=== PATIENT | male | born 1935 | race American Indian/Alaskan Native ===

== ENCOUNTER 2017-11-12 10:50 | Outpatient (CLI) | payer MEDICARE ==
--- NOTE | 2017-11-12 15:41 | Cat Scan Report ---
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 No IV contrast administered. Multiplanar reformations. PRIORS: None. FINDINGS: Chest: Examination limited due to lack of IV contrast administration. The lungs show diffuse bullous and paraseptal emphysematous, as well as probable chronic interstitial or fibrotic changes and scarring scattered fairly symmetrically throughout both lungs. No discrete parenchymal mass, focal consolidation or pleural effusions. No apparent pneumothorax. Mild cardiomegaly and coronary artery calcifications. No apparent aneurysm or pseudoaneurysm. No significant lymph node enlargement or axillary adenopathy. Visualized upper abdomen grossly unremarkable. IMPRESSION: 1. Findings compatible with emphysematous and probable chronic interstitial lung disease, fibrosis or scarring versus nonspecific postinflammatory change or pneumonitis of uncertain etiology or chronicity. Clinical correlation and followup may be warranted. 2. Cardiomegaly and coronary artery calcifications.
== END 2017-11-12 10:51 | disposition home or self-care (01) ==
LOC: CT 10:50
PROVIDERS: ATTEND Internal Medicine
DX: I51.7 Cardiomegaly (principal); I25.10 Atherosclerotic heart disease of native coronary artery without angina pectoris
CPT/HCPCS: 71250

== ENCOUNTER 2018-03-21 14:12 | Inpatient (IN) | payer MEDICARE ==
[2018-03-21] MEDS ORDERED: TESSALON PERLES PO ONE (15:28)
--- NOTE | 2018-03-21 15:39 | Emergency Department Report ---
HPI - General Chief Complaint: Upper Respiratory Infection Time Seen by Provider: 03/21/18 15:05 - HPI HPI: Room 25 The patient is an 83-year-old male presenting with a chief complaint of cough. 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 Willams in any today with a chief complaint of cough, shortness of breath. Chest x-ray reveal ed a left lower lobe pulmonary infiltrate and pleural effusion. Dr Willams sent the patient to the hospital with a note recommending admission to the hospital. Location: Lungs Duration: [See above] Quality: Cough Severity: [See above] Modifying factors: [see above] Context: [see above] Mode of transportation: [not driving] ED Past Medical Hx - Past Medical History Previous Medical History?: Yes Hx Hypertension: Yes Hx CVA: Yes (Left) Hx Diabetes: Yes (Type II) Additional medical history: Dementia - Family History Family history: no significant - Social History Smoking Status: Never Smoker Substance Use Type: None ED Review of Systems ROS: Stated complaint: PNEUMONIA/COUGH Other details as noted in HPI Constitutional: no symptoms reported Eyes: denies: eye pain Respiratory: cough, shortness of breath Endocrine: no symptoms reported Musculoskeletal: arthralgia Physical Exam - Physical Exam Vital Signs: Vital Signs 03/21/18 14:50 Temperature 98.1 F Pulse Rate 95 H Respiratory 16 Rate Blood Pressure 129/70 O2 Sat by Pulse 98 Oximetry Physical Exam: GENERAL: The patient is well-developed well-nourished male lying on stretcher coughing frequently. [] HEENT: Normocephalic. Atraumatic. Extraocular motions are intact. Patient has moist mucous membranes. NECK: Supple. Trachea midline CHEST/LUNGS: Crackles at the right base. Diminished breath sounds at the left base. There is no respiratory distress noted. HEART/CARDIOVASCULAR: Regular. There is no tachycardia. There is no gallop rub or murmur. ABDOMEN: Abdomen is soft, nontender. Patient has normal bowel sounds. There is no abdominal distention. SKIN: There is no rash. There is no edema. There is no diaphoresis. NEURO: The patient is awake, alert, and oriented. The patient is cooperative. The patient has normal speech MUSCULOSKELETAL: There is no evidence of acute injury. ED Course Vital Signs 03/21/18 14:50 Temperature 98.1 F Pulse Rate 95 H Respiratory 16 Rate Blood Pressure 129/70 O2 Sat by Pulse 98 Oximetry ED Medical Decision Making - Lab Data Result diagrams: 03/21/18 15:46 03/21/18 15:46 Laboratory Tests 03/21/18 03/21/18 03/21/18 15:46 15:46 15:46 WBC 7.7 RBC 4.19 Hgb 11.6 L Hct 36.4 MCV 87 MCH 28 MCHC 32 RDW 17.7 H Plt Count 257 PT 16.8 H INR 1.28 H APTT 25.7 Sodium 138 Potassium 3.7 Chloride 99.9 Carbon Dioxide 23 Anion Gap 19 BUN 13 Creatinine 0.9 Estimated GFR > 60 BUN/Creatinine Ratio 14 Glucose 121 H Calcium 9.2 NT-Pro-B Natriuret Pep 216.7 - Radiology Data Radiology results: image reviewed (chest x-ray) interpreted by me: Chest x-ray-large left pleural effusion - Differential Diagnosis pleural effusion, pneumonia Critical care attestation.: If time is entered above; I have spent that time in minutes in the direct care of this critically ill patient, excluding procedure time. ED Disposition Clinical Impression: Pleural effusion, left, Cough, Shortness of breath Disposition: DC-[id number] OP ADMIT IP TO THIS HOSP Is pt being admited?: Yes Does the pt Need Aspirin: Yes Condition: Fair Time of Disposition: 16:26 (hospitalist paged (Dr Vergara))
[2018-03-21 16:02] LABS: Hematocrit 36.4 % (35.5-45.6); Hemoglobin 11.6 gm/dl (11.8-15.2); Mean Corpuscular HGB Conc 32 % (32-34); Mean Corpuscular Volume 87 fl (84-94); Platelet Count 257 K/mm3 (140-440); Red Blood Count 4.19 M/mm3 (3.65-5.03); Red Cell Distribution Width 17.7 % (13.2-15.2)
[2018-03-21 16:14] LABS: BUN/Creatinine Ratio 14; Blood Urea Nitrogen 13 mg/dL (9-20); Calcium 9.2 mg/dL (8.4-10.2); Hemolysis Index 2; INR 1.28 (0.87-1.13)
[2018-03-21 16:15] LABS: Partial Thromboplastin Time 25.7 Sec. (24.2-36.6)
[2018-03-21] MEDS ORDERED: ASPIRIN PO ONE (16:45)
--- NOTE | 2018-03-21 17:12 | XRay Report ---
FINAL REPORT EXAM: XR CHEST 1V AP HISTORY: cough COMPARISON: Chest CT performed on 01/17/2018 TECHNIQUE: Single frontal view of the chest FINDINGS: The cardiomediastinal silhouette is normal in appearance. Hazy opacity in the left lower lobe. Small left pleural effusion. There is no acute soft tissue or osseous abnormality. IMPRESSION: Hazy opacity in the left lower lobe that may reflect infiltrate or atelectasis. Small left pleural ef fusion.
[2018-03-21 17:15] LABS: Band Neutrophils # (Manual) 0.4 K/mm3; Total Cells Counted 100
[2018-03-21 17:16] LABS: Poikilocytosis Few
--- NOTE | 2018-03-21 22:04 | History and Physical Report ---
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 He is found to be short of breath and had a cough productive of yellow phlegm. No further history is able to obtain from the patient Review of systems Constitutional: no weight loss, chills, fever Ears, eyes, nose, mouth and throat: no nasal congestion, no nasal discharge, no sinus pressure, no vision change, no red eye. Neck: No neck pain or rigidity. Cardiovascular: no palpitations, chest pain Respiratory: + cough, shortness of breath Gastrointestinal: no hematochezia, abdominal pain Genitourinary : no frequency , no hematuria Musculoskeletal: no joint swelling or muscle ache Integumentary: no rash, no pruritis Neurological: no parathesias, no focal weakness Endocrine: no cold or heat intolerance, no polyuria or polydipsia Hematologic/Lymphatic: no easy bruising, no easy bleeding, no gland swelling Allergic/Immunologic: no urticaria, no angioedema. PAST MEDICAL HISTORY: hypertension, CVA, dementia PAST SURGICAL HISTORY: Unknown SOCIAL HISTORY: Denies alcohol, drugs, tobacco FAMILY HISTORY: Hypertension Medications and Allergies Allergies Allergy/AdvReac Type Severity Reaction Status Date / Time No Known Allergies Allergy Unverified 11/12/17 10:51 Home Medications Medication Instructions Recorded Confirmed Last Taken Type Acetaminophen [Non-Aspirin] 650 mg PO Q6H PRN 03/21/18 03/21/18 Unknown History Albuterol Sulfate 2.5 mg IH Q6H 03/21/18 03/21/18 Unknown History Aspirin [Aspirin BABY CHEW TAB] 81 mg PO DAILY 03/21/18 03/21/18 Unknown History Diclofenac Sodium [Voltaren] 100 gm TP QID 03/21/18 03/21/18 Unknown History Loratadine [Claritin] 10 mg PO DAILY 03/21/18 03/21/18 Unknown History Metoprolol Xl [Metoprolol 25 mg PO DAILY 03/21/18 03/21/18 Unknown History SUCCINATE ER TAB] Multivit-Min/Iron/Folic Acid/K 1 each PO DAILY 03/21/18 03/21/18 Unknown History [Adults Multivitamin Tablet] Pravastatin Sodium [Pravachol] 40 mg PO QHS 03/21/18 03/21/18 Unknown History Exam - Physical Exam Narrative exam: General Apperance: The patient lying in bed, breathing comfortable HEENT: Normocephalic, atraumatic. Pupils equally round and reactive to light, EOMI, no sclericterus or JVD or thyromegaly or nodule. , no carotid bruit, mucous membranes moist, no exudate or erythema Heart: S1-S2, regular is rhythm Lungs: Crackles over the left base, breathing comfortable Abdomen: Positive bowel sounds, soft, nontender, nondistended, no organomegaly Extremities: No edema cyanosis clubbing Skin: no rash, nodule, warm and dry Neuro: cranial nerves 2-12 intact, speech is fluent, motor/sensory intact - Constitutional Vitals: Temp Pulse Resp BP Pulse Ox 98.1 F 87 22 98/66 99 03/21/18 20:54 03/21/18 21:00 03/21/18 21:00 03/21/18 21:00 03/21/18 20:59 Results - Labs CBC & Chem 7: 03/21/18 15:46 03/21/18 15:46 Labs: Abnormal lab results 03/21/18 03/21/18 03/21/18 Range/Units 15:46 15:46 15:46 Hgb 11.6 L (11.8-15.2) gm/dl RDW 17.7 H (13.2-15.2) % Monocytes % (Manual) 12.0 H (0.0-7.3) % Monocytes # (Manual) 0.9 H (0.0-0.8) K/mm3 PT 16.8 H (12.2-14.9) Sec. INR 1.28 H (0.87-1.13) Glucose 121 H (75-100) mg/dL - Imaging and Cardiology EKG: image reviewed Chest x-ray: report reviewed Assessment and Plan Assessment Community-acquired pneumonia hypertension History of CVA dementia Plan Admit to medicine Start IV antibiotic, follow cultures Continued appropriate outpatient medications DVT prophylaxis
[2018-03-21] MEDS ORDERED: ZOFRAN IV PRN (22:39)
[2018-03-22] MEDS: LEVAQUIN 500MG/100ML 500 MG/100 ML BAG IV SCH ×2 (00:03→09:25)
[2018-03-22] MEDS: SODIUM CHLORIDE FLUSH SYRINGE 10 ML IV PRN (00:10)
[2018-03-22] MEDS: TESSALON PERLES PO PRN ×2 (01:54→23:24)
[2018-03-22 04:27] LABS: Basophils # (Auto) 0.1 K/mm3 (0.0-0.1); Basophils % (Auto) 0.8 % (0.0-1.8); Eosinophils # (Auto) 0.1 K/mm3 (0.0-0.4); Eosinophils % (Auto) 0.9 % (0.0-4.3); Hemoglobin 10.4 gm/dl (11.8-15.2); Lymphocytes # (Auto) 1.4 K/mm3 (1.2-5.4); Lymphocytes % (Auto) 17.2 % (13.4-35.0); Mean Corpuscular HGB Conc 33 % (32-34); Mean Corpuscular Volume 86 fl (84-94); Monocytes # (Auto) 0.9 K/mm3 (0.0-0.8); Monocytes % (Auto) 11.4 % (0.0-7.3); Platelet Count 214 K/mm3 (140-440); Red Blood Count 3.72 M/mm3 (3.65-5.03); Red Cell Distribution Width 17.6 % (13.2-15.2)
[2018-03-22 04:50] LABS: BUN/Creatinine Ratio 17; Blood Urea Nitrogen 12 mg/dL (9-20); Calcium 8.4 mg/dL (8.4-10.2); Hemolysis Index 3
[2018-03-22] MEDS: TOPROL XL PO SCH ×2 (09:25→09:26)
[2018-03-22] MEDS: THERAGRAN-M Tab PO SCH ×2 (09:25→09:26)
[2018-03-22] MEDS: BABY ASPIRIN PO SCH ×2 (09:25→09:26)
[2018-03-22] MEDS: K-DUR PO ONE ×2 (09:25→09:27)
[2018-03-22] MEDS: LOVENOX SUB-Q SCH (09:25)
[2018-03-22] MEDS: SODIUM CHLORIDE FLUSH SYRINGE 10 ML IV SCH ×2 (09:26→22:30)
[2018-03-22] MEDS ORDERED: IRON PO SCH (10:00)
[2018-03-22] MEDS ORDERED: FOLIC ACID PO SCH (10:00)
[2018-03-22] MEDS ORDERED: [UNRECOGNIZED DRUG - OTHER] PO SCH (10:00)
[2018-03-22] MEDS ORDERED: MULTIVIT MIN PO SCH (10:00)
--- NOTE | 2018-03-22 14:11 | Fluoroscopy Report ---
MODIFIED BARIUM SWALLOW History: dysphagia. Findings: Video radiography was provided by the radiologist for speech therapy to assess the swallowing mechanism. 1 fluoroscopic image was captured. Impression: Successful modified barium swallow.
--- NOTE | 2018-03-22 14:47 | Progress Note ---
Assessment and Plan Assessment and plan: --Community-acquired pneumonia; Continue empiric antibiotics, follow cultures, oxygen titrated to O2 sats more than 90% --Aspiration risk; patient underwent swallow evaluation Speech therapist recommended pured diet --Hypertension; moderate control, continue current antihypertensives When necessary medications --Dementia; supportive care --DVT prophylaxis; Lovenox --CODE STATUS, full code Closely monitor the patient and adjust the management as needed Physical therapy and occupational therapy Possible discharge in 1-2 days if stable History Interval history: Patient seen and examined medical records reviewed Patient has aspiration risk some cough while eating Speech and swallow evaluated the patient, significant risk of aspiration Patient had modified barium swallow, speech therapist recommended pure diet Elderly male patient is alert and awake not in acute distress Vital signs reviewed Hospitalist Physical - Constitutional Vitals: Temp Pulse Resp BP Pulse Ox 98.1 F 80 20 123/73 99 03/22/18 07:35 03/22/18 10:00 03/22/18 10:00 03/22/18 07:35 03/22/18 09:18 General appearance: Present: no acute distress, well-nourished, other (confused at times) - EENT Eyes: Present: PERRL, EOM intact - Neck Neck: Present: supple, normal ROM - Respiratory Respiratory effort: normal Respiratory: bilateral: diminished, negative: rales, rhonchi, wheezing - Cardiovascular Rhythm: regular Heart Sounds: Present: S1 & S2 - Extremities Extremities: no ischemia, No edema - Abdominal General gastrointestinal: soft, non-tender, non-distended, normal bowel sounds - Integumentary Integumentary: Present: clear, warm - Psychiatric Psychiatric: appropriate mood/affect, cooperative - Neurologic Neurologic: CNII-XII intact, moves all extremities Results - Labs CBC & Chem 7: 03/22/18 03:20 03/22/18 03:20 Labs: Laboratory Last Values WBC 8.0 K/mm3 (4.5-11.0) 03/22/18 03:20 RBC 3.72 M/mm3 (3.65-5.03) 03/22/18 03:20 Hgb 10.4 gm/dl (11.8-15.2) L 03/22/18 03:20 Hct 32.0 % (35.5-45.6) L 03/22/18 03:20 MCV 86 fl (84-94) 03/22/18 03:20 MCH 28 pg (28-32) 03/22/18 03:20 MCHC 33 % (32-34) 03/22/18 03:20 RDW 17.6 % (13.2-15.2) H 03/22/18 03:20 Plt Count 214 K/mm3 (140-440) 03/22/18 03:20 Lymph % (Auto) 17.2 % (13.4-35.0) 03/22/18 03:20 Toole % (Auto) 11.4 % (0.0-7.3) H 03/22/18 03:20 Eos % (Auto) 0.9 % (0.0-4.3) 03/22/18 03:20 Baso % (Auto) 0.8 % (0.0-1.8) 03/22/18 03:20 Lymph # 1.4 K/mm3 (1.2-5.4) 03/22/18 03:20 Toole # 0.9 K/mm3 (0.0-0.8) H 03/22/18 03:20 Eos # 0.1 K/mm3 (0.0-0.4) 03/22/18 03:20 Baso # 0.1 K/mm3 (0.0-0.1) 03/22/18 03:20 Add Manual Diff Complete 03/21/18 15:46 Total Counted 100 03/21/18 15:46 Seg Neutrophils % 69.7 % (40.0-70.0) 03/22/18 03:20 Seg Neuts % (Manual) 58.0 % (40.0-70.0) 03/21/18 15:46 Band Neutrophils % 5.0 % 03/21/18 15:46 Lymphocytes % (Manual) 23.0 % (13.4-35.0) 03/21/18 15:46 Reactive Lymphs % (Man) 0 % 03/21/18 15:46 Monocytes % (Manual) 12.0 % (0.0-7.3) H 03/21/18 15:46 Eosinophils % (Manual) 1.0 % (0.0-4.3) 03/21/18 15:46 Basophils % (Manual) 1.0 % (0.0-1.8) 03/21/18 15:46 Metamyelocytes % 0 % 03/21/18 15:46 Myelocytes % 0 % 03/21/18 15:46 Promyelocytes % 0 % 03/21/18 15:46 Blast Cells % 0 % 03/21/18 15:46 Nucleated RBC % Not Reportable 03/21/18 15:46 Seg Neutrophils # 5.6 K/mm3 (1.8-7.7) 03/22/18 03:20 Seg Neutrophils # Man 4.5 K/mm3 (1.8-7.7) 03/21/18 15:46 Band Neutrophils # 0.4 K/mm3 03/21/18 15:46 Lymphocytes # (Manual) 1.8 K/mm3 (1.2-5.4) 03/21/18 15:46 Abs React Lymphs (Man) 0.0 K/mm3 03/21/18 15:46 Monocytes # (Manual) 0.9 K/mm3 (0.0-0.8) H 03/21/18 15:46 Eosinophils # (Manual) 0.1 K/mm3 (0.0-0.4) 03/21/18 15:46 Basophils # (Manual) 0.1 K/mm3 (0.0-0.1) 03/21/18 15:46 Metamyelocytes # 0.0 K/mm3 03/21/18 15:46 Myelocytes # 0.0 K/mm3 03/21/18 15:46 Promyelocytes # 0.0 K/mm3 03/21/18 15:46 Blast Cells # 0.0 K/mm3 03/21/18 15:46 WBC Morphology Not Reportable 03/21/18 15:46 Hypersegmented Neuts Not Reportable 03/21/18 15:46 Hyposegmented Neuts Not Reportable 03/21/18 15:46 Hypogranular Neuts Not Reportable 03/21/18 15:46 Smudge Cells Not Reportable 03/21/18 15:46 Toxic Granulation Not Reportable 03/21/18 15:46 Toxic Vacuolation Not Reportable 03/21/18 15:46 Dohle Bodies Not Reportable 03/21/18 15:46 Pelger-Huet Anomaly Not Reportable 03/21/18 15:46 Cheikh Rods Not Reportable 03/21/18 15:46 Platelet Estimate Appears normal 03/21/18 15:46 Clumped Platelets Not Reportable 03/21/18 15:46 Plt Clumps, EDTA Not Reportable 03/21/18 15:46 Large Platelets Not Reportable 03/21/18 15:46 Giant Platelets Not Reportable 03/21/18 15:46 Platelet Satelliting Not Reportable 03/21/18 15:46 Plt Morphology Comment Not Reportable 03/21/18 15:46 RBC Morphology Not Reportable 03/21/18 15:46 Dimorphic RBCs Not Reportable 03/21/18 15:46 Polychromasia Not Reportable 03/21/18 15:46 Hypochromasia Not Reportable 03/21/18 15:46 Poikilocytosis Few 03/21/18 15:46 Anisocytosis Not Reportable 03/21/18 15:46 Microcytosis Not Reportable 03/21/18 15:46 Macrocytosis Not Reportable 03/21/18 15:46 Spherocytes Not Reportable 03/21/18 15:46 Pappenheimer Bodies Not Reportable 03/21/18 15:46 Sickle Cells Not Reportable 03/21/18 15:46 Target Cells Not Reportable 03/21/18 15:46 Tear Drop Cells Not Reportable 03/21/18 15:46 Ovalocytes Not Reportable 03/21/18 15:46 Helmet Cells Not Reportable 03/21/18 15:46 Murillo-Ryan Bodies Not Reportable 03/21/18 15:46 Celina Rings Not Reportable 03/21/18 15:46 Aledo Cells Not Reportable 03/21/18 15:46 Bite Cells Not Reportable 03/21/18 15:46 Crenated Cell Not Reportable 03/21/18 15:46 Elliptocytes Not Reportable 03/21/18 15:46 Acanthocytes (Spur) Not Reportable 03/21/18 15:46 Rouleaux Not Reportable 03/21/18 15:46 Hemoglobin C Crystals Not Reportable 03/21/18 15:46 Schistocytes Not Reportable 03/21/18 15:46 Malaria parasites Not Reportable 03/21/18 15:46 Robert Bodies Not Reportable 03/21/18 15:46 Hem Pathologist Commnt No 03/21/18 15:46 PT 16.8 Sec. (12.2-14.9) H 03/21/18 15:46 INR 1.28 (0.87-1.13) H 03/21/18 15:46 APTT 25.7 Sec. (24.2-36.6) 03/21/18 15:46 Sodium 138 mmol/L (137-145) 03/22/18 03:20 Potassium 3.5 mmol/L (3.6-5.0) L 03/22/18 03:20 Chloride 102.3 mmol/L (98-107) 03/22/18 03:20 Carbon Dioxide 22 mmol/L (22-30) 03/22/18 03:20 Anion Gap 17 mmol/L 03/22/18 03:20 BUN 12 mg/dL (9-20) 03/22/18 03:20 Creatinine 0.7 mg/dL (0.8-1.5) L 03/22/18 03:20 Estimated GFR > 60 ml/min 03/22/18 03:20 BUN/Creatinine Ratio 17 % 03/22/18 03:20 Glucose 98 mg/dL (75-100) 03/22/18 03:20 Calcium 8.4 mg/dL (8.4-10.2) 03/22/18 03:20 NT-Pro-B Natriuret Pep 216.7 pg/mL (0-900) 03/21/18 15:46 Nutrition/Malnutrition Assess - Dietary Evaluation Nutrition/Malnutrition Findings: Nutrition Notes Start: 03/22/18 09: 49 Freq: Status: Active Protocol: Document 03/22/18 09:49 TW (Rec: 03/22/18 10:27 TW [id number]) Co-Sign 03/22/18 09:49 RM Nutrition Notes Need for Assessment 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 Pertinent Medications Lovenox Height 5 ft 9 in Weight 64.864 kg [place]ashion Body Weight (kg) 72.72 BMI 21.1 Subjective/Other Information RN screen for skin risk. Esteban score: 17. Pt asleep at time of visit. Observed breakfast tray not eaten. Per RN, pt is unable to swallow and speech has been consulted. Percent of energy/protein needs met: 0%/0% Burn Absent Trauma Absent #1 Nutrition Diagnosis Inadequate oral intake Etiology Chewing and swallowing difficulty As Evidenced by Signs and Symptoms Pt meeting 0% of energy and protein needs Is patient on ventilator? No Is Patient Ambulatory and/or Out of Bed No REE-([facility]-confined to bed) 1602.108 Calculation Used for Recommendations [facility] Additional Notes Protein needs: (1-1.2) (65-78 g/day) fluid needs: 1ml/ kcal Nutrition Intervention Change Diet Order: Per Goal #1 Swallow evaluation Anticipated Discharge Needs: unable to determine at this time Follow-Up By: 03/26/18 Additional Comments F/U for swallow evaluation results and PO intake
[2018-03-22] MEDS: KCL 10MEQ/100ML 10 MEQ/100 ML BAG IV SCH ×3 (17:12→19:31)
[2018-03-22] MEDS: PRAVACHOL PO SCH (21:19)
[2018-03-23] MEDS: TYLENOL PO PRN ×2 (03:00→20:57)
[2018-03-23 06:17] LABS: BUN/Creatinine Ratio 14; Blood Urea Nitrogen 11 mg/dL (9-20); Calcium 8.3 mg/dL (8.4-10.2); Hemolysis Index 74
--- NOTE | 2018-03-23 07:40 | Progress Note ---
Assessment and Plan Assessment and plan: --Lt lower lobe pneumonia; Possible aspiration pneumonia Speech and swallow evaluated, modified barium swallow Recommended pured diet, aspiration precautions empiric antibiotics,f/u cultures, o2,titrated to O2 sats > 90% --Aspiration risk; s/o MBS, Speech therapist recommended pured diet --Hypertension;stable continue current antihypertensives When necessary medications --Dementia; supportive care --DVT prophylaxis; Lovenox --CODE STATUS, full code --Physical therapy occupational therapy Closely monitor the patient and adjust the management as needed Possible discharge in 1-2 days if stable History Interval history: Patient seen and examined medical records reviewed Patient feels better tolerating pureed diet Alert and awake ,responds appropriately Vital signs noted Hospitalist Physical - Constitutional Vitals: Temp Pulse Resp BP Pulse Ox 98.5 F 93 H 18 123/69 97 03/23/18 03:10 03/23/18 03:10 03/23/18 03:10 03/23/18 03:10 03/23/18 03:10 General appearance: Present: no acute distress, well-nourished, other (confused at times) - EENT Eyes: Present: PERRL, EOM intact - Neck Neck: Present: supple, normal ROM - Respiratory Respiratory effort: normal Respiratory: bilateral: diminished, negative: rales, rhonchi, wheezing - Cardiovascular Rhythm: regular Heart Sounds: Present: S1 & S2 - Extremities Extremities: no ischemia, No edema - Abdominal General gastrointestinal: soft, non-tender, normal bowel sounds - Integumentary Integumentary: Present: clear, warm - Psychiatric Psychiatric: appropriate mood/affect - Neurologic Neurologic: moves all extremities Results - Labs CBC & Chem 7: 03/22/18 03:20 03/23/18 05:33 Labs: Laboratory Last Values WBC 8.0 K/mm3 (4.5-11.0) 03/22/18 03:20 RBC 3.72 M/mm3 (3.65-5.03) 03/22/18 03:20 Hgb 10.4 gm/dl (11.8-15.2) L 03/22/18 03:20 Hct 32.0 % (35.5-45.6) L 03/22/18 03:20 MCV 86 fl (84-94) 03/22/18 03:20 MCH 28 pg (28-32) 03/22/18 03:20 MCHC 33 % (32-34) 03/22/18 03:20 RDW 17.6 % (13.2-15.2) H 03/22/18 03:20 Plt Count 214 K/mm3 (140-440) 03/22/18 03:20 Lymph % (Auto) 17.2 % (13.4-35.0) 03/22/18 03:20 [place] % (Auto) 11.4 % (0.0-7.3) H 03/22/18 03:20 Eos % (Auto) 0.9 % (0.0-4.3) 03/22/18 03:20 Baso % (Auto) 0.8 % (0.0-1.8) 03/22/18 03:20 Lymph # 1.4 K/mm3 (1.2-5.4) 03/22/18 03:20 [place] # 0.9 K/mm3 (0.0-0.8) H 03/22/18 03:20 Eos # 0.1 K/mm3 (0.0-0.4) 03/22/18 03:20 Baso # 0.1 K/mm3 (0.0-0.1) 03/22/18 03:20 Add Manual Diff Complete 03/21/18 15:46 Total Counted 100 03/21/18 15:46 Seg Neutrophils % 69.7 % (40.0-70.0) 03/22/18 03:20 Seg Neuts % (Manual) 58.0 % (40.0-70.0) 03/21/18 15:46 Band Neutrophils % 5.0 % 03/21/18 15:46 Lymphocytes % (Manual) 23.0 % (13.4-35.0) 03/21/18 15:46 Reactive Lymphs % (Man) 0 % 03/21/18 15:46 Monocytes % (Manual) 12.0 % (0.0-7.3) H 03/21/18 15:46 Eosinophils % (Manual) 1.0 % (0.0-4.3) 03/21/18 15:46 Basophils % (Manual) 1.0 % (0.0-1.8) 03/21/18 15:46 Metamyelocytes % 0 % 03/21/18 15:46 Myelocytes % 0 % 03/21/18 15:46 Promyelocytes % 0 % 03/21/18 15:46 Blast Cells % 0 % 03/21/18 15:46 Nucleated RBC % Not Reportable 03/21/18 15:46 Seg Neutrophils # 5.6 K/mm3 (1.8-7.7) 03/22/18 03:20 Seg Neutrophils # Man 4.5 K/mm3 (1.8-7.7) 03/21/18 15:46 Band Neutrophils # 0.4 K/mm3 03/21/18 15:46 Lymphocytes # (Manual) 1.8 K/mm3 (1.2-5.4) 03/21/18 15:46 Abs React Lymphs (Man) 0.0 K/mm3 03/21/18 15:46 Monocytes # (Manual) 0.9 K/mm3 (0.0-0.8) H 03/21/18 15:46 Eosinophils # (Manual) 0.1 K/mm3 (0.0-0.4) 03/21/18 15:46 Basophils # (Manual) 0.1 K/mm3 (0.0-0.1) 03/21/18 15:46 Metamyelocytes # 0.0 K/mm3 03/21/18 15:46 Myelocytes # 0.0 K/mm3 03/21/18 15:46 Promyelocytes # 0.0 K/mm3 03/21/18 15:46 Blast Cells # 0.0 K/mm3 03/21/18 15:46 WBC Morphology Not Reportable 03/21/18 15:46 Hypersegmented Neuts Not Reportable 03/21/18 15:46 Hyposegmented Neuts Not Reportable 03/21/18 15:46 Hypogranular Neuts Not Reportable 03/21/18 15:46 Smudge Cells Not Reportable 03/21/18 15:46 Toxic Granulation Not Reportable 03/21/18 15:46 Toxic Vacuolation Not Reportable 03/21/18 15:46 Dohle Bodies Not Reportable 03/21/18 15:46 Pelger-Huet Anomaly Not Reportable 03/21/18 15:46 Cheikh Rods Not Reportable 03/21/18 15:46 Platelet Estimate Appears normal 03/21/18 15:46 Clumped Platelets Not Reportable 03/21/18 15:46 Plt Clumps, EDTA Not Reportable 03/21/18 15:46 Large Platelets Not Reportable 03/21/18 15:46 Giant Platelets Not Reportable 03/21/18 15:46 Platelet Satelliting Not Reportable 03/21/18 15:46 Plt Morphology Comment Not Reportable 03/21/18 15:46 RBC Morphology Not Reportable 03/21/18 15:46 Dimorphic RBCs Not Reportable 03/21/18 15:46 Polychromasia Not Reportable 03/21/18 15:46 Hypochromasia Not Reportable 03/21/18 15:46 Poikilocytosis Few 03/21/18 15:46 Anisocytosis Not Reportable 03/21/18 15:46 Microcytosis Not Reportable 03/21/18 15:46 Macrocytosis Not Reportable 03/21/18 15:46 Spherocytes Not Reportable 03/21/18 15:46 Pappenheimer Bodies Not Reportable 03/21/18 15:46 Sickle Cells Not Reportable 03/21/18 15:46 Target Cells Not Reportable 03/21/18 15:46 Tear Drop Cells Not Reportable 03/21/18 15:46 Ovalocytes Not Reportable 03/21/18 15:46 Helmet Cells Not Reportable 03/21/18 15:46 Murillo-[place] Bodies Not Reportable 03/21/18 15:46 [place] Rings Not Reportable 03/21/18 15:46 [place] Cells Not Reportable 03/21/18 15:46 Bite Cells Not Reportable 03/21/18 15:46 Crenated Cell Not Reportable 03/21/18 15:46 Elliptocytes Not Reportable 03/21/18 15:46 Acanthocytes (Spur) Not Reportable 03/21/18 15:46 Rouleaux Not Reportable 03/21/18 15:46 Hemoglobin C Crystals Not Reportable 03/21/18 15:46 Schistocytes Not Reportable 03/21/18 15:46 Malaria parasites Not Reportable 03/21/18 15:46 Robert Bodies Not Reportable 03/21/18 15:46 Hem Pathologist Commnt No 03/21/18 15:46 PT 16.8 Sec. (12.2-14.9) H 03/21/18 15:46 INR 1.28 (0.87-1.13) H 03/21/18 15:46 APTT 25.7 Sec. (24.2-36.6) 03/21/18 15:46 Sodium 135 mmol/L (137-145) L 03/23/18 05:33 Potassium 4.1 mmol/L (3.6-5.0) 03/23/18 05:33 Chloride 103.4 mmol/L (98-107) 03/23/18 05:33 Carbon Dioxide 20 mmol/L (22-30) L 03/23/18 05:33 Anion Gap 16 mmol/L 03/23/18 05:33 BUN 11 mg/dL (9-20) 03/23/18 05:33 Creatinine 0.8 mg/dL (0.8-1.5) 03/23/18 05:33 Estimated GFR > 60 ml/min 03/23/18 05:33 BUN/Creatinine Ratio 14 % 03/23/18 05:33 Glucose 99 mg/dL (75-100) 03/23/18 05:33 Calcium 8.3 mg/dL (8.4-10.2) L 03/23/18 05:33 NT-Pro-B Natriuret Pep 216.7 pg/mL (0-900) 03/21/18 15:46 Nutrition/Malnutrition Assess - Dietary Evaluation Nutrition/Malnutrition Findings: Nutrition Notes Start: 03/22/18 09:49 Freq: Status: Active Protocol: Document 03/22/18 09:49 TW (Rec: 03/22/18 10:27 TW [id number]) Co-Sign 03/22/18 09:49 RM Nutrition Notes Need for Assessment generated from: ostomy nurse Initial or Follow up Assessment Current Diagnosis Hypertension Stroke Other Pertinent Diagnosis Dementia, SOB, Pneu Current Diet Mechanical soft Labs/Tests Reviewed. Pertinent Medications Lovenox Height 5 ft 9 in Weight 64.864 kg [place] Body Weight (kg) 72.72 BMI 21.1 Subjective/Other Information RN screen for skin risk. Esteban score: 17. Pt asleep at time of visit. Observed breakfast tray not eaten. Per RN, pt is unable to swallow and speech has been consulted. Percent of energy/protein needs met: 0%/0% Burn Absent Trauma Absent #1 Nutrition Diagnosis Inadequate oral intake Etiology Chewing and swallowing difficulty As Evidenced by Signs and Symptoms Pt meeting 0% of energy and protein needs Is patient on ventilator? No Is Patient Ambulatory and/or Out of Bed No REE-([facility]-confined to bed) 1602.108 Calculation Used for Recommendations [facility] Additional Notes Protein needs: (1-1.2) (65-78 g/day) fluid needs: 1ml/ kcal Nutrition Intervention Change Diet Order: Per Goal #1 Swallow evaluation Anticipated Discharge Needs: unable to determine at this time Follow-Up By: 03/26/18 Additional Comments F/U for swallow evaluation results and PO intake
[2018-03-23] MEDS: THERAGRAN-M Tab PO SCH (10:06)
[2018-03-23] MEDS: SODIUM CHLORIDE FLUSH SYRINGE 10 ML IV SCH ×2 (10:06→21:00)
[2018-03-23] MEDS: LEVAQUIN 500MG/100ML 500 MG/100 ML BAG IV SCH (10:06)
[2018-03-23] MEDS: LOVENOX SUB-Q SCH (10:06)
[2018-03-23] MEDS: BABY ASPIRIN PO SCH (10:06)
[2018-03-23] MEDS: TOPROL XL PO SCH (10:13)
[2018-03-23] MEDS ORDERED: PROVENTIL IH PRN ×2 (16:15→16:19)
[2018-03-23] MEDS: PRAVACHOL PO SCH (21:00)
[2018-03-24] MEDS: TESSALON PERLES PO PRN (03:43)
[2018-03-24 05:07] LABS: Alanine Aminotransferase 29 units/L (7-56); Albumin 2.7 g/dL (3.9-5); BUN/Creatinine Ratio 15; Blood Urea Nitrogen 12 mg/dL (9-20); Calcium 8.8 mg/dL (8.4-10.2); Hemolysis Index 1
--- NOTE | 2018-03-24 08:09 | Progress Note ---
Assessment and Plan Assessment and plan: --Lt lower lobe pneumonia; Possible aspiration pneumonia Speech and swallow evaluated, modified barium swallow Recommended pured diet, aspiration precautions empiric antibiotics,f/u cultures, o2,titrated to O2 sats > 90% --Aspiration risk; s/o MBS, Speech therapist recommended pured diet --Hypertension;stable continue current antihypertensives When necessary medications --Dementia; supportive care --Severe mal nutrition/Hypoalbuminemia: nutrition suppliments --DVT prophylaxis; Lovenox --CODE STATUS, full code --Physical therapy occupational therapy Closely monitor the patient and adjust the management as needed Possible discharge in 1-2 days if stable History Interval history: Patient seen and examined medical records reviewed No new events reported by nursing staff Alert awake responding appropriately Vital signs reviewed Hospitalist Physical - Constitutional Vitals: Temp Pulse Resp BP Pulse Ox 97.8 F 90 22 127/72 95 03/24/18 03:15 03/24/18 03:15 03/24/18 03:15 03/24/18 03:15 03/24/18 03:15 General appearance: Present: no acute distress, well-nourished, other (confused at times) - EENT Eyes: Present: PERRL, EOM intact - Neck Neck: Present: supple, normal ROM - Respiratory Respiratory effort: normal Respiratory: bilateral: diminished, negative: rales, rhonchi, wheezing - Cardiovascular Rhythm: regular Heart Sounds: Present: S1 & S2 - Extremities Extremities: no ischemia, No edema - Abdominal General gastrointestinal: soft, non-tender, non-distended, normal bowel sounds - Integumentary Integumentary: Present: clear, warm - Psychiatric Psychiatric: other (dementia) - Neurologic Neurologic: moves all extremities Results - Labs CBC & Chem 7: 03/22/18 03:20 03/24/18 04:23 Labs: Laboratory Last Values WBC 8.0 K/mm3 (4.5-11.0) 03/22/18 03:20 RBC 3.72 M/mm3 (3.65-5.03) 03/22/18 03:20 Hgb 10.4 gm/dl (11.8-15.2) L 03/22/18 03:20 Hct 32.0 % (35.5-45.6) L 03/22/18 03:20 MCV 86 fl (84-94) 03/22/18 03:20 MCH 28 pg (28-32) 03/22/18 03:20 MCHC 33 % (32-34) 03/22/18 03:20 RDW 17.6 % (13.2-15.2) H 03/22/18 03:20 Plt Count 214 K/mm3 (140-440) 03/22/18 03:20 Lymph % (Auto) 17.2 % (13.4-35.0) 03/22/18 03:20 [place] % (Auto) 11.4 % (0.0-7.3) H 03/22/18 03:20 Eos % (Auto) 0.9 % (0.0-4.3) 03/22/18 03:20 Baso % (Auto) 0.8 % (0.0-1.8) 03/22/18 03:20 Lymph # 1.4 K/mm3 (1.2-5.4) 03/22/18 03:20 Cole # 0.9 K/mm3 (0.0-0.8) H 03/22/18 03:20 Eos # 0.1 K/mm3 (0.0-0.4) 03/22/18 03:20 Baso # 0.1 K/mm3 (0.0-0.1) 03/22/18 03:20 Add Manual Diff Complete 03/21/18 15:46 Total Counted 100 03/21/18 15:46 Seg Neutrophils % 69.7 % (40.0-70.0) 03/22/18 03:20 Seg Neuts % (Manual) 58.0 % (40.0-70.0) 03/21/18 15:46 Band Neutrophils % 5.0 % 03/21/18 15:46 Lymphocytes % (Manual) 23.0 % (13.4-35.0) 03/21/18 15:46 Reactive Lymphs % (Man) 0 % 03/21/18 15:46 Monocytes % (Manual) 12.0 % (0.0-7.3) H 03/21/18 15:46 Eosinophils % (Manual) 1.0 % (0.0-4.3) 03/21/18 15:46 Basophils % (Manual) 1.0 % (0.0-1.8) 03/21/18 15:46 Metamyelocytes % 0 % 03/21/18 15:46 Myelocytes % 0 % 03/21/18 15:46 Promyelocytes % 0 % 03/21/18 15:46 Blast Cells % 0 % 03/21/18 15:46 Nucleated RBC % Not Reportable 03/21/18 15:46 Seg Neutrophils # 5.6 K/mm3 (1.8-7.7) 03/22/18 03:20 Seg Neutrophils # Man 4.5 K/mm3 (1.8-7.7) 03/21/18 15:46 Band Neutrophils # 0.4 K/mm3 03/21/18 15:46 Lymphocytes # (Manual) 1.8 K/mm3 (1.2-5.4) 03/21/18 15:46 Abs React Lymphs (Man) 0.0 K/mm3 03/21/18 15:46 Monocytes # (Manual) 0.9 K/mm3 (0.0-0.8) H 03/21/18 15:46 Eosinophils # (Manual) 0.1 K/mm3 (0.0-0.4) 03/21/18 15:46 Basophils # (Manual) 0.1 K/mm3 (0.0-0.1) 03/21/18 15:46 Metamyelocytes # 0.0 K/mm3 03/21/18 15:46 Myelocytes # 0.0 K/mm3 03/21/18 15:46 Promyelocytes # 0.0 K/mm3 03/21/18 15:46 Blast Cells # 0.0 K/mm3 03/21/18 15:46 WBC Morphology Not Reportable 03/21/18 15:46 Hypersegmented Neuts Not Reportable 03/21/18 15:46 Hyposegmented Neuts Not Reportable 03/21/18 15:46 Hypogranular Neuts Not Reportable 03/21/18 15:46 Smudge Cells Not Reportable 03/21/18 15:46 Toxic Granulation Not Reportable 03/21/18 15:46 Toxic Vacuolation Not Reportable 03/21/18 15:46 Dohle Bodies Not Reportable 03/21/18 15:46 Pelger-Huet Anomaly Not Reportable 03/21/18 15:46 Cheikh Rods Not Reportable 03/21/18 15:46 Platelet Estimate Appears normal 03/21/18 15:46 Clumped Platelets Not Reportable 03/21/18 15:46 Plt Clumps, EDTA Not Reportable 03/21/18 15:46 Large Platelets Not Reportable 03/21/18 15:46 Giant Platelets Not Reportable 03/21/18 15:46 Platelet Satelliting Not Reportable 03/21/18 15:46 Plt Morphology Comment Not Reportable 03/21/18 15:46 RBC Morphology Not Reportable 03/21/18 15:46 Dimorphic RBCs Not Reportable 03/21/18 15:46 Polychromasia Not Reportable 03/21/18 15:46 Hypochromasia Not Reportable 03/21/18 15:46 Poikilocytosis Few 03/21/18 15:46 Anisocytosis Not Reportable 03/21/18 15:46 Microcytosis Not Reportable 03/21/18 15:46 Macrocytosis Not Reportable 03/21/18 15:46 Spherocytes Not Reportable 03/21/18 15:46 Pappenheimer Bodies Not Reportable 03/21/18 15:46 Sickle Cells Not Reportable 03/21/18 15:46 Target Cells Not Reportable 03/21/18 15:46 Tear Drop Cells Not Reportable 03/21/18 15:46 Ovalocytes Not Reportable 03/21/18 15:46 Helmet Cells Not Reportable 03/21/18 15:46 Murillo-[place] Bodies Not Reportable 03/21/18 15:46 [place] Rings Not Reportable 03/21/18 15:46 [place] Cells Not Reportable 03/21/18 15:46 Bite Cells Not Reportable 03/21/18 15:46 Crenated Cell Not Reportable 03/21/18 15:46 Elliptocytes Not Reportable 03/21/18 15:46 Acanthocytes (Spur) Not Reportable 03/21/18 15:46 Rouleaux Not Reportable 03/21/18 15:46 Hemoglobin C Crystals Not Reportable 03/21/18 15:46 Schistocytes Not Reportable 03/21/18 15:46 Malaria parasites Not Reportable 03/21/18 15:46 Robert Bodies Not Reportable 03/21/18 15:46 Hem Pathologist Commnt No 03/21/18 15:46 PT 16.8 Sec. (12.2-14.9) H 03/21/18 15:46 INR 1.28 (0.87-1.13) H 03/21/18 15:46 APTT 25.7 Sec. (24.2-36.6) 03/21/18 15:46 Sodium 139 mmol/L (137-145) 03/24/18 04:23 Potassium 3.9 mmol/L (3.6-5.0) 03/24/18 04:23 Chloride 103.3 mmol/L (98-107) 03/24/18 04:23 Carbon Dioxide 23 mmol/L (22-30) 03/24/18 04:23 Anion Gap 17 mmol/L 03/24/18 04:23 BUN 12 mg/dL (9-20) 03/24/18 04:23 Creatinine 0.8 mg/dL (0.8-1.5) 03/24/18 04:23 Estimated GFR > 60 ml/min 03/24/18 04:23 BUN/Creatinine Ratio 15 % 03/24/18 04:23 Glucose 113 mg/dL (75-100) H 03/24/18 04:23 Calcium 8.8 mg/dL (8.4-10.2) 03/24/18 04:23 Total Bilirubin 0.40 mg/dL (0.1-1.2) 03/24/18 04:23 AST 26 units/L (5-40) 03/24/18 04:23 ALT 29 units/L (7-56) 03/24/18 04:23 Alkaline Phosphatase 80 units/L (35-129) 03/24/18 04:23 NT-Pro-B Natriuret Pep 216.7 pg/mL (0-900) 03/21/18 15:46 Total Protein 7.3 g/dL (6.3-8.2) 03/24/18 04:23 Albumin 2.7 g/dL (3.9-5) L 03/24/18 04:23 Albumin/Globulin Ratio 0.6 % 03/24/18 04:23 Nutrition/Malnutrition Assess - Dietary Evaluation Nutrition/Malnutrition Findings: Nutrition Notes Start: 03/22/18 09:49 Freq: Status: Active Protocol: Document 03/22/18 09:49 TW (Rec: 03/22/18 10:27 TW [id number]) Co-Sign 03/22/18 09:49 RM Nutrition Notes Need for Assessment generated from: deputy fire chief Initial or Follow up Assessment Current Diagnosis Hypertension Stroke Other Pertinent Diagnosis Dementia, SOB, Pneu Current Diet Mechanical soft Labs/Tests Reviewed. Pertinent Medications Lovenox Height 5 ft 9 in Weight 64.864 kg [place] Body Weight (kg) 72.72 BMI 21.1 Subjective/Other Information RN screen for skin risk. Esteban score: 17. Pt asleep at time of visit. Observed breakfast tray not eaten. Per RN, pt is unable to swallow and speech has been consulted. Percent of energy/protein needs met: 0%/0% Burn Absent Trauma Absent #1 Nutrition Diagnosis Inadequate oral intake Etiology Chewing and swallowing difficulty As Evidenced by Signs and Symptoms Pt meeting 0% of energy and protein needs Is patient on ventilator? No Is Patient Ambulatory and/or Out of Bed No REE-([facility]-confined to bed) 1602.108 Calculation Used for Recommendations [facility] Additional Notes Protein needs: (1-1.2) (65-78 g/day) fluid needs: 1ml/ kcal Nutrition Intervention Change Diet Order: Per Goal #1 Swallow evaluation Anticipated Discharge Needs: unable to determine at this time Follow-Up By: 03/26/18 Additional Comments F/U for swallow evaluation results and PO intake
[2018-03-24] MEDS: LOVENOX SUB-Q SCH (10:31)
[2018-03-24] MEDS: TYLENOL PO PRN (10:31)
[2018-03-24] MEDS: BABY ASPIRIN PO SCH (10:32)
[2018-03-24] MEDS: SODIUM CHLORIDE FLUSH SYRINGE 10 ML IV SCH ×2 (10:32→22:05)
[2018-03-24] MEDS: THERAGRAN-M Tab PO SCH (10:32)
[2018-03-24] MEDS: TOPROL XL PO SCH (10:32)
[2018-03-24] MEDS: LEVAQUIN 500MG/100ML 500 MG/100 ML BAG IV SCH (17:08)
[2018-03-24] MEDS: PRAVACHOL PO SCH (22:05)
[2018-03-25] MEDS: LEVAQUIN 500MG/100ML 500 MG/100 ML BAG IV SCH (09:38)
[2018-03-25] MEDS: LOVENOX SUB-Q SCH (09:39)
[2018-03-25] MEDS: THERAGRAN-M Tab PO SCH (09:39)
[2018-03-25] MEDS: BABY ASPIRIN PO SCH (09:39)
[2018-03-25] MEDS: TOPROL XL PO SCH (09:41)
[2018-03-25] MEDS: SODIUM CHLORIDE FLUSH SYRINGE 10 ML IV SCH ×2 (09:41→23:23)
--- NOTE | 2018-03-25 13:11 | Progress Note ---
Assessment and Plan Assessment and plan: --Hypertension;stable continue current antihypertensives When necessary medications --Dementia; supportive care --Lt lower lobe pneumonia; Possible aspiration pneumonia Speech and swallow evaluated, modified barium swallow Recommended pured diet, aspiration precautions empiric antibiotics,f/u cultures, o2,titrated to O2 sats > 90% --Aspiration risk; s/o MBS, Speech therapist recommended pured diet --Severe mal nutrition/Hypoalbuminemia: nutrition suppliments --DVT prophylaxis; Lovenox --CODE STATUS, full code --Physical therapy occupational therapy Possible discharge back to SNF in 1-2 days if stable Closely monitor the patient and adjust the management as needed Possible discharge in 1-2 days if stable History Interval history: Patient seen and examined medical records reviewed No new events reported by the nursing staff Patient is comfortable, vital signs noted Not in acute distress Hospitalist Physical - Constitutional Vitals: Temp Pulse Resp BP Pulse Ox 98.6 F 88 20 103/63 94 03/25/18 01:42 03/25/18 10:00 03/25/18 01:42 03/25/18 09:41 03/25/18 10:00 General appearance: Present: no acute distress, well-nourished, other (confused at times) - EENT Eyes: Present: PERRL, EOM intact - Neck Neck: Present: supple, normal ROM - Respiratory Respiratory effort: normal Respiratory: bilateral: diminished, negative: rales, rhonchi, wheezing - Cardiovascular Rhythm: regular Heart Sounds: Present: S1 & S2 - Extremities Extremities: no ischemia, No edema - Abdominal General gastrointestinal: soft, non-tender, non-distended, normal bowel sounds - Integumentary Integumentary: Present: clear, warm - Psychiatric Psychiatric: appropriate mood/affect, cooperative - Neurologic Neurologic: CNII-XII intact, moves all extremities Results - Labs CBC & Chem 7: 03/22/18 03:20 03/24/18 04:23 Labs: Laboratory Last Values WBC 8.0 K/mm3 (4.5-11.0) 03/22/18 03:20 RBC 3.72 M/mm3 (3.65-5.03) 03/22/18 03:20 Hgb 10.4 gm/dl (11.8-15.2) L 03/22/18 03:20 Hct 32.0 % (35.5-45.6) L 03/22/18 03:20 MCV 86 fl (84-94) 03/22/18 03:20 MCH 28 pg (28-32) 03/22/18 03:20 MCHC 33 % (32-34) 03/22/18 03:20 RDW 17.6 % (13.2-15.2) H 03/22/18 03:20 Plt Count 214 K/mm3 (140-440) 03/22/18 03:20 Lymph % (Auto) 17.2 % (13.4-35.0) 03/22/18 03:20 [place] % (Auto) 11.4 % (0.0-7.3) H 03/22/18 03:20 Eos % (Auto) 0.9 % (0.0-4.3) 03/22/18 03:20 Baso % (Auto) 0.8 % (0.0-1.8) 03/22/18 03:20 Lymph # 1.4 K/mm3 (1.2-5.4) 03/22/18 03:20 [place] # 0.9 K/mm3 (0.0-0.8) H 03/22/18 03:20 Eos # 0.1 K/mm3 (0.0-0.4) 03/22/18 03:20 Baso # 0.1 K/mm3 (0.0-0.1) 03/22/18 03:20 Add Manual Diff Complete 03/21/18 15:46 Total Counted 100 03/21/18 15:46 Seg Neutrophils % 69.7 % (40.0-70.0) 03/22/18 03:20 Seg Neuts % (Manual) 58.0 % (40.0-70.0) 03/21/18 15:46 Band Neutrophils % 5.0 % 03/21/18 15:46 Lymphocytes % (Manual) 23.0 % (13.4-35.0) 03/21/18 15:46 Reactive Lymphs % (Man) 0 % 03/21/18 15:46 Monocytes % (Manual) 12.0 % (0.0-7.3) H 03/21/18 15:46 Eosinophils % (Manual) 1.0 % (0.0-4.3) 03/21/18 15:46 Basophils % (Manual) 1.0 % (0.0-1.8) 03/21/18 15:46 Metamyelocytes % 0 % 03/21/18 15:46 Myelocytes % 0 % 03/21/18 15:46 Promyelocytes % 0 % 03/21/18 15:46 Blast Cells % 0 % 03/21/18 15:46 Nucleated RBC % Not Reportable 03/21/18 15:46 Seg Neutrophils # 5.6 K/mm3 (1.8-7.7) 03/22/18 03:20 Seg Neutrophils # Man 4.5 K/mm3 (1.8-7.7) 03/21/18 15:46 Band Neutrophils # 0.4 K/mm3 03/21/18 15:46 Lymphocytes # (Manual) 1.8 K/mm3 (1.2-5.4) 03/21/18 15:46 Abs React Lymphs (Man) 0.0 K/mm3 03/21/18 15:46 Monocytes # (Manual) 0.9 K/mm3 (0.0-0.8) H 03/21/18 15:46 Eosinophils # (Manual) 0.1 K/mm3 (0.0-0.4) 03/21/18 15:46 Basophils # (Manual) 0.1 K/mm3 (0.0-0.1) 03/21/18 15:46 Metamyelocytes # 0.0 K/mm3 03/21/18 15:46 Myelocytes # 0.0 K/mm3 03/21/18 15:46 Promyelocytes # 0.0 K/mm3 03/21/18 15:46 Blast Cells # 0.0 K/mm3 03/21/18 15:46 WBC Morphology Not Reportable 03/21/18 15:46 Hypersegmented Neuts Not Reportable 03/21/18 15:46 Hyposegmented Neuts Not Reportable 03/21/18 15:46 Hypogranular Neuts Not Reportable 03/21/18 15:46 Smudge Cells Not Reportable 03/21/18 15:46 Toxic Granulation Not Reportable 03/21/18 15:46 Toxic Vacuolation Not Reportable 03/21/18 15:46 Dohle Bodies Not Reportable 03/21/18 15:46 Pelger-Huet Anomaly Not Reportable 03/21/18 15:46 Cheikh Rods Not Reportable 03/21/18 15:46 Platelet Estimate Appears normal 03/21/18 15:46 Clumped Platelets Not Reportable 03/21/18 15:46 Plt Clumps, EDTA Not Reportable 03/21/18 15:46 Large Platelets Not Reportable 03/21/18 15:46 Giant Platelets Not Reportable 03/21/18 15:46 Platelet Satelliting Not Reportable 03/21/18 15:46 Plt Morphology Comment Not Reportable 03/21/18 15:46 RBC Morphology Not Reportable 03/21/18 15:46 Dimorphic RBCs Not Reportable 03/21/18 15:46 Polychromasia Not Reportable 03/21/18 15:46 Hypochromasia Not Reportable 03/21/18 15:46 Poikilocytosis Few 03/21/18 15:46 Anisocytosis Not Reportable 03/21/18 15:46 Microcytosis Not Reportable 03/21/18 15:46 Macrocytosis Not Reportable 03/21/18 15:46 Spherocytes Not Reportable 03/21/18 15:46 Pappenheimer Bodies Not Reportable 03/21/18 15:46 Sickle Cells Not Reportable 03/21/18 15:46 Target Cells Not Reportable 03/21/18 15:46 Tear Drop Cells Not Reportable 03/21/18 15:46 Ovalocytes Not Reportable 03/21/18 15:46 Helmet Cells Not Reportable 03/21/18 15:46 Murillo-[place] Bodies Not Reportable 03/21/18 15:46 [place] Rings Not Reportable 03/21/18 15:46 [place] Cells Not Reportable 03/21/18 15:46 Bite Cells Not Reportable 03/21/18 15:46 Crenated Cell Not Reportable 03/21/18 15:46 Elliptocytes Not Reportable 03/21/18 15:46 Acanthocytes (Spur) Not Reportable 03/21/18 15:46 Rouleaux Not Reportable 03/21/18 15:46 Hemoglobin C Crystals Not Reportable 03/21/18 15:46 Schistocytes Not Reportable 03/21/18 15:46 Malaria parasites Not Reportable 03/21/18 15:46 Robert Bodies Not Reportable 03/21/18 15:46 Hem Pathologist Commnt No 03/21/18 15:46 PT 16.8 Sec. (12.2-14.9) H 03/21/18 15:46 INR 1.28 (0.87-1.13) H 03/21/18 15:46 APTT 25.7 Sec. (24.2-36.6) 03/21/18 15:46 Sodium 139 mmol/L (137-145) 03/24/18 04:23 Potassium 3.9 mmol/L (3.6-5.0) 03/24/18 04:23 Chloride 103.3 mmol/L (98-107) 03/24/18 04:23 Carbon Dioxide 23 mmol/L (22-30) 03/24/18 04:23 Anion Gap 17 mmol/L 03/24/18 04:23 BUN 12 mg/dL (9-20) 03/24/18 04:23 Creatinine 0.8 mg/dL (0.8-1.5) 03/24/18 04:23 Estimated GFR > 60 ml/min 03/24/18 04:23 BUN/Creatinine Ratio 15 % 03/24/18 04:23 Glucose 113 mg/dL (75-100) H 03/24/18 04:23 Calcium 8.8 mg/dL (8.4-10.2) 03/24/18 04:23 Total Bilirubin 0.40 mg/dL (0.1-1.2) 03/24/18 04:23 AST 26 units/L (5-40) 03/24/18 04:23 ALT 29 units/L (7-56) 03/24/18 04:23 Alkaline Phosphatase 80 units/L (35-129) 03/24/18 04:23 NT-Pro-B Natriuret Pep 216.7 pg/mL (0-900) 03/21/18 15:46 Total Protein 7.3 g/dL (6.3-8.2) 03/24/18 04:23 Albumin 2.7 g/dL (3.9-5) L 03/24/18 04:23 Albumin/Globulin Ratio 0.6 % 03/24/18 04:23 Nutrition/Malnutrition Assess - Dietary Evaluation Nutrition/Malnutrition Findings: Nutrition Notes Start: 03/22/18 09:49 Freq: Status: Active Protocol: Document 03/22/18 09:49 TW (Rec: 03/22/18 10:27 TW [id number]) Co-Sign 03/22/18 09:49 RM Nutrition Notes Need for Assessment generated from: molecular genetic pathologist Initial or Follow up Assessment Current Diagnosis Hypertension Stroke Other Pertinent Diagnosis Dementia, SOB, Pneu Current Diet Mechanical soft Labs/Tests Reviewed. Pertinent Medications Lovenox Height 5 ft 9 in Weight 64.864 kg [place] Body Weight (kg) 72.72 BMI 21.1 Subjective/Other Information RN screen for skin risk. Esteban score: 17. Pt asleep at time of visit. Observed breakfast tray not eaten. Per RN, pt is unable to swallow and speech has been consulted. Percent of energy/protein needs met: 0%/0% Burn Absent Trauma Absent #1 Nutrition Diagnosis Inadequate oral intake Etiology Chewing and swallowing difficulty As Evidenced by Signs and Symptoms Pt meeting 0% of energy and protein needs Is patient on ventilator? No Is Patient Ambulatory and/or Out of Bed No REE-([facility]-confined to bed) 1602.108 Calculation Used for Recommendations [facility] Additional Notes Protein needs: (1-1.2) (65-78 g/day) fluid needs: 1ml/ kcal Nutrition Intervention Change Diet Order: Per Goal #1 Swallow evaluation Anticipated Discharge Needs: unable to determine at this time Follow-Up By: 03/26/18 Additional Comments F/U for swallow evaluation results and PO intake
[2018-03-25] MEDS: PRAVACHOL PO SCH (23:20)
[2018-03-26] MEDS: THERAGRAN-M Tab PO SCH (09:36)
[2018-03-26] MEDS: BABY ASPIRIN PO SCH (09:36)
[2018-03-26] MEDS: LEVAQUIN PO SCH (09:36)
[2018-03-26] MEDS: SODIUM CHLORIDE FLUSH SYRINGE 10 ML IV SCH ×2 (09:37→22:39)
[2018-03-26] MEDS: LOVENOX SUB-Q SCH (09:37)
[2018-03-26] MEDS: TOPROL XL PO SCH (09:38)
[2018-03-26] MEDS: TYLENOL PO PRN (10:50)
--- NOTE | 2018-03-26 18:03 | Cat Scan Report ---
FINAL REPORT EXAM: CT ABDOMEN PELVIS W CON HISTORY: abd pain TECHNIQUE: CT of the abdomen and pelvis was performed after the administration of intravenous contra st. Subsequently, CT of the abdomen and pelvis was performed in the delayed phase. 100 cc of Omnipaqu e 300 intravenous contrast were given. Reconstructions were included in the coronal and sagittal planes. PRIORS: None. FINDINGS: Lower thorax: There is a small left pleural effusion. There is a left lower lobe consolidation. There is an ovoid fluid attenuation structure in the left lower lobe. Maximum transaxial dimensions of the more superior aspect of the collection are 3.5 x 2.6 centimeters. Severe coronary artery calculi are seen. Liver: The liver is normal in attenuation. No intrahepatic biliary duct dilation. No focal hepatic le sions. Gallbladder/ biliary system: No cholelithiasis. The common bile duct appears nondilated. Spleen: No splenic lesions are seen. Pancreas: No pancreatic lesions are seen. No pancreatic duct dilation. Kidneys: There is a small low-attenuation lesion in the superior pole of the left kidney which is lik siena too small to characterize although is slightly higher in attenuation than a simple cyst. This les ion measures approximately 8 millimeters. Multiple bilateral nonobstructing renal calculi are seen. T he largest is seen in the inferior pole of the left kidney measuring 6 millimeters. Hydronephrosis. N o ureteral filling defects. Adrenal glands: No adrenal masses. Vasculature: There are 2 right renal arteries. Negative for abdominal aortic aneurysm. Atheroscleroti c calculi are seen within the abdominal aorta. Lymph nodes: No enlarged lymph nodes are seen in the abdomen or pelvis. Bowel, mesentery, peritoneum: No bowel obstruction. No free fluid or free air. The appendix was not s een. No colonic diverticulosis. No bowel wall thickening. There is a very large amount of retained st ool in the rectum and sigmoid colon as well as throughout the colon. Urinary bladder: There is a linear calcification in the right posterior aspect of the urinary bladder measuring 6 millimeters. No bladder wall thickening is seen. Pelvis: Normal anatomy is noted. No masses. Abdominal wall: There is a small fat containing umbilical hernia. Bones: Degenerative changes are seen in the spine. Sclerotic endplate changes are seen at L4-5. This is likely related to [place] type changes. Probable old sternal fracture is noted. IMPRESSION: 1. Very large amount of retained stool in the rectum and sigmoid colon. 2. Dense left lower lobe consolidation with a multilocular fluid collection in the left lower lobe co ncerning for pulmonary abscess. Small left pleural effusion. 3. Bilateral nonobstructing nephrolithiasis. 4. Curvilinear calcification in the right posterior aspect of the urinary bladder may represent a aylin dder calculus. 5. Nonspecific low-attenuation left renal lesion is slightly higher in attenuation than a simple cyst . Could consider further evaluation with renal ultrasound. 6. Severe coronary artery calculi.
[2018-03-26] MEDS ORDERED: DULCOLAX PR PRN (18:45)
[2018-03-26] MEDS ORDERED: MILK OF MAGNESIA PO ONE (18:45)
[2018-03-26] MEDS ORDERED: MILK OF MAGNESIA PO PRN (18:45)
--- NOTE | 2018-03-26 18:53 | Progress Note ---
Assessment and Plan Assessment and plan: --Chronic constipation; on CT abdomen Milk of magnesia, Dulcolax suppository If no improvement, Fleet Enema --Left lower lobe multiloculated effusion Possible lung abscess on CT, pulmonary/IR consult --Lt lower lobe pneumonia; Possible aspiration pneumonia On Levaquin, follow cultures, pulmonary evaluation --Hypertension;stable continue current antihypertensives When necessary medications --Dementia; supportive care --Aspiration risk; s/o MBS, Speech therapist recommended pured diet --Severe mal nutrition/Hypoalbuminemia: nutrition suppliments --DVT prophylaxis; Lovenox --CODE STATUS, full code --Physical therapy occupational therapy Follow clinically Plan of care reviewed with the patient's nurse History Interval history: Patient seen and examined this morning medical records reviewed Patient complains of abdominal pain, constipation Patient is alert and awake Not in acute distress Vital signs noted Hospitalist Physical - Constitutional Vitals: Temp Pulse Resp BP Pulse Ox 98.4 F 86 18 118/74 96 03/26/18 13:12 03/26/18 16:47 03/26/18 13:12 03/26/18 13:12 03/26/18 13:12 General appearance: Present: no acute distress, well-nourished, other (confused at times) - EENT Eyes: Present: PERRL, EOM intact - Neck Neck: Present: supple, normal ROM - Respiratory Respiratory effort: normal Respiratory: bilateral: diminished (left more than right), rhonchi, negative: rales, wheezing - Cardiovascular Rhythm: regular Heart Sounds: Present: S1 & S2 - Extremities Extremities: no ischemia, No edema - Abdominal General gastrointestinal: soft, non-tender, non-distended, normal bowel sounds - Integumentary Integumentary: Present: clear, warm - Psychiatric Psychiatric: appropriate mood/affect, other (on chest at times) - Neurologic Neurologic: other (residual weakness) Results - Labs CBC & Chem 7: 03/22/18 03:20 03/24/18 04:23 Labs: Laboratory Last Values WBC 8.0 K/mm3 (4.5-11.0) 03/22/18 03:20 RBC 3.72 M/mm3 (3.65-5.03) 03/22/18 03:20 Hgb 10.4 gm/dl (11.8-15.2) L 03/22/18 03:20 Hct 32.0 % (35.5-45.6) L 03/22/18 03:20 MCV 86 fl (84-94) 03/22/18 03:20 MCH 28 pg (28-32) 03/22/18 03:20 MCHC 33 % (32-34) 03/22/18 03:20 RDW 17.6 % (13.2-15.2) H 03/22/18 03:20 Plt Count 214 K/mm3 (140-440) 03/22/18 03:20 Lymph % (Auto) 17.2 % (13.4-35.0) 03/22/18 03:20 [place] % (Auto) 11.4 % (0.0-7.3) H 03/22/18 03:20 Eos % (Auto) 0.9 % (0.0-4.3) 03/22/18 03:20 Baso % (Auto) 0.8 % (0.0-1.8) 03/22/18 03:20 Lymph # 1.4 K/mm3 (1.2-5.4) 03/22/18 03:20 [place] # 0.9 K/mm3 (0.0-0.8) H 03/22/18 03:20 Eos # 0.1 K/mm3 (0.0-0.4) 03/22/18 03:20 Baso # 0.1 K/mm3 (0.0-0.1) 03/22/18 03:20 Add Manual Diff Complete 03/21/18 15:46 Total Counted 100 03/21/18 15:46 Seg Neutrophils % 69.7 % (40.0-70.0) 03/22/18 03:20 Seg Neuts % (Manual) 58.0 % (40.0-70.0) 03/21/18 15:46 Band Neutrophils % 5.0 % 03/21/18 15:46 Lymphocytes % (Manual) 23.0 % (13.4-35.0) 03/21/18 15:46 Reactive Lymphs % (Man) 0 % 03/21/18 15:46 Monocytes % (Manual) 12.0 % (0.0-7.3) H 03/21/18 15:46 Eosinophils % (Manual) 1.0 % (0.0-4.3) 03/21/18 15:46 Basophils % (Manual) 1.0 % (0.0-1.8) 03/21/18 15:46 Metamyelocytes % 0 % 03/21/18 15:46 Myelocytes % 0 % 03/21/18 15:46 Promyelocytes % 0 % 03/21/18 15:46 Blast Cells % 0 % 03/21/18 15:46 Nucleated RBC % Not Reportable 03/21/18 15:46 Seg Neutrophils # 5.6 K/mm3 (1.8-7.7) 03/22/18 03:20 Seg Neutrophils # Man 4.5 K/mm3 (1.8-7.7) 03/21/18 15:46 Band Neutrophils # 0.4 K/mm3 03/21/18 15:46 Lymphocytes # (Manual) 1.8 K/mm3 (1.2-5.4) 03/21/18 15:46 Abs React Lymphs (Man) 0.0 K/mm3 03/21/18 15:46 Monocytes # (Manual) 0.9 K/mm3 (0.0-0.8) H 03/21/18 15:46 Eosinophils # (Manual) 0.1 K/mm3 (0.0-0.4) 03/21/18 15:46 Basophils # (Manual) 0.1 K/mm3 (0.0-0.1) 03/21/18 15:46 Metamyelocytes # 0.0 K/mm3 03/21/18 15:46 Myelocytes # 0.0 K/mm3 03/21/18 15:46 Promyelocytes # 0.0 K/mm3 03/21/18 15:46 Blast Cells # 0.0 K/mm3 03/21/18 15:46 WBC Morphology Not Reportable 03/21/18 15:46 Hypersegmented Neuts Not Reportable 03/21/18 15:46 Hyposegmented Neuts Not Reportable 03/21/18 15:46 Hypogranular Neuts Not Reportable 03/21/18 15:46 Smudge Cells Not Reportable 03/21/18 15:46 Toxic Granulation Not Reportable 03/21/18 15:46 Toxic Vacuolation Not Reportable 03/21/18 15:46 Dohle Bodies Not Reportable 03/21/18 15:46 Pelger-Huet Anomaly Not Reportable 03/21/18 15:46 Cheikh Rods Not Reportable 03/21/18 15:46 Platelet Estimate Appears normal 03/21/18 15:46 Clumped Platelets Not Reportable 03/21/18 15:46 Plt Clumps, EDTA Not Reportable 03/21/18 15:46 Large Platelets Not Reportable 03/21/18 15:46 Giant Platelets Not Reportable 03/21/18 15:46 Platelet Satelliting Not Reportable 03/21/18 15:46 Plt Morphology Comment Not Reportable 03/21/18 15:46 RBC Morphology Not Reportable 03/21/18 15:46 Dimorphic RBCs Not Reportable 03/21/18 15:46 Polychromasia Not Reportable 03/21/18 15:46 Hypochromasia Not Reportable 03/21/18 15:46 Poikilocytosis Few 03/21/18 15:46 Anisocytosis Not Reportable 03/21/18 15:46 Microcytosis Not Reportable 03/21/18 15:46 Macrocytosis Not Reportable 03/21/18 15:46 Spherocytes Not Reportable 03/21/18 15:46 Pappenheimer Bodies Not Reportable 03/21/18 15:46 Sickle Cells Not Reportable 03/21/18 15:46 Target Cells Not Reportable 03/21/18 15:46 Tear Drop Cells Not Reportable 03/21/18 15:46 Ovalocytes Not Reportable 03/21/18 15:46 Helmet Cells Not Reportable 03/21/18 15:[address] Mur[place] Bodies Not Reportable 03/21/18 15:46 [place] Rings Not Reportable 03/21/18 15:46 [place] Cells Not Reportable 03/21/18 15:46 Bite Cells Not Reportable 03/21/18 15:46 Crenated Cell Not Reportable 03/21/18 15:46 Elliptocytes Not Reportable 03/21/18 15:46 Acanthocytes (Spur) Not Reportable 03/21/18 15:46 Rouleaux Not Reportable 03/21/18 15:46 Hemoglobin C Crystals Not Reportable 03/21/18 15:46 Schistocytes Not Reportable 03/21/18 15:46 Malaria parasites Not Reportable 03/21/18 15:46 Robert Bodies Not Reportable 03/21/18 15:46 Hem Pathologist Commnt No 03/21/18 15:46 PT 16.8 Sec. (12.2-14.9) H 03/21/18 15:46 INR 1.28 (0.87-1.13) H 03/21/18 15:46 APTT 25.7 Sec. (24.2-36.6) 03/21/18 15:46 Sodium 139 mmol/L (137-145) 03/24/18 04:23 Potassium 3.9 mmol/L (3.6-5.0) 03/24/18 04:23 Chloride 103.3 mmol/L (98-107) 03/24/18 04:23 Carbon Dioxide 23 mmol/L (22-30) 03/24/18 04:23 Anion Gap 17 mmol/L 03/24/18 04:23 BUN 12 mg/dL (9-20) 03/24/18 04:23 Creatinine 0.8 mg/dL (0.8-1.5) 03/24/18 04:23 Estimated GFR > 60 ml/min 03/24/18 04:23 BUN/Creatinine Ratio 15 % 03/24/18 04:23 Glucose 113 mg/dL (75-100) H 03/24/18 04:23 Calcium 8.8 mg/dL (8.4-10.2) 03/24/18 04:23 Total Bilirubin 0.40 mg/dL (0.1-1.2) 03/24/18 04:23 AST 26 units/L (5-40) 03/24/18 04:23 ALT 29 units/L (7-56) 03/24/18 04:23 Alkaline Phosphatase 80 units/L (35-129) 03/24/18 04:23 NT-Pro-B Natriuret Pep 216.7 pg/mL (0-900) 03/21/18 15:46 Total Protein 7.3 g/dL (6.3-8.2) 03/24/18 04:23 Albumin 2.7 g/dL (3.9-5) L 03/24/18 04:23 Albumin/Globulin Ratio 0.6 % 03/24/18 04:23 Nutrition/Malnutrition Assess - Dietary Evaluation Nutrition/Malnutrition Findings: Nutrition Notes Start: 03/22/18 09:49 Freq: Status: Active Protocol: Document 03/26/18 13:47 SA (Rec: 03/26/18 14:17 SA [id number]) Co-Sign 03/26/18 13:47 LP Nutrition Notes Initial or Follow up Reassessment Current Diagnosis Hypertension Stroke Other Pertinent Diagnosis Dementia, SOB, Pneu Current Diet Pureed Diet Labs/Tests GLU: 113 Albumin: 2.7 Pertinent Medications Reviewed Height 5 ft 9 in Weight 64.864 kg [place] Body Weight (kg) 72.72 BMI 21.1 Subjective/Other Information Patient states appetite is good and eating about 25% of meals. Patient reports swallowing/ chewing difficulty due to foods getting caught in throat and spitting them up . Patient states unable to eat due to pain in knees. [employer]ING [employer] WAITER/WAITRESS following patient. Percent of energy/protein needs met: 28%/ 29% Burn Absent Trauma Absent #1 Nutrition Diagnosis Inadequate oral intake As Evidenced by Signs and Symptoms Pt meeting 25% of energy and protein needs Diagnosis Progress(for reassessment Continues documentation) Is patient on ventilator? No Is Patient Ambulatory and/or Out of Bed No [facility] 1602.108 Calculation Used for Recommendations [facility] Additional Notes Protein needs: (1-1.2) (65-78 g/day) fluid needs: 1ml/ kcal Nutrition Intervention Change Diet Order: Continue current Goal #1 Meet at least 75% of kcal and protein needs Anticipated Discharge Needs: unable to determine at this time Follow-Up By: 03/28/18 Additional Comments F/U: PO intake, ONS intake, and swallowing difficulties
[2018-03-26] MEDS ORDERED: DULCOLAX PR ONE (19:30)
[2018-03-26] MEDS: PRAVACHOL PO SCH (22:38)
[2018-03-27 05:03] LABS: Basophils # (Auto) 0.1 K/mm3 (0.0-0.1); Basophils % (Auto) 1.3 % (0.0-1.8); Eosinophils # (Auto) 0.1 K/mm3 (0.0-0.4); Eosinophils % (Auto) 1.5 % (0.0-4.3); Hematocrit 32.1 % (35.5-45.6); Hemoglobin 10.5 gm/dl (11.8-15.2); Lymphocytes # (Auto) 1.7 K/mm3 (1.2-5.4); Lymphocytes % (Auto) 26.3 % (13.4-35.0); Mean Corpuscular HGB Conc 33 % (32-34); Mean Corpuscular Volume 86 fl (84-94); Monocytes # (Auto) 0.8 K/mm3 (0.0-0.8); Monocytes % (Auto) 12.5 % (0.0-7.3); Platelet Count 187 K/mm3 (140-440); Red Blood Count 3.73 M/mm3 (3.65-5.03)
[2018-03-27 05:16] LABS: Alanine Aminotransferase 32 units/L (7-56); Albumin 2.3 g/dL (3.9-5); BUN/Creatinine Ratio 16; Blood Urea Nitrogen 11 mg/dL (9-20); Calcium 8.3 mg/dL (8.4-10.2); Hemolysis Index 5
[2018-03-27] MEDS: BABY ASPIRIN PO SCH (10:03)
[2018-03-27] MEDS: LOVENOX SUB-Q SCH (10:03)
[2018-03-27] MEDS: LEVAQUIN PO SCH (10:03)
[2018-03-27] MEDS: TOPROL XL PO SCH (10:03)
[2018-03-27] MEDS: THERAGRAN-M Tab PO SCH (10:03)
[2018-03-27] MEDS: SODIUM CHLORIDE FLUSH SYRINGE 10 ML IV SCH ×2 (10:04→21:20)
--- NOTE | 2018-03-27 11:09 | Consultation ---
History of Present Illness Consult date: 03/27/18 Requesting physician: RENNY BRADY Reason for consult: pneumonia History of present illness: 83 yo admitted with LLL pneumonia, cough, congestion. Per chart he has dementia. He is a poor historian. He states he cannot produce sputum. He has been afebrile. He has chest pain anteriorly w/ breathing. He has received Levaquin since admit. CT a/p for abdominal concerns showed possible LLL abscess. Active Medications Acetaminophen (Tylenol) 650 mg PO Q4H PRN PRN Reason: Pain MILD(1-3)/Fever >100.5/VIDAL Last Admin: 03/26/18 10:50 Dose: 650 mg Documented by: Albuterol (Proventil) 2.5 mg IH Q6HRT PRN PRN Reason: Shortness Of Breath Aspirin (Baby Aspirin) 81 mg PO DAILY [facility] Last Admin: 03/27/18 10:03 Dose: 81 mg Documented by: Benzonatate (Tessalon Perles) 100 mg PO Q6H PRN PRN Reason: Cough Last Admin: 03/24/18 03:43 Dose: 100 mg Documented by: Bisacodyl (Dulcolax) 10 mg [place] QDAY PRN PRN Reason: Constipation Enoxaparin Sodium (Lovenox) 30 mg SUB-Q QDAY [facility] Last Admin: 03/27/18 10:03 Dose: 30 mg Documented by: Levofloxacin (Levaquin) 500 mg PO Q24HR [facility] Last Admin: 03/27/18 10:03 Dose: 500 mg Documented by: Magnesium Hydroxide (Milk Of Magnesia) 30 ml PO QDAY PRN PRN Reason: Constipation Metoprolol Succinate (Toprol Xl) 25 mg PO DAILY [facility] Last Admin: 03/27/18 10:03 Dose: 25 mg Documented by: Multivitamins/Minerals (Theragran-M Tab) 1 each PO QDAY [facility] Last Admin: 03/27/18 10:03 Dose: 1 each Documented by: Ondansetron HCl (Zofran) 4 mg IV Q8H PRN PRN Reason: Nausea And Vomiting Pravastatin Sodium (Pravachol) 40 mg PO QHS [facility] Last Admin: 03/26/18 22:38 Dose: 40 mg Documented by: Sodium Chloride (Sodium Chloride Flush Syringe 10 Ml) 10 ml IV BID [facility] Last Admin: 03/27/18 10:04 Dose: 10 ml Documented by: Sodium Chloride (Sodium Chloride Flush Syringe 10 Ml) 10 ml IV PRN PRN PRN Reason: LINE FLUSH Last Admin: 03/22/18 00:10 Dose: 10 ml Documented by: Past History Past Medical History: other (Dementia, HTN) Social history: full code. denies: smoking, alcohol abuse, prescription drug abuse, IV drug use Family history: other (No pulm issues reported) Medications and Allergies Allergies Allergy/AdvReac Type Severity Reaction Status Date / Time No Known Allergies Allergy Unverified 11/12/17 10:51 Home Medications Medication Instructions Recorded Confirmed Last Taken Type Acetaminophen [Non-Aspirin] 650 mg PO Q6H PRN 03/21/18 03/21/18 Unknown History Albuterol Sulfate 2.5 mg IH Q6H 03/21/18 03/21/18 Unknown History Aspirin [Aspirin BABY CHEW TAB] 81 mg PO DAILY 03/21/18 03/21/18 Unknown History Diclofenac Sodium [Voltaren] 100 gm TP QID 03/21/18 03/21/18 Unknown History Loratadine [Claritin] 10 mg PO DAILY 03/21/18 03/21/18 Unknown History Metoprolol Xl [Metoprolol 25 mg PO DAILY 03/21/18 03/21/18 Unknown History SUCCINATE ER TAB] Multivit-Min/Iron/Folic Acid/K 1 each PO DAILY 03/21/18 03/21/18 Unknown History [Adults Multivitamin Tablet] Pravastatin Sodium [Pravachol] 40 mg PO QHS 03/21/18 03/21/18 Unknown History Active Meds: Active Medications Acetaminophen (Tylenol) 650 mg PO Q4H PRN PRN Reason: Pain MILD(1-3)/Fever >100.5/VIDAL Last Admin: 03/26/18 10:50 Dose: 650 mg Documented by: Albuterol (Proventil) 2.5 mg IH Q6HRT PRN PRN Reason: Shortness Of Breath Aspirin (Baby Aspirin) 81 mg PO DAILY [facility] Last Admin: 03/27/18 10:03 Dose: 81 mg Documented by: Benzonatate (Tessalon Perles) 100 mg PO Q6H PRN PRN Reason: Cough Last Admin: 03/24/18 03:43 Dose: 100 mg Documented by: Bisacodyl (Dulcolax) 10 mg [place] QDAY PRN PRN Reason: Constipation Enoxaparin Sodium (Lovenox) 30 mg SUB-Q QDAY [facility] Last Admin: 03/27/18 10:03 Dose: 30 mg Documented by: Levofloxacin (Levaquin) 500 mg PO Q24HR [facility] Last Admin: 03/27/18 10:03 Dose: 500 mg Documented by: Magnesium Hydroxide (Milk Of Magnesia) 30 ml PO QDAY PRN PRN Reason: Constipation Metoprolol Succinate (Toprol Xl) 25 mg PO DAILY [facility] Last Admin: 03/27/18 10:03 Dose: 25 mg Documented by: Multivitamins/Minerals (Theragran-M Tab) 1 each PO QDAY [facility] Last Admin: 03/27/18 10:03 Dose: 1 each Documented by: Ondansetron HCl (Zofran) 4 mg IV Q8H PRN PRN Reason: Nausea And Vomiting Pravastatin Sodium (Pravachol) 40 mg PO QHS [facility] Last Admin: 03/26/18 22:38 Dose: 40 mg Documented by: Sodium Chloride (Sodium Chloride Flush Syringe 10 Ml) 10 ml IV BID [facility] Last Admin: 03/27/18 10:04 Dose: 10 ml Documented by: Sodium Chloride (Sodium Chloride Flush Syringe 10 Ml) 10 ml IV PRN PRN PRN Reason: LINE FLUSH Last Admin: 03/22/18 00:10 Dose: 10 ml Documented by: Review of Systems All systems: negative Physical Examination Vital signs: Vital Signs Temp Pulse Resp BP Pulse Ox 98.1 F 95 H 16 129/70 98 03/21/18 14:50 03/21/18 14:50 03/21/18 14:50 03/21/18 14:50 03/21/18 14:50 General appearance: no acute distress, alert, other (elderly, mildly cachectic) Eyes: non-icteric ENT: oropharynx moist Neck: supple Effort: normal Ascultation: Left: diminished breath sounds (base), Bilateral: rhonchi (upper airway primarily) Cardiovascular: regular rate and rhythm (no mrg) Gastrointestinal: normoactive bowel sounds, soft, non-tender, non-distended Integumentary: normal Extremities: no cyanosis, no edema, pink and warm normal mental status, non-focal exam, pupils equal and round, CN II-XII normal mood appropriate, affect normal Results - Laboratory Findings CBC and BMP: 03/27/18 04:21 03/27/18 04:21 PT/INR, D-dimer PT 16.8 Sec. (12.2-14.9) H 03/21/18 15:46 INR 1.28 (0.87-1.13) H 03/21/18 15:46 Abnormal lab findings: Abnormal Labs 03/21/18 03/21/18 03/21/18 15:46 15:46 15:46 Hgb 11.6 L Hct RDW 17.7 H [place] % (Auto) [place] # Monocytes % (Manual) 12.0 H Monocytes # (Manual) 0.9 H PT 16.8 H INR 1.28 H Sodium Potassium Carbon Dioxide Creatinine Glucose 121 H Calcium Albumin 03/22/18 03/22/18 03/23/18 03:20 03:20 05:33 Hgb 10.4 L Hct 32.0 L RDW 17.6 H [place] % (Auto) 11.4 H [place] # 0.9 H Monocytes % (Manual) Monocytes # (Manual) PT INR Sodium 135 L Potassium 3.5 L Carbon Dioxide 20 L Creatinine 0.7 L Glucose Calcium 8.3 L Albumin 03/24/18 03/27/18 03/27/18 04:23 04:21 04:21 Hgb 10.5 L Hct 32.1 L RDW 17.0 H [place] % (Auto) 12.5 H [place] # Monocytes % (Manual) Monocytes # (Manual) PT INR Sodium Potassium 3.4 L Carbon Dioxide Creatinine 0.7 L Glucose 113 H 117 H Calcium 8.3 L Albumin 2.7 L 2.3 L - Diagnostic Findings Chest x-ray: report reviewed, image reviewed (LLL infiltrate) Assessment and Plan Imp: 1. LLL Pneumonia, +/- abscess/necrotizing process 2. L Pleural effusion 3. Dementia 4. Constipation 5. Severe malnutrition Rec: 1. Add Zosyn to better cover GNRs and anaerobes 2. ST eval. reviewed; does not appear to be aspirating per their notes 3. D/w Dr. Brady; would obtain a dedicated CT chest 4. May benefit from bronch (infiltrate was present on 01/2018 CT chest) and/or thoracentesis if effusion is large enough; would review CT chest first 5. Further plans pending above; after seeing patient, discussing with Dr. Brady, and then thoroughly reviewing chart, I see that he apparently is a patient of Dr. Guevara's, and I will thus consult him and transfer subsequent pulmonary care to his service Plan of care reviewed w/ patient, he understands/agrees Thanks for the consult.
[2018-03-27] MEDS: ZOSYN/NS 3.375GM/50ML 3.375 GM/50 ML BAG IV SCH ×4 (14:08→22:30)
--- NOTE | 2018-03-27 18:11 | Progress Note ---
Assessment and Plan Assessment and plan: --Chronic constipation; on CT abdomen Resolved, patient had 2 large bowel movements --Left lower lobe multiloculated effusion Possible lung abscess on abd CT, ck with CT chest with contrast, pulmonary consult, discussed with Dr. Hidalgo, --Lt lower lobe pneumonia; Possible aspiration pneumonia On Levaquin, follow cultures, pulmonary evaluation --Aspiration risk; s/o MBS, Speech therapist recommended pured diet --Hypertension;stable continue current antihypertensives When necessary medications --Dementia; supportive care --Severe mal nutrition/Hypoalbuminemia: nutrition suppliments --DVT prophylaxis; Lovenox --CODE STATUS, full code --Physical therapy occupational therapy Follow up CT chest, follow pulmonary evaluation and recommendations Plan of care reviewed with the patient's nurse History Interval history: Patient seen and examined medical records reviewed CT abdomen and pelvis done last night, revealed multilocular effusions right lower lobe possible abscess Consultation pulmonary, requested chest CT Patient feels better had a bowel movement after stool softener No new complaints Vital signs noted Hospitalist Physical - Constitutional Vitals: Temp Pulse Resp BP Pulse Ox 98.6 F 85 20 107/60 100 03/27/18 13:55 03/27/18 13:55 03/27/18 13:55 03/27/18 13:55 03/27/18 13:55 General appearance: Present: no acute distress, well-nourished, other (confused at times) - EENT Eyes: Present: PERRL, EOM intact - Neck Neck: Present: supple, normal ROM - Respiratory Respiratory effort: normal Respiratory: bilateral: diminished, negative: rales, rhonchi, wheezing - Cardiovascular Rhythm: regular Heart Sounds: Present: S1 & S2 - Extremities Extremities: no ischemia, No edema - Abdominal General gastrointestinal: soft, non-tender, non-distended, normal bowel sounds - Integumentary Integumentary: Present: clear, warm - Psychiatric Psychiatric: appropriate mood/affect, cooperative - Neurologic Neurologic: other (residual weakness) Results - Labs CBC & Chem 7: 03/27/18 04:21 03/27/18 04:21 Labs: Laboratory Last Values WBC 6.6 K/mm3 (4.5-11.0) 03/27/18 04:21 RBC 3.73 M/mm3 (3.65-5.03) 03/27/18 04:21 Hgb 10.5 gm/dl (11.8-15.2) L 03/27/18 04:21 Hct 32.1 % (35.5-45.6) L 03/27/18 04:21 MCV 86 fl (84-94) 03/27/18 04:21 MCH 28 pg (28-32) 03/27/18 04:21 MCHC 33 % (32-34) 03/27/18 04:21 RDW 17.0 % (13.2-15.2) H 03/27/18 04:21 Plt Count 187 K/mm3 (140-440) 03/27/18 04:21 Lymph % (Auto) 26.3 % (13.4-35.0) 03/27/18 04:21 [place] % (Auto) 12.5 % (0.0-7.3) H 03/27/18 04:21 Eos % (Auto) 1.5 % (0.0-4.3) 03/27/18 04:21 Baso % (Auto) 1.3 % (0.0-1.8) 03/27/18 04:21 Lymph # 1.7 K/mm3 (1.2-5.4) 03/27/18 04:21 [place] # 0.8 K/mm3 (0.0-0.8) 03/27/18 04:21 Eos # 0.1 K/mm3 (0.0-0.4) 03/27/18 04:21 Baso # 0.1 K/mm3 (0.0-0.1) 03/27/18 04:21 Add Manual Diff Complete 03/21/18 15:46 Total Counted 100 03/21/18 15:46 Seg Neutrophils % 58.4 % (40.0-70.0) 03/27/18 04:21 Seg Neuts % (Manual) 58.0 % (40.0-70.0) 03/21/18 15:46 Band Neutrophils % 5.0 % 03/21/18 15:46 Lymphocytes % (Manual) 23.0 % (13.4-35.0) 03/21/18 15:46 Reactive Lymphs % (Man) 0 % 03/21/18 15:46 Monocytes % (Manual) 12.0 % (0.0-7.3) H 03/21/18 15:46 Eosinophils % (Manual) 1.0 % (0.0-4.3) 03/21/18 15:46 Basophils % (Manual) 1.0 % (0.0-1.8) 03/21/18 15:46 Metamyelocytes % 0 % 03/21/18 15:46 Myelocytes % 0 % 03/21/18 15:46 Promyelocytes % 0 % 03/21/18 15:46 Blast Cells % 0 % 03/21/18 15:46 Nucleated RBC % Not Reportable 03/21/18 15:46 Seg Neutrophils # 3.8 K/mm3 (1.8-7.7) 03/27/18 04:21 Seg Neutrophils # Man 4.5 K/mm3 (1.8-7.7) 03/21/18 15:46 Band Neutrophils # 0.4 K/mm3 03/21/18 15:46 Lymphocytes # (Manual) 1.8 K/mm3 (1.2-5.4) 03/21/18 15:46 Abs React Lymphs (Man) 0.0 K/mm3 03/21/18 15:46 Monocytes # (Manual) 0.9 K/mm3 (0.0-0.8) H 03/21/18 15:46 Eosinophils # (Manual) 0.1 K/mm3 (0.0-0.4) 03/21/18 15:46 Basophils # (Manual) 0.1 K/mm3 (0.0-0.1) 03/21/18 15:46 Metamyelocytes # 0.0 K/mm3 03/21/18 15:46 Myelocytes # 0.0 K/mm3 03/21/18 15:46 Promyelocytes # 0.0 K/mm3 03/21/18 15:46 Blast Cells # 0.0 K/mm3 03/21/18 15:46 WBC Morphology Not Reportable 03/21/18 15:46 Hypersegmented Neuts Not Reportable 03/21/18 15:46 Hyposegmented Neuts Not Reportable 03/21/18 15:46 Hypogranular Neuts Not Reportable 03/21/18 15:46 Smudge Cells Not Reportable 03/21/18 15:46 Toxic Granulation Not Reportable 03/21/18 15:46 Toxic Vacuolation Not Reportable 03/21/18 15:46 Dohle Bodies Not Reportable 03/21/18 15:46 Pelger-Huet Anomaly Not Reportable 03/21/18 15:46 Cheikh Rods Not Reportable 03/21/18 15:46 Platelet Estimate Appears normal 03/21/18 15:46 Clumped Platelets Not Reportable 03/21/18 15:46 Plt Clumps, EDTA Not Reportable 03/21/18 15:46 Large Platelets Not Reportable 03/21/18 15:46 Giant Platelets Not Reportable 03/21/18 15:46 Platelet Satelliting Not Reportable 03/21/18 15:46 Plt Morphology Comment Not Reportable 03/21/18 15:46 RBC Morphology Not Reportable 03/21/18 15:46 Dimorphic RBCs Not Reportable 03/21/18 15:46 Polychromasia Not Reportable 03/21/18 15:46 Hypochromasia Not Reportable 03/21/18 15:46 Poikilocytosis Few 03/21/18 15:46 Anisocytosis Not Reportable 03/21/18 15:46 Microcytosis Not Reportable 03/21/18 15:46 Macrocytosis Not Reportable 03/21/18 15:46 Spherocytes Not Reportable 03/21/18 15:46 Pappenheimer Bodies Not Reportable 03/21/18 15:46 Sickle Cells Not Reportable 03/21/18 15:46 Target Cells Not Reportable 03/21/18 15:46 Tear Drop Cells Not Reportable 03/21/18 15:46 Ovalocytes Not Reportable 03/21/18 15:46 Helmet Cells Not Reportable 03/21/18 15:46 [place] Bodies Not Reportable 03/21/18 15:46 [place] Rings Not Reportable 03/21/18 15:46 [place] Cells Not Reportable 03/21/18 15:46 Bite Cells Not Reportable 03/21/18 15:46 Crenated Cell Not Reportable 03/21/18 15:46 Elliptocytes Not Reportable 03/21/18 15:46 Acanthocytes (Spur) Not Reportable 03/21/18 15:46 Rouleaux Not Reportable 03/21/18 15:46 Hemoglobin C Crystals Not Reportable 03/21/18 15:46 Schistocytes Not Reportable 03/21/18 15:46 Malaria parasites Not Reportable 03/21/18 15:46 Robert Bodies Not Reportable 03/21/18 15:46 Hem Pathologist Commnt No 03/21/18 15:46 PT 16.8 Sec. (12.2-14.9) H 03/21/18 15:46 INR 1.28 (0.87-1.13) H 03/21/18 15:46 APTT 25.7 Sec. (24.2-36.6) 03/21/18 15:46 Sodium 139 mmol/L (137-145) 03/27/18 04:21 Potassium 3.4 mmol/L (3.6-5.0) L 03/27/18 04:21 Chloride 103.0 mmol/L (98-107) 03/27/18 04:21 Carbon Dioxide 24 mmol/L (22-30) 03/27/18 04:21 Anion Gap 15 mmol/L 03/27/18 04:21 BUN 11 mg/dL (9-20) 03/27/18 04:21 Creatinine 0.7 mg/dL (0.8-1.5) L 03/27/18 04:21 Estimated GFR > 60 ml/min 03/27/18 04:21 BUN/Creatinine Ratio 16 % 03/27/18 04:21 Glucose 117 mg/dL (75-100) H 03/27/18 04:21 Calcium 8.3 mg/dL (8.4-10.2) L 03/27/18 04:21 Magnesium 2.00 mg/dL (1.7-2.3) 03/27/18 04:21 Total Bilirubin 0.30 mg/dL (0.1-1.2) 03/27/18 04:21 AST 38 units/L (5-40) 03/27/18 04:21 ALT 32 units/L (7-56) 03/27/18 04:21 Alkaline Phosphatase 71 units/L (35-129) 03/27/18 04:21 NT-Pro-B Natriuret Pep 216.7 pg/mL (0-900) 03/21/18 15:46 Total Protein 6.9 g/dL (6.3-8.2) 03/27/18 04:21 Albumin 2.3 g/dL (3.9-5) L 03/27/18 04:21 Albumin/Globulin Ratio 0.5 % 03/27/18 04:21 Nutrition/Malnutrition Assess - Dietary Evaluation Nutrition/Malnutrition Findings: Nutrition Notes Start: 03/22/18 09:49 Freq: Status: Active Protocol: Document 03/26/18 13:47 SA (Rec: 03/26/18 14:17 SA [id number]) Co-Sign 03/26/18 13:47 LP Nutrition Notes Initial or Follow up Reassessment Current Diagnosis Hypertension Stroke Other Pertinent Diagnosis Dementia, SOB, Pneu Current Diet Pureed Diet Labs/Tests GLU: 113 Albumin: 2.7 Pertinent Medications Reviewed Height 5 ft 9 in Weight 64.864 kg [place] Body Weight (kg) 72.72 BMI 21.1 Subjective/Other Information Patient states appetite is good and eating about 25% of meals. Patient reports swallowing/ chewing difficulty due to foods getting caught in throat and spitting them up . Patient states unable to eat due to pain in knees. PATROL CONDUCTOR following patient. Percent of energy/protein needs met: 28%/ 29% Burn Absent Trauma Absent #1 Nutrition Diagnosis Inadequate oral intake As Evidenced by Signs and Symptoms Pt meeting 25% of energy and protein needs Diagnosis Progress(for reassessment Continues documentation) Is patient on ventilator? No Is Patient Ambulatory and/or Out of Bed No REE-([facility]-confined to bed) 1602.108 Calculation Used for Recommendations [facility] Additional Notes Protein needs: (1-1.2) (65-78 g/day) fluid needs: 1ml/ kcal Nutrition Intervention Change Diet Order: Continue current Goal #1 Meet at least 75% of kcal and protein needs Anticipated Discharge Needs: unable to determine at this time Follow-Up By: 03/28/18 Additional Comments F/U: PO intake, ONS intake, and swallowing difficulties
[2018-03-27] MEDS ORDERED: K-DUR PO ONE (18:22)
--- NOTE | 2018-03-27 19:22 | Cat Scan Report ---
FINAL REPORT EXAM: CT CHEST W CON HISTORY: multi locular effusion LL lung TECHNIQUE: CT chest with intravenous contrast PRIORS: Comparison is dated January 17, 2018 FINDINGS: There are moderately enlarged mediastinal lymph nodes measuring up to 2.0 x 1.3 centimeters these are increased in size since the prior exam and appear reactive. No acute abnormality identified heart and great vessels. Coronary atherosclerosis noted. There is loculated appearing pleural effusion with areas of pleural thickening most consistent with e mpyema. There is persistent left lower lobe consolidation which appears increased from prior study. S everal low-density areas within the left lower lobe may reflect uterus necrotic change. There is a de nse material with obstruction into the left lower lobe within the left main bronchus. There are some emphysematous changes seen at the lung apices with subpleural blebs. In the visualized upper abdomen no acute abnormality identified. Contrast material noted within the v isualized portion of the colon. IMPRESSION: Loculated left pleural effusion findings most consistent with empyema. Material which may reflect mucous plugging within the left lower lobe main bronchus. Findings likely reflect obstructive pneumonia. Underlying mass not excluded. Compare os could be requ ired for further evaluation. Enlarged mediastinal lymph nodes these are increased in size from previous exam and likely reactive Coronary atherosclerosis Persistent consolidation left lower lobe findings suggest areas of necrosis.
[2018-03-27] MEDS: PRAVACHOL PO SCH (21:19)
[2018-03-27] MEDS: TESSALON PERLES PO PRN (22:48)
[2018-03-28] MEDS: ROBITUSSIN PO PRN ×4 (00:01→22:00)
[2018-03-28] MEDS: ZOSYN/NS 3.375GM/50ML 3.375 GM/50 ML BAG IV SCH (05:06)
[2018-03-28] MEDS: LEVAQUIN PO SCH (10:57)
[2018-03-28] MEDS: BABY ASPIRIN PO SCH (10:57)
[2018-03-28] MEDS: TOPROL XL PO SCH (10:57)
[2018-03-28] MEDS: THERAGRAN-M Tab PO SCH (10:57)
[2018-03-28] MEDS: LOVENOX SUB-Q SCH (10:58)
[2018-03-28] MEDS: SODIUM CHLORIDE FLUSH SYRINGE 10 ML IV SCH ×2 (10:59→21:51)
--- NOTE | 2018-03-28 12:48 | Progress Note ---
Assessment and Plan Assessment and plan: --Left lower lobe multiloculated effusion/?empyema on CT chest pulmonary consult, discussed with Possible thoracentesis ,chest /tube placement --Lt lower lobe pneumonia; Possible aspiration pneumonia On Zosyn and Levaquin, follow cultures, pulmonary evaluation --Secondary to aspiration pneumonia/empyema Continue antibiotics follow cultures --Aspiration risk; s/o MBS, Speech therapist recommended pured diet --Hypertension;stable continue current antihypertensives --Dementia; supportive care --Severe mal nutrition/Hypoalbuminemia: nutrition suppliments --DVT prophylaxis; Lovenox --CODE STATUS, full code --Physical therapy occupational therapy Follow-up consultations and recommendations Plan of care reviewed with the patient's nurse History Interval history: Patient seen and examined medical records reviewed Patient is lying in the bed comfortable in no new complaints Vital Signs noted Hospitalist Physical - Constitutional Vitals: Temp Pulse Resp BP Pulse Ox 97.8 F 83 18 114/63 95 03/28/18 07:59 03/28/18 10:00 03/28/18 09:05 03/28/18 10:57 03/28/18 10:00 General appearance: Present: no acute distress, well-nourished, other (confused at times) - EENT Eyes: Present: PERRL, EOM intact - Neck Neck: Present: supple, normal ROM - Respiratory Respiratory effort: normal Respiratory: left: diminished (left more than right), bilateral: rhonchi (left more than right), negative: rales, wheezing - Cardiovascular Rhythm: regular Heart Sounds: Present: S1 & S2 - Extremities Extremities: no ischemia, No edema - Abdominal General gastrointestinal: soft, non-tender, non-distended, normal bowel sounds - Integumentary Integumentary: Present: clear, warm - Psychiatric Psychiatric: appropriate mood/affect, cooperative - Neurologic Neurologic: CNII-XII intact, moves all extremities Results - Labs CBC & Chem 7: 03/27/18 04:21 03/27/18 04:21 Labs: Laboratory Last Values WBC 6.6 K/mm3 (4.5-11.0) 03/27/18 04:21 RBC 3.73 M/mm3 (3.65-5.03) 03/27/18 04:21 Hgb 10.5 gm/dl (11.8-15.2) L 03/27/18 04:21 Hct 32.1 % (35.5-45.6) L 03/27/18 04:21 MCV 86 fl (84-94) 03/27/18 04:21 MCH 28 pg (28-32) 03/27/18 04:21 MCHC 33 % (32-34) 03/27/18 04:21 RDW 17.0 % (13.2-15.2) H 03/27/18 04:21 Plt Count 187 K/mm3 (140-440) 03/27/18 04:21 Lymph % (Auto) 26.3 % (13.4-35.0) 03/27/18 04:21 [place] % (Auto) 12.5 % (0.0-7.3) H 03/27/18 04:21 Eos % (Auto) 1.5 % (0.0-4.3) 03/27/18 04:21 Baso % (Auto) 1.3 % (0.0-1.8) 03/27/18 04:21 Lymph # 1.7 K/mm3 (1.2-5.4) 03/27/18 04:21 [place] # 0.8 K/mm3 (0.0-0.8) 03/27/18 04:21 Eos # 0.1 K/mm3 (0.0-0.4) 03/27/18 04:21 Baso # 0.1 K/mm3 (0.0-0.1) 03/27/18 04:21 Add Manual Diff Complete 03/21/18 15:46 Total Counted 100 03/21/18 15:46 Seg Neutrophils % 58.4 % (40.0-70.0) 03/27/18 04:21 Seg Neuts % (Manual) 58.0 % (40.0-70.0) 03/21/18 15:46 Band Neutrophils % 5.0 % 03/21/18 15:46 Lymphocytes % (Manual) 23.0 % (13.4-35.0) 03/21/18 15:46 Reactive Lymphs % (Man) 0 % 03/21/18 15:46 Monocytes % (Manual) 12.0 % (0.0-7.3) H 03/21/18 15:46 Eosinophils % (Manual) 1.0 % (0.0-4.3) 03/21/18 15:46 Basophils % (Manual) 1.0 % (0.0-1.8) 03/21/18 15:46 Metamyelocytes % 0 % 03/21/18 15:46 Myelocytes % 0 % 03/21/18 15:46 Promyelocytes % 0 % 03/21/18 15:46 Blast Cells % 0 % 03/21/18 15:46 Nucleated RBC % Not Reportable 03/21/18 15:46 Seg Neutrophils # 3.8 K/mm3 (1.8-7.7) 03/27/18 04:21 Seg Neutrophils # Man 4.5 K/mm3 (1.8-7.7) 03/21/18 15:46 Band Neutrophils # 0.4 K/mm3 03/21/18 15:46 Lymphocytes # (Manual) 1.8 K/mm3 (1.2-5.4) 03/21/18 15:46 Abs React Lymphs (Man) 0.0 K/mm3 03/21/18 15:46 Monocytes # (Manual) 0.9 K/mm3 (0.0-0.8) H 03/21/18 15:46 Eosinophils # (Manual) 0.1 K/mm3 (0.0-0.4) 03/21/18 15:46 Basophils # (Manual) 0.1 K/mm3 (0.0-0.1) 03/21/18 15:46 Metamyelocytes # 0.0 K/mm3 03/21/18 15:46 Myelocytes # 0.0 K/mm3 03/21/18 15:46 Promyelocytes # 0.0 K/mm3 03/21/18 15:46 Blast Cells # 0.0 K/mm3 03/21/18 15:46 WBC Morphology Not Reportable 03/21/18 15:46 Hypersegmented Neuts Not Reportable 03/21/18 15:46 Hyposegmented Neuts Not Reportable 03/21/18 15:46 Hypogranular Neuts Not Reportable 03/21/18 15:46 Smudge Cells Not Reportable 03/21/18 15:46 Toxic Granulation Not Reportable 03/21/18 15:46 Toxic Vacuolation Not Reportable 03/21/18 15:46 Dohle Bodies Not Reportable 03/21/18 15:46 Pelger-Huet Anomaly Not Reportable 03/21/18 15:46 Cheikh Rods Not Reportable 03/21/18 15:46 Platelet Estimate Appears normal 03/21/18 15:46 Clumped Platelets Not Reportable 03/21/18 15:46 Plt Clumps, EDTA Not Reportable 03/21/18 15:46 Large Platelets Not Reportable 03/21/18 15:46 Giant Platelets Not Reportable 03/21/18 15:46 Platelet Satelliting Not Reportable 03/21/18 15:46 Plt Morphology Comment Not Reportable 03/21/18 15:46 RBC Morphology Not Reportable 03/21/18 15:46 Dimorphic RBCs Not Reportable 03/21/18 15:46 Polychromasia Not Reportable 03/21/18 15:46 Hypochromasia Not Reportable 03/21/18 15:46 Poikilocytosis Few 03/21/18 15:46 Anisocytosis Not Reportable 03/21/18 15:46 Microcytosis Not Reportable 03/21/18 15:46 Macrocytosis Not Reportable 03/21/18 15:46 Spherocytes Not Reportable 03/21/18 15:46 Pappenheimer Bodies Not Reportable 03/21/18 15:46 Sickle Cells Not Reportable 03/21/18 15:46 Target Cells Not Reportable 03/21/18 15:46 Tear Drop Cells Not Reportable 03/21/18 15:46 Ovalocytes Not Reportable 03/21/18 15:46 Helmet Cells Not Reportable 03/21/18 15:46 [place] Bodies Not Reportable 03/21/18 15:46 [place] Rings Not Reportable 03/21/18 15:46 [place] Cells Not Reportable 03/21/18 15:46 Bite Cells Not Reportable 03/21/18 15:46 Crenated Cell Not Reportable 03/21/18 15:46 Elliptocytes Not Reportable 03/21/18 15:46 Acanthocytes (Spur) Not Reportable 03/21/18 15:46 Rouleaux Not Reportable 03/21/18 15:46 Hemoglobin C Crystals Not Reportable 03/21/18 15:46 Schistocytes Not Reportable 03/21/18 15:46 Malaria parasites Not Reportable 03/21/18 15:46 Robert Bodies Not Reportable 03/21/18 15:46 Hem Pathologist Commnt No 03/21/18 15:46 PT 16.8 Sec. (12.2-14.9) H 03/21/18 15:46 INR 1.28 (0.87-1.13) H 03/21/18 15:46 APTT 25.7 Sec. (24.2-36.6) 03/21/18 15:46 Sodium 139 mmol/L (137-145) 03/27/18 04:21 Potassium 3.4 mmol/L (3.6-5.0) L 03/27/18 04:21 Chloride 103.0 mmol/L (98-107) 03/27/18 04:21 Carbon Dioxide 24 mmol/L (22-30) 03/27/18 04:21 Anion Gap 15 mmol/L 03/27/18 04:21 BUN 11 mg/dL (9-20) 03/27/18 04:21 Creatinine 0.7 mg/dL (0.8-1.5) L 03/27/18 04:21 Estimated GFR > 60 ml/min 03/27/18 04:21 BUN/Creatinine Ratio 16 % 03/27/18 04:21 Glucose 117 mg/dL (75-100) H 03/27/18 04:21 Calcium 8.3 mg/dL (8.4-10.2) L 03/27/18 04:21 Magnesium 2.00 mg/dL (1.7-2.3) 03/27/18 04:21 Total Bilirubin 0.30 mg/dL (0.1-1.2) 03/27/18 04:21 AST 38 units/L (5-40) 03/27/18 04:21 ALT 32 units/L (7-56) 03/27/18 04:21 Alkaline Phosphatase 71 units/L (35-129) 03/27/18 04:21 NT-Pro-B Natriuret Pep 216.7 pg/mL (0-900) 03/21/18 15:46 Total Protein 6.9 g/dL (6.3-8.2) 03/27/18 04:21 Albumin 2.3 g/dL (3.9-5) L 03/27/18 04:21 Albumin/Globulin Ratio 0.5 % 03/27/18 04:21 Nutrition/Malnutrition Assess - Dietary Evaluation Nutrition/Malnutrition Findings: Nutrition Notes Start: 03/22/18 09:49 Freq: Status: Active Protocol: Document 03/28/18 10:59 SA (Rec: 03/28/18 11:42 SA [id number]) Co-Sign 03/28/18 10:59 LP Nutrition Notes Initial or Follow up Reassessment Current Diagnosis Hypertension Stroke Other Pertinent Diagnosis Dementia, SOB, Pneu Current Diet Pureed Diet Labs/Tests K: 3.4 Cr: 0.7 Glu: 117 Ca: 8.3 Albumin:2.3 Pertinent Medications Reviewed Height 5 ft 9 in Weight 64.864 kg [place] Body Weight (kg) 72.72 BMI 21.1 Subjective/Other Information Patient states appetite is poor. Patient reports eating 10% of meals on trays. Patient reports drinking ONS. Patient dies swallowing/chewing difficulty. Percent of energy/protein needs met: 41%/85% (if drinking all ONS) Burn Absent Trauma Absent #1 Nutrition Diagnosis Inadequate oral intake Diagnosis Progress(for reassessment Continues documentation) Is patient on ventilator? No Is Patient Ambulatory and/or Out of Bed No REE-([place] [facility]-confined to bed) 1602.108 Calculation Used for Recommendations [facility] Additional Notes Protein needs: (1-1.2) (65-78 g/day) fluid needs: 1ml/ kcal Nutrition Intervention Change Diet Order: Continue current Add Supplement/Snack (indicate name/kcal Ensure Enlive Four times a day /protein ) Provides kCal: 1,400 Provides Protein (gm) 80 Goal #1 Meet at least 75% of kcal and protein needs Anticipated Discharge Needs: unable to determine at this time Follow-Up By: 04/01/18 Additional Comments F/U: PO intake and ONS intake
--- NOTE | 2018-03-28 13:27 | Progress Note ---
Assessment and Plan LLL Pneumonia (+/- abscess/necrotizing process) Left complex Pleural effusion Adult FTT Dementia Constipation Severe malnutrition (Discussed care plan with [facility], because of his age and functional status VATS procedure not indicated acutely) - catheter directed thoracentesis +/- pig-tail catheter insertion - he will need long-term AB's especially in light of developing abscess - agree with empiric Zosyn and levaquin but suggest ID consult re: salvage determiner AB's therapy if needed - send pleural fluid for studies including cytology - CT chest suggests endobronchial LLL lesion and he will need a bronchoscopy - to better cover GNRs and anaerobes - continue prn bronchodilators and oxygen therapy - get swallow evaluation - GI & VTE prophylaxis - PT/OT .... re-evaluate in am & prn Subjective Date of service: 03/28/18 Principal diagnosis: LLL Pneumonia; L complex Pleural effusion; Adult FTT; Dementia;Constipation Interval history: Patient is seen today for: LLL Pneumonia (+/- abscess/necrotizing process); Left complex Pleural effusion; Adult FTT; Dementia; Constipation Seen and examined at bedside; 24hour events reviewed; nursing and respiratory care staff consulted; no adverse overnight events reported to me; sitting in bed; coughing intermittently; appears uncomfortable; complains of left sided pleuritic chest pain; No emesis or overt aspiration; seems to admit to a h/o of coughing with meals / drinking re: ? occult aspiration Objective Vital Signs - 12hr 03/28/18 03/28/18 03/28/18 02:27 02:28 07:59 Temperature 98.1 F 97.8 F Pulse Rate 83 83 Pulse Rate [ From Monitor] Respiratory 18 20 Rate Blood Pressure 157/84 114/63 O2 Sat by Pulse 94 94 Oximetry 03/28/18 03/28/18 03/28/18 09:05 10:00 10:57 Temperature Pulse Rate 83 Pulse Rate [ 83 From Monitor] Respiratory 18 Rate Blood Pressure 114/63 O2 Sat by Pulse 95 95 Oximetry Constitutional: no acute distress, alert, other (elderly, mildly cachectic looking AAM with mildly increased resp effort at rest) Eyes: non-icteric ENT: oropharynx moist Neck: supple, no JVD Effort: normal Ascultation: Left: diminished breath sounds (base), Bilateral: rhonchi (upper airway primarily) Percussion: Bilateral: not dull Cardiovascular: regular rate and rhythm (no mrg) Gastrointestinal: normoactive bowel sounds, soft, non-tender, non-distended Integumentary: normal Extremities: no cyanosis, no edema, pink and warm Neurologic: normal mental status, non-focal exam, pupils equal and round, CN II- XII normal Psychiatric: mood appropriate, affect normal CBC and BMP: 03/27/18 04:21 03/27/18 04:21 ABG, PT/INR, D-dimer: PT/INR, D-dimer PT 16.8 Sec. (12.2-14.9) H 03/21/18 15:46 INR 1.28 (0.87-1.13) H 03/21/18 15:46 Abnormal lab findings: Abnormal Labs 03/21/18 03/21/18 03/21/18 15:46 15:46 15:46 Hgb 11.6 L Hct RDW 17.7 H [place] % (Auto) [place] # Monocytes % (Manual) 12.0 H Monocytes # (Manual) 0.9 H PT 16.8 H INR 1.28 H Sodium Potassium Carbon Dioxide Creatinine Glucose 121 H Calcium Albumin 03/22/18 03/22/18 03/23/18 03:20 03:20 05:33 Hgb 10.4 L Hct 32.0 L RDW 17.6 H [place] % (Auto) 11.4 H [place] # 0.9 H Monocytes % (Manual) Monocytes # (Manual) PT INR Sodium 135 L Potassium 3.5 L Carbon Dioxide 20 L Creatinine 0.7 L Glucose Calcium 8.3 L Albumin 03/24/18 03/27/18 03/27/18 04:23 04:21 04:21 Hgb 10.5 L Hct 32.1 L RDW 17.0 H [place] % (Auto) 12.5 H [place] # Monocytes % (Manual) Monocytes # (Manual) PT INR Sodium Potassium 3.4 L Carbon Dioxide Creatinine 0.7 L Glucose 113 H 117 H Calcium 8.3 L Albumin 2.[address] scan - chest: image reviewed (small volume loculated left pleural effusion; ? developing lung abscess) Allied health notes reviewed: nursing
[2018-03-28] MEDS: ZOSYN/NS 4.5GM/100ML 4.5 GM/100 ML VIAL IV SCH ×2 (17:37→21:49)
[2018-03-28 21:03] LABS: C-Reactive Protein 9.6 mg/dL (0.00-1.30)
[2018-03-28] MEDS: PRAVACHOL PO SCH (21:49)
[2018-03-29] MEDS: ZOSYN/NS 4.5GM/100ML 4.5 GM/100 ML VIAL IV SCH ×3 (05:08→21:13)
--- NOTE | 2018-03-29 09:13 | Progress Note ---
Assessment and Plan Assessment and plan: 83-year-old male patient half-way resident was admitted with left-sided pneumonia worsening shortness of breath Noted to have left lower lobe pneumonia on IV antibiotics, symptoms significantly improved, CT scan revealed loculated left lower effusion Possible empyema, pulmonary evaluated, advised thoracentesis could not be done, chest ultrasound, Chest ultrasound ,no significant effusion .left pleural fluid demonstrated on the CT on 03/27/2018 resolved --Left lower lobe multiloculated effusion/?empyema on CT chest Candidate for thoracentesis today, chest ultrasound; no effusion fluid noted Resolved since CT scan, pulmonary planning bronchoscopy Continue current management --Lt lower lobe pneumonia; Possible aspiration pneumonia On Zosyn and Levaquin, follow cultures, pulmonary evaluation --Secondary to aspiration pneumonia/empyema Continue antibiotics follow cultures --Aspiration risk; s/o MBS, Patient was already evaluated by speech therapist, had modified barium swallow study, recommended pured diet --Hypertension;stable continue current antihypertensives --Dementia; supportive care --Severe mal nutrition/Hypoalbuminemia: nutrition suppliments --DVT prophylaxis; Lovenox --CODE STATUS, full code --Physical therapy occupational therapy Follow-up pulmonary recommendations Plan of care reviewed with the patient's nurse Possible discharge in 1-2 days if stable History Interval history: Patient seen and examined medical records reviewed No new events reported by the nursing staff Scheduled for thoracentesis Patient has no new complaints Vital signs noted Hospitalist Physical - Constitutional Vitals: Temp Pulse Resp BP Pulse Ox 98.4 F 82 18 113/66 96 03/29/18 08:24 03/29/18 08:24 03/29/18 08:24 03/29/18 08:24 03/29/18 08:24 General appearance: Present: no acute distress, well-nourished, other (confused at times) - EENT Eyes: Present: PERRL, EOM intact - Neck Neck: Present: supple, normal ROM - Respiratory Respiratory effort: normal Respiratory: left: rhonchi, bilateral: diminished (left greater than right), rales, negative: wheezing - Cardiovascular Rhythm: regular Heart Sounds: Present: S1 & S2 - Extremities Extremities: no ischemia, No edema - Abdominal General gastrointestinal: soft, non-tender, non-distended, normal bowel sounds - Integumentary Integumentary: Present: clear, warm - Psychiatric Psychiatric: appropriate mood/affect, cooperative - Neurologic Neurologic: moves all extremities Results - Labs CBC & Chem 7: 03/27/18 04:21 03/27/18 04:21 Labs: Laboratory Last Values WBC 6.6 K/mm3 (4.5-11.0) 03/27/18 04:21 RBC 3.73 M/mm3 (3.65-5.03) 03/27/18 04:21 Hgb 10.5 gm/dl (11.8-15.2) L 03/27/18 04:21 Hct 32.1 % (35.5-45.6) L 03/27/18 04:21 MCV 86 fl (84-94) 03/27/18 04:21 MCH 28 pg (28-32) 03/27/18 04:21 MCHC 33 % (32-34) 03/27/18 04:21 RDW 17.0 % (13.2-15.2) H 03/27/18 04:21 Plt Count 187 K/mm3 (140-440) 03/27/18 04:21 Lymph % (Auto) 26.3 % (13.4-35.0) 03/27/18 04:21 [place] % (Auto) 12.5 % (0.0-7.3) H 03/27/18 04:21 Eos % (Auto) 1.5 % (0.0-4.3) 03/27/18 04:21 Baso % (Auto) 1.3 % (0.0-1.8) 03/27/18 04:21 Lymph # 1.7 K/mm3 (1.2-5.4) 03/27/18 04:21 [place] # 0.8 K/mm3 (0.0-0.8) 03/27/18 04:21 Eos # 0.1 K/mm3 (0.0-0.4) 03/27/18 04:21 Baso # 0.1 K/mm3 (0.0-0.1) 03/27/18 04:21 Add Manual Diff Complete 03/21/18 15:46 Total Counted 100 03/21/18 15:46 Seg Neutrophils % 58.4 % (40.0-70.0) 03/27/18 04:21 Seg Neuts % (Manual) 58.0 % (40.0-70.0) 03/21/18 15:46 Band Neutrophils % 5.0 % 03/21/18 15:46 Lymphocytes % (Manual) 23.0 % (13.4-35.0) 03/21/18 15:46 Reactive Lymphs % (Man) 0 % 03/21/18 15:46 Monocytes % (Manual) 12.0 % (0.0-7.3) H 03/21/18 15:46 Eosinophils % (Manual) 1.0 % (0.0-4.3) 03/21/18 15:46 Basophils % (Manual) 1.0 % (0.0-1.8) 03/21/18 15:46 Metamyelocytes % 0 % 03/21/18 15:46 Myelocytes % 0 % 03/21/18 15:46 Promyelocytes % 0 % 03/21/18 15:46 Blast Cells % 0 % 03/21/18 15:46 Nucleated RBC % Not Reportable 03/21/18 15:46 Seg Neutrophils # 3.8 K/mm3 (1.8-7.7) 03/27/18 04:21 Seg Neutrophils # Man 4.5 K/mm3 (1.8-7.7) 03/21/18 15:46 Band Neutrophils # 0.4 K/mm3 03/21/18 15:46 Lymphocytes # (Manual) 1.8 K/mm3 (1.2-5.4) 03/21/18 15:46 Abs React Lymphs (Man) 0.0 K/mm3 03/21/18 15:46 Monocytes # (Manual) 0.9 K/mm3 (0.0-0.8) H 03/21/18 15:46 Eosinophils # (Manual) 0.1 K/mm3 (0.0-0.4) 03/21/18 15:46 Basophils # (Manual) 0.1 K/mm3 (0.0-0.1) 03/21/18 15:46 Metamyelocytes # 0.0 K/mm3 03/21/18 15:46 Myelocytes # 0.0 K/mm3 03/21/18 15:46 Promyelocytes # 0.0 K/mm3 03/21/18 15:46 Blast Cells # 0.0 K/mm3 03/21/18 15:46 WBC Morphology Not Reportable 03/21/18 15:46 Hypersegmented Neuts Not Reportable 03/21/18 15:46 Hyposegmented Neuts Not Reportable 03/21/18 15:46 Hypogranular Neuts Not Reportable 03/21/18 15:46 Smudge Cells Not Reportable 03/21/18 15:46 Toxic Granulation Not Reportable 03/21/18 15:46 Toxic Vacuolation Not Reportable 03/21/18 15:46 Dohle Bodies Not Reportable 03/21/18 15:46 Pelger-Huet Anomaly Not Reportable 03/21/18 15:46 Cheikh Rods Not Reportable 03/21/18 15:46 Platelet Estimate Appears normal 03/21/18 15:46 Clumped Platelets Not Reportable 03/21/18 15:46 Plt Clumps, EDTA Not Reportable 03/21/18 15:46 Large Platelets Not Reportable 03/21/18 15:46 Giant Platelets Not Reportable 03/21/18 15:46 Platelet Satelliting Not Reportable 03/21/18 15:46 Plt Morphology Comment Not Reportable 03/21/18 15:46 RBC Morphology Not Reportable 03/21/18 15:46 Dimorphic RBCs Not Reportable 03/21/18 15:46 Polychromasia Not Reportable 03/21/18 15:46 Hypochromasia Not Reportable 03/21/18 15:46 Poikilocytosis Few 03/21/18 15:46 Anisocytosis Not Reportable 03/21/18 15:46 Microcytosis Not Reportable 03/21/18 15:46 Macrocytosis Not Reportable 03/21/18 15:46 Spherocytes Not Reportable 03/21/18 15:46 Pappenheimer Bodies Not Reportable 03/21/18 15:46 Sickle Cells Not Reportable 03/21/18 15:46 Target Cells Not Reportable 03/21/18 15:46 Tear Drop Cells Not Reportable 03/21/18 15:46 Ovalocytes Not Reportable 03/21/18 15:46 Helmet Cells Not Reportable 03/21/18 15:46 [place] Bodies Not Reportable 03/21/18 15:46 [place] Rings Not Reportable 03/21/18 15:46 [place] Cells Not Reportable 03/21/18 15:46 Bite Cells Not Reportable 03/21/18 15:46 Crenated Cell Not Reportable 03/21/18 15:46 Elliptocytes Not Reportable 03/21/18 15:46 Acanthocytes (Spur) Not Reportable 03/21/18 15:46 Rouleaux Not Reportable 03/21/18 15:46 Hemoglobin C Crystals Not Reportable 03/21/18 15:46 Schistocytes Not Reportable 03/21/18 15:46 Malaria parasites Not Reportable 03/21/18 15:46 Robert Bodies Not Reportable 03/21/18 15:46 Hem Pathologist Commnt No 03/21/18 15:46 PT 16.8 Sec. (12.2-14.9) H 03/21/18 15:46 INR 1.28 (0.87-1.13) H 03/21/18 15:46 APTT 25.7 Sec. (24.2-36.6) 03/21/18 15:46 Sodium 139 mmol/L (137-145) 03/27/18 04:21 Potassium 3.4 mmol/L (3.6-5.0) L 03/27/18 04:21 Chloride 103.0 mmol/L (98-107) 03/27/18 04:21 Carbon Dioxide 24 mmol/L (22-30) 03/27/18 04:21 Anion Gap 15 mmol/L 03/27/18 04:21 BUN 11 mg/dL (9-20) 03/27/18 04:21 Creatinine 0.7 mg/dL (0.8-1.5) L 03/27/18 04:21 Estimated GFR > 60 ml/min 03/27/18 04:21 BUN/Creatinine Ratio 16 % 03/27/18 04:21 Glucose 117 mg/dL (75-100) H 03/27/18 04:21 Calcium 8.3 mg/dL (8.4-10.2) L 03/27/18 04:21 Magnesium 2.00 mg/dL (1.7-2.3) 03/27/18 04:21 Total Bilirubin 0.30 mg/dL (0.1-1.2) 03/27/18 04:21 AST 38 units/L (5-40) 03/27/18 04:21 ALT 32 units/L (7-56) 03/27/18 04:21 Alkaline Phosphatase 71 units/L (35-129) 03/27/18 04:21 Lactate Dehydrogenase 264 units/L (91-180) H 03/28/18 19:58 C-Reactive Protein 9.60 mg/dL (0.00-1.30) H 03/28/18 19:58 NT-Pro-B Natriuret Pep 216.7 pg/mL (0-900) 03/21/18 15:46 Total Protein 6.9 g/dL (6.3-8.2) 03/27/18 04:21 Albumin 2.3 g/dL (3.9-5) L 03/27/18 04:21 Albumin/Globulin Ratio 0.5 % 03/27/18 04:21 Nutrition/Malnutrition Assess - Dietary Evaluation Nutrition/Malnutrition Findings: Nutrition Notes Start: 03/22/18 0 9:49 Freq: Status: Active Protocol: Document 03/28/18 10:59 SA (Rec: 03/28/18 11:42 SA [id number]) Co-Sign 03/28/18 10:59 LP Nutrition Notes Initial or Follow up Reassessment Current Diagnosis Hypertension Stroke Other Pertinent Diagnosis Dementia, SOB, Pneu Current Diet Pureed Diet Labs/Tests K: 3.4 Cr: 0.7 Glu: 117 Ca: 8.3 Albumin:2.3 Pertinent Medications Reviewed Height 5 ft 9 in Weight 64.864 kg [place] Body Weight (kg) 72.72 BMI 21.1 Subjective/Other Information Patient states appetite is poor. Patient reports eating 10% of meals on trays. Patient reports drinking ONS. Patient dies swallowing/chewing difficulty. Percent of energy/protein needs met: 41%/85% (if drinking all ONS) Burn Absent Trauma Absent #1 Nutrition Diagnosis Inadequate oral intake Diagnosis Progress(for reassessment Continues documentation) Is patient on ventilator? No Is Patient Ambulatory and/or Out of Bed No REE-([facility]-confined to bed) 1602.108 Calculation Used for Recommendations [facility] Additional Notes Protein needs: (1-1.2) (65-78 g/day) fluid needs: 1ml/ kcal Nutrition Intervention Change Diet Order: Continue current Add Supplement/Snack (indicate name/kcal Ensure Enlive Four times a day /protein ) Provides kCal: 1,400 Provides Protein (gm) 80 Goal #1 Meet at least 75% of kcal and protein needs Anticipated Discharge Needs: unable to determine at this time Follow-Up By: 04/01/18 Additional Comments F/U: PO intake and ONS intake
[2018-03-29] MEDS ORDERED: K-DUR PO ONE (10:00)
[2018-03-29] MEDS: TOPROL XL PO SCH (13:15)
[2018-03-29] MEDS: THERAGRAN-M Tab PO SCH (13:15)
[2018-03-29] MEDS: BABY ASPIRIN PO SCH (13:15)
[2018-03-29] MEDS ORDERED: POTASSIUM CHLORIDE PO ONE (14:00)
--- NOTE | 2018-03-29 14:05 | Progress Note ---
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 re-evaluate in am & prn Subjective Date of service: 03/29/18 Principal diagnosis: LLL Pneumonia; L complex Pleural effusion; Adult FTT; Dementia;Constipation Interval history: Patient is seen today for: LLL Pneumonia (+/- abscess/necrotizing process); Left complex Pleural effusion; Adult FTT; Dementia; Constipation Seen and examined at bedside; 24hour events reviewed; nursing and respiratory care staff consulted; no adverse overnight events reported to me; sitting in bed; to go for thoracentesis today; denies acute chest pains or palpitations Objective Vital Signs - 12hr 03/29/18 03/29/18 03/29/18 07:45 08:24 10:00 Temperature 98.4 F Pulse Rate 82 Pulse Rate [ 82 Apical] Pulse Rate [ 82 From Monitor] Respiratory 18 18 Rate Blood Pressure 113/66 O2 Sat by Pulse 95 96 96 Oximetry Constitutional: no acute distress, alert, other (elderly, mildly cachectic looking AAM with mildly increased resp effort at rest) Eyes: non-icteric ENT: oropharynx moist Neck: supple, no JVD Effort: normal Ascultation: Left: diminished breath sounds (base), Bilateral: rhonchi (upper airway primarily) Percussion: Bilateral: not dull Cardiovascular: regular rate and rhythm (no mrg) Gastrointestinal: normoactive bowel sounds, soft, non-tender, non-distended Integumentary: normal Extremities: no cyanosis, no edema, pink and warm Neurologic: normal mental status, non-focal exam, pupils equal and round, CN II- XII normal Psychiatric: mood appropriate, affect normal CBC and BMP: 03/30/18 04:40 03/30/18 04:40 ABG, PT/INR, D-dimer: PT/INR, D-dimer PT 16.8 Sec. (12.2-14.9) H 03/21/18 15:46 INR 1.28 (0.87-1.13) H 03/21/18 15:46 Abnormal lab findings: Abnormal Labs 03/21/18 03/21/18 03/21/18 15:46 15:46 15:46 Hgb 11.6 L Hct RDW 17.7 H [place] % (Auto) [place] # Monocytes % (Manual) 12.0 H Monocytes # (Manual) 0.9 H PT 16.8 H INR 1.28 H Sodium Potassium Carbon Dioxide Creatinine Glucose 121 H Calcium Lactate Dehydrogenase C-Reactive Protein Albumin 03/22/18 03/22/18 03/23/18 03:20 03:20 05:33 Hgb 10.4 L Hct 32.0 L RDW 17.6 H [place] % (Auto) 11.4 H [place] # 0.9 H Monocytes % (Manual) Monocytes # (Manual) PT INR Sodium 135 L Potassium 3.5 L Carbon Dioxide 20 L Creatinine 0.7 L Glucose Calcium 8.3 L Lactate Dehydrogenase C-Reactive Protein Albumin 03/24/18 03/27/18 03/27/18 04:23 04:21 04:21 Hgb 10.5 L Hct 32.1 L RDW 17.0 H [place] % (Auto) 12.5 H [place] # Monocytes % (Manual) Monocytes # (Manual) PT INR Sodium Potassium 3.4 L Carbon Dioxide Creatinine 0.7 L Glucose 113 H 117 H Calcium 8.3 L Lactate Dehydrogenase C-Reactive Protein Albumin 2.7 L 2.3 L 03/28/18 19:58 Hgb Hct RDW [place] % (Auto) [place] # Monocytes % (Manual) Monocytes # (Manual) PT INR Sodium Potassium Carbon Dioxide Creatinine Glucose Calcium Lactate Dehydrogenase 264 H C-Reactive Protein 9.60 H Albumin Allied health notes reviewed: nursing
[2018-03-29] MEDS: SODIUM CHLORIDE FLUSH SYRINGE 10 ML IV SCH ×2 (14:27→21:13)
[2018-03-29] MEDS ORDERED: XYLOCAINE 1% 20 mL ONE (15:13)
--- NOTE | 2018-03-29 15:24 | Ultrasound Report ---
ULTRASOUND CHEST History: Left pleural effusion. Findings: The patient was brought to the ultrasound department for ultrasound guided left thoracentesis. The left chest was scanned thoroughly and no fluid collection amenable to ultrasound guided thoracentesis could be found. Left pleural fluid has essentially resolved since the CT dated 03/27/18. Impression: No significant left pleural fluid as demonstrated on ultrasound. See above.
[2018-03-29] MEDS: LOVENOX SUB-Q SCH (18:00)
[2018-03-29] MEDS: LEVAQUIN PO SCH (18:01)
[2018-03-29] MEDS: PRAVACHOL PO SCH (21:13)
[2018-03-29] MEDS: ROBITUSSIN PO PRN (21:15)
[2018-03-30] MEDS: LOVENOX SUB-Q SCH ×2 (04:01→10:09)
[2018-03-30] MEDS: ZOSYN/NS 4.5GM/100ML 4.5 GM/100 ML VIAL IV SCH ×3 (05:06→22:20)
[2018-03-30 05:26] LABS: Basophils # (Auto) 0.1 K/mm3 (0.0-0.1); Basophils % (Auto) 0.8 % (0.0-1.8); Eosinophils # (Auto) 0.1 K/mm3 (0.0-0.4); Eosinophils % (Auto) 1.4 % (0.0-4.3); Hematocrit 32.4 % (35.5-45.6); Hemoglobin 10.6 gm/dl (11.8-15.2); Lymphocytes # (Auto) 1.5 K/mm3 (1.2-5.4); Lymphocytes % (Auto) 23.8 % (13.4-35.0); Mean Corpuscular HGB Conc 33 % (32-34); Mean Corpuscular Volume 87 fl (84-94); Monocytes # (Auto) 0.8 K/mm3 (0.0-0.8); Monocytes % (Auto) 12.5 % (0.0-7.3); Platelet Count 193 K/mm3 (140-440); Red Blood Count 3.74 M/mm3 (3.65-5.03); Red Cell Distribution Width 17.3 % (13.2-15.2)
[2018-03-30 05:44] LABS: BUN/Creatinine Ratio 14; Blood Urea Nitrogen 11 mg/dL (9-20); Calcium 8.3 mg/dL (8.4-10.2); Hemolysis Index 13
[2018-03-30] MEDS: THERAGRAN-M Tab PO SCH (10:10)
[2018-03-30] MEDS: SODIUM CHLORIDE FLUSH SYRINGE 10 ML IV SCH ×2 (10:10→22:21)
[2018-03-30] MEDS: BABY ASPIRIN PO SCH (10:10)
[2018-03-30] MEDS: LEVAQUIN PO SCH (10:10)
[2018-03-30] MEDS: TOPROL XL PO SCH (10:11)
--- NOTE | 2018-03-30 13:22 | Progress Note ---
Assessment and Plan Assessment and plan: 83-year-old male patient care home resident was admitted with left-sided pneumonia worsening shortness of breath Noted to have left lower lobe pneumonia on IV antibiotics, symptoms significantly improved, CT scan revealed loculated left lower effusion Possible empyema, pulmonary evaluated, advised thoracentesis could not be done, chest ultrasound, Chest ultrasound ,no significant effusion .left pleural fluid demonstrated on the CT on 03/27/2018 resolved --Left lower lobe multiloculated effusion/?empyema on CT chest Candidate for thoracentesis today, chest ultrasound; no effusion fluid noted Resolved since CT scan, pulmonary planning bronchoscopy Continue current management --Lt lower lobe pneumonia; Possible aspiration pneumonia On Zosyn and Levaquin, follow cultures, pulmonary evaluation, plan for bronchoscopy, still trying to get in touch with family to sign consents - Dysphagia Patient has been seen by speech therapy, status post MBS,. Diet is recommended --Hypertension;stable continue current antihypertensives --Dementia; supportive care --Severe mal nutrition/Hypoalbuminemia: nutrition suppliments --DVT prophylaxis; Lovenox --CODE STATUS, full code --Physical therapy occupational therapy History Interval history: Review of systems Constitutional: No fevers, no malaise, no joint pains CVS: No chest pain, no orthopnea, no dyspnea on exertion, no pedal edema GI: No abdominal pain, no diarrhea, no vomiting, no constipation Respiratory: He has occasional episodes of shortness of breath per nursing, he is having cough productive of thick sputum Hospitalist Physical - Physical exam Narrative exam: General.: Appears well, no distress, nontoxic HEENT: Moist mucous membranes, extraocular muscles intact, no lymphadenopathy Neck: supple Cardiac: S1-S2 heard Lungs: Crackles Abdomen: soft , nontender, nondistended, bowel sounds positive Extremities: no edema clubbing or cyanosis Skin: no rash or lesions Neurologic: no gross focal deficits Psych: calm, and cooperative - Constitutional Vitals: Temp Pulse Resp BP Pulse Ox 97.9 F 82 18 111/69 97 03/30/18 07:22 03/30/18 10:11 03/30/18 10:00 03/30/18 10:11 03/30/18 10:00 General appearance: Present: no acute distress, well-nourished, other (confused at times) Results - Labs CBC & Chem 7: 03/30/18 04:40 03/30/18 04:40 Labs: Laboratory Last Values WBC 6.4 K/mm3 (4.5-11.0) 03/30/18 04:40 RBC 3.74 M/mm3 (3.65-5.03) 03/30/18 04:40 Hgb 10.6 gm/dl (11.8-15.2) L 03/30/18 04:40 Hct 32.4 % (35.5-45.6) L 03/30/18 04:40 MCV 87 fl (84-94) 03/30/18 04:40 MCH 28 pg (28-32) 03/30/18 04:40 MCHC 33 % (32-34) 03/30/18 04:40 RDW 17.3 % (13.2-15.2) H 03/30/18 04:40 Plt Count 193 K/mm3 (140-440) 03/30/18 04:40 Lymph % (Auto) 23.8 % (13.4-35.0) 03/30/18 04:40 [place]ady % (Auto) 12.5 % (0.0-7.3) H 03/30/18 04:40 Eos % (Auto) 1.4 % (0.0-4.3) 03/30/18 04:40 Baso % (Auto) 0.8 % (0.0-1.8) 03/30/18 04:40 Lymph # 1.5 K/mm3 (1.2-5.4) 03/30/18 04:40 [place]ady # 0.8 K/mm3 (0.0-0.8) 03/30/18 04:40 Eos # 0.1 K/mm3 (0.0-0.4) 03/30/18 04:40 Baso # 0.1 K/mm3 (0.0-0.1) 03/30/18 04:40 Add Manual Diff Complete 03/21/18 15:46 Total Counted 100 03/21/18 15:46 Seg Neutrophils % 61.5 % (40.0-70.0) 03/30/18 04:40 Seg Neuts % (Manual) 58.0 % (40.0-70.0) 03/21/18 15:46 Band Neutrophils % 5.0 % 03/21/18 15:46 Lymphocytes % (Manual) 23.0 % (13.4-35.0) 03/21/18 15:46 Reactive Lymphs % (Man) 0 % 03/21/18 15:46 Monocytes % (Manual) 12.0 % (0.0-7.3) H 03/21/18 15:46 Eosinophils % (Manual) 1.0 % (0.0-4.3) 03/21/18 15:46 Basophils % (Manual) 1.0 % (0.0-1.8) 03/21/18 15:46 Metamyelocytes % 0 % 03/21/18 15:46 Myelocytes % 0 % 03/21/18 15:46 Promyelocytes % 0 % 03/21/18 15:46 Blast Cells % 0 % 03/21/18 15:46 Nucleated RBC % Not Reportable 03/21/18 15:46 Seg Neutrophils # 3.9 K/mm3 (1.8-7.7) 03/30/18 04:40 Seg Neutrophils # Man 4.5 K/mm3 (1.8-7.7) 03/21/18 15:46 Band Neutrophils # 0.4 K/mm3 03/21/18 15:46 Lymphocytes # (Manual) 1.8 K/mm3 (1.2-5.4) 03/21/18 15:46 Abs React Lymphs (Man) 0.0 K/mm3 03/21/18 15:46 Monocytes # (Manual) 0.9 K/mm3 (0.0-0.8) H 03/21/18 15:46 Eosinophils # (Manual) 0.1 K/mm3 (0.0-0.4) 03/21/18 15:46 Basophils # (Manual) 0.1 K/mm3 (0.0-0.1) 03/21/18 15:46 Metamyelocytes # 0.0 K/mm3 03/21/18 15:46 Myelocytes # 0.0 K/mm3 03/21/18 15:46 Promyelocytes # 0.0 K/mm3 03/21/18 15:46 Blast Cells # 0.0 K/mm3 03/21/18 15:46 WBC Morphology Not Reportable 03/21/18 15:46 Hypersegmented Neuts Not Reportable 03/21/18 15:46 Hyposegmented Neuts Not Reportable 03/21/18 15:46 Hypogranular Neuts Not Reportable 03/21/18 15:46 Smudge Cells Not Reportable 03/21/18 15:46 Toxic Granulation Not Reportable 03/21/18 15:46 Toxic Vacuolation Not Reportable 03/21/18 15:46 Dohle Bodies Not Reportable 03/21/18 15:46 Pelger-Huet Anomaly Not Reportable 03/21/18 15:46 Cheikh Rods Not Reportable 03/21/18 15:46 Platelet Estimate Appears normal 03/21/18 15:46 Clumped Platelets Not Reportable 03/21/18 15:46 Plt Clumps, EDTA Not Reportable 03/21/18 15:46 Large Platelets Not Reportable 03/21/18 15:46 Giant Platelets Not Reportable 03/21/18 15:46 Platelet Satelliting Not Reportable 03/21/18 15:46 Plt Morphology Comment Not Reportable 03/21/18 15:46 RBC Morphology Not Reportable 03/21/18 15:46 Dimorphic RBCs Not Reportable 03/21/18 15:46 Polychromasia Not Reportable 03/21/18 15:46 Hypochromasia Not Reportable 03/21/18 15:46 Poikilocytosis Few 03/21/18 15:46 Anisocytosis Not Reportable 03/21/18 15:46 Microcytosis Not Reportable 03/21/18 15:46 Macrocytosis Not Reportable 03/21/18 15:46 Spherocytes Not Reportable 03/21/18 15:46 Pappenheimer Bodies Not Reportable 03/21/18 15:46 Sickle Cells Not Reportable 03/21/18 15:46 Target Cells Not Reportable 03/21/18 15:46 Tear Drop Cells Not Reportable 03/21/18 15:46 Ovalocytes Not Reportable 03/21/18 15:46 Helmet Cells Not Reportable 03/21/18 15:46 Murillo-Harris Bodies Not Reportable 03/21/18 15:46 [place] Rings Not Reportable 03/21/18 15:46 Yolette Cells Not Reportable 03/21/18 15:46 Bite Cells Not Reportable 03/21/18 15:46 Crenated Cell Not Reportable 03/21/18 15:46 Elliptocytes Not Reportable 03/21/18 15:46 Acanthocytes (Spur) Not Reportable 03/21/18 15:46 Rouleaux Not Reportable 03/21/18 15:46 Hemoglobin C Crystals Not Reportable 03/21/18 15:46 Schistocytes Not Reportable 03/21/18 15:46 Malaria parasites Not Reportable 03/21/18 15:46 Robert Bodies Not Reportable 03/21/18 15:46 Hem Pathologist Commnt No 03/21/18 15:46 PT 16.8 Sec. (12.2-14.9) H 03/21/18 15:46 INR 1.28 (0.87-1.13) H 03/21/18 15:46 APTT 25.7 Sec. (24.2-36.6) 03/21/18 15:46 Sodium 139 mmol/L (137-145) 03/30/18 04:40 Potassium 4.1 mmol/L (3.6-5.0) D 03/30/18 04:40 Chloride 106.5 mmol/L (98-107) 03/30/18 04:40 Carbon Dioxide 20 mmol/L (22-30) L 03/30/18 04:40 Anion Gap 17 mmol/L 03/30/18 04:40 BUN 11 mg/dL (9-20) 03/30/18 04:40 Creatinine 0.8 mg/dL (0.8-1.5) 03/30/18 04:40 Estimated GFR > 60 ml/min 03/30/18 04:40 BUN/Creatinine Ratio 14 % 03/30/18 04:40 Glucose 93 mg/dL (75-100) 03/30/18 04:40 Calcium 8.3 mg/dL (8.4-10.2) L 03/30/18 04:40 Magnesium 2.00 mg/dL (1.7-2.3) 03/27/18 04:21 Total Bilirubin 0.30 mg/dL (0.1-1.2) 03/27/18 04:21 AST 38 units/L (5-40) 03/27/18 04:21 ALT 32 units/L (7-56) 03/27/18 04:21 Alkaline Phosphatase 71 units/L (35-129) 03/27/18 04:21 Lactate Dehydrogenase 264 units/L (91-180) H 03/28/18 19:58 C-Reactive Protein 9.60 mg/dL (0.00-1.30) H 03/28/18 19:58 NT-Pro-B Natriuret Pep 216.7 pg/mL (0-900) 03/21/18 15:46 Total Protein 6.9 g/dL (6.3-8.2) 03/27/18 04:21 Albumin 2.3 g/dL (3.9-5) L 03/27/18 04:21 Albumin/Globulin Ratio 0.5 % 03/27/18 04:21 Nutrition/Malnutrition Assess - Dietary Evaluation Nutrition/Malnutrition Findings: Nutrition Notes Start: 03/22/18 09:49 Freq: Status: Active Protocol: Document 03/28/18 10:59 SA (Rec: 03/28/18 11:42 SA [id number]) Co-Sign 03/28/18 10:59 LP Nutrition Notes Initial or Follow up Reassessment Current Diagnosis Hypertension Stroke Other Pertinent Diagnosis Dementia, SOB, Pneu Current Diet Pureed Diet Labs/Tests K: 3.4 Cr: 0.7 Glu: 117 Ca: 8.3 Albumin:2.3 Pertinent Medications Reviewed Height 5 ft 9 in Weight 64.864 kg [place] Body Weight (kg) 72.72 BMI 21.1 Subjective/Other Information Patient states appetite is poor. Patient reports eating 10% of meals on trays. Patient reports drinking ONS. Patient dies swallowing/chewing difficulty. Percent of energy/protein needs met: 41%/85% (if drinking all ONS) Burn Absent Trauma Absent #1 Nutrition Diagnosis Inadequate oral intake Diagnosis Progress(for reassessment Continues documentation) Is patient on ventilator? No Is Patient Ambulatory and/or Out of Bed No [facility] 1602.108 Calculation Used for Recommendations [facility] Additional Notes Protein needs: (1-1.2) (65-78 g/day) fluid needs: 1ml/ kcal Nutrition Intervention Change Diet Order: Continue current Add Supplement/Snack (indicate name/kcal Ensure Enlive Four times a day /protein ) Provides kCal: 1,400 Provides Protein (gm) 80 Goal #1 Meet at least 75% of kcal and protein needs Anticipated Discharge Needs: unable to determine at this time Follow-Up By: 04/01/18 Additional Comments F/U: PO intake and ONS intake
[2018-03-30] MEDS: SODIUM CHLORIDE FLUSH SYRINGE 10 ML IV PRN (13:35)
[2018-03-30] MEDS: ROBITUSSIN PO PRN ×2 (13:46→22:21)
--- NOTE | 2018-03-30 13:48 | Progress Note ---
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 re-evaluate in am & prn Subjective Date of service: 03/30/18 Principal diagnosis: LLL Pneumonia; L complex Pleural effusion; Adult FTT; Dementia;Constipation Interval history: Patient is seen today for: LLL Pneumonia (+/- abscess/necrotizing process); Left complex Pleural effusion; Adult FTT; Dementia; Constipation Seen and examined at bedside; 24hour events reviewed; nursing and respiratory care staff consulted; no adverse overnight events reported to me; sitting in bed; unable to get thoracentesis done yesterday as none seen on US chest; still with cough and complaining of left sided chest pain Objective Vital Signs - 12hr 03/30/18 03/30/18 03/30/18 01:49 01:50 07:22 Temperature 98.6 F 97.9 F Pulse Rate 81 83 82 Pulse Rate [ From Monitor] Respiratory 18 18 Rate Blood Pressure 111/72 111/69 O2 Sat by Pulse 93 93 97 Oximetry 03/30/18 03/30/18 10:00 10:11 Temperature Pulse Rate 82 Pulse Rate [ 82 From Monitor] Respiratory 18 Rate Blood Pressure 111/69 O2 Sat by Pulse 97 Oximetry Constitutional: no acute distress, alert, other (elderly, mildly cachectic looking AAM with mildly increased resp effort at rest) Eyes: non-icteric ENT: oropharynx moist Neck: supple, no JVD Effort: normal Ascultation: Left: diminished breath sounds (base), Bilateral: rhonchi (upper airway component) Percussion: Bilateral: not dull Cardiovascular: regular rate and rhythm (no mrg) Gastrointestinal: normoactive bowel sounds, soft, non-tender, non-distended Integumentary: normal Extremities: no cyanosis, no edema, pink and warm Neurologic: normal mental status, non-focal exam, pupils equal and round, CN II- XII normal Psychiatric: mood appropriate, affect normal CBC and BMP: 03/30/18 04:40 03/30/18 04:40 ABG, PT/INR, D-dimer: PT/INR, D-dimer PT 16.8 Sec. (12.2-14.9) H 03/21/18 15:46 INR 1.28 (0.87-1.13) H 03/21/18 15:46 Abnormal lab findings: Abnormal Labs 03/21/18 03/21/18 03/21/18 15:46 15:46 15:46 Hgb 11.6 L Hct RDW 17.7 H [place] % (Auto) [place] # Monocytes % (Manual) 12.0 H Monocytes # (Manual) 0.9 H PT 16.8 H INR 1.28 H Sodium Potassium Carbon Dioxide Creatinine Glucose 121 H Calcium Lactate Dehydrogenase C-Reactive Protein Albumin 03/22/18 03/22/18 03/23/18 03:20 03:20 05:33 Hgb 10.4 L Hct 32.0 L RDW 17.6 H [place] % (Auto) 11.4 H [place] # 0.9 H Monocytes % (Manual) Monocytes # (Manual) PT INR Sodium 135 L Potassium 3.5 L Carbon Dioxide 20 L Creatinine 0.7 L Glucose Calcium 8.3 L Lactate Dehydrogenase C-Reactive Protein Albumin 03/24/18 03/27/18 03/27/18 04:23 04:21 04:21 Hgb 10.5 L Hct 32.1 L RDW 17.0 H [place] % (Auto) 12.5 H [place] # Monocytes % (Manual) Monocytes # (Manual) PT INR Sodium Potassium 3.4 L Carbon Dioxide Creatinine 0.7 L Glucose 113 H 117 H Calcium 8.3 L Lactate Dehydrogenase C-Reactive Protein Albumin 2.7 L 2.3 L 03/28/18 03/30/18 03/30/18 19:58 04:40 04:40 Hgb 10.6 L Hct 32.4 L RDW 17.3 H [place] % (Auto) 12.5 H [place] # Monocytes % (Manual) Monocytes # (Manual) PT INR Sodium Potassium Carbon Dioxide 20 L Creatinine Glucose Calcium 8.3 L Lactate Dehydrogenase 264 H C-Reactive Protein 9.60 H Albumin Chest x-ray: image reviewed Allied health notes reviewed: nursing
--- NOTE | 2018-03-30 15:18 | XRay Report ---
FINAL REPORT EXAM: XR CHEST 1V AP HISTORY: hypoxemic respiratory failure TECHNIQUE: Frontal chest radiograph. PRIORS: 03/21/2018. FINDINGS: Unchanged aortic calculi. The cardiomediastinal silhouette is normal. Worsened left lower lobe consolidation is seen. Increased size of the left pleural effusion which is now moderate to large in size. No pneumothorax. No acute osseous abnormality. IMPRESSION: Worsened left lower lobe pneumonia versus atelectasis. Increased size of the moderate to large left p leural effusion.
[2018-03-30] MEDS: PRAVACHOL PO SCH (22:21)
[2018-03-31] MEDS: ZOSYN/NS 4.5GM/100ML 4.5 GM/100 ML VIAL IV SCH ×2 (05:25→13:28)
[2018-03-31] MEDS: BABY ASPIRIN PO SCH (09:59)
[2018-03-31] MEDS: TOPROL XL PO SCH (10:03)
[2018-03-31] MEDS: THERAGRAN-M Tab PO SCH (10:03)
[2018-03-31] MEDS: LOVENOX SUB-Q SCH (10:04)
[2018-03-31] MEDS: SODIUM CHLORIDE FLUSH SYRINGE 10 ML IV SCH ×2 (10:04→21:54)
[2018-03-31] MEDS: LEVAQUIN PO SCH (10:05)
--- NOTE | 2018-03-31 13:20 | Progress Note ---
Assessment and Plan Assessment and plan: 83-year-old male patient fdc resident was admitted productive cough and sob, from ID Hospital course was planned for Thoracentesis on 03/29, but could not reach family for consent -CM attempting to reach family cont abx, planned for Bronch also case dw ID and pulmonology Sp MBS, continue diet as recommended by [facility] meds for chronic conditions Diagnosis --Lt lower lobe pneumonia; aspiration pneumonia --Left lower lobe multiloculated effusion - Dysphagia --Hypertension --Dementia; --Severe mal nutrition/Hypoalbuminemia: History Interval history: Review of systems Constitutional: No fevers, no malaise, no joint pains CVS: No chest pain, no orthopnea, no dyspnea on exertion, no pedal edema GI: No abdominal pain, no diarrhea, no vomiting, no constipation Respiratory: He has occasional episodes of shortness of breath per nursing, he is having cough productive of thick sputum Hospitalist Physical - Physical exam Narrative exam: General.: mild distress HEENT: Moist mucous membranes, extraocular muscles intact, no lymphadenopathy Neck: supple Cardiac: S1-S2 heard Lungs: Crackles Abdomen: soft , nontender, nondistended, bowel sounds positive Extremities: no edema clubbing or cyanosis Skin: no rash or lesions Neurologic: no gross focal deficits Psych: calm, and cooperative - Constitutional Vitals: Temp Pulse Resp BP Pulse Ox 97.8 F 78 18 119/75 95 03/31/18 07:38 03/31/18 10:03 03/31/18 10:00 03/31/18 10:03 03/31/18 10:00 General appearance: Present: no acute distress, well-nourished, other (confused at times) Results - Labs CBC & Chem 7: 04/01/18 13:46 03/30/18 04:40 Labs: Laboratory Last Values WBC 6.4 K/mm3 (4.5-11.0) 03/30/18 04:40 RBC 3.74 M/mm3 (3.65-5.03) 03/30/18 04:40 Hgb 10.6 gm/dl (11.8-15.2) L 03/30/18 04:40 Hct 32.4 % (35.5-45.6) L 03/30/18 04:40 MCV 87 fl (84-94) 03/30/18 04:40 MCH 28 pg (28-32) 03/30/18 04:40 MCHC 33 % (32-34) 03/30/18 04:40 RDW 17.3 % (13.2-15.2) H 03/30/18 04:40 Plt Count 193 K/mm3 (140-440) 03/30/18 04:40 Lymph % (Auto) 23.8 % (13.4-35.0) 03/30/18 04:40 [place] % (Auto) 12.5 % (0.0-7.3) H 03/30/18 04:40 Eos % (Auto) 1.4 % (0.0-4.3) 03/30/18 04:40 Baso % (Auto) 0.8 % (0.0-1.8) 03/30/18 04:40 Lymph # 1.5 K/mm3 (1.2-5.4) 03/30/18 04:40 [place] # 0.8 K/mm3 (0.0-0.8) 03/30/18 04:40 Eos # 0.1 K/mm3 (0.0-0.4) 03/30/18 04:40 Baso # 0.1 K/mm3 (0.0-0.1) 03/30/18 04:40 Add Manual Diff Complete 03/21/18 15:46 Total Counted 100 03/21/18 15:46 Seg Neutrophils % 61.5 % (40.0-70.0) 03/30/18 04:40 Seg Neuts % (Manual) 58.0 % (40.0-70.0) 03/21/18 15:46 Band Neutrophils % 5.0 % 03/21/18 15:46 Lymphocytes % (Manual) 23.0 % (13.4-35.0) 03/21/18 15:46 Reactive Lymphs % (Man) 0 % 03/21/18 15:46 Monocytes % (Manual) 12.0 % (0.0-7.3) H 03/21/18 15:46 Eosinophils % (Manual) 1.0 % (0.0-4.3) 03/21/18 15:46 Basophils % (Manual) 1.0 % (0.0-1.8) 03/21/18 15:46 Metamyelocytes % 0 % 03/21/18 15:46 Myelocytes % 0 % 03/21/18 15:46 Promyelocytes % 0 % 03/21/18 15:46 Blast Cells % 0 % 03/21/18 15:46 Nucleated RBC % Not Reportable 03/21/18 15:46 Seg Neutrophils # 3.9 K/mm3 (1.8-7.7) 03/30/18 04:40 Seg Neutrophils # Man 4.5 K/mm3 (1.8-7.7) 03/21/18 15:46 Band Neutrophils # 0.4 K/mm3 03/21/18 15:46 Lymphocytes # (Manual) 1.8 K/mm3 (1.2-5.4) 03/21/18 15:46 Abs React Lymphs (Man) 0.0 K/mm3 03/21/18 15:46 Monocytes # (Manual) 0.9 K/mm3 (0.0-0.8) H 03/21/18 15:46 Eosinophils # (Manual) 0.1 K/mm3 (0.0-0.4) 03/21/18 15:46 Basophils # (Manual) 0.1 K/mm3 (0.0-0.1) 03/21/18 15:46 Metamyelocytes # 0.0 K/mm3 03/21/18 15:46 Myelocytes # 0.0 K/mm3 03/21/18 15:46 Promyelocytes # 0.0 K/mm3 03/21/18 15:46 Blast Cells # 0.0 K/mm3 03/21/18 15:46 WBC Morphology Not Reportable 03/21/18 15:46 Hypersegmented Neuts Not Reportable 03/21/18 15:46 Hyposegmented Neuts Not Reportable 03/21/18 15:46 Hypogranular Neuts Not Reportable 03/21/18 15:46 Smudge Cells Not Reportable 03/21/18 15:46 Toxic Granulation Not Reportable 03/21/18 15:46 Toxic Vacuolation Not Reportable 03/21/18 15:46 Dohle Bodies Not Reportable 03/21/18 15:46 Pelger-Huet Anomaly Not Reportable 03/21/18 15:46 Cheikh Rods Not Reportable 03/21/18 15:46 Platelet Estimate Appears normal 03/21/18 15:46 Clumped Platelets Not Reportable 03/21/18 15:46 Plt Clumps, EDTA Not Reportable 03/21/18 15:46 Large Platelets Not Reportable 03/21/18 15:46 Giant Platelets Not Reportable 03/21/18 15:46 Platelet Satelliting Not Reportable 03/21/18 15:46 Plt Morphology Comment Not Reportable 03/21/18 15:46 RBC Morphology Not Reportable 03/21/18 15:46 Dimorphic RBCs Not Reportable 03/21/18 15:46 Polychromasia Not Reportable 03/21/18 15:46 Hypochromasia Not Reportable 03/21/18 15:46 Poikilocytosis Few 03/21/18 15:46 Anisocytosis Not Reportable 03/21/18 15:46 Microcytosis Not Reportable 03/21/18 15:46 Macrocytosis Not Reportable 03/21/18 15:46 Spherocytes Not Reportable 03/21/18 15:46 Pappenheimer Bodies Not Reportable 03/21/18 15:46 Sickle Cells Not Reportable 03/21/18 15:46 Target Cells Not Reportable 03/21/18 15:46 Tear Drop Cells Not Reportable 03/21/18 15:46 Ovalocytes Not Reportable 03/21/18 15:46 Helmet Cells Not Reportable 03/21/18 15:46 [place] Bodies Not Reportable 03/21/18 15:46 [place] Rings Not Reportable 03/21/18 15:46 [place] Cells Not Reportable 03/21/18 15:46 Bite Cells Not Reportable 03/21/18 15:46 Crenated Cell Not Reportable 03/21/18 15:46 Elliptocytes Not Reportable 03/21/18 15:46 Acanthocytes (Spur) Not Reportable 03/21/18 15:46 Rouleaux Not Reportable 03/21/18 15:46 Hemoglobin C Crystals Not Reportable 03/21/18 15:46 Schistocytes Not Reportable 03/21/18 15:46 Malaria parasites Not Reportable 03/21/18 15:46 Robert Bodies Not Reportable 03/21/18 15:46 Hem Pathologist Commnt No 03/21/18 15:46 PT 16.8 Sec. (12.2-14.9) H 03/21/18 15:46 INR 1.28 (0.87-1.13) H 03/21/18 15:46 APTT 25.7 Sec. (24.2-36.6) 03/21/18 15:46 Sodium 139 mmol/L (137-145) 03/30/18 04:40 Potassium 4.1 mmol/L (3.6-5.0) D 03/30/18 04:40 Chloride 106.5 mmol/L (98-107) 03/30/18 04:40 Carbon Dioxide 20 mmol/L (22-30) L 03/30/18 04:40 Anion Gap 17 mmol/L 03/30/18 04:40 BUN 11 mg/dL (9-20) 03/30/18 04:40 Creatinine 0.8 mg/dL (0.8-1.5) 03/30/18 04:40 Estimated GFR > 60 ml/min 03/30/18 04:40 BUN/Creatinine Ratio 14 % 03/30/18 04:40 Glucose 93 mg/dL (75-100) 03/30/18 04:40 Calcium 8.3 mg/dL (8.4-10.2) L 03/30/18 04:40 Magnesium 2.00 mg/dL (1.7-2.3) 03/27/18 04:21 Total Bilirubin 0.30 mg/dL (0.1-1.2) 03/27/18 04:21 AST 38 units/L (5-40) 03/27/18 04:21 ALT 32 units/L (7-56) 03/27/18 04:21 Alkaline Phosphatase 71 units/L (35-129) 03/27/18 04:21 Lactate Dehydrogenase 264 units/L (91-180) H 03/28/18 19:58 C-Reactive Protein 9.60 mg/dL (0.00-1.30) H 03/28/18 19:58 NT-Pro-B Natriuret Pep 216.7 pg/mL (0-900) 03/21/18 15:46 Total Protein 6.9 g/dL (6.3-8.2) 03/27/18 04:21 Albumin 2.3 g/dL (3.9-5) L 03/27/18 04:21 Albumin/Globulin Ratio 0.5 % 03/27/18 04:21 Nutrition/Malnutrition Assess - Dietary Evaluation Nutrition/Malnutrition Findings: Nutrition Notes Start: 03/22/18 09:4 9 Freq: Status: Active Protocol: Document 03/28/18 10:59 SA (Rec: 03/28/18 11:42 SA [id number]) Co-Sign 03/28/18 10:59 LP Nutrition Notes Initial or Follow up Reassessment Current Diagnosis Hypertension Stroke Other Pertinent Diagnosis Dementia, SOB, Pneu Current Diet Pureed Diet Labs/Tests K: 3.4 Cr: 0.7 Glu: 117 Ca: 8.3 Albumin:2.3 Pertinent Medications Reviewed Height 5 ft 9 in Weight 64.864 kg [place] Body Weight (kg) 72.72 BMI 21.1 Subjective/Other Information Patient states appetite is poor. Patient reports eating 10% of meals on trays. Patient reports drinking ONS. Patient dies swallowing/chewing difficulty. Percent of energy/protein needs met: 41%/85% (if drinking all ONS) Burn Absent Trauma Absent #1 Nutrition Diagnosis Inadequate oral intake Diagnosis Progress(for reassessment Continues documentation) Is patient on ventilator? No Is Patient Ambulatory and/or Out of Bed No REE-(Royal-St. Jeor-confined to bed) 1602.108 Calculation Used for Recommendations [facility] Additional Notes Protein needs: (1-1.2) (65-78 g/day) fluid needs: 1ml/ kcal Nutrition Intervention Change Diet Order: Continue current Add Supplement/Snack (indicate name/kcal Ensure Enlive Four times a day /protein ) Provides kCal: 1,400 Provides Protein (gm) 80 Goal #1 Meet at least 75% of kcal and protein needs Anticipated Discharge Needs: unable to determine at this time Follow-Up By: 04/01/18 Additional Comments F/U: PO intake and ONS intake
[2018-03-31] MEDS: ROBITUSSIN PO PRN (13:27)
[2018-03-31] MEDS: SODIUM CHLORIDE FLUSH SYRINGE 10 ML IV PRN (13:28)
--- NOTE | 2018-03-31 14:30 | Consultation ---
History of Present Illness - Reason for Consult Consult date: 03/31/18 PNA Requesting physician: TRINH ANGUIANO - History of Present Illness This patient is an 83-year-old man with a past medical history of hypertension, CVA and Dementia, [facility] of Pneumonia. Upon admission in ED, he was found to be Short of bread with a productive cough of yellow phlegm. On admission, WBC 7.7, Creatinine 0.9, CRP 9.60, Temperature 98.1, HR 95, BP 129/70, Chest Xray showed hazy opacity in the left lower lobe that may reflect infiltrate or atelectasis and a small left pleural effusion. Blood cultures were drawn and show no growth to date. Past History Past Medical History: other (Dementia, HTN) Social history: full code. denies: smoking, alcohol abuse, prescription drug abuse, IV drug use Family history: other (No pulm issues reported) Medications and Allergies Allergies Allergy/AdvReac Type Severity Reaction Status Date / Time No Known Allergies Allergy Unverified 11/12/17 10:51 Home Medications Medication Instructions Recorded Confirmed Last Taken Type Acetaminophen [Non-Aspirin] 650 mg PO Q6H PRN 03/21/18 03/21/18 Unknown History Albuterol Sulfate 2.5 mg IH Q6H 03/21/18 03/21/18 Unknown History Aspirin [Aspirin BABY CHEW TAB] 81 mg PO DAILY 03/21/18 03/21/18 Unknown History Diclofenac Sodium [Voltaren] 100 gm TP QID 03/21/18 03/21/18 Unknown History Loratadine [Claritin] 10 mg PO DAILY 03/21/18 03/21/18 Unknown History Metoprolol Xl [Metoprolol 25 mg PO DAILY 03/21/18 03/21/18 Unknown History SUCCINATE ER TAB] Multivit-Min/Iron/Folic Acid/K 1 each PO DAILY 03/21/18 03/21/18 Unknown History [Adults Multivitamin Tablet] Pravastatin Sodium [Pravachol] 40 mg PO QHS 03/21/18 03/21/18 Unknown History Active Meds: Active Medications Acetaminophen (Tylenol) 650 mg PO Q4H PRN PRN Reason: Pain MILD(1-3)/Fever >100.5/VIDAL Last Admin: 03/26/18 10:50 Dose: 650 mg Documented by: Albuterol (Proventil) 2.5 mg IH Q6HRT PRN PRN Reason: Shortness Of Breath Aspirin (Baby Aspirin) 81 mg PO DAILY [facility] Last Admin: 03/31/18 09:59 Dose: 81 mg Documented by: Benzonatate (Tessalon Perles) 100 mg PO Q6H PRN PRN Reason: Cough Last Admin: 03/24/18 03:43 Dose: 100 mg Documented by: Bisacodyl (Dulcolax) 10 mg GA QDAY PRN PRN Reason: Constipation Enoxaparin Sodium (Lovenox) 40 mg SUB-Q QDAY@1000 [facility] Last Admin: 03/31/18 10:04 Dose: 40 mg Documented by: Guaifenesin (Robitussin) 200 mg PO Q6H PRN PRN Reason: Cough Last Admin: 03/31/18 13:27 Dose: 200 mg Documented by: Piperacillin Sod/Tazobactam Sod (Zosyn/Ns 4.5gm/100ml) 4.5 gm in 100 mls @ 200 mls/hr IV Q8HR [facility] Last Admin: 03/31/18 13:28 Dose: 100 mls/hr Documented by: Levofloxacin (Levaquin) 500 mg PO Q24HR [facility] Last Admin: 03/31/18 10:05 Dose: 500 mg Documented by: Magnesium Hydroxide (Milk Of Magnesia) 30 ml PO QDAY PRN PRN Reason: Constipation Metoprolol Succinate (Toprol Xl) 25 mg PO DAILY [facility] Last Admin: 03/31/18 10:03 Dose: 25 mg Documented by: Multivitamins/Minerals (Theragran-M Tab) 1 each PO QDAY [facility] Last Admin: 03/31/18 10:03 Dose: 1 each Documented by: Ondansetron HCl (Zofran) 4 mg IV Q8H PRN PRN Reason: Nausea And Vomiting Pravastatin Sodium (Pravachol) 40 mg PO QHS [facility] Last Admin: 03/30/18 22:21 Dose: 40 mg Documented by: Sodium Chloride (Sodium Chloride Flush Syringe 10 Ml) 10 ml IV BID [facility] Last Admin: 03/31/18 10:04 Dose: 10 ml Documented by: Sodium Chloride (Sodium Chloride Flush Syringe 10 Ml) 10 ml IV PRN PRN PRN Reason: LINE FLUSH Last Admin: 03/31/18 13:28 Dose: 10 ml Documented by: Review of Systems ROS unobtainable: due to mental status Physical Examination - Physical Exam Narrative exam: Constitutional: Alert, . Acute distress observed, +cough Head, Ears, Nose: Normocephalic, atraumatic. External ears, nose normal Eyes: Conjunctivae/corneas clear. No icterus. No ptosis. Neck: Supple, no meningeal signs Oral:no thrush Cardiovascular: S1, S2 normal. Respiratory: Good air entry, scattered rhonci throughout, + cough, no sputum production GI: Soft, non-tender; bowel sounds normal. No peritoneal signs Musculoskeletal: No pedal edema, no cyanosis. Skin: No rash or abscess Hem/Lymphatic: No palpable cervical or supraclavicular nodes. No lymphangitis Psych: Mood ok. Affect normal Neurological: Awake, alert, oriented. - Constitutional Vitals: Vital Signs Temp Pulse Resp BP Pulse Ox 97.8 F 78 18 119/75 95 03/31/18 07:38 03/31/18 10:03 03/31/18 10:00 03/31/18 10:03 03/31/18 10:00 Temperature -Last 24 Hours Temperature 97.8 F Temperature 98.4 F Temperature 98.5 F Results - Labs CBC & Chem 7: 03/30/18 04:40 03/30/18 04:40 - Imaging and Cardiology Chest x-ray: image reviewed CT scan - abdomen: image reviewed Assessment and Plan Imagin03/21/2018 Chest: Hazy opacity in the left lower lobe that may reflect i nfiltrate or atelectasis. Small left pleural effusion. 03/26/[address]: Dense left lower lobe consolidation with a multilocular fluid collection in the left lower lobe concerning for pulmonary abscess. Small left pleural effusion. 03/27/[address] Loculated left pleural effusion findings most consistent with empyema. Findings likely reflect obstructive pneumonia. Persistent consolidation left lower lobe findings suggest areas of necrosis. Cultures: 03/21/2018 Blood: no growth thus far A/P: 83-year-old male with a history of hypertension, CVA and Dementia,. Admitted with: 1. Complicated Left Lower Lobe Pneumonia with necrotizing pneumonia versus abscess and para pneumonic empyema: Aspiration pneumonia vs post-obstructive ? cancer (Endobronchial LLL lesion) Aspiration risk, + dysphagia s/p CVA. Successful modified barium swallow was performed on 03/22/18. Speech therapy con sult revealed that aspiration was not evident on exam, but respiratory function could result in aspiration. CT findings possible lung abscess with necrotizing process (infiltrate was present on 01/2018 CT chest).Currently being treated with Levofloxacin and Zosyn, discontinued, Start cefepime, flagyl and vancomycin with to cover MRSA/Pseudomonas pneumonia, aspiration and post obtructive pneumonia 2. Severe Malnutrition: 4. Chronic Constipation: Plan: -needs thoracentesis yehuda however was attempted -if thoracentesis cannot be done then he will need to be transfered to a tertiary facility where CT surgery can eval -Bronchoscopy scheduled for Sunday, please obtain BAL cultures and AFB stain -f/u blood cultures -Discontinue Zosyn and Levaquin -add cefepime 2 gm IV q8h + flagyl 500 mg IV q8h + vancomycin with PK consult to cover MRSA/Pseudomonas pneumonia, aspiration and post obtructive pneumonia Guarded prognosis d/w Dr. Reji Gutierrez, V[employer] PILE [employer] [facility] M: [id number] O:[phone]
--- NOTE | 2018-03-31 14:59 | Progress Note ---
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 re-evaluate in am & prn Subjective Date of service: 03/31/18 Principal diagnosis: LLL Pneumonia; L complex Pleural effusion; Adult FTT; Dementia;Constipation Interval history: Patient is seen today for: LLL Pneumonia (+/- abscess/necrotizing process); Left complex Pleural effusion; Adult FTT; Dementia; Constipation Seen and examined at bedside; 24hour events reviewed; nursing and respiratory care staff consulted; no adverse overnight events reported to me; sitting in bed; CXR with increased LLL pleural process +/- effusion +/- atelectasis + pneumonia; no N/V/F/C Objective Vital Signs - 12hr 03/31/18 03/31/18 03/31/18 03:00 07:38 10:00 Temperature 97.8 F Pulse Rate 79 78 Pulse Rate [ 78 Apical] Respiratory 18 18 Rate Blood Pressure 119/75 O2 Sat by Pulse 96 95 95 Oximetry 03/31/18 10:03 Temperature Pulse Rate 78 Pulse Rate [ Apical] Respiratory Rate Blood Pressure 119/75 O2 Sat by Pulse Oximetry Constitutional: no acute distress, alert, other (elderly, mildly cachectic looking AAM with mildly increased resp effort at rest) Eyes: non-icteric ENT: oropharynx moist Neck: supple, no JVD Effort: normal Ascultation: Left: diminished breath sounds (base), Bilateral: rhonchi (upper airway component) Percussion: Bilateral: not dull Cardiovascular: regular rate and rhythm (no mrg) Gastrointestinal: normoactive bowel sounds, soft, non-tender, non-distended Integumentary: normal Extremities: no cyanosis, no edema, pink and warm Neurologic: normal mental status, non-focal exam, pupils equal and round, CN II- XII normal Psychiatric: mood appropriate, affect normal CBC and BMP: 03/30/18 04:40 03/30/18 04:40 ABG, PT/INR, D-dimer: PT/INR, D-dimer PT 16.8 Sec. (12.2-14.9) H 03/21/18 15:46 INR 1.28 (0.87-1.13) H 03/21/18 15:46 Abnormal lab findings: Abnormal Labs 03/21/18 03/21/18 03/21/18 15:46 15:46 15:46 Hgb 11.6 L Hct RDW 17.7 H [place] % (Auto) [place] # Monocytes % (Manual) 12.0 H Monocytes # (Manual) 0.9 H PT 16.8 H INR 1.28 H Sodium Potassium Carbon Dioxide Creatinine Glucose 121 H Calcium Lactate Dehydrogenase C-Reactive Protein Albumin 03/22/18 03/22/18 03/23/18 03:20 03:20 05:33 Hgb 10.4 L Hct 32.0 L RDW 17.6 H [place] % (Auto) 11.4 H [place] # 0.9 H Monocytes % (Manual) Monocytes # (Manual) PT INR Sodium 135 L Potassium 3.5 L Carbon Dioxide 20 L Creatinine 0.7 L Glucose Calcium 8.3 L Lactate Dehydrogenase C-Reactive Protein Albumin 03/24/18 03/27/18 03/27/18 04:23 04:21 04:21 Hgb 10.5 L Hct 32.1 L RDW 17.0 H [place] % (Auto) 12.5 H [place] # Monocytes % (Manual) Monocytes # (Manual) PT INR Sodium Potassium 3.4 L Carbon Dioxide Creatinine 0.7 L Glucose 113 H 117 H Calcium 8.3 L Lactate Dehydrogenase C-Reactive Protein Albumin 2.7 L 2.3 L 03/28/18 03/30/18 03/30/18 19:58 04:40 04:40 Hgb 10.6 L Hct 32.4 L RDW 17.3 H [place] % (Auto) 12.5 H [place] # Monocytes % (Manual) Monocytes # (Manual) PT INR Sodium Potassium Carbon Dioxide 20 L Creatinine Glucose Calcium 8.3 L Lactate Dehydrogenase 264 H C-Reactive Protein 9.60 H Albumin Allied health notes reviewed: nursing
[2018-03-31] MEDS ORDERED: VANCOMYCIN PHARMACY TO DOSE IV SCH (18:00)
[2018-03-31] MEDS ORDERED: MAXIPIME/NS 2 GM/100 ML 2 GM/100 ML BAG IV SCH (18:00)
[2018-03-31] MEDS: FLAGYL 500 MG/100 ML 500 MG/100 ML BAG IV SCH (21:54)
[2018-03-31] MEDS: PRAVACHOL PO SCH (22:09)
[2018-03-31] MEDS: VANCOMYCIN 1,250 MG in NACL 0.9% 250ML 250 ML IV SCH ×2 (22:48→23:30)
[2018-03-31] MEDS: MAXIPIME/NS 2 GM/100 ML 2 GM/100 ML BAG IV SCH (22:52)
[2018-04-01] MEDS: FLAGYL 500 MG/100 ML 500 MG/100 ML BAG IV SCH ×2 (05:23→13:18)
--- NOTE | 2018-04-01 08:30 | Progress Note ---
Assessment and Plan Imagin03/21/2018 Chest: Hazy opacity in the left lower lobe that may reflect infiltrate or atelectasis. Small left pleural effusion. 03/26/[address]: Dense left lower lobe consolidation with a multilocular fluid collection in the left lower lobe concerning for pulmonary abscess. Small left pleural effusion. 03/27/[address] Loculated left pleural effusion findings most consistent with empyema. Findings likely reflect obstructive pneumonia. Persistent consolidation left lower lobe findings suggest areas of necrosis. Cultures: 03/21/2018 Blood: no growth thus far A/P: 83-year-old male with a history of hypertension, CVA and Dementia,. Admitted with: 1. Complicated Left Lower Lobe Pneumonia with necrotizing pneumonia versus abscess and para pneumonic empyema: Aspiration pneumonia vs post-obstructive ? cancer (Endobronchial LLL lesion) Aspiration risk, + dysphagia s/p CVA. Successful modified barium swallow was performed on 03/22/18. Speech therapy consult revealed that aspiration was not evident on exam, but respiratory function could result in aspiration. CT findings possible lung abscess with necrotizing process (infiltrate was present on 01/2018 CT chest).Currently being treated with Levofloxacin and Zosyn, discontinued, Continue cefepime, flagyl and vancomycin with to cover MRSA/Pseudomonas pneumonia, aspiration and post obtructive pneumonia 2. Severe Malnutrition: 4. Chronic Constipation: Plan: -needs thoracentesis yehuda however was attempted -if thoracentesis cannot be done then he will need to be transfered to a tertiary facility where CT surgery can eval -Bronchoscopy scheduled please obtain BAL cultures and AFB stain --pending -f/u blood cultures -continue cefepime 2 gm IV q8h, D2 -continue flagyl 500 mg IV q8h, D2 -continue vancomycin with PK consult, D2, these antimicrobials cover MRSA/Pseudomonas pneumonia, aspiration and post obtructive pneumonia -f/u MRSA PCR Guarded prognosis [facility] M: [phone] O:[phone] Subjective Date of service: 04/01/18 Principal diagnosis: LLL Pneumonia; L complex Pleural effusion; Adult FTT; Dementia;Constipation Interval history: Patient seen and examined. Sitting up in bed, no acute distress, more alert. No fevers. Objective - Exam Narrative Exam: Constitutional: Alert, no acute distress +cough Head, Ears, Nose: Normocephalic, atraumatic. External ears, nose normal Eyes: Conjunctivae/corneas clear. No icterus. No ptosis. Neck: Supple, no meningeal signs Oral:no thrush Cardiovascular: S1, S2 normal. Respiratory: Good air entry, scattered rhonci throughout, + cough, no sputum production GI: Soft, non-tender; bowel sounds normal. No peritoneal signs Musculoskeletal: No pedal edema, no cyanosis. Skin: No rash or abscess Hem/Lymphatic: No palpable cervical or supraclavicular nodes. No lymphangitis Psych: Mood ok. Affect normal Neurological: Awake, alert, oriented. - Constitutional Vitals: Vital Signs Temp Pulse Resp BP Pulse Ox 97.6 F 85 18 145/90 95 04/01/18 02:01 03/31/18 19:59 04/01/18 02:01 04/01/18 02:01 03/31/18 19:59 Temperature -Last 24 Hours Temperature 97.6 F Temperature 97.8 F Temperature 98.3 F - Labs CBC & Chem 7: 03/30/18 04:40 03/30/18 04:40
[2018-04-01] MEDS: MAXIPIME/NS 2 GM/100 ML 2 GM/100 ML BAG IV SCH ×2 (09:36→22:59)
[2018-04-01] MEDS: SODIUM CHLORIDE FLUSH SYRINGE 10 ML IV SCH ×2 (09:37→23:02)
[2018-04-01] MEDS: LOVENOX SUB-Q SCH (09:54)
[2018-04-01] MEDS: THERAGRAN-M Tab PO SCH (09:55)
[2018-04-01] MEDS: BABY ASPIRIN PO SCH (09:55)
[2018-04-01] MEDS: TOPROL XL PO SCH (09:55)
--- NOTE | 2018-04-01 11:42 | Progress Note ---
Assessment and Plan LLL Pneumonia (+/- abscess/necrotizing process) Left complex Pleural effusion Adult FTT Dementia Constipation Moderate protein calorie malnutrition - will plan tentatively for bronch at 2 pm tomorrow ( Sunday, discussed with hospitalist) -discontinue NPO status - continue empiric Zosyn and Levaquin for possible post obstructive pneumonia. If any suggestion of an abscess will need 4 week course of antibiotics. Await ID input - CT chest suggests endobronchial LLL lesion and he will need a bronchoscopy - continue prn bronchodilators and oxygen therapy to keep O2 sats> 90% - continue with regular diet, with aspiration precautions -optimize nutritional support - VTE prophylaxis on hold for procedure - PT/OT/mobility -avoid delirium, maintain sleep-wake cycle Subjective Date of service: 04/01/18 Principal diagnosis: LLL Pneumonia; L complex Pleural effusion; Adult FTT; Dementia;Constipation Interval history: Patient is seen today for: LLL Pneumonia (+/- abscess/necrotizing process); Left complex Pleural effusion; Adult FTT; Dementia; Constipation Seen and examined at bedside; 24hour events reviewed; nursing and respiratory care staff consulted; no adverse overnight events reported to me; lying in bed; no chest pain: poor appetite per RN: no N/V/F/C; NPO for possible bronchoscopy today, no family and yet to obtain consent; no hemoptysis, no night sweats Objective Vital Signs - 12hr 04/01/18 04/01/18 04/01/18 02:01 08:43 09:55 Temperature 97.6 F 97.2 F L Pulse Rate 71 71 Respiratory 18 20 Rate Blood Pressure 145/90 113/67 113/67 O2 Sat by Pulse 97 Oximetry Constitutional: no acute distress, alert, other (elderly, mildly cachectic looking AAM with mildly increased resp effort at rest) Eyes: non-icteric ENT: oropharynx moist Neck: supple, no JVD Effort: normal Ascultation: Left: diminished breath sounds (base), Bilateral: rhonchi (upper airway component) Percussion: Bilateral: not dull Cardiovascular: regular rate and rhythm (no mrg) Gastrointestinal: normoactive bowel sounds, soft, non-tender, non-distended Integumentary: normal Extremities: no cyanosis, no edema, pink and warm Neurologic: normal mental status, non-focal exam, pupils equal and round, CN II- XII normal Psychiatric: mood appropriate, affect normal CBC and BMP: 04/01/18 13:46 03/30/18 04:40 ABG, PT/INR, D-dimer: PT/INR, D-dimer PT 16.8 Sec. (12.2-14.9) H 03/21/18 15:46 INR 1.28 (0.87-1.13) H 03/21/18 15:46 Abnormal lab findings: Abnormal Labs 03/21/18 03/21/18 03/21/18 15:46 15:46 15:46 Hgb 11.6 L Hct RDW 17.7 H [place] % (Auto) [place] # Monocytes % (Manual) 12.0 H Monocytes # (Manual) 0.9 H PT 16.8 H INR 1.28 H Sodium Potassium Carbon Dioxide Creatinine Glucose 121 H Calcium Lactate Dehydrogenase C-Reactive Protein Albumin 03/22/18 03/22/18 03/23/18 03:20 03:20 05:33 Hgb 10.4 L Hct 32.0 L RDW 17.6 H [place] % (Auto) 11.4 H [place] # 0.9 H Monocytes % (Manual) Monocytes # (Manual) PT INR Sodium 135 L Potassium 3.5 L Carbon Dioxide 20 L Creatinine 0.7 L Glucose Calcium 8.3 L Lactate Dehydrogenase C-Reactive Protein Albumin 03/24/18 03/27/18 03/27/18 04:23 04:21 04:21 Hgb 10.5 L Hct 32.1 L RDW 17.0 H [place] % (Auto) 12.5 H [place] # Monocytes % (Manual) Monocytes # (Manual) PT INR Sodium Potassium 3.4 L Carbon Dioxide Creatinine 0.7 L Glucose 113 H 117 H Calcium 8.3 L Lactate Dehydrogenase C-Reactive Protein Albumin 2.7 L 2.3 L 03/28/18 03/30/18 03/30/18 19:58 04:40 04:40 Hgb 10.6 L Hct 32.4 L RDW 17.3 H [place] % (Auto) 12.5 H [place] # Monocytes % (Manual) Monocytes # (Manual) PT INR Sodium Potassium Carbon Dioxide 20 L Creatinine Glucose Calcium 8.3 L Lactate Dehydrogenase 264 H C-Reactive Protein 9.60 H Albumin Allied health notes reviewed: nursing
[2018-04-01] MEDS ORDERED: D5/0.45NS 1,000 ML IV SCH (13:00)
[2018-04-01] MEDS: SODIUM CHLORIDE FLUSH SYRINGE 10 ML IV PRN (13:22)
[2018-04-01 14:04] LABS: Basophils # (Auto) 0.1 K/mm3 (0.0-0.1); Basophils % (Auto) 1.1 % (0.0-1.8); Eosinophils # (Auto) 0.4 K/mm3 (0.0-0.4); Eosinophils % (Auto) 5.2 % (0.0-4.3); Hematocrit 34.6 % (35.5-45.6); Hemoglobin 11.2 gm/dl (11.8-15.2); Lymphocytes # (Auto) 2.2 K/mm3 (1.2-5.4); Mean Corpuscular HGB Conc 32 % (32-34); Mean Corpuscular Volume 88 fl (84-94); Monocytes # (Auto) 0.7 K/mm3 (0.0-0.8); Monocytes % (Auto) 8.4 % (0.0-7.3); Platelet Count 255 K/mm3 (140-440); Red Blood Count 3.95 M/mm3 (3.65-5.03); Red Cell Distribution Width 17.7 % (13.2-15.2)
--- NOTE | 2018-04-01 14:49 | Progress Note ---
Assessment and Plan Assessment and plan: 83-year-old male patient assisted resident was admitted productive cough and sob, from [place] Hospital course was planned for Thoracentesis on 03/29, but could not reach family for consent -CM attempting to reach family cont abx, planned for Bronch after consent is obtaine case dw ID and pulmonology Sp MBS, continue diet as recommended by [facility] meds for chronic conditions Diagnosis --Lt lower lobe pneumonia; aspiration pneumonia --Left lower lobe multiloculated effusion - Dysphagia --Hypertension --Dementia; --Severe mal nutrition/Hypoalbuminemia: History Interval history: Review of systems Constitutional: No fevers, no malaise, no joint pains CVS: No chest pain, no orthopnea, no dyspnea on exertion, no pedal edema GI: No abdominal pain, no diarrhea, no vomiting, no constipation Respiratory: He has occasional episodes of shortness of breath per nursing, he is having cough productive of thick sputum Hospitalist Physical - Physical exam Narrative exam: General.: mild distress HEENT: Moist mucous membranes, extraocular muscles intact, no lymphadenopathy Neck: supple Cardiac: S1-S2 heard Lungs: Crackles Abdomen: soft , nontender, nondistended, bowel sounds positive Extremities: no edema clubbing or cyanosis Skin: no rash or lesions Neurologic: no gross focal deficits Psych: calm, and cooperative - Constitutional Vitals: Temp Pulse Resp BP Pulse Ox 98.1 F 79 20 130/79 96 04/01/18 14:05 04/01/18 14:05 04/01/18 14:05 04/01/18 14:05 04/01/18 14:09 General appearance: Present: no acute distress, well-nourished, other (confused at times) Results - Labs CBC & Chem 7: 04/01/18 13:46 03/30/18 04:40 Labs: Laboratory Last Values WBC 8.0 K/mm3 (4.5-11.0) 04/01/18 13:46 RBC 3.95 M/mm3 (3.65-5.03) 04/01/18 13:46 Hgb 11.2 gm/dl (11.8-15.2) L 04/01/18 13:46 Hct 34.6 % (35.5-45.6) L 04/01/18 13:46 MCV 88 fl (84-94) 04/01/18 13:46 MCH 28 pg (28-32) 04/01/18 13:46 MCHC 32 % (32-34) 04/01/18 13:46 RDW 17.7 % (13.2-15.2) H 04/01/18 13:46 Plt Count 255 K/mm3 (140-440) 04/01/18 13:46 Lymph % (Auto) 27.0 % (13.4-35.0) 04/01/18 13:46 [place] % (Auto) 8.4 % (0.0-7.3) H 04/01/18 13:46 Eos % (Auto) 5.2 % (0.0-4.3) H 04/01/18 13:46 Baso % (Auto) 1.1 % (0.0-1.8) 04/01/18 13:46 Lymph # 2.2 K/mm3 (1.2-5.4) 04/01/18 13:46 [place] # 0.7 K/mm3 (0.0-0.8) 04/01/18 13:46 Eos # 0.4 K/mm3 (0.0-0.4) 04/01/18 13:46 Baso # 0.1 K/mm3 (0.0-0.1) 04/01/18 13:46 Add Manual Diff Complete 03/21/18 15:46 Total Counted 100 03/21/18 15:46 Seg Neutrophils % 58.3 % (40.0-70.0) 04/01/18 13:46 Seg Neuts % (Manual) 58.0 % (40.0-70.0) 03/21/18 15:46 Band Neutrophils % 5.0 % 03/21/18 15:46 Lymphocytes % (Manual) 23.0 % (13.4-35.0) 03/21/18 15:46 Reactive Lymphs % (Man) 0 % 03/21/18 15:46 Monocytes % (Manual) 12.0 % (0.0-7.3) H 03/21/18 15:46 Eosinophils % (Manual) 1.0 % (0.0-4.3) 03/21/18 15:46 Basophils % (Manual) 1.0 % (0.0-1.8) 03/21/18 15:46 Metamyelocytes % 0 % 03/21/18 15:46 Myelocytes % 0 % 03/21/18 15:46 Promyelocytes % 0 % 03/21/18 15:46 Blast Cells % 0 % 03/21/18 15:46 Nucleated RBC % Not Reportable 03/21/18 15:46 Seg Neutrophils # 4.7 K/mm3 (1.8-7.7) 04/01/18 13:46 Seg Neutrophils # Man 4.5 K/mm3 (1.8-7.7) 03/21/18 15:46 Band Neutrophils # 0.4 K/mm3 03/21/18 15:46 Lymphocytes # (Manual) 1.8 K/mm3 (1.2-5.4) 03/21/18 15:46 Abs React Lymphs (Man) 0.0 K/mm3 03/21/18 15:46 Monocytes # (Manual) 0.9 K/mm3 (0.0-0.8) H 03/21/18 15:46 Eosinophils # (Manual) 0.1 K/mm3 (0.0-0.4) 03/21/18 15:46 Basophils # (Manual) 0.1 K/mm3 (0.0-0.1) 03/21/18 15:46 Metamyelocytes # 0.0 K/mm3 03/21/18 15:46 Myelocytes # 0.0 K/mm3 03/21/18 15:46 Promyelocytes # 0.0 K/mm3 03/21/18 15:46 Blast Cells # 0.0 K/mm3 03/21/18 15:46 WBC Morphology Not Reportable 03/21/18 15:46 Hypersegmented Neuts Not Reportable 03/21/18 15:46 Hyposegmented Neuts Not Reportable 03/21/18 15:46 Hypogranular Neuts Not Reportable 03/21/18 15:46 Smudge Cells Not Reportable 03/21/18 15:46 Toxic Granulation Not Reportable 03/21/18 15:46 Toxic Vacuolation Not Reportable 03/21/18 15:46 Dohle Bodies Not Reportable 03/21/18 15:46 Pelger-Huet Anomaly Not Reportable 03/21/18 15:46 Cheikh Rods Not Reportable 03/21/18 15:46 Platelet Estimate Appears normal 03/21/18 15:46 Clumped Platelets Not Reportable 03/21/18 15:46 Plt Clumps, EDTA Not Reportable 03/21/18 15:46 Large Platelets Not Reportable 03/21/18 15:46 Giant Platelets Not Reportable 03/21/18 15:46 Platelet Satelliting Not Reportable 03/21/18 15:46 Plt Morphology Comment Not Reportable 03/21/18 15:46 RBC Morphology Not Reportable 03/21/18 15:46 Dimorphic RBCs Not Reportable 03/21/18 15:46 Polychromasia Not Reportable 03/21/18 15:46 Hypochromasia Not Reportable 03/21/18 15:46 Poikilocytosis Few 03/21/18 15:46 Anisocytosis Not Reportable 03/21/18 15:46 Microcytosis Not Reportable 03/21/18 15:46 Macrocytosis Not Reportable 03/21/18 15:46 Spherocytes Not Reportable 03/21/18 15:46 Pappenheimer Bodies Not Reportable 03/21/18 15:46 Sickle Cells Not Reportable 03/21/18 15:46 Target Cells Not Reportable 03/21/18 15:46 Tear Drop Cells Not Reportable 03/21/18 15:46 Ovalocytes Not Reportable 03/21/18 15:46 Helmet Cells Not Reportable 03/21/18 15:46 [place] Bodies Not Reportable 03/21/18 15:46 [place] Rings Not Reportable 03/21/18 15:46 [place] Cells Not Reportable 03/21/18 15:46 Bite Cells Not Reportable 03/21/18 15:46 Crenated Cell Not Reportable 03/21/18 15:46 Elliptocytes Not Reportable 03/21/18 15:46 Acanthocytes (Spur) Not Reportable 03/21/18 15:46 Rouleaux Not Reportable 03/21/18 15:46 Hemoglobin C Crystals Not Reportable 03/21/18 15:46 Schistocytes Not Reportable 03/21/18 15:46 Malaria parasites Not Reportable 03/21/18 15:46 Robert Bodies Not Reportable 03/21/18 15:46 Hem Pathologist Commnt No 03/21/18 15:46 PT 16.8 Sec. (12.2-14.9) H 03/21/18 15:46 INR 1.28 (0.87-1.13) H 03/21/18 15:46 APTT 25.7 Sec. (24.2-36.6) 03/21/18 15:46 Sodium 139 mmol/L (137-145) 03/30/18 04:40 Potassium 4.1 mmol/L (3.6-5.0) D 03/30/18 04:40 Chloride 106.5 mmol/L (98-107) 03/30/18 04:40 Carbon Dioxide 20 mmol/L (22-30) L 03/30/18 04:40 Anion Gap 17 mmol/L 03/30/18 04:40 BUN 11 mg/dL (9-20) 03/30/18 04:40 Creatinine 0.8 mg/dL (0.8-1.5) 03/30/18 04:40 Estimated GFR > 60 ml/min 03/30/18 04:40 BUN/Creatinine Ratio 14 % 03/30/18 04:40 Glucose 93 mg/dL (75-100) 03/30/18 04:40 Calcium 8.3 mg/dL (8.4-10.2) L 03/30/18 04:40 Magnesium 2.00 mg/dL (1.7-2.3) 03/27/18 04:21 Total Bilirubin 0.30 mg/dL (0.1-1.2) 03/27/18 04:21 AST 38 units/L (5-40) 03/27/18 04:21 ALT 32 units/L (7-56) 03/27/18 04:21 Alkaline Phosphatase 71 units/L (35-129) 03/27/18 04:21 Lactate Dehydrogenase 264 units/L (91-180) H 03/28/18 19:58 C-Reactive Protein 9.60 mg/dL (0.00-1.30) H 03/28/18 19:58 NT-Pro-B Natriuret Pep 216.7 pg/mL (0-900) 03/21/18 15:46 Total Protein 6.9 g/dL (6.3-8.2) 03/27/18 04:21 Albumin 2.3 g/dL (3.9-5) L 03/27/18 04:21 Albumin/Globulin Ratio 0.5 % 03/27/18 04:21 Nutrition/Malnutrition Assess - Dietary Evaluation Nutrition/Malnutrition Findings: Nutrition Notes Start: 03/22/18 09:49 Freq: Status: Active Protocol: Document 04/01/18 12:05 RM (Rec: 04/01/18 12:10 RM [id number]) Nutrition Notes Initial or Follow up Reassessment Current Diagnosis Hypertension Stroke Other Pertinent Diagnosis Dementia, SOB, Pneu, Chronic constipation Current Diet NPO after midnight Labs/Tests Reviewed Pertinent Medications Reviewed Height 5 ft 9 in Weight 64.864 kg [place] Body Weight (kg) 72.72 BMI 21.1 Subjective/Other Information MD awaiting consent from next of kin for bronchoscopy and pt NPO in preparation. Per tech pt ate 25% to 50% of meals and drank half of Ensure Enlive before NPO status. Burn Absent Trauma Absent #1 Nutrition Diagnosis Inadequate oral intake Diagnosis Progress(for reassessment Continues documentation) Is patient on ventilator? No Is Patient Ambulatory and/or Out of Bed No REE-([facility]-confined to bed) 1602.108 Calculation Used for Recommendations [facility] Additional Notes Protein needs: (1-1.2) (65-78 g/day) fluid needs: 1ml/ kcal Nutrition Intervention Change Diet Order: Advance diet when medically able Add Supplement/Snack (indicate name/kcal Ensure Enlive Four times a day /protein ) Provides kCal: 1,400 Provides Protein (gm) 80
[2018-04-01] MEDS ORDERED: VANCOMYCIN 1,250 MG in NACL 0.9% 250ML 250 ML IV SCH (22:00)
[2018-04-01] MEDS: PRAVACHOL PO SCH (23:09)
--- NOTE | 2018-04-02 08:28 | Progress Note ---
Assessment and Plan Imagin03/21/2018 Chest: Hazy opacity in the left lower lobe that may reflect infiltrate or atelectasis. Small left pleural effusion. 03/26/[address]: Dense left lower lobe consolidation with a multilocular fluid collection in the left lower lobe concerning for pulmonary abscess. Small left pleural effusion. 03/27/[address] Loculated left pleural effusion findings most consistent with empyema. Findings likely reflect obstructive pneumonia. Persistent consolidation left lower lobe findings suggest areas of necrosis. Cultures: 03/21/2018 Blood: no growth thus far A/P: 83-year-old male with a history of hypertension, CVA and Dementia,. Admitted with: 1. Complicated Left Lower Lobe Pneumonia with necrotizing pneumonia versus abscess and para pneumonic empyema: Aspiration pneumonia vs post-obstructive ? cancer (Endobronchial LLL lesion) Aspiration risk, + dysphagia s/p CVA. Successful modified barium swallow was performed on 03/22/18. Speech therapy consult revealed that aspiration was not evident on exam, but respiratory function could result in aspiration. CT findings possible lung abscess with necrotizing process (infiltrate was present on 01/2018 CT chest).Currently being treated with Levofloxacin and Zosyn, discontinued, Continue cefepime, flagyl and vancomycin with to cover MRSA/Pseudomonas pneumonia, aspiration and post obtructive pneumonia 2. Severe Malnutrition: 4. Chronic Constipation: Improved Plan: -Bronchoscopy scheduled today- please obtain BAL cultures and AFB stain -f/u blood cultures -continue cefepime 2 gm IV q8h, D3 -continue flagyl 500 mg IV q8h, D3 -continue vancomycin with PK consult, D3, these antimicrobials cover MRSA/Pseudomonas pneumonia, aspiration and post obtructive pneumonia -f/u MRSA PCR -Patient ultimately will require CT surgery evaluation for VATS-lobectomy. [facility] M: [id number] O:[phone] Subjective Date of service: 04/02/18 Principal diagnosis: LLL Pneumonia; L complex Pleural effusion; Adult FTT; Dementia;Constipation Interval history: Patient seen and examined. Asleep but easily arousable. No fevers, no acute distress. No family at bedside. Objective - Exam Narrative Exam: Constitutional: Asleep, easily arousable, no acute distress Head, Ears, Nose: Normocephalic, atraumatic. External ears, nose normal Eyes: Conjunctivae/corneas clear. No icterus. No ptosis. Neck: Supple, no meningeal signs Oral:no thrush Cardiovascular: S1, S2 normal. Respiratory: Good air entry, scattered rhonci throughout, + cough, no sputum production GI: Soft, non-tender; bowel sounds normal. No peritoneal signs Musculoskeletal: No pedal edema, no cyanosis. Skin: No rash or abscess Hem/Lymphatic: No palpable cervical or supraclavicular nodes. No lymphangitis Psych: Mood ok. Affect normal Neurological: Awake, alert, oriented. - Constitutional Vitals: Vital Signs Temp Pulse Resp BP Pulse Ox 99.2 F 73 20 132/65 97 04/02/18 02:11 04/02/18 02:12 04/02/18 02:11 04/02/18 02:11 04/02/18 02:12 Temperature -Last 24 Hours Temperature 99.2 F Temperature 98.2 F Temperature 98.1 F Temperature 97.2 F - Labs CBC & Chem 7: 04/01/18 13:46 03/30/18 04:40 Labs: Abnormal lab results 04/01/18 Range/Units 13:46 Hgb 11.2 L (11.8-15.2) gm/dl Hct 34.6 L (35.5-45.6) % RDW 17.7 H (13.2-15.2) % [place] % (Auto) 8.4 H (0.0-7.3) % Eos % (Auto) 5.2 H (0.0-4.3) %
--- NOTE | 2018-04-02 09:52 | Progress Note ---
Assessment and Plan LLL Pneumonia (+/- abscess/necrotizing process) Left complex Pleural effusion Adult FTT Dementia Constipation Moderate protein calorie malnutrition - will plan tentatively for bronch at 2 pm tomorrow (Sunday, discussed with hospitalist) - continue empiric Zosyn and Levaquin for possible post obstructive pneumonia. - CT chest suggests endobronchial LLL lesion and he will need a bronchoscopy, scheduled for tomorrow. -Pleural space suggestive of an empyema, will need the pleural space addressed. Discussed with ID - continue prn bronchodilators and oxygen therapy to keep O2 sats> 90% - continue with regular diet, with aspiration precautions -optimize nutritional support - VTE prophylaxis on hold for procedure - PT/OT/mobility -avoid delirium, maintain sleep-wake cycle Subjective Date of service: 04/02/18 Principal diagnosis: LLL Pneumonia; L complex Pleural effusion; Adult FTT; Dementia;Constipation Interval history: Patient is seen today for: LLL Pneumonia (+/- abscess/necrotizing process); Left complex Pleural effusion; Adult FTT; Dementia; Constipation Seen and examined at bedside; 24hour events reviewed; nursing and respiratory care staff consulted; no adverse overnight events reported to me; lying in bed; no chest pain: poor appetite per RN: no N/V/F/C; NPO for possible bronchoscopy today, no family and yet to obtain consent; no hemoptysis, no night sweats Objective Vital Signs - 12hr 04/02/18 04/02/18 02:11 02:12 Temperature 99.2 F Pulse Rate 73 73 Respiratory 20 Rate Blood Pressure 132/65 O2 Sat by Pulse 100 97 Oximetry Constitutional: no acute distress, alert, other (elderly, mildly cachectic looking AAM with mildly increased resp effort at rest) Eyes: non-icteric ENT: oropharynx moist Neck: supple, no JVD Effort: mildly labored Ascultation: Left: diminished breath sounds (base), Bilateral: rhonchi (upper airway component) Percussion: Bilateral: not dull Cardiovascular: regular rate and rhythm (no mrg) Gastrointestinal: normoactive bowel sounds, soft, non-tender, non-distended Integumentary: normal Extremities: no cyanosis, no edema, pink and warm Neurologic: normal mental status, non-focal exam, pupils equal and round, CN II- XII normal Psychiatric: mood appropriate, affect normal CBC and BMP: 04/03/18 10:21 03/30/18 04:40 ABG, PT/INR, D-dimer: PT/INR, D-dimer PT 16.8 Sec. (12.2-14.9) H 03/21/18 15:46 INR 1.28 (0.87-1.13) H 03/21/18 15:46 Abnormal lab findings: Abnormal Labs 03/21/18 03/21/18 03/21/18 15:46 15:46 15:46 Hgb 11.6 L Hct RDW 17.7 H [place] % (Auto) Eos % (Auto) [place] # Monocytes % (Manual) 12.0 H Monocytes # (Manual) 0.9 H PT 16.8 H INR 1.28 H Sodium Potassium Carbon Dioxide Creatinine Glucose 121 H Calcium Lactate Dehydrogenase C-Reactive Protein Albumin 03/22/18 03/22/18 03/23/18 03:20 03:20 05:33 Hgb 10.4 L Hct 32.0 L RDW 17.6 H [place] % (Auto) 11.4 H Eos % (Auto) [place] # 0.9 H Monocytes % (Manual) Monocytes # (Manual) PT INR Sodium 135 L Potassium 3.5 L Carbon Dioxide 20 L Creatinine 0.7 L Glucose Calcium 8.3 L Lactate Dehydrogenase C-Reactive Protein Albumin 03/24/18 03/27/18 03/27/18 04:23 04:21 04:21 Hgb 10.5 L Hct 32.1 L RDW 17.0 H [place] % (Auto) 12.5 H Eos % (Auto) [place] # Monocytes % (Manual) Monocytes # (Manual) PT INR Sodium Potassium 3.4 L Carbon Dioxide Creatinine 0.7 L Glucose 113 H 117 H Calcium 8.3 L Lactate Dehydrogenase C-Reactive Protein Albumin 2.7 L 2.3 L 03/28/18 03/30/18 03/30/18 19:58 04:40 04:40 Hgb 10.6 L Hct 32.4 L RDW 17.3 H [place] % (Auto) 12.5 H Eos % (Auto) [place] # Monocytes % (Manual) Monocytes # (Manual) PT INR Sodium Potassium Carbon Dioxide 20 L Creatinine Glucose Calcium 8.3 L Lactate Dehydrogenase 264 H C-Reactive Protein 9.60 H Albumin 04/01/18 13:46 Hgb 11.2 L Hct 34.6 L RDW 17.7 H [place] % (Auto) 8.4 H Eos % (Auto) 5.2 H [place] # Monocytes % (Manual) Monocytes # (Manual) PT INR Sodium Potassium Carbon Dioxide Creatinine Glucose Calcium Lactate Dehydrogenase C-Reactive Protein Albumin Allied health notes reviewed: nursing
[2018-04-02] MEDS: SODIUM CHLORIDE FLUSH SYRINGE 10 ML IV SCH ×2 (10:23→22:33)
[2018-04-02] MEDS: MAXIPIME/NS 2 GM/100 ML 2 GM/100 ML BAG IV SCH ×2 (10:23→22:32)
[2018-04-02] MEDS: THERAGRAN-M Tab PO SCH ×2 (10:29→15:54)
[2018-04-02] MEDS: TOPROL XL PO SCH ×2 (10:29→15:52)
[2018-04-02] MEDS: BABY ASPIRIN PO SCH ×2 (10:30→15:49)
[2018-04-02] MEDS: LOVENOX SUB-Q SCH ×2 (10:30→15:51)
[2018-04-02] MEDS: FLAGYL 500 MG/100 ML 500 MG/100 ML BAG IV SCH ×6 (14:00→22:38)
--- NOTE | 2018-04-02 15:06 | Progress Note ---
Assessment and Plan Assessment and plan: 83-year-old male patient [facility] resident was admitted productive cough and sob, from [place] Hospital course was planned for Thoracentesis on 03/29, but could not reach family for consent at that time -CM has now reached family, Dr Lynch to call for consent for bronch and thoracent esis cont abx, planned for Bronch after consent is obtained case dw ID and pulmonology Sp MBS, continue diet as recommended by [facility] chronic conditions Diagnosis --Lt lower lobe pneumonia; aspiration pneumonia --Left lower lobe multiloculated effusion - Dysphagia --Hypertension --Dementia; --Severe mal nutrition/Hypoalbuminemia: History Interval history: Review of systems Constitutional: No fevers, no malaise, no joint pains CVS: No chest pain, no orthopnea, no dyspnea on exertion, no pedal edema GI: No abdominal pain, no diarrhea, no vomiting, no constipation Respiratory: He has occasional episodes of shortness of breath per nursing, he is having cough productive of thick sputum Hospitalist Physical - Physical exam Narrative exam: General.: mild distress HEENT: Moist mucous membranes, extraocular muscles intact, no lymphadenopathy Neck: supple Cardiac: S1-S2 heard Lungs: Crackles Abdomen: soft , nontender, nondistended, bowel sounds positive Extremities: no edema clubbing or cyanosis Skin: no rash or lesions Neurologic: no gross focal deficits Psych: calm, and cooperative - Constitutional Vitals: Temp Pulse Resp BP Pulse Ox 98.1 F 69 20 134/84 99 04/02/18 13:14 04/02/18 13:14 04/02/18 13:14 04/02/18 13:14 04/02/18 13:14 General appearance: Present: no acute distress, well-nourished, other (confused at times) Results - Labs CBC & Chem 7: 04/01/18 13:46 03/30/18 04:40 Labs: Laboratory Last Values WBC 8.0 K/mm3 (4.5-11.0) 04/01/18 13:46 RBC 3.95 M/mm3 (3.65-5.03) 04/01/18 13:46 Hgb 11.2 gm/dl (11.8-15.2) L 04/01/18 13:46 Hct 34.6 % (35.5-45.6) L 04/01/18 13:46 MCV 88 fl (84-94) 04/01/18 13:46 MCH 28 pg (28-32) 04/01/18 13:46 MCHC 32 % (32-34) 04/01/18 13:46 RDW 17.7 % (13.2-15.2) H 04/01/18 13:46 Plt Count 255 K/mm3 (140-440) 04/01/18 13:46 Lymph % (Auto) 27.0 % (13.4-35.0) 04/01/18 13:46 St[place]ard % (Auto) 8.4 % (0.0-7.3) H 04/01/18 13:46 Eos % (Auto) 5.2 % (0.0-4.3) H 04/01/18 13:46 Baso % (Auto) 1.1 % (0.0-1.8) 04/01/18 13:46 Lymph # 2.2 K/mm3 (1.2-5.4) 04/01/18 13:46 Stoddard # 0.7 K/mm3 (0.0-0.8) 04/01/18 13:46 Eos # 0.4 K/mm3 (0.0-0.4) 04/01/18 13:46 Baso # 0.1 K/mm3 (0.0-0.1) 04/01/18 13:46 Add Manual Diff Complete 03/21/18 15:46 Total Counted 100 03/21/18 15:46 Seg Neutrophils % 58.3 % (40.0-70.0) 04/01/18 13:46 Seg Neuts % (Manual) 58.0 % (40.0-70.0) 03/21/18 15:46 Band Neutrophils % 5.0 % 03/21/18 15:46 Lymphocytes % (Manual) 23.0 % (13.4-35.0) 03/21/18 15:46 Reactive Lymphs % (Man) 0 % 03/21/18 15:46 Monocytes % (Manual) 12.0 % (0.0-7.3) H 03/21/18 15:46 Eosinophils % (Manual) 1.0 % (0.0-4.3) 03/21/18 15:46 Basophils % (Manual) 1.0 % (0.0-1.8) 03/21/18 15:46 Metamyelocytes % 0 % 03/21/18 15:46 Myelocytes % 0 % 03/21/18 15:46 Promyelocytes % 0 % 03/21/18 15:46 Blast Cells % 0 % 03/21/18 15:46 Nucleated RBC % Not Reportable 03/21/18 15:46 Seg Neutrophils # 4.7 K/mm3 (1.8-7.7) 04/01/18 13:46 Seg Neutrophils # Man 4.5 K/mm3 (1.8-7.7) 03/21/18 15:46 Band Neutrophils # 0.4 K/mm3 03/21/18 15:46 Lymphocytes # (Manual) 1.8 K/mm3 (1.2-5.4) 03/21/18 15:46 Abs React Lymphs (Man) 0.0 K/mm3 03/21/18 15:46 Monocytes # (Manual) 0.9 K/mm3 (0.0-0.8) H 03/21/18 15:46 Eosinophils # (Manual) 0.1 K/mm3 (0.0-0.4) 03/21/18 15:46 Basophils # (Manual) 0.1 K/mm3 (0.0-0.1) 03/21/18 15:46 Metamyelocytes # 0.0 K/mm3 03/21/18 15:46 Myelocytes # 0.0 K/mm3 03/21/18 15:46 Promyelocytes # 0.0 K/mm3 03/21/18 15:46 Blast Cells # 0.0 K/mm3 03/21/18 15:46 WBC Morphology Not Reportable 03/21/18 15:46 Hypersegmented Neuts Not Reportable 03/21/18 15:46 Hyposegmented Neuts Not Reportable 03/21/18 15:46 Hypogranular Neuts Not Reportable 03/21/18 15:46 Smudge Cells Not Reportable 03/21/18 15:46 Toxic Granulation Not Reportable 03/21/18 15:46 Toxic Vacuolation Not Reportable 03/21/18 15:46 Dohle Bodies Not Reportable 03/21/18 15:46 Pelger-Huet Anomaly Not Reportable 03/21/18 15:46 Cheikh Rods Not Reportable 03/21/18 15:46 Platelet Estimate Appears normal 03/21/18 15:46 Clumped Platelets Not Reportable 03/21/18 15:46 Plt Clumps, EDTA Not Reportable 03/21/18 15:46 Large Platelets Not Reportable 03/21/18 15:46 Giant Platelets Not Reportable 03/21/18 15:46 Platelet Satelliting Not Reportable 03/21/18 15:46 Plt Morphology Comment Not Reportable 03/21/18 15:46 RBC Morphology Not Reportable 03/21/18 15:46 Dimorphic RBCs Not Reportable 03/21/18 15:46 Polychromasia Not Reportable 03/21/18 15:46 Hypochromasia Not Reportable 03/21/18 15:46 Poikilocytosis Few 03/21/18 15:46 Anisocytosis Not Reportable 03/21/18 15:46 Microcytosis Not Reportable 03/21/18 15:46 Macrocytosis Not Reportable 03/21/18 15:46 Spherocytes Not Reportable 03/21/18 15:46 Pappenheimer Bodies Not Reportable 03/21/18 15:46 Sickle Cells Not Reportable 03/21/18 15:46 Target Cells Not Reportable 03/21/18 15:46 Tear Drop Cells Not Reportable 03/21/18 15:46 Ovalocytes Not Reportable 03/21/18 15:46 Helmet Cells Not Reportable 03/21/18 15:46 Murillo-[place] Bodies Not Reportable 03/21/18 15:46 [place]ryn Rings Not Reportable 03/21/18 15:46 [place] Cells Not Reportable 03/21/18 15:46 Bite Cells Not Reportable 03/21/18 15:46 Crenated Cell Not Reportable 03/21/18 15:46 Elliptocytes Not Reportable 03/21/18 15:46 Acanthocytes (Spur) Not Reportable 03/21/18 15:46 Rouleaux Not Reportable 03/21/18 15:46 Hemoglobin C Crystals Not Reportable 03/21/18 15:46 Schistocytes Not Reportable 03/21/18 15:46 Malaria parasites Not Reportable 03/21/18 15:46 Robert Bodies Not Reportable 03/21/18 15:46 Hem Pathologist Commnt No 03/21/18 15:46 PT 16.8 Sec. (12.2-14.9) H 03/21/18 15:46 INR 1.28 (0.87-1.13) H 03/21/18 15:46 APTT 25.7 Sec. (24.2-36.6) 03/21/18 15:46 Sodium 139 mmol/L (137-145) 03/30/18 04:40 Potassium 4.1 mmol/L (3.6-5.0) D 03/30/18 04:40 Chloride 106.5 mmol/L (98-107) 03/30/18 04:40 Carbon Dioxide 20 mmol/L (22-30) L 03/30/18 04:40 Anion Gap 17 mmol/L 03/30/18 04:40 BUN 11 mg/dL (9-20) 03/30/18 04:40 Creatinine 0.8 mg/dL (0.8-1.5) 03/30/18 04:40 Estimated GFR > 60 ml/min 03/30/18 04:40 BUN/Creatinine Ratio 14 % 03/30/18 04:40 Glucose 93 mg/dL (75-100) 03/30/18 04:40 Calcium 8.3 mg/dL (8.4-10.2) L 03/30/18 04:40 Magnesium 2.00 mg/dL (1.7-2.3) 03/27/18 04:21 Total Bilirubin 0.30 mg/dL (0.1-1.2) 03/27/18 04:21 AST 38 units/L (5-40) 03/27/18 04:21 ALT 32 units/L (7-56) 03/27/18 04:21 Alkaline Phosphatase 71 units/L (35-129) 03/27/18 04:21 Lactate Dehydrogenase 264 units/L (91-180) H 03/28/18 19:58 C-Reactive Protein 9.60 mg/dL (0.00-1.30) H 03/28/18 19:58 NT-Pro-B Natriuret Pep 216.7 pg/mL (0-900) 03/21/18 15:46 Total Protein 6.9 g/dL (6.3-8.2) 03/27/18 04:21 Albumin 2.3 g/dL (3.9-5) L 03/27/18 04:21 Albumin/Globulin Ratio 0.5 % 03/27/18 04:21 Nutrition/Malnutrition Assess - Dietary Evaluation Nutrition/Malnutrition Findings: Nutrition Notes Start: 03/22/18 09:49 Freq: Status: Active Protocol: Document 04/01/18 12:05 RM (Rec: 04/01/18 12:10 RM [id number]) Nutrition Notes Initial or Follow up Reassessment Current Diagnosis Hypertension Stroke Other Pertinent Diagnosis Dementia, SOB, Pneu, Chronic constipation Current Diet No diet ordered Labs/Tests Reviewed Pertinent Medications Reviewed Height 5 ft 9 in Weight 64.864 kg [place] Body Weight (kg) 72.72 BMI 21.1 Subjective/Other Information Pt NPO earlier today d/t MD awaiting consent from next of kin for bronchoscopy. NPO cancelled later today and no other diet ordered. Per tech pt ate 25% to 50% of meals and drank half of Ensure Enlive before NPO status. Percent of energy/protein needs met: 85%/100% (before NPO) Burn Absent Trauma Absent #1 Nutrition Diagnosis Inadequate oral intake As Evidenced by Signs and Symptoms pt meeting 85% of calorie and 100% of protein needs Diagnosis Progress(for reassessment Resolved documentation) Is patient on ventilator? No Is Patient Ambulatory and/or Out of Bed No REE-([facility]-confined to bed) 1602.108 Calculation Used for Recommendations [facility] Additional Notes Protein needs: (1-1.2) (65-78 g/day) fluid needs: 1ml/ kcal Nutrition Intervention Change Diet Order: Advance diet when medically able Add Supplement/Snack (indicate name/kcal Ensure Enlive Four times a day /protein ) once diet advanced Provides kCal: 1,400 Provides Protein (gm) 80 Goal #1 Diet advancement Anticipated Discharge Needs: unable to determine at this time Follow-Up By: 04/04/18 Additional Comments Follow for diet advancement, POC
--- NOTE | 2018-04-02 18:57 | Ultrasound Report ---
FINAL REPORT EXAM: US CHEST HISTORY: left chest empyema TECHNIQUE: Limited ultrasound of the left chest PRIORS: CT chest 03/27/2018 FINDINGS: In the lateral left chest, there is a loculated fluid collection measuring 51.3 cc in volume. Dimensi ons measures 6.9 x 2.7 x 5.2 cm. Findings can be consistent with empyema. IMPRESSION: Loculated fluid collection in the lateral left chest which can be consistent with empyema.
[2018-04-02] MEDS: VANCOMYCIN 1,250 MG in NACL 0.9% 250ML 250 ML IV SCH ×2 (22:33)
[2018-04-02] MEDS: PRAVACHOL PO SCH (22:34)
[2018-04-03] MEDS: FLAGYL 500 MG/100 ML 500 MG/100 ML BAG IV SCH ×3 (06:12→23:01)
--- NOTE | 2018-04-03 08:26 | Progress Note ---
Assessment and Plan Imagin03/21/2018 Chest: Hazy opacity in the left lower lobe that may reflect infiltrate or atelectasis. Small left pleural effusion. 03/26/[address]: Dense left lower lobe consolidation with a multilocular fluid collection in the left lower lobe concerning for pulmonary abscess. Small left pleural effusion. 03/27/[address] Loculated left pleural effusion findings most consistent with empyema. Findings likely reflect obstructive pneumonia. Persistent consolidation left lower lobe findings suggest areas of necrosis. Cultures: 03/21/2018 Blood: no growth thus far A/P: 83-year-old male with a history of hypertension, CVA and Dementia,. Admitted with: 1. Complicated Left Lower Lobe Pneumonia with necrotizing pneumonia versus abscess and para pneumonic empyema: Aspiration pneumonia vs post-obstructive ? cancer (Endobronchial LLL lesion) Aspiration risk, + dysphagia s/p CVA. Successful modified barium swallow was performed on 03/22/18. Speech therapy consult revealed that aspiration was not evident on exam, but respiratory function could result in aspiration. CT findings possible lung abscess with necrotizing process (infiltrate was present on 01/2018 CT chest).Currently being treated with Levofloxacin and Zosyn, discontinued, Continue cefepime, flagyl and vancomycin with to cover MRSA/Pseudomonas pneumonia, aspiration and post obtructive pneumonia. Fiibertropic bronchoscopy with washings done today, unable to obtain BAL cultures and AFB stain 2. Severe Malnutrition: 4. Chronic Constipation: Improved Plan: -f/u blood cultures -continue cefepime 2 gm IV q8h, D4 -continue flagyl 500 mg IV q8h, D4 -continue vancomycin with PK consult, D3, these antimicrobials cover MRSA/Pseudomonas pneumonia, aspiration and post obtructive pneumonia - CT scan reviewed by Dr. Ovalles, recommended transfer for CT guided chest tube placement given the multiloculated nature. This would benefit from cardiothoracic evaluation and possibly VATS. [facility] M: [phone] O:[phone] Subjective Date of service: 04/03/18 Principal diagnosis: LLL Pneumonia; L complex Pleural effusion; Adult FTT; Dementia;Constipation Interval history: Patient seen and examined. Awake, alert. No fevers, no acute distress. No family at bedside. Objective - Exam Narrative Exam: Constitutional: Awake, alert no acute distress Head, Ears, Nose: Normocephalic, atraumatic. External ears, nose normal Eyes: Conjunctivae/corneas clear. No icterus. No ptosis. Neck: Supple, no meningeal signs Oral:no thrush Cardiovascular: S1, S2 normal. Respiratory: Good air entry, scattered rhonci throughout, + cough, no sputum production GI: Soft, non-tender; bowel sounds normal. No peritoneal signs Musculoskeletal: No pedal edema, no cyanosis. Skin: No rash or abscess Hem/Lymphatic: No palpable cervical or supraclavicular nodes. No lymphangitis Psych: Mood ok. Affect normal Neurological: Awake, alert, oriented. - Constitutional Vitals: Vital Signs Temp Pulse Resp BP Pulse Ox 98.3 F 68 18 126/63 100 04/03/18 07:25 04/03/18 07:25 04/03/18 07:25 04/03/18 07:25 04/03/18 07:25 Temperature -Last 24 Hours Temperature 98.3 F Temperature 98.8 F Temperature 98.1 F - Labs CBC & Chem 7: 04/03/18 10:21 03/30/18 04:40
[2018-04-03] MEDS: TOPROL XL PO SCH (09:00)
[2018-04-03] MEDS: BABY ASPIRIN PO SCH (09:00)
[2018-04-03] MEDS: THERAGRAN-M Tab PO SCH (09:00)
[2018-04-03] MEDS: LOVENOX SUB-Q SCH (09:30)
[2018-04-03 10:38] LABS: Basophils # (Auto) 0.1 K/mm3 (0.0-0.1); Basophils % (Auto) 1.4 % (0.0-1.8); Eosinophils # (Auto) 0.5 K/mm3 (0.0-0.4); Hematocrit 33.8 % (35.5-45.6); Hemoglobin 11.2 gm/dl (11.8-15.2); Lymphocytes # (Auto) 2.2 K/mm3 (1.2-5.4); Lymphocytes % (Auto) 33.5 % (13.4-35.0); Mean Corpuscular HGB Conc 33 % (32-34); Mean Corpuscular Volume 86 fl (84-94); Monocytes % (Auto) 14.3 % (0.0-7.3); Platelet Count 240 K/mm3 (140-440); Red Blood Count 3.91 M/mm3 (3.65-5.03)
[2018-04-03] MEDS: SODIUM CHLORIDE FLUSH SYRINGE 10 ML IV SCH ×2 (11:00→23:00)
[2018-04-03] MEDS: MAXIPIME/NS 2 GM/100 ML 2 GM/100 ML BAG IV SCH ×2 (11:18→22:59)
[2018-04-03] MEDS ORDERED: NACL 0.9% 1000 ML 1,000 ML IV SCH (12:00)
[2018-04-03] MEDS ORDERED: NACL 0.9% 1000 ML 1,000 ML ONE (12:25)
[2018-04-03] MEDS ORDERED: SUBLIMAZE ONE (12:35)
[2018-04-03] MEDS ORDERED: DIPRIVAN 10 MG/ML IV ONE ×2 (12:35→13:38)
--- NOTE | 2018-04-03 12:41 | Anesthesia Consultation ---
Anesthesia Consult and Med Hx - Airway Anesthetic Teeth Evaluation: Edentulous ROM Head & Neck: Adequate Mental/Hyoid Distance: Adequate Mallampati Class: Class I Intubation Access Assessment: Probably Good - Pulmonary Exam CTA: No - Pre-Operative Health Status ASA Pre-Surgery Classification: ASA4 Proposed Anesthetic Plan: MAC - Pre-Anesthesia Comment Pre-Anesthesia Comments: H/O Pneumonia, HTN, CVA, malnutrition, and dementia - Pulmonary Hx Smoking: Yes Hx Respiratory Symptoms: Yes Hx Pneumonia: Yes - Cardiovascular System Hx Hypertension: Yes - Central Nervous System CVA: Yes (left side deficit) - Other Systems Hx Alcohol Use: No Hx Cancer: No
[2018-04-03] MEDS ORDERED: LIDOCAINE VISCOUS 2% PO ONE ×2 (13:05→13:07)
[2018-04-03] MEDS ORDERED: HURRICAINE ONE 20% TOPICAL SPRAY MM (13:06)
[2018-04-03] MEDS ORDERED: ADRENALINE P/F ONE (13:06)
[2018-04-03] MEDS ORDERED: XYLOCAINE 1% 20 mL ONE (13:06)
[2018-04-03] MEDS ORDERED: LIDOCAINE VISCOUS 2% ONE (13:07)
[2018-04-03] MEDS ORDERED: XYLOCAINE 1% 20 mL INFILTRATI ONE ×3 (13:24→13:28)
--- NOTE | 2018-04-03 14:05 | Procedure Note ---
Date of procedure: 04/03/18 Pre-op diagnosis: Left lower lobe pneumonia ? post obstructive Post-op diagnosis: same Procedure: FIBEROPTIC BRONCHOSCOPY WITH WASHINGS (Full dictation # [id number]) Please see dictated notes for full details
--- NOTE | 2018-04-03 14:28 | Progress Note ---
Assessment and Plan LLL Pneumonia (+/- abscess/necrotizing process) Left complex Pleural effusion Adult FTT Dementia Constipation Moderate protein calorie malnutrition - s/p bronchoscopy - continue empiric Zosyn and Levaquin for possible post obstructive pneumonia. - CT chest suggests endobronchial LLL lesion and he will need a bronchoscopy, scheduled for tomorrow. -Pleural space suggestive of an empyema, will need the pleural space addressed. Discussed with ID Discussed with IR, unable to place a CT guided pleural drain as the pleural space is complex. Films personally reviewed, there are multiple loculations and septation. Will need CT Surgery evaluation. - continue prn bronchodilators and oxygen therapy to keep O2 sats> 90% - continue with regular diet, with aspiration precautions -optimize nutritional support - VTE prophylaxis on hold for procedure - PT/OT/mobility -avoid delirium, maintain sleep-wake cycle Subjective Date of service: 04/03/18 Principal diagnosis: LLL Pneumonia; L complex Pleural effusion; Adult FTT; Dementia;Constipation Interval history: Patient is seen today for: LLL Pneumonia (+/- abscess/necrotizing process); Left complex Pleural effusion; Adult FTT; Dementia; Constipation Seen and examined at bedside; 24hour events reviewed; nursing and respiratory care staff consulted; no adverse overnight events reported to me; lying in bed; no chest pain: poor appetite per RN: no N/V/F/C; NPO for possible bronchoscopy today, no hemoptysis, no night sweats Objective Vital Signs - 12hr 04/03/18 04/03/18 04/03/18 07:25 08:28 09:00 Temperature 98.3 F Pulse Rate 68 68 Pulse Rate [ 68 From Monitor] Respiratory 18 18 Rate Blood Pressure 126/63 126/63 O2 Sat by Pulse 100 Oximetry 04/03/18 04/03/18 12:56 12:59 Temperature 98.4 F 98.4 F Pulse Rate 64 64 Pulse Rate [ From Monitor] Respiratory 16 16 Rate Blood Pressure 137/73 137/73 O2 Sat by Pulse 100 100 Oximetry Constitutional: no acute distress, alert, other (elderly, mildly cachectic looking AAM with mildly increased resp effort at rest) Eyes: non-icteric ENT: oropharynx moist Neck: supple, no JVD Effort: mildly labored Ascultation: Left: diminished breath sounds (base), Bilateral: rhonchi (upper airway component) Percussion: Bilateral: not dull Cardiovascular: regular rate and rhythm (no mrg) Gastrointestinal: normoactive bowel sounds, soft, non-tender, non-distended Integumentary: normal Extremities: no cyanosis, no edema, pink and warm Neurologic: normal mental status, non-focal exam, pupils equal and round, CN II- XII normal Psychiatric: mood appropriate, affect normal CBC and BMP: 04/03/18 10:21 03/30/18 04:40 ABG, PT/INR, D-dimer: PT/INR, D-dimer PT 16.8 Sec. (12.2-14.9) H 03/21/18 15:46 INR 1.28 (0.87-1.13) H 03/21/18 15:46 Abnormal lab findings: Abnormal Labs 03/21/18 03/21/18 03/21/18 15:46 15:46 15:46 Hgb 11.6 L Hct RDW 17.7 H Larue % (Auto) Eos % (Auto) Larue # Eos # Monocytes % (Manual) 12.0 H Monocytes # (Manual) 0.9 H PT 16.8 H INR 1.28 H Sodium Potassium Carbon Dioxide Creatinine Glucose 121 H Calcium Lactate Dehydrogenase C-Reactive Protein Albumin 03/22/18 03/22/18 03/23/18 03:20 03:20 05:33 Hgb 10.4 L Hct 32.0 L RDW 17.6 H Larue % (Auto) 11.4 H Eos % (Auto) Larue # 0.9 H Eos # Monocytes % (Manual) Monocytes # (Manual) PT INR Sodium 135 L Potassium 3.5 L Carbon Dioxide 20 L Creatinine 0.7 L Glucose Calcium 8.3 L Lactate Dehydrogenase C-Reactive Protein Albumin 03/24/18 03/27/18 03/27/18 04:23 04:21 04:21 Hgb 10.5 L Hct 32.1 L RDW 17.0 H Larue % (Auto) 12.5 H Eos % (Auto) Larue # Eos # Monocytes % (Manual) Monocytes # (Manual) PT INR Sodium Potassium 3.4 L Carbon Dioxide Creatinine 0.7 L Glucose 113 H 117 H Calcium 8.3 L Lactate Dehydrogenase C-Reactive Protein Albumin 2.7 L 2.3 L 03/28/18 03/30/18 03/30/18 19:58 04:40 04:40 Hgb 10.6 L Hct 32.4 L RDW 17.3 H [place] % (Auto) 12.5 H Eos % (Auto) Larue # Eos # Monocytes % (Manual) Monocytes # (Manual) PT INR Sodium Potassium Carbon Dioxide 20 L Creatinine Glucose Calcium 8.3 L Lactate Dehydrogenase 264 H C-Reactive Protein 9.60 H Albumin 04/01/18 04/03/18 13:46 10:21 Hgb 11.2 L 11.2 L Hct 34.6 L 33.8 L RDW 17.7 H 18.0 H Larue % (Auto) 8.4 H 14.3 H Eos % (Auto) 5.2 H 8.0 H Larue # 1.0 H Eos # 0.5 H Monocytes % (Manual) Monocytes # (Manual) PT INR Sodium Potassium Carbon Dioxide Creatinine Glucose Calcium Lactate Dehydrogenase C-Reactive Protein Albumin Chest x-ray: image reviewed CT scan - chest: image reviewed Additional Studies: 03/21/2018 Chest: Hazy opacity in the left lower lobe that may reflect infiltrate or atelectasis. Small left pleural effusion. 03/26/[address]: Dense left lower lobe consolidation with a multilocular fluid collection in the left lower lobe concerning for pulmonary abscess. Small left pleural effusion. 03/27/[address] Loculated left pleural effusion findings most consistent with empyema. Findings likely reflect obstructive pneumonia. Persistent consolidation left lower lobe findings suggest areas of necrosis. Allied health notes reviewed: nursing
[2018-04-03] MEDS ORDERED: XYLOCAINE 2% INFILTRATI ONE (14:56)
[2018-04-03] MEDS ORDERED: PROVENTIL IH NR (15:00)
--- NOTE | 2018-04-03 15:08 | Event Note ---
Date: 04/03/[address] scan for possible CT guided chest tube placement. Reviewed CT scan which showed a small multiloculated fluid collection interdi gitating in the left fissue and along the pleura. This is a suboptimal situation for CT guided chest tube placement given the multiloculated nature. This would benefit from cardiothoracic evaluation and possibly VATS.
--- NOTE | 2018-04-03 16:53 | Operative Report ---
PULMONARY PROCEDURE NOTE PROCEDURE: Fiberoptic bronchoscopy with endobronchial biopsies and bronchioalveolar lavage and bronchial washings. Consent was informed and witnessed taken from his daughter, Sarai Morocho, over the phone. COMPLICATIONS: No immediate procedural complications. Sedation was provided by the anesthesia team with propofol. PROCEDURE DETAILS: As follows, after informed the witnessed consent as well as premedication, fiberoptic bronchoscope was passed through the left nostril into the nasopharynx and advanced distally into the hypopharyngeal regions. Vocal cords were located. They were both bilaterally mobile. Topical lidocaine was applied at the vocal cords and then I entered the trachea. The airway showed some deviation, however, I should say architectural distortion, but it did not seem to be secondary to any endobronchial lesion that I could see. Actually the airways looked really clean and pristine. Topical lidocaine was applied at the meche and then the right endobronchial tree was quickly entered. I should mention from the level of the distal trachea, I could see mucoid secretions spilling out of the left endobronchial tree. The left main stem bronchus and some of them going into the right mainstem. The right upper lobe, right middle lobe, right lower lobe basilar segments including the superior segment were all evaluated. No gross endobronchial lesions were seen. The airways were clean, actually looked really really good for a gentleman, 83 years of old of age. The fiberoptic bronchoscope was then withdrawn into the meche and I started to suction thick mucoid secretions all the way down to the opening of the left upper lobe. The left upper lobe was evaluated, again no gross endobronchial lesion and looked really clean. The left lower lobe was then entered. The superior segment looked normal. There was an endobronchial lesion what I believe was the left lateral basilar segment. It appeared to be occluding the airway, looked highly keratinized could have been a big chunk of inspissated mucus however, It was difficult to tell. I first did washings to clear up the area of secretions. The airways around the area were really floppy, but looked definitely abnormal. I took endobronchial biopsies from the lesion in question. It broke apart, when I try to do that, but some of it significant amount still remained in the airway. I took serial biopsies endobronchially in the mucosa around the lesion and from the lesion itself and bleeding was minimal. I washed after each biopsy to see if we could clear the airway of this endobronchial lesion, but it appeared to be a part of the endobronchial anatomy or adherent, I was unable to dislodge it. Brushings were then taken of the endobronchial mucosa in the area, it could have been an endobronchial tumor, but really difficult to tell. Fiberoptic bronchoscope was ultimately withdrawn after I had taken the samples. Again through bilaterally mobile vocal cords. The patient tolerated the procedure well. No immediate procedural complications. RECOMMENDATIONS: I will get a postprocedure chest x-ray just to see if the left lower lobe opened up a little bit too. We will follow up on pathology of the endobronchial biopsies as well as culture of the endobronchial biopsy as well as cytology of the endobronchial washings and cultures of the endobronchial washings, which will be sent for fungal and AFB cultures and smears as well as routine respiratory cultures. JOB# [id number] JIMENEZ/ELO
--- NOTE | 2018-04-03 17:43 | XRay Report ---
FINAL REPORT EXAM: XR CHEST 1V AP HISTORY: s/p bronchoscopy TECHNIQUE: AP portable view of the chest PRIORS: CXR 03/30/2018 FINDINGS: Lines, tubes, and devices: N/A Lungs and pleura: Trachea is normal in position. There is a moderate left pleural effusion, slightly smaller than seen previously. Linear incisional fibrotic changes in the right apex are stable. Cardiomediastinal silhouette: Heart is enlarged but stable. Other: Bony structures are intact. IMPRESSION: Improving left pleural effusion. No other change. Mild cardiomegaly is stable.
[2018-04-03] MEDS: VANCOMYCIN 1,250 MG in NACL 0.9% 250ML 250 ML IV SCH (22:59)
[2018-04-03] MEDS: PRAVACHOL PO SCH (23:00)
--- NOTE | 2018-04-03 23:51 | Progress Note ---
Assessment and Plan Assessment and plan: 83-year-old male [facility] was admitted productive cough and sob, from [place] Hospital course was planned for Thoracentesis on 03/29, but could not reach family for consent at that time sp bronch on 04/03 seen by IR, empyema not amenable to CT, will need transfer for CT surgery eval for vats procedure cont abx, case dw ID and pulmonology Sp MBS, continue diet as recommended by [facility] meds for chronic conditions Diagnosis --Lt lower lobe pneumonia; aspiration pneumonia --Left lower lobe multiloculated effusion cw empyema - Dysphagia --Hypertension --Dementia; --Severe mal nutrition/Hypoalbuminemia: History Interval history: Review of systems Constitutional: No fevers, no malaise, no joint pains CVS: No chest pain, no orthopnea, no dyspnea on exertion, no pedal edema GI: No abdominal pain, no diarrhea, no vomiting, no constipation Respiratory: He has occasional episodes of shortness of breath per nursing, he is having cough productive of thick sputum Hospitalist Physical - Physical exam Narrative exam: General.: mild distress HEENT: Moist mucous membranes, extraocular muscles intact, no lymphadenopathy Neck: supple Cardiac: S1-S2 heard Lungs: Crackles Abdomen: soft , nontender, nondistended, bowel sounds positive Extremities: no edema clubbing or cyanosis Skin: no rash or lesions Neurologic: no gross focal deficits Psych: calm, and cooperative - Constitutional Vitals: Temp Pulse Resp BP Pulse Ox 97.6 F 81 24 129/79 99 04/03/18 19:29 04/03/18 19:29 04/03/18 19:29 04/03/18 19:29 04/03/18 19:29 General appearance: Present: no acute distress, well-nourished, other (confused at times) Results - Labs CBC & Chem 7: 04/03/18 10:21 03/30/18 04:40 Labs: Laboratory Last Values WBC 6.7 K/mm3 (4.5-11.0) 04/03/18 10:21 RBC 3.91 M/mm3 (3.65-5.03) 04/03/18 10:21 Hgb 11.2 gm/dl (11.8-15.2) L 04/03/18 10:21 Hct 33.8 % (35.5-45.6) L 04/03/18 10:21 MCV 86 fl (84-94) 04/03/18 10:21 MCH 29 pg (28-32) 04/03/18 10:21 MCHC 33 % (32-34) 04/03/18 10:21 RDW 18.0 % (13.2-15.2) H 04/03/18 10:21 Plt Count 240 K/mm3 (140-440) 04/03/18 10:21 Lymph % (Auto) 33.5 % (13.4-35.0) 04/03/18 10:21 [place] % (Auto) 14.3 % (0.0-7.3) H 04/03/18 10:21 Eos % (Auto) 8.0 % (0.0-4.3) H 04/03/18 10:21 Baso % (Auto) 1.4 % (0.0-1.8) 04/03/18 10:21 Lymph # 2.2 K/mm3 (1.2-5.4) 04/03/18 10:21 [place] # 1.0 K/mm3 (0.0-0.8) H 04/03/18 10:21 Eos # 0.5 K/mm3 (0.0-0.4) H 04/03/18 10:21 Baso # 0.1 K/mm3 (0.0-0.1) 04/03/18 10:21 Add Manual Diff Complete 03/21/18 15:46 Total Counted 100 03/21/18 15:46 Seg Neutrophils % 42.8 % (40.0-70.0) 04/03/18 10:21 Seg Neuts % (Manual) 58.0 % (40.0-70.0) 03/21/18 15:46 Band Neutrophils % 5.0 % 03/21/18 15:46 Lymphocytes % (Manual) 23.0 % (13.4-35.0) 03/21/18 15:46 Reactive Lymphs % (Man) 0 % 03/21/18 15:46 Monocytes % (Manual) 12.0 % (0.0-7.3) H 03/21/18 15:46 Eosinophils % (Manual) 1.0 % (0.0-4.3) 03/21/18 15:46 Basophils % (Manual) 1.0 % (0.0-1.8) 03/21/18 15:46 Metamyelocytes % 0 % 03/21/18 15:46 Myelocytes % 0 % 03/21/18 15:46 Promyelocytes % 0 % 03/21/18 15:46 Blast Cells % 0 % 03/21/18 15:46 Nucleated RBC % Not Reportable 03/21/18 15:46 Seg Neutrophils # 2.9 K/mm3 (1.8-7.7) 04/03/18 10:21 Seg Neutrophils # Man 4.5 K/mm3 (1.8-7.7) 03/21/18 15:46 Band Neutrophils # 0.4 K/mm3 03/21/18 15:46 Lymphocytes # (Manual) 1.8 K/mm3 (1.2-5.4) 03/21/18 15:46 Abs React Lymphs (Man) 0.0 K/mm3 03/21/18 15:46 Monocytes # (Manual) 0.9 K/mm3 (0.0-0.8) H 03/21/18 15:46 Eosinophils # (Manual) 0.1 K/mm3 (0.0-0.4) 03/21/18 15:46 Basophils # (Manual) 0.1 K/mm3 (0.0-0.1) 03/21/18 15:46 Metamyelocytes # 0.0 K/mm3 03/21/18 15:46 Myelocytes # 0.0 K/mm3 03/21/18 15:46 Promyelocytes # 0.0 K/mm3 03/21/18 15:46 Blast Cells # 0.0 K/mm3 03/21/18 15:46 WBC Morphology Not Reportable 03/21/18 15:46 Hypersegmented Neuts Not Reportable 03/21/18 15:46 Hyposegmented Neuts Not Reportable 03/21/18 15:46 Hypogranular Neuts Not Reportable 03/21/18 15:46 Smudge Cells Not Reportable 03/21/18 15:46 Toxic Granulation Not Reportable 03/21/18 15:46 Toxic Vacuolation Not Reportable 03/21/18 15:46 Dohle Bodies Not Reportable 03/21/18 15:46 Pelger-Huet Anomaly Not Reportable 03/21/18 15:46 Cheikh Rods Not Reportable 03/21/18 15:46 Platelet Estimate Appears normal 03/21/18 15:46 Clumped Platelets Not Reportable 03/21/18 15:46 Plt Clumps, EDTA Not Reportable 03/21/18 15:46 Large Platelets Not Reportable 03/21/18 15:46 Giant Platelets Not Reportable 03/21/18 15:46 Platelet Satelliting Not Reportable 03/21/18 15:46 Plt Morphology Comment Not Reportable 03/21/18 15:46 RBC Morphology Not Reportable 03/21/18 15:46 Dimorphic RBCs Not Reportable 03/21/18 15:46 Polychromasia Not Reportable 03/21/18 15:46 Hypochromasia Not Reportable 03/21/18 15:46 Poikilocytosis Few 03/21/18 15:46 Anisocytosis Not Reportable 03/21/18 15:46 Microcytosis Not Reportable 03/21/18 15:46 Macrocytosis Not Reportable 03/21/18 15:46 Spherocytes Not Reportable 03/21/18 15:46 Pappenheimer Bodies Not Reportable 03/21/18 15:46 Sickle Cells Not Reportable 03/21/18 15:46 Target Cells Not Reportable 03/21/18 15:46 Tear Drop Cells Not Reportable 03/21/18 15:46 Ovalocytes Not Reportable 03/21/18 15:46 Helmet Cells Not Reportable 03/21/18 15:46 Murillo-[place] Bodies Not Reportable 03/21/18 15:46 [place] Rings Not Reportable 03/21/18 15:46 [place] Cells Not Reportable 03/21/18 15:46 Bite Cells Not Reportable 03/21/18 15:46 Crenated Cell Not Reportable 03/21/18 15:46 Elliptocytes Not Reportable 03/21/18 15:46 Acanthocytes (Spur) Not Reportable 03/21/18 15:46 Rouleaux Not Reportable 03/21/18 15:46 Hemoglobin C Crystals Not Reportable 03/21/18 15:46 Schistocytes Not Reportable 03/21/18 15:46 Malaria parasites Not Reportable 03/21/18 15:46 Robert Bodies Not Reportable 03/21/18 15:46 Hem Pathologist Commnt No 03/21/18 15:46 PT 16.8 Sec. (12.2-14.9) H 03/21/18 15:46 INR 1.28 (0.87-1.13) H 03/21/18 15:46 APTT 25.7 Sec. (24.2-36.6) 03/21/18 15:46 Sodium 139 mmol/L (137-145) 03/30/18 04:40 Potassium 4.1 mmol/L (3.6-5.0) D 03/30/18 04:40 Chloride 106.5 mmol/L (98-107) 03/30/18 04:40 Carbon Dioxide 20 mmol/L (22-30) L 03/30/18 04:40 Anion Gap 17 mmol/L 03/30/18 04:40 BUN 11 mg/dL (9-20) 03/30/18 04:40 Creatinine 0.8 mg/dL (0.8-1.5) 03/30/18 04:40 Estimated GFR > 60 ml/min 03/30/18 04:40 BUN/Creatinine Ratio 14 % 03/30/18 04:40 Glucose 93 mg/dL (75-100) 03/30/18 04:40 Calcium 8.3 mg/dL (8.4-10.2) L 03/30/18 04:40 Magnesium 2.00 mg/dL (1.7-2.3) 03/27/18 04:21 Total Bilirubin 0.30 mg/dL (0.1-1.2) 03/27/18 04:21 AST 38 units/L (5-40) 03/27/18 04:21 ALT 32 units/L (7-56) 03/27/18 04:21 Alkaline Phosphatase 71 units/L (35-129) 03/27/18 04:21 Lactate Dehydrogenase 264 units/L (91-180) H 03/28/18 19:58 C-Reactive Protein 9.60 mg/dL (0.00-1.30) H 03/28/18 19:58 NT-Pro-B Natriuret Pep 216.7 pg/mL (0-900) 03/21/18 15:46 Total Protein 6.9 g/dL (6.3-8.2) 03/27/18 04:21 Albumin 2.3 g/dL (3.9-5) L 03/27/18 04:21 Albumin/Globulin Ratio 0.5 % 03/27/18 04:21 Nutrition/Malnutrition Assess - Dietary Evaluation Nutrition/Malnutrition Findings: Nutrition Notes Start: 03/22/18 09:49 Freq: Status: Active Protocol: Document 04/01/18 12:05 RM (Rec: 04/01/18 12:10 RM [id number]) Nutrition Notes Initial or Follow up Reassessment Current Diagnosis Hypertension Stroke Other Pertinent Diagnosis Dementia, SOB, Pneu, Chronic constipation Current Diet No diet ordered Labs/Tests Reviewed Pertinent Medications Reviewed Height 5 ft 9 in Weight 64.864 kg [place] Body Weight (kg) 72.72 BMI 21.1 Subjective/Other Information Pt NPO earlier today d/t MD awaiting consent from next of kin for bronchoscopy. NPO cancelled later today and no other diet ordered. Per tech pt ate 25% to 50% of meals and drank half of Ensure Enlive before NPO status. Percent of energy/protein needs met: 85%/100% (before NPO) Burn Absent Trauma Absent #1 Nutrition Diagnosis Inadequate oral intake As Evidenced by Signs and Symptoms pt meeting 85% of calorie and 100% of protein needs Diagnosis Progress(for reassessment Resolved documentation) Is patient on ventilator? No Is Patient Ambulatory and/or Out of Bed No REE-([facility]-confined to bed) 1602.108 Calculation Used for Recommendations [facility] Additional Notes Protein needs: (1-1.2) (65-78 g/day) fluid needs: 1ml/ kcal Nutrition Intervention Change Diet Order: Advance diet when medically able Add Supplement/Snack (indicate name/kcal Ensure Enlive Four times a day /protein ) once diet advanced Provides kCal: 1,400 Provides Protein (gm) 80 Goal #1 Diet advancement Anticipated Discharge Needs: unable to determine at this time Follow-Up By: 04/04/18 Additional Comments Follow for diet advancement, POC
[2018-04-04] MEDS: FLAGYL 500 MG/100 ML 500 MG/100 ML BAG IV SCH ×2 (05:50→14:52)
[2018-04-04] MEDS: THERAGRAN-M Tab PO SCH (09:42)
[2018-04-04] MEDS: TOPROL XL PO SCH (09:42)
[2018-04-04] MEDS: BABY ASPIRIN PO SCH (09:43)
[2018-04-04] MEDS: SODIUM CHLORIDE FLUSH SYRINGE 10 ML IV SCH (09:43)
[2018-04-04] MEDS: LOVENOX SUB-Q SCH (09:43)
[2018-04-04] MEDS: MAXIPIME/NS 2 GM/100 ML 2 GM/100 ML BAG IV SCH (09:44)
--- NOTE | 2018-04-04 09:45 | Progress Note ---
Assessment and Plan LLL Pneumonia (+/- abscess/necrotizing process) Left complex Pleural effusion Adult FTT Dementia Constipation Moderate protein calorie malnutrition - s/p bronchoscopy - continue empiric Zosyn and Levaquin for possible post obstructive pneumonia. -Pleural space suggestive of an empyema, will need the pleural space addressed. -Transfer to center with CT Surgery availability - continue prn bronchodilators and oxygen therapy to keep O2 sats> 90% - continue with regular diet, with aspiration precautions Speech language pathologist notes reviewed- no aspiration) -optimize nutritional support - VTE prophylaxis( resume) - PT/OT/mobility -avoid delirium, maintain sleep-wake cycle Subjective Date of service: 04/04/18 Principal diagnosis: LLL Pneumonia; L complex Pleural effusion; Adult FTT; Dementia;Constipation Interval history: Patient is seen today for: LLL Pneumonia (+/- abscess/necrotizing process); Left complex Pleural effusion ( empyema); Adult FTT; Dementia; Constipation Seen and examined at bedside; 24hour events reviewed; nursing and respiratory care staff consulted; no adverse overnight events reported to me; lying in bed; no chest pain: poor appetite per RN: no N/V/F/C; s/p bronchoscopyyesterday tolerated it well, no hemoptysis, no night sweats Objective Vital Signs - 12hr 04/03/18 04/04/18 04/04/18 23:00 00:00 02:36 Temperature 97.5 F L Pulse Rate 82 Respiratory 20 16 Rate Respiratory 20 Rate [Abdomen] Respiratory 20 Rate [Back] Blood Pressure 120/62 O2 Sat by Pulse 98 98 Oximetry 04/04/18 04/04/18 07:36 08:00 Temperature 97.4 F L Pulse Rate 72 Respiratory 20 18 Rate Respiratory Rate [Abdomen] Respiratory Rate [Back] Blood Pressure 114/65 O2 Sat by Pulse 98 98 Oximetry Constitutional: no acute distress, alert, other (elderly, mildly cachectic looking AAM with mildly increased resp effort at rest) Eyes: non-icteric ENT: oropharynx moist Neck: supple, no JVD Effort: mildly labored Ascultation: Left: diminished breath sounds (base), Bilateral: rhonchi (upper airway component) Percussion: Bilateral: not dull Cardiovascular: regular rate and rhythm (no mrg) Gastrointestinal: normoactive bowel sounds, soft, non-tender, non-distended Integumentary: normal Extremities: no cyanosis, no edema, pink and warm Neurologic: normal mental status, non-focal exam, pupils equal and round, CN II- XII normal, motor strength normal and Psychiatric: mood appropriate, affect normal CBC and BMP: 04/03/18 10:21 03/30/18 04:40 ABG, PT/INR, D-dimer: PT/INR, D-dimer PT 16.8 Sec. (12.2-14.9) H 03/21/18 15:46 INR 1.28 (0.87-1.13) H 03/21/18 15:46 Abnormal lab findings: Abnormal Labs 03/21/18 03/21/18 03/21/18 15:46 15:46 15:46 Hgb 11.6 L Hct RDW 17.7 H [place] % (Auto) Eos % (Auto) [place] # Eos # Monocytes % (Manual) 12.0 H Monocytes # (Manual) 0.9 H PT 16.8 H INR 1.28 H Sodium Potassium Carbon Dioxide Creatinine Glucose 121 H Calcium Lactate Dehydrogenase C-Reactive Protein Albumin 03/22/18 03/22/18 03/23/18 03:20 03:20 05:33 Hgb 10.4 L Hct 32.0 L RDW 17.6 H [place] % (Auto) 11.4 H Eos % (Auto) [place] # 0.9 H Eos # Monocytes % (Manual) Monocytes # (Manual) PT INR Sodium 135 L Potassium 3.5 L Carbon Dioxide 20 L Creatinine 0.7 L Glucose Calcium 8.3 L Lactate Dehydrogenase C-Reactive Protein Albumin 03/24/18 03/27/18 03/27/18 04:23 04:21 04:21 Hgb 10.5 L Hct 32.1 L RDW 17.0 H [place] % (Auto) 12.5 H Eos % (Auto) [place] # Eos # Monocytes % (Manual) Monocytes # (Manual) PT INR Sodium Potassium 3.4 L Carbon Dioxide Creatinine 0.7 L Glucose 113 H 117 H Calcium 8.3 L Lactate Dehydrogenase C-Reactive Protein Albumin 2.7 L 2.3 L 03/28/18 03/30/18 03/30/18 19:58 04:40 04:40 Hgb 10.6 L Hct 32.4 L RDW 17.3 H [place] % (Auto) 12.5 H Eos % (Auto) [place] # Eos # Monocytes % (Manual) Monocytes # (Manual) PT INR Sodium Potassium Carbon Dioxide 20 L Creatinine Glucose Calcium 8.3 L Lactate Dehydrogenase 264 H C-Reactive Protein 9.60 H Albumin 04/01/18 04/03/18 13:46 10:21 Hgb 11.2 L 11.2 L Hct 34.6 L 33.8 L RDW 17.7 H 18.0 H [place] % (Auto) 8.4 H 14.3 H Eos % (Auto) 5.2 H 8.0 H [place] # 1.0 H Eos # 0.5 H Monocytes % (Manual) Monocytes # (Manual) PT INR Sodium Potassium Carbon Dioxide Creatinine Glucose Calcium Lactate Dehydrogenase C-Reactive Protein Albumin Chest x-ray: image reviewed Allied health notes reviewed: nursing
--- NOTE | 2018-04-04 09:49 | Progress Note ---
Assessment and Plan Assessment and plan: 83-year-old male patient [facility] resident was admitted productive cough and sob, from [place] Hospital course was planned for Thoracentesis on 03/29, but could not reach family for consent at that time sp bronch on 04/03, fup bx , cytology and endobronchial washing and cultures seen by IR, empyema not amenable to CT, will need transfer for CT surgery eval for vats procedure, called [place], awaiting a call back cont abx, case dw ID and pulmonology Sp MBS, continue diet as recommended by [facility] for chronic conditions Diagnosis --Lt lower lobe pneumonia; aspiration pneumonia --Left lower lobe multiloculated effusion cw empyema - Dysphagia --Hypertension --Dementia; --Severe mal nutrition/Hypoalbuminemia: History Interval history: Review of systems Constitutional: No fevers, no malaise, no joint pains CVS: No chest pain, no orthopnea, no dyspnea on exertion, no pedal edema GI: No abdominal pain, no diarrhea, no vomiting, no constipation Respiratory: He has occasional episodes of shortness of breath per nursing, he is having cough productive of thick sputum Hospitalist Physical - Physical exam Narrative exam: General.: mild distress HEENT: Moist mucous membranes, extraocular muscles intact, no lymphadenopathy Neck: supple Cardiac: S1-S2 heard Lungs: Crackles Abdomen: soft , nontender, nondistended, bowel sounds positive Extremities: no edema clubbing or cyanosis Skin: no rash or lesions Neurologic: no gross focal deficits Psych: calm, and cooperative - Constitutional Vitals: Temp Pulse Resp BP Pulse Ox 97.4 F L 72 18 114/65 98 04/04/18 07:36 04/04/18 07:36 04/04/18 08:00 04/04/18 09:42 04/04/18 08:00 General appearance: Present: no acute distress, well-nourished, other (confused at times) Results - Labs CBC & Chem 7: 04/03/18 10:21 03/30/18 04:40 Labs: Laboratory Last Values WBC 6.7 K/mm3 (4.5-11.0) 04/03/18 10:21 RBC 3.91 M/mm3 (3.65-5.03) 04/03/18 10:21 Hgb 11.2 gm/dl (11.8-15.2) L 04/03/18 10:21 Hct 33.8 % (35.5-45.6) L 04/03/18 10:21 MCV 86 fl (84-94) 04/03/18 10:21 MCH 29 pg (28-32) 04/03/18 10:21 MCHC 33 % (32-34) 04/03/18 10:21 RDW 18.0 % (13.2-15.2) H 04/03/18 10:21 Plt Count 240 K/mm3 (140-440) 04/03/18 10:21 Lymph % (Auto) 33.5 % (13.4-35.0) 04/03/18 10:21 [place] % (Auto) 14.3 % (0.0-7.3) H 04/03/18 10:21 Eos % (Auto) 8.0 % (0.0-4.3) H 04/03/18 10:21 Baso % (Auto) 1.4 % (0.0-1.8) 04/03/18 10:21 Lymph # 2.2 K/mm3 (1.2-5.4) 04/03/18 10:21 [place] # 1.0 K/mm3 (0.0-0.8) H 04/03/18 10:21 Eos # 0.5 K/mm3 (0.0-0.4) H 04/03/18 10:21 Baso # 0.1 K/mm3 (0.0-0.1) 04/03/18 10:21 Add Manual Diff Complete 03/21/18 15:46 Total Counted 100 03/21/18 15:46 Seg Neutrophils % 42.8 % (40.0-70.0) 04/03/18 10:21 Seg Neuts % (Manual) 58.0 % (40.0-70.0) 03/21/18 15:46 Band Neutrophils % 5.0 % 03/21/18 15:46 Lymphocytes % (Manual) 23.0 % (13.4-35.0) 03/21/18 15:46 Reactive Lymphs % (Man) 0 % 03/21/18 15:46 Monocytes % (Manual) 12.0 % (0.0-7.3) H 03/21/18 15:46 Eosinophils % (Manual) 1.0 % (0.0-4.3) 03/21/18 15:46 Basophils % (Manual) 1.0 % (0.0-1.8) 03/21/18 15:46 Metamyelocytes % 0 % 03/21/18 15:46 Myelocytes % 0 % 03/21/18 15:46 Promyelocytes % 0 % 03/21/18 15:46 Blast Cells % 0 % 03/21/18 15:46 Nucleated RBC % Not Reportable 03/21/18 15:46 Seg Neutrophils # 2.9 K/mm3 (1.8-7.7) 04/03/18 10:21 Seg Neutrophils # Man 4.5 K/mm3 (1.8-7.7) 03/21/18 15:46 Band Neutrophils # 0.4 K/mm3 03/21/18 15:46 Lymphocytes # (Manual) 1.8 K/mm3 (1.2-5.4) 03/21/18 15:46 Abs React Lymphs (Man) 0.0 K/mm3 03/21/18 15:46 Monocytes # (Manual) 0.9 K/mm3 (0.0-0.8) H 03/21/18 15:46 Eosinophils # (Manual) 0.1 K/mm3 (0.0-0.4) 03/21/18 15:46 Basophils # (Manual) 0.1 K/mm3 (0.0-0.1) 03/21/18 15:46 Metamyelocytes # 0.0 K/mm3 03/21/18 15:46 Myelocytes # 0.0 K/mm3 03/21/18 15:46 Promyelocytes # 0.0 K/mm3 03/21/18 15:46 Blast Cells # 0.0 K/mm3 03/21/18 15:46 WBC Morphology Not Reportable 03/21/18 15:46 Hypersegmented Neuts Not Reportable 03/21/18 15:46 Hyposegmented Neuts Not Reportable 03/21/18 15:46 Hypogranular Neuts Not Reportable 03/21/18 15:46 Smudge Cells Not Reportable 03/21/18 15:46 Toxic Granulation Not Reportable 03/21/18 15:46 Toxic Vacuolation Not Reportable 03/21/18 15:46 Dohle Bodies Not Reportable 03/21/18 15:46 Pelger-Huet Anomaly Not Reportable 03/21/18 15:46 Cheikh Rods Not Reportable 03/21/18 15:46 Platelet Estimate Appears normal 03/21/18 15:46 Clumped Platelets Not Reportable 03/21/18 15:46 Plt Clumps, EDTA Not Reportable 03/21/18 15:46 Large Platelets Not Reportable 03/21/18 15:46 Giant Platelets Not Reportable 03/21/18 15:46 Platelet Satelliting Not Reportable 03/21/18 15:46 Plt Morphology Comment Not Reportable 03/21/18 15:46 RBC Morphology Not Reportable 03/21/18 15:46 Dimorphic RBCs Not Reportable 03/21/18 15:46 Polychromasia Not Reportable 03/21/18 15:46 Hypochromasia Not Reportable 03/21/18 15:46 Poikilocytosis Few 03/21/18 15:46 Anisocytosis Not Reportable 03/21/18 15:46 Microcytosis Not Reportable 03/21/18 15:46 Macrocytosis Not Reportable 03/21/18 15:46 Spherocytes Not Reportable 03/21/18 15:46 Pappenheimer Bodies Not Reportable 03/21/18 15:46 Sickle Cells Not Reportable 03/21/18 15:46 Target Cells Not Reportable 03/21/18 15:46 Tear Drop Cells Not Reportable 03/21/18 15:46 Ovalocytes Not Reportable 03/21/18 15:46 Helmet Cells Not Reportable 03/21/18 15:46 [place] Bodies Not Reportable 03/21/18 15:46 [place] Rings Not Reportable 03/21/18 15:46 [place] Cells Not Reportable 03/21/18 15:46 Bite Cells Not Reportable 03/21/18 15:46 Crenated Cell Not Reportable 03/21/18 15:46 Elliptocytes Not Reportable 03/21/18 15:46 Acanthocytes (Spur) Not Reportable 03/21/18 15:46 Rouleaux Not Reportable 03/21/18 15:46 Hemoglobin C Crystals Not Reportable 03/21/18 15:46 Schistocytes Not Reportable 03/21/18 15:46 Malaria parasites Not Reportable 03/21/18 15:46 Robert Bodies Not Reportable 03/21/18 15:46 Hem Pathologist Commnt No 03/21/18 15:46 PT 16.8 Sec. (12.2-14.9) H 03/21/18 15:46 INR 1.28 (0.87-1.13) H 03/21/18 15:46 APTT 25.7 Sec. (24.2-36.6) 03/21/18 15:46 Sodium 139 mmol/L (137-145) 03/30/18 04:40 Potassium 4.1 mmol/L (3.6-5.0) D 03/30/18 04:40 Chloride 106.5 mmol/L (98-107) 03/30/18 04:40 Carbon Dioxide 20 mmol/L (22-30) L 03/30/18 04:40 Anion Gap 17 mmol/L 03/30/18 04:40 BUN 11 mg/dL (9-20) 03/30/18 04:40 Creatinine 0.8 mg/dL (0.8-1.5) 03/30/18 04:40 Estimated GFR > 60 ml/min 03/30/18 04:40 BUN/Creatinine Ratio 14 % 03/30/18 04:40 Glucose 93 mg/dL (75-100) 03/30/18 04:40 Calcium 8.3 mg/dL (8.4-10.2) L 03/30/18 04:40 Magnesium 2.00 mg/dL (1.7-2.3) 03/27/18 04:21 Total Bilirubin 0.30 mg/dL (0.1-1.2) 03/27/18 04:21 AST 38 units/L (5-40) 03/27/18 04:21 ALT 32 units/L (7-56) 03/27/18 04:21 Alkaline Phosphatase 71 units/L (35-129) 03/27/18 04:21 Lactate Dehydrogenase 264 units/L (91-180) H 03/28/18 19:58 C-Reactive Protein 9.60 mg/dL (0.00-1.30) H 03/28/18 19:58 NT-Pro-B Natriuret Pep 216.7 pg/mL (0-900) 03/21/18 15:46 Total Protein 6.9 g/dL (6.3-8.2) 03/27/18 04:21 Albumin 2.3 g/dL (3.9-5) L 03/27/18 04:21 Albumin/Globulin Ratio 0.5 % 03/27/18 04:21 Nutrition/Malnutrition Assess - Dietary Evaluation Nutrition/Malnutrition Findings: Nutrition Notes Start: 03/22/18 09:49 Freq: Status: Active Protocol: Document 04/01/18 12:05 RM (Rec: 04/01/18 12:10 RM [id number]) Nutrition Notes Initial or Follow up Reassessment Current Diagnosis Hypertension Stroke Other Pertinent Diagnosis Dementia, SOB, Pneu, Chronic constipation Current Diet No diet ordered Labs/Tests Reviewed Pertinent Medications Reviewed Height 5 ft 9 in Weight 64.864 kg [place] Body Weight (kg) 72.72 BMI 21.1 Subjective/Other Information Pt NPO earlier today d/t MD awaiting consent from next of kin for bronchoscopy. NPO cancelled later today and no other diet ordered. Per tech pt ate 25% to 50% of meals and drank half of Ensure Enlive before NPO status. Percent of energy/protein needs met: 85%/100% (before NPO) Burn Absent Trauma Absent #1 Nutrition Diagnosis Inadequate oral intake As Evidenced by Signs and Symptoms pt meeting 85% of calorie and 100% of protein needs Diagnosis Progress(for reassessment Resolved documentation) Is patient on ventilator? No Is Patient Ambulatory and/or Out of Bed No REE-([facility]-confined to bed) 1602.108 Calculation Used for Recommendations [facility] Additional Notes Protein needs: (1-1.2) (65-78 g/day) fluid needs: 1ml/ kcal Nutrition Intervention Change Diet Order: Advance diet when medically able Add Supplement/Snack (indicate name/kcal Ensure Enlive Four times a day /protein ) once diet advanced Provides kCal: 1,400 Provides Protein (gm) 80 Goal #1 Diet advancement Anticipated Discharge Needs: unable to determine at this time Follow-Up By: 04/04/18 Additional Comments Follow for diet advancement, POC
--- NOTE | 2018-04-04 16:35 | Discharge Summary ---
Providers - Providers Date of Admission: 03/21/18 19:18 Attending physician: TRINH ANGUIANO MD 03/22/18 10:16 Speech Therapy Evaluation and Treat [CONS] Urgent Reason For Exam: swallow eval, coughing after swallowing 03/24/18 19:00 Physical Therapy For [place] Treatment [CONS] Routine Reason For Exam: gen debility 03/27/18 11:09 Consult to Physician [CONS] Routine Comment: Consulting Provider: PERICO SOLO Physician Instructions: patient known to you; can see tomorrow Reason For Exam: pneumonia, pleural effusion 03/30/18 13:21 Consult to Physician [CONS] Routine Comment: answering service/meredith Consulting Provider: DAVEY MURILLO Physician Instructions: Reason For Exam: pna 03/31/18 11:59 Speech Therapy Evaluation and Treat [CONS] Routine Reason For Exam: dysphagia Primary care physician: CORNETIST Hospitalization Condition: Fair Hospital course: 83-year-old male patient jail resident was admitted productive cough and sob, from [place] Hospital course was planned for Thoracentesis on 03/29, but could not reach family for consent at that time sp bronch on 04/03, bx , cytology and endobronchial washing and cultures were sent seen by IR, empyema not amenable to CT guided drainage. He is being transfered to [place] for thoracic surgery eval he was rx with abx per ID recs Sp MBS, continue pureed diet as recommended by [facility] for chronic conditions Given that empyema not amenable to CT guided drainage, He was Transfered to [facility] for thoracic sx eval Diagnosis --Lt lower lobe pneumonia; aspiration pneumonia --Left lower lobe multiloculated effusion cw empyema - Dysphagia --Hypertension --Dementia; --Severe mal nutrition/Hypoalbuminemia: Disposition: DC/TX-02 SHRT-TRM GEN HOSP IP Time spent for discharge: 33 mins Core Measure Documentation - Palliative Care Palliative Care/ Comfort Measures: Not Applicable - Core Measures Any of the following diagnoses?: none Exam - Physical Exam Narrative exam: General.: mild distress HEENT: Moist mucous membranes, extraocular muscles intact, no lymphadenopathy Neck: supple Cardiac: S1-S2 heard Lungs: Crackles Abdomen: soft , nontender, nondistended, bowel sounds positive Extremities: no edema clubbing or cyanosis Skin: no rash or lesions Neurologic: no gross focal deficits Psych: calm, and cooperative - Constitutional Vitals: Temp Pulse Resp BP Pulse Ox 98.7 F 72 20 112/57 98 04/04/18 13:19 04/04/18 13:19 04/04/18 13:19 04/04/18 13:19 04/04/18 13:19 Plan Follow up with: PRIMARY CARE, [Primary Care Provider] - 3-5 Days
[2018-04-04 19:34] VITALS: BP 116/72
== END 2018-04-04 19:50 | disposition short-term general hospital (02) | DRG 177 ==
LOC: ED 14:12 → 2B-ACE 19:18
PROVIDERS: ADMIT Internal Medicine; ATTEND Internal Medicine
PROC: 0BDJ8ZX Extraction of Left Lower Lung Lobe, Via Natural or Artificial Opening Endoscopic, Diagnostic (ICD-10-PCS; principal; 2018-04-03)
PROC: 0BBB8ZX Excision of Left Lower Lobe Bronchus, Via Natural or Artificial Opening Endoscopic, Diagnostic (ICD-10-PCS; 2018-04-03)
DX: J69.0 Pneumonitis due to inhalation of food and vomit (principal); E43 Unspecified severe protein-calorie malnutrition; J85.0 Gangrene and necrosis of lung; J90 Pleural effusion, not elsewhere classified; E11.9 Type 2 diabetes mellitus without complications; I10 Essential (primary) hypertension; K59.09 Other constipation; R62.7 Adult failure to thrive; F03.90 Unspecified dementia, unspecified severity, without behavioral disturbance, psychotic disturbance, mood disturbance, and anxiety; Z68.21 Body mass index [BMI] 21.0-21.9, adult; Z82.49 Family history of ischemic heart disease and other diseases of the circulatory system; Z79.51 Long term (current) use of inhaled steroids; Z79.899 Other long term (current) drug therapy; Z79.82 Long term (current) use of aspirin; I69.398 Other sequelae of cerebral infarction
CPT/HCPCS: 36415; 71045; 71260; 74177; 74230; 76604; 80048; 80053; 83615; 83735; 83880; 85007; 85025; 85610; 85730; 86140; 87040; 87102; 87116; 87641; 88104; 88112; 88305; 88312; 93005; 93010; 94640; 94760; G0378; A9270-GY; J0171; J0692; J1650; J1956; J2543; J2704; J3010; J3370; J3480; J7030; J7050; Q9967

== ENCOUNTER 2019-04-03 16:03 | Inpatient (IN) | payer MEDICARE ==
[2019-04-03] MEDS ORDERED: SODIUM CHLORIDE 0.9% 500 ML 500 ML IV ONE (16:45)
[2019-04-03] MEDS ORDERED: ACETAMINOPHEN 500 MG TAB PO STA (16:45)
[2019-04-03] MEDS ORDERED: ACETAMINOPHEN 650 MG RECT SUPP PR ONE ×2 (16:53)
--- NOTE | 2019-04-03 16:57 | Emergency Department Report ---
HPI - General Chief Complaint: Dyspnea/Respdistress Time Seen by Provider: 04/03/19 16:31 - HPI HPI: 84-year-old -[place] male presents to the emergency department via EMS from his [place] retirement with a complaint of shortness of breath and low oxygen saturation. Apparently the patient's oxygen was at 85% on room air but it had gone back up by the time EMS had arrived. He has been having a productive cough with yellowish sputum. He presents with a low-grade fever. The patient has a history of zrv-yawkbha-lhkfpheav diabetes, hypertension, Alzheimer's disease, previous CVA with left hemiplegia. It does not appear that the patient received any medications for his symptoms prior to arrival today. The patient is a poor historian. ED Past Medical Hx - Past Medical History Previous Medical History?: Yes Hx Hypertension: Yes Hx CVA: Yes (Left) Hx Diabetes: Yes (Type II) Hx Dementia: Yes Additional medical history: Dementia - Surgical History Past Surgical History?: No - Social History Smoking Status: Unknown if ever smoked - Medications Home Medications: Home Medications Medication Instructions Recorded Confirmed Last Taken Type Acetaminophen [Non-Aspirin] 650 mg PO Q6H PRN 03/21/18 04/03/19 Unknown History Albuterol Sulfate 2.5 mg IH Q4H PRN 03/21/18 04/03/19 Unknown History Aspirin [Aspirin BABY CHEW TAB] 81 mg PO DAILY 03/21/18 04/03/19 Unknown History Diclofenac Sodium [Voltaren] 100 gm TP BID 03/21/18 04/03/19 Unknown History Loratadine (Nf) [Claritin] 10 mg PO DAILY 03/21/18 04/03/19 Unknown History Metoprolol Xl [Metoprolol 25 mg PO DAILY 03/21/18 04/03/19 Unknown History SUCCINATE ER TAB] Multivit-Min/Iron/Folic Acid/K 1 each PO DAILY 03/21/18 04/03/19 Unknown History [Adults Multivitamin Tablet] Pravastatin Sodium [Pravachol] 40 mg PO QHS 03/21/18 04/03/19 Unknown History Benzonatate [Tessalon Perles] 1 cap PO QDAY 04/03/19 04/03/19 Unknown History Docusate Sodium [Colace CAP] 1 cap PO Q12HR 04/03/19 04/03/19 Unknown History Polyethylene Glycol 3350 [Miralax] 119 gm PO QDAY 04/03/19 04/03/19 Unknown History Potassium Chloride 15 ml PO QDAY 04/03/19 04/03/19 Unknown History Vitamin D3 50,000UNIT CAP 1 tab PO QWEEK 04/03/19 04/03/19 Unknown History ED Review of Systems ROS: Stated complaint: CHENG Other details as noted in HPI Comment: Unobtainable due to pts medical conditions Physical Exam - Physical Exam Vital Signs: Vital Signs 04/03/19 04/03/19 04/03/19 16:43 16:45 16:46 Temperature 101.3 F H Pulse Rate 101 H 100 H 103 H Respiratory 19 23 24 Rate Blood Pressure 125/72 Blood Pressure 131/77 [Left] O2 Sat by Pulse 95 93 94 Oximetry Physical Exam: GENERAL: The patient is well-developed well-nourished. HENT: Normocephalic. Atraumatic. Patient has moist mucous membranes. EYES: Extraocular motions are intact. NECK: Supple. Trachea is midline. CHEST/LUNGS: There is rhonchi heard throughout the bilateral lungs. A product hamida cough is heard during examination. Mild tachypnea but no specific muscle use. HEART/CARDIOVASCULAR: Regular. There is no tachycardia. There is no murmur. ABDOMEN: Abdomen is soft, nontender. Patient has normal bowel sounds. There is no abdominal distention. SKIN: Skin is warm and dry. NEURO: The patient is awake, alert, and cooperative. The patient has no focal neurologic deficits. MUSCULOSKELETAL: There is no tenderness or deformity. There is no evidence of acute injury. ED Course Vital Signs 04/03/19 04/03/19 04/03/19 16:43 16:45 16:46 Temperature 101.3 F H Pulse Rate 101 H 100 H 103 H Respiratory 19 23 24 Rate Blood Pressure 125/72 Blood Pressure 131/77 [Left] O2 Sat by Pulse 95 93 94 Oximetry ED Medical Decision Making - Lab Data Result diagrams: 04/03/19 16:51 04/03/19 16:51 - EKG Data -: EKG Interpreted by Me EKG shows normal: sinus rhythm, axis, intervals (Prolonged PA interval), QRS complexes, ST-T waves Rate: normal - EKG Data When compared to previous EKG there are: no significant change Interpretation: unchanged when compared t (03/21/18) - Radiology Data Radiology results: report reviewed, image reviewed interpreted by me: Chest x-ray shows some patchy infiltrates concerning for pneumonia in the bilateral lung chavez. CT angiography of the chest with 2-D reconstructions INDICATION: Shortness of breath and elevated d-dimer Thin section axial images were obtained as well as 2-D reformatted MIP images in all 3 planes COMPARISON: Chest CT 01/17/2018 FINDINGS: There is no hilar or mediastinal adenopathy. No pleural or pericardial effusion. Lung windows show chronic interstitial lung disease but there is worsening density and lung consolidation and several areas especially involving the right upper lobe. Worsening density is seen in the left upper lobe as well. Dense left lower lobe consolidation may be chronic. There is no thoracic aortic aneurysm or dissection present. Routine axial images as well as 2-D reconstructions through the pulmonary arteries show no evidence of emboli. Images are degraded by motion. Bilateral renal calculi are incidentally noted. IMPRESSION: Worsening lung consolidation with chronic interstitial lung disease but no definite PTE. - Medical Decision Making This patient presents with a fever, shortness of breath and a productive cough. Code sepsis was called secondary to the fever and tachycardia. Patient was treated with IV fluid resuscitation and empiric antibiotics. Chest x-ray shows patchy bilateral infiltrates concerning for pneumonia. No leukocytosis but there is a lactic acidosis. Patient has a elevated d-dimer level and for this reason a CT angiography of the chest was completed. No obvious PE but it does show significant bilateral patchy and interstitial infiltrates concerning for pneumonia. Patient will be admitted to the hospital for further evaluation and treatment of his accepted for admission by the hospitalist, Dr. Vergara. - Differential Diagnosis Sepsis, Pneumonia, CHF, PE Critical Care Time: Yes Critical care time in (mins) excluding proc time.: 31 Critical care attestation.: If time is entered above; I have spent that time in minutes in the direct care of this critically ill patient, excluding procedure time. Due to the immediate potential for life-threatening deterioration due to underlying pulmonary condition and sepsis, I spent 31 minutes of critical care time with the patient. Critical care time includes the patient's initial examination, multiple re- evaluations, ordering and interpretation of labs and imaging, IV fluid resuscita tion and IV antibiotics, discussion with the admitting hospitalist. Critical Care Time: 31 minutes ED Disposition Clinical Impression: Lactic acidosis Sepsis Qualifiers: Sepsis type: sepsis due to unspecified organism Sepsis acute organ dysfunction status: unspecified Qualified Code(s): A41.9 - Sepsis, unspecified organism Bilateral pneumonia Qualifiers: Pneumonia type: due to unspecified organism Lung location: unspecified part of lung Qualified Code(s): J18.9 - Pneumonia, unspecified organism Disposition: OP ADMIT IP TO THIS HOSP Is pt being admited?: Yes Condition: Serious Time of Disposition: 19:32
[2019-04-03 17:09] LABS: Hematocrit 41.1 % (35.5-45.6); Hemoglobin 13.6 gm/dl (11.8-15.2); Mean Corpuscular HGB Conc 33 % (32-34); Mean Corpuscular Volume 91 fl (84-94); Red Blood Count 4.49 M/mm3 (3.65-5.03); Red Cell Distribution Width 14.8 % (13.2-15.2)
[2019-04-03 17:18] LABS: INR 1.13 (0.87-1.13)
--- NOTE | 2019-04-03 17:23 | XRay Report ---
CHEST 1 VIEW INDICATION / CLINICAL INFORMATION: possible Sepsis. COMPARISON: 04/03/2018 FINDINGS: SUPPORT DEVICES: None. HEART / MEDIASTINUM: Unchanged LUNGS / PLEURA: There is bilateral interstitial disease increased from the prior study likely represe nting edema. There are bibasilar airspace opacities could represent atelectasis or evolving pneumonia . There is some persistent parenchymal opacity in the right lung apex similar to the previous study. Th is likely represents scar... No pneumothorax. ADDITIONAL FINDINGS: No significant additional findings. IMPRESSION: There is bilateral interstitial disease suggesting pulmonary edema. There are bibasilar airspace opac ities which could represent atelectasis or evolving pneumonia. Signer Name: Jake Preciado MD Signed: 04/03/2019 5:19 PM Workstation Name: [id number]
[2019-04-03] MEDS ORDERED: SODIUM CHLORIDE 0.9% 1000 ML IV SOLN IV ONE (17:26)
[2019-04-03 17:47] LABS: Bacteria,Urine 2+ /HPF (Negative); Bilirubin,Urine NEG (Negative); Blood,Urine SM (Negative); Color,Urine Amber (Yellow); Mucus,Urine FEW /HPF
[2019-04-03 17:50] LABS: Alanine Aminotransferase 25 units/L (7-56); Albumin 3.6 g/dL (3.9-5); BUN/Creatinine Ratio 15; Blood Urea Nitrogen 20 mg/dL (9-20); Calcium 9.7 mg/dL (8.4-10.2); Hemolysis Index 10
[2019-04-03 18:17] LABS: Band Neutrophils # (Manual) 0.5 K/mm3; Eosinophils % (Manual) 0 % (0.0-4.3); Total Cells Counted 100
[2019-04-03 18:18] LABS: Anisocytosis Few; Large Platelets Few; Platelet Estimate Consistent w Auto; Stomatocytes Rare
[2019-04-03 18:22] LABS: Mean Platelet Volume 9.8 fl (6-12); Platelet Count 154 K/mm3 (140-440)
--- NOTE | 2019-04-03 19:50 | Cat Scan Report ---
CT angiography of the chest with 2-D reconstructions INDICATION: Shortness of breath and elevated d-dimer Thin section axial images were obtained as well as 2-D reformatted MIP images in all 3 planes COMPARISON: Chest CT 01/17/2018 FINDINGS: There is no hilar or mediastinal adenopathy. No pleural or pericardial effusion. Lung windo ws show chronic interstitial lung disease but there is worsening density and lung consolidation and s everal areas especially involving the right upper lobe. Worsening density is seen in the left upper l obe as well. Dense left lower lobe consolidation may be chronic. There is no thoracic aortic aneurysm or dissection present. Routine axial images as well as 2-D reconstructions through the pulmonary art eries show no evidence of emboli. Images are degraded by motion. Bilateral renal calculi are incident ally noted. IMPRESSION: Worsening lung consolidation with chronic interstitial lung disease but no definite PTE. Automated exposure control was utilized to diminish radiation dose. Signer Name: Shmuel Anthony MD Signed: 04/03/2019 7:45 PM Workstation Name: [id number]
[2019-04-03] MEDS ORDERED: ACETAMINOPHEN 325 MG TAB PO PRN (21:42)
[2019-04-03] MEDS ORDERED: ALBUTEROL SULFATE 2.5 MG IH PRN (21:42)
[2019-04-03] MEDS ORDERED: ONDANSETRON 4 MG/2 ML INJ IV PRN (21:44)
[2019-04-03] MEDS ORDERED: oxyCODONE /ACETAMINOPHEN 5-325MG TAB PO PRN (21:44)
[2019-04-03] MEDS ORDERED: POTASSIUM CHLORIDE PO SCH (21:45)
[2019-04-03] MEDS ORDERED: [UNRECOGNIZED DRUG - OTHER] PO SCH (21:45)
[2019-04-03] MEDS ORDERED: NON-FORMULARY EACH (Loratadine (Nf) 10 MG) PO SCH (21:45)
[2019-04-03] MEDS ORDERED: IRON PO SCH (21:45)
[2019-04-03] MEDS ORDERED: FOLIC ACID PO SCH (21:45)
[2019-04-03] MEDS ORDERED: MULTIVIT MIN PO SCH (21:45)
[2019-04-03] MEDS ORDERED: ALBUTEROL 2.5 MG/3 ML NEBU IH PRN ×2 (21:51→22:05)
[2019-04-03] MEDS ORDERED: IPRATROPIUM/ALBUTEROL SULFATE 3 ML AMPUL.NEB IH PRN (21:53)
[2019-04-03] MEDS ORDERED: cefTRIAXone/NS 2 GM/100 ML 2 GM/100 ML BAG IV SCH (22:00)
[2019-04-03] MEDS ORDERED: HYDROmorphone 1 MG/1 ML INJ ONE (22:16)
[2019-04-03] MEDS: METOPROLOL SUCCINATE XL 25 MG TAB PO SCH (22:33)
[2019-04-03] MEDS ORDERED: HEPARIN 5,000 UNIT/1 ML VIAL ONE (22:38)
[2019-04-03] MEDS: HYDROmorphone 1 MG/1 ML INJ IV PRN (22:39)
[2019-04-03] MEDS: HEPARIN 5,000 UNIT/1 ML VIAL SUB-Q SCH (22:41)
[2019-04-04] MEDS: methylPREDNISolone Sod Succinate 40 MG/1 ML INJ IV SCH ×4 (00:26→23:19)
[2019-04-04] MEDS: PRAVASTATIN 40 MG TAB PO SCH ×2 (00:26→23:18)
[2019-04-04] MEDS: DOCUSATE SODIUM 100 MG CAP PO SCH ×3 (00:27→23:18)
[2019-04-04] MEDS: ASPIRIN 81 MG TAB CHEW PO SCH ×2 (00:27→09:44)
[2019-04-04] MEDS: DICLOFENAC SODIUM 1% TOPICAL GEL 100 GM TP SCH ×3 (00:28→23:18)
[2019-04-04] MEDS: AZITHROMYCIN 500 MG in SODIUM CHLORIDE 0.9% 250ML 250 ML IV SCH ×2 (00:44→01:49)
[2019-04-04 06:23] LABS: Hematocrit 33.9 % (35.5-45.6); Hemoglobin 11.1 gm/dl (11.8-15.2); Mean Corpuscular HGB Conc 33 % (32-34); Mean Corpuscular Volume 92 fl (84-94); Platelet Count 131 K/mm3 (140-440); Red Cell Distribution Width 14.9 % (13.2-15.2)
--- NOTE | 2019-04-04 06:34 | History and Physical Report ---
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.No chest pain.No recent travel.ADL's semi dependent.No fever or chills Past Medical History Previous Medical History?: Yes Hypertension: Yes CVA: Yes (Left) Diabetes: Yes (Type II) Dementia: Yes Additional medical history: Dementia Surgical History Past Surgical History?: No Social History Smoking Status: Unknown if ever smoked Family History Htn - Home Medications: Home Medications Medication Instructions Recorded Confirmed Last Taken Type Acetaminophen [Non-Aspirin] 650 mg PO Q6H PRN 03/21/18 04/03/19 Unknown History Albuterol Sulfate 2.5 mg IH Q4H PRN 03/21/18 04/03/19 Unknown History Aspirin [Aspirin BABY CHEW TAB] 81 mg PO DAILY 03/21/18 04/03/19 Unknown History Diclofenac Sodium [Voltaren] 100 gm TP BID 03/21/18 04/03/19 Unknown History Loratadine (Nf) [Claritin] 10 mg PO DAILY 03/21/18 04/03/19 Unknown History Metoprolol Xl [Metoprolol 25 mg PO DAILY 03/21/18 04/03/19 Unknown History SUCCINATE ER TAB] Multivit-Min/Iron/Folic Acid/K 1 each PO DAILY 03/21/18 04/03/19 Unknown History [Adults Multivitamin Tablet] Pravastatin Sodium [Pravachol] 40 mg PO QHS 03/21/18 04/03/19 Unknown History Benzonatate [Tessalon Perles] 1 cap PO QDAY 04/03/19 04/03/19 Unknown History Docusate Sodium [Colace CAP] 1 cap PO Q12HR 04/03/19 04/03/19 Unknown History Polyethylene Glycol 3350 [Miralax] 119 gm PO QDAY 04/03/19 04/03/19 Unknown History Potassium Chloride 15 ml PO QDAY 04/03/19 04/03/19 Unknown History Vitamin D3 50,000UNIT CAP 1 tab PO QWEEK 04/03/19 04/03/19 Unknown History Review of Systems ROS: Stated complaint: CHENG Other details as noted in HPI Comment: Unobtainable due to pts medical conditions Medications and Allergies Allergies Allergy/AdvReac Type Severity Reaction Status Date / Time No Known Allergies Allergy Unverified 11/12/17 10:51 Home Medications Medication Instructions Recorded Confirmed Last Taken Type Acetaminophen [Non-Aspirin] 650 mg PO Q6H PRN 03/21/18 04/03/19 Unknown History Albuterol Sulfate 2.5 mg IH Q4H PRN 03/21/18 04/03/19 Unknown History Aspirin [Aspirin BABY CHEW TAB] 81 mg PO DAILY 03/21/18 04/03/19 Unknown History Diclofenac Sodium [Voltaren] 100 gm TP BID 03/21/18 04/03/19 Unknown History Loratadine (Nf) [Claritin] 10 mg PO DAILY 03/21/18 04/03/19 Unknown History Metoprolol Xl [Metoprolol 25 mg PO DAILY 03/21/18 04/03/19 Unknown History SUCCINATE ER TAB] Multivit-Min/Iron/Folic Acid/K 1 each PO DAILY 03/21/18 04/03/19 Unknown History [Adults Multivitamin Tablet] Pravastatin Sodium [Pravachol] 40 mg PO QHS 03/21/18 04/03/19 Unknown History Benzonatate [Tessalon Perles] 1 cap PO QDAY 04/03/19 04/03/19 Unknown History Docusate Sodium [Colace CAP] 1 cap PO Q12HR 04/03/19 04/03/19 Unknown History Polyethylene Glycol 3350 [Miralax] 119 gm PO QDAY 04/03/19 04/03/19 Unknown History Potassium Chloride 15 ml PO QDAY 04/03/19 04/03/19 Unknown History Vitamin D3 50,000UNIT CAP 1 tab PO QWEEK 04/03/19 04/03/19 Unknown History Active Meds: Active Medications Acetaminophen (Tylenol) 650 mg PO Q6H PRN PRN Reason: Pain , Severe (7-10) Albuterol (Proventil) 2.5 mg IH Q3HRT PRN PRN Reason: Wheezing/ SOB Last Admin: 04/04/19 01:37 Dose: 2.5 mg Documented by: Albuterol/Ipratropium (Duoneb *Not For Prn Use*) 1 ampul IH QIDRT [facility] Aspirin (Baby Aspirin) 81 mg PO DAILY [facility] Last Admin: 04/04/19 00:27 Dose: 81 mg Documented by: Benzonatate (Tessalon Perles) 100 mg PO QDAY [facility] Cetirizine HCl (Cetirizine) 10 mg PO DAILY [facility] Diclofenac Sodium (Diclofenac 1%) 1 applic TP BID [facility] Last Admin: 04/04/19 00:28 Dose: Not Given Documented by: Docusate Sodium (Colace) 100 mg PO Q12HR [facility] Last Admin: 04/04/19 00:27 Dose: 100 mg Documented by: Ergocalciferol (Vitamin D2) 50,000 unit PO [facility] Heparin Sodium (Porcine) (Heparin) 5,000 unit SUB-Q Q12HR [facility] Last Admin: 04/03/19 22:41 Dose: 5,000 unit Documented by: Hydromorphone HCl (Dilaudid) 0.5 mg IV Q3H PRN PRN Reason: Pain , Severe (7-10) Last Admin: 04/03/19 22:39 Dose: 0.5 mg Documented by: Azithromycin 500 mg/ Sodium (Chloride) 250 mls @ 250 mls/hr IV Q24HR@2200 [facility]; Protocol Last Admin: 04/04/19 01:49 Dose: 250 mls/hr Documented by: Ceftriaxone Sodium (Rocephin/Ns 2 Gm/100 Ml) 2 gm in 100 mls @ 200 mls/hr IV Q24HR@2200 [facility]; Protocol Last Admin: 04/03/19 22:32 Dose: 200 mls/hr Documented by: Methylprednisolone Sodium Succinate (Solu-Medrol) 40 mg IV Q8HR [facility] Last Admin: 04/04/19 05:18 Dose: 40 mg Documented by: Metoprolol Succinate (Metoprolol Xl) 25 mg PO DAILY [facility] Last Admin: 04/03/19 22:33 Dose: Not Given Documented by: Multivitamins/Minerals (Theragran-M Tab) 1 each PO QDAY [facility] Ondansetron HCl (Zofran) 4 mg IV Q8H PRN PRN Reason: Nausea And Vomiting Oxycodone/Acetaminophen (Percocet 5/325) 1 tab PO Q6H PRN PRN Reason: Pain, Moderate (4-6) Potassium Chloride (Potassium Chloride) 20 meq PO QDAY [facility] Pravastatin Sodium (Pravachol) 40 mg PO QHS [facility] Last Admin: 04/04/19 00:26 Dose: 40 mg Documented by: Sodium Chloride (Sodium Chloride Flush Syringe 10 Ml) 10 ml IV BID [facility] Last Admin: 04/03/19 22:35 Dose: 10 ml Documented by: Sodium Chloride (Sodium Chloride Flush Syringe 10 Ml) 10 ml IV PRN PRN PRN Reason: LINE FLUSH Exam - Constitutional Vitals: Temp Pulse Resp BP Pulse Ox 98.6 F 91 H 24 114/66 97 04/04/19 01:49 04/04/19 01:49 04/04/19 02:20 04/04/19 01:49 04/04/19 01:49 General appearance: Present: mild distress, well-nourished - EENT Eyes: Present: PERRL ENT: hearing intact, clear oral mucosa - Neck Neck: Present: supple, normal ROM - Respiratory Respiratory effort: normal Respiratory: bilateral: rhonchi, wheezing - Cardiovascular Heart rate: 96 Rhythm: regular Heart Sounds: Present: S1 & S2. Absent: rub, click - Extremities Extremities: pulses symmetrical, No edema Peripheral Pulses: within normal limits - Abdominal General gastrointestinal: Present: soft, non-tender, non-distended, normal bowel sounds Male genitourinary: Present: normal - Integumentary Integumentary: Present: clear, warm, dry - Musculoskeletal Musculoskeletal: left sided weakness, generalized weakness - Psychiatric Psychiatric: appropriate mood/affect, intact judgment & insight - Neurologic Neurologic: CNII-XII intact, focal deficits (L side hemiplegia) - Allied Health Allied health notes reviewed: nursing, case management Results - Labs CBC & Chem 7: 04/03/19 16:51 04/03/19 16:51 Labs: Laboratory Last Values WBC 10.8 K/mm3 (4.5-11.0) 04/03/19 16:51 RBC 4.49 M/mm3 (3.65-5.03) 04/03/19 16:51 Hgb 13.6 gm/dl (11.8-15.2) 04/03/19 16:51 Hct 41.1 % (35.5-45.6) 04/03/19 16:51 MCV 91 fl (84-94) 04/03/19 16:51 MCH 30 pg (28-32) 04/03/19 16:51 MCHC 33 % (32-34) 04/03/19 16:51 RDW 14.8 % (13.2-15.2) 04/03/19 16:51 Plt Count 154 K/mm3 (140-440) 04/03/19 16:51 Add Manual Diff Complete 04/03/19 16:51 Total Counted 100 04/03/19 16:51 Seg Neutrophils % Systems Architecture Analyst 04/03/19 16:51 Seg Neuts % (Manual) 82.0 % (40.0-70.0) H 04/03/19 16:51 Band Neutrophils % 5.0 % 04/03/19 16:51 Lymphocytes % (Manual) 9.0 % (13.4-35.0) L 04/03/19 16:51 Reactive Lymphs % (Man) 1.0 % 04/03/19 16:51 Monocytes % (Manual) 2.0 % (0.0-7.3) 04/03/19 16:51 Eosinophils % (Manual) 0 % (0.0-4.3) 04/03/19 16:51 Basophils % (Manual) 1.0 % (0.0-1.8) 04/03/19 16:51 Metamyelocytes % 0 % 04/03/19 16:51 Myelocytes % 0 % 04/03/19 16:51 Promyelocytes % 0 % 04/03/19 16:51 Blast Cells % 0 % 04/03/19 16:51 Nucleated RBC % Not Reportable 04/03/19 16:51 Seg Neutrophils # Man 8.9 K/mm3 (1.8-7.7) H 04/03/19 16:51 Band Neutrophils # 0.5 K/mm3 04/03/19 16:51 Lymphocytes # (Manual) 1.0 K/mm3 (1.2-5.4) L 04/03/19 16:51 Abs React Lymphs (Man) 0.1 K/mm3 04/03/19 16:51 Monocytes # (Manual) 0.2 K/mm3 (0.0-0.8) 04/03/19 16:51 Eosinophils # (Manual) 0.0 K/mm3 (0.0-0.4) 04/03/19 16:51 Basophils # (Manual) 0.1 K/mm3 (0.0-0.1) 04/03/19 16:51 Metamyelocytes # 0.0 K/mm3 04/03/19 16:51 Myelocytes # 0.0 K/mm3 04/03/19 16:51 Promyelocytes # 0.0 K/mm3 04/03/19 16:51 Blast Cells # 0.0 K/mm3 04/03/19 16:51 WBC Morphology Not Reportable 04/03/19 16:51 Hypersegmented Neuts Not Reportable 04/03/19 16:51 Hyposegmented Neuts Not Reportable 04/03/19 16:51 Hypogranular Neuts Not Reportable 04/03/19 16:51 Smudge Cells Not Reportable 04/03/19 16:51 Toxic Granulation Not Reportable 04/03/19 16:51 Toxic Vacuolation Not Reportable 04/03/19 16:51 Dohle Bodies Not Reportable 04/03/19 16:51 Pelger-Huet Anomaly Not Reportable 04/03/19 16:51 Cheikh Rods Not Reportable 04/03/19 16:51 Platelet Estimate Consistent w auto 04/03/19 16:51 Clumped Platelets Not Reportable 04/03/19 16:51 Plt Clumps, EDTA Not Reportable 04/03/19 16:51 Large Platelets Few 04/03/19 16:51 Giant Platelets Not Reportable 04/03/19 16:51 Platelet Satelliting Not Reportable 04/03/19 16:51 Plt Morphology Comment Not Reportable 04/03/19 16:51 RBC Morphology Not Reportable 04/03/19 16:51 Dimorphic RBCs Not Reportable 04/03/19 16:51 Polychromasia Not Reportable 04/03/19 16:51 Hypochromasia Not Reportable 04/03/19 16:51 Poikilocytosis Not Reportable 04/03/19 16:51 Anisocytosis Few 04/03/19 16:51 Microcytosis Not Reportable 04/03/19 16:51 Macrocytosis Not Reportable 04/03/19 16:51 Spherocytes Not Reportable 04/03/19 16:51 Pappenheimer Bodies Not Reportable 04/03/19 16:51 Sickle Cells Not Reportable 04/03/19 16:51 Target Cells Not Reportable 04/03/19 16:51 Tear Drop Cells Not Reportable 04/03/19 16:51 Ovalocytes Not Reportable 04/03/19 16:51 Stomatocytes Rare 04/03/19 16:51 Helmet Cells Not Reportable 04/03/19 16:51 [place] Bodies Not Reportable 04/03/19 16:51 [place] Rings Not Reportable 04/03/19 16:51 [place] Cells Not Reportable 04/03/19 16:51 Bite Cells Not Reportable 04/03/19 16:51 Crenated Cell Not Reportable 04/03/19 16:51 Elliptocytes Not Reportable 04/03/19 16:51 Acanthocytes (Spur) Not Reportable 04/03/19 16:51 Rouleaux Not Reportable 04/03/19 16:51 Hemoglobin C Crystals Not Reportable 04/03/19 16:51 Schistocytes Not Reportable 04/03/19 16:51 Malaria parasites Not Reportable 04/03/19 16:51 Robert Bodies Not Reportable 04/03/19 16:51 Hem Pathologist Commnt No 04/03/19 16:51 PT 14.7 Sec. (12.2-14.9) 04/03/19 16:51 INR 1.13 (0.87-1.13) 04/03/19 16:51 D-Dimer 1629.49 ng/mlDDU (0-234) H 04/03/19 16:51 VBG pH 7.383 (7.320-7.420) 04/03/19 16:51 Sodium 138 mmol/L (137-145) 04/03/19 16:51 Potassium 4.1 mmol/L (3.6-5.0) 04/03/19 16:51 Chloride 100.4 mmol/L (98-107) 04/03/19 16:51 Carbon Dioxide 20 mmol/L (22-30) L 04/03/19 16:51 Anion Gap 22 mmol/L 04/03/19 16:51 BUN 20 mg/dL (9-20) 04/03/19 16:51 Creatinine 1.3 mg/dL (0.8-1.5) 04/03/19 16:51 Estimated GFR > 60 ml/min 04/03/19 16:51 BUN/Creatinine Ratio 15 % 04/03/19 16:51 Glucose 132 mg/dL (75-100) H 04/03/19 16:51 Hemoglobin A1c 6.0 % (4-6) 04/03/19 16:51 Lactic Acid 3.80 mmol/L (0.7-2.0) H* 04/03/19 20:35 Calcium 9.7 mg/dL (8.4-10.2) 04/03/19 16:51 Total Bilirubin 0.40 mg/dL (0.1-1.2) 04/03/19 16:51 AST 29 units/L (5-40) 04/03/19 16:51 ALT 25 units/L (7-56) 04/03/19 16:51 Alkaline Phosphatase 76 units/L (35-129) 04/03/19 16:51 Troponin T 0.015 ng/mL (0.00-0.029) 04/03/19 16:57 NT-Pro-B Natriuret Pep 269.7 pg/mL (0-900) 04/03/19 16:57 Total Protein 8.0 g/dL (6.3-8.2) 04/03/19 16:51 Albumin 3.6 g/dL (3.9-5) L 04/03/19 16:51 Albumin/Globulin Ratio 0.8 % 04/03/19 16:51 Urine Color Alexus (Yellow) 04/03/19 15:14 Urine Turbidity Cloudy (Clear) 04/03/19 15:14 Urine pH 5.0 (5.0-7.0) 04/03/19 15:14 Ur Specific [place] 1.019 (1.003-1.030) 04/03/19 15:14 Urine Protein 30 mg/dl mg/dL (Negative) 04/03/19 15:14 Urine Glucose (UA) Neg mg/dL (Negative) 04/03/19 15:14 Urine Ketones Tr mg/dL (Negative) 04/03/19 15:14 Urine Blood Sm (Negative) 04/03/19 15:14 Urine Nitrite Neg (Negative) 04/03/19 15:14 Urine Bilirubin Neg (Negative) 04/03/19 15:14 Urine Urobilinogen 4.0 mg/dL (<2.0) 04/03/19 15:14 Ur Leukocyte Esterase Neg (Negative) 04/03/19 15:14 Urine WBC (Auto) 14.0 /HPF (0.0-6.0) H 04/03/19 15:14 Urine RBC (Auto) 8.0 /HPF (0.0-6.0) 04/03/19 15:14 Urine Bacteria (Auto) 2+ /HPF (Negative) 04/03/19 15:14 Urine Mucus Few /HPF 04/03/19 15:14 Short CBC 04/03/19 Range/Units 16:51 WBC 10.8 (4.5-11.0) K/mm3 Hgb 13.6 (11.8-15.2) gm/dl Hct 41.1 (35.5-45.6) % Plt Count 154 (140-440) K/mm3 BMP 04/03/19 16:51 Sodium 138 Potassium 4.1 Chloride 100.4 Carbon Dioxide 20 L BUN 20 Creatinine 1.3 Glucose 132 H Calcium 9.7 Cardiac Enzymes 04/03/19 Range/Units 16:57 Troponin T 0.015 (0.00-0.029) ng/mL Liver Function 04/03/19 Range/Units 16:51 Total Bilirubin 0.40 (0.1-1.2) mg/dL AST 29 (5-40) units/L ALT 25 (7-56) units/L Alkaline Phosphatase 76 (35-129) units/L Albumin 3.6 L (3.9-5) g/dL Urine 04/03/19 Range/Units 15:14 Urine Color Alexus (Yellow) Urine pH 5.0 (5.0-7.0) Ur Specific [place] 1.019 (1.003-1.030) Urine Protein 30 mg/dl (Negative) mg/dL Urine Glucose (UA) Neg (Negative) mg/dL - Imaging and Cardiology EKG: report reviewed (NSR 96min) Chest x-ray: report reviewed Imaging and Cardiology: CXR IMPRESSION: There is bilateral interstitial disease suggesting pulmonary edema. There are bibasilar airspace opacities which could represent atelectasis or evolving pneumonia. CT Chest IMPRESSION: Worsening lung consolidation with chronic interstitial lung disease but no definite PTE. Assessment and Plan Advance Directives: Yes (Full code) VTE prophylaxis?: Chemical Plan of care discussed with patient/family: Yes - Patient Problems (1) Acute respiratory failure with hypoxia Current Visit: Yes Status: Acute Plan to address problem: Patient sats were 85 percent initially.I,mproved with O2 and neb treatments (2) Bilateral pneumonia Current Visit: Yes Status: Acute Qualifiers: Pneumonia type: due to unspecified organism Lung location: unspecified part of lung Qualified Code(s): J18.9 - Pneumonia, unspecified organism Plan to address problem: Started on IV Rocephin and IV Zithromax Also Duonebs and low dose IVsolumedrol (3) COPD with acute exacerbation Current Visit: Yes Status: Acute Plan to address problem: IV abx IV Solumedrol and Duonebs RTC and PRN (4) HTN (hypertension) Current Visit: Yes Status: Chronic Qualifiers: Hypertension type: essential hypertension Qualified Code(s): I10 - Essential (primary) hypertension Plan to address problem: Cont antihypertensives Adjust meds as necessary (5) CVA, old, cognitive deficits Current Visit: Yes Status: Chronic Plan to address problem: PT/OT (6) IDDM (insulin dependent diabetes mellitus) Current Visit: Yes Status: Chronic Plan to address problem: Cont Home Insulin and coverage Check A1c (7) HLD (hyperlipidemia) Current Visit: Yes Status: Chronic Qualifiers: Hyperlipidemia type: mixed hyperlipidemia Qualified Code(s): E78.2 - Mixed hyperlipidemia Plan to address problem: COn statins for now May discontinue given his age of 84 and side effects (8) DVT prophylaxis Current Visit: Yes Status: Acute Plan to address problem: On Heparin and GI prophylaxis
[2019-04-04 06:51] LABS: Alanine Aminotransferase 19 units/L (7-56); BUN/Creatinine Ratio 15; Blood Urea Nitrogen 17 mg/dL (9-20); Calcium 8.5 mg/dL (8.4-10.2); Hemolysis Index 19
[2019-04-04] MEDS: IPRATROPIUM/ALBUTEROL SULFATE 3 ML AMPUL.NEB IH SCH ×4 (07:40→19:25)
--- NOTE | 2019-04-04 07:41 | Progress Note ---
Assessment and Plan Assessment and plan: Patient is an 84-year-old -[place] female [facility] resident at [facility] admitted following a complaint of shortness of breath with hypoxia oxygen saturation prior to arrival of EMS was 85% on room air briefly and improved. Was noted to have productive cough of yellowish sputum initial imaging study including CT a of the chest was negative for pulmonary embolism but did demonstrate some patchy infiltrates concerning for pneumonia patient was also noted to be tachycardic and with lactic acidosis. Has been admitted for management of healthcare associated pneumonia possible gram-negative. Review of previous admission shows that the patient in March 2001 was transferred to [place] due to empyema not amenable to CT-guided drainage. I will try to call the daughter to get some information as to the outcome of that transfer have not been able to. 04/04: Patient's lactic acidosis continues to increase despite aggressive therapy. Will need to see a downward trend to ensure resolution of systemic inflammatory response syndrome. And ensure patient is not developing full-blown sepsis. Patient has increased respiratory rate and is hypoxic with a saturation in the 80s will transfer to stepdown unit and also obtain pulmonary and infectious disease consultation. 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 Obtain flu testing. Placed on isolation till result available. DVT and GI prophylaxis The high probability of a clinically significant, sudden or life threatening det erioration of the [pulmonary] system(s) required my full and direct attention, intervention and personal management. The aggregate critical care time was [75] minutes. This time is in addition to time spent performing reported procedures but includes the following: [x] Data Review and interpretation [x] Patient assessment and monitoring of vital signs [x] Documentation [x] Medication orders and management History Interval history: Patient seen and examined this morning very lethargic persistent cough. Could not give me much information. Nurse at bedside patient is hypoxic in the 80s on 3 L nasal cannula. Hospitalist Physical - Physical exam Narrative exam: VITAL SIGNS: Reviewed. GENERAL: The patient is chronically ill-appearing, with increased shortness of breath and persistent cough vital signs as documented. HEAD: No signs of head trauma. EYES: Pupils are equal. Extraocular motions intact. EARS: Hearing grossly intact. MOUTH: Oropharynx is normal. NECK: No adenopathy, no JVD. CHEST: Chest with rhonchi breath sounds bilaterally. No wheezes, rales, or rhonchi. CARDIAC: Tachycardia, rate and rhythm. S1 and S2, without murmurs, gallops, or rubs. VASCULAR: Trace bilateral pitting edema. Peripheral pulses normal and equal in all extremities. ABDOMEN: Soft, non tender and non distended. No rebound or guarding, and no masses palpated. Bowel Sounds normal. MUSCULOSKELETAL: Gait not assessed good range of motion of all major joints. Ext remities without clubbing,. Trace bilateral pitting. NEUROLOGIC EXAM: Alert and oriented x 2 No focal sensory or strength deficits. Speech normal. Follows commands. PSYCHIATRIC: Mood normal. SKIN: detial exam as documented in skin assessment - Constitutional Vitals: Temp Pulse Resp BP Pulse Ox 98.6 F 91 H 24 114/66 97 04/04/19 01:49 04/04/19 01:49 04/04/19 02:20 04/04/19 01:49 04/04/19 01:49 General appearance: Present: mild distress, well-nourished Results - Labs CBC & Chem 7: 04/04/19 05:14 04/04/19 05:14 Labs: Laboratory Last Values WBC 14.7 K/mm3 (4.5-11.0) H 04/04/19 05:14 RBC 3.70 M/mm3 (3.65-5.03) 04/04/19 05:14 Hgb 11.1 gm/dl (11.8-15.2) L 04/04/19 05:14 Hct 33.9 % (35.5-45.6) L D 04/04/19 05:14 MCV 92 fl (84-94) 04/04/19 05:14 MCH 30 pg (28-32) 04/04/19 05:14 MCHC 33 % (32-34) 04/04/19 05:14 RDW 14.9 % (13.2-15.2) 04/04/19 05:14 Plt Count 131 K/mm3 (140-440) L 04/04/19 05:14 Add Manual Diff Complete 04/03/19 16:51 Total Counted 100 04/03/19 16:51 Seg Neutrophils % Automation Technician 04/04/19 05:14 Seg Neuts % (Manual) 82.0 % (40.0-70.0) H 04/03/19 16:51 Band Neutrophils % 5.0 % 04/03/19 16:51 Lymphocytes % (Manual) 9.0 % (13.4-35.0) L 04/03/19 16:51 Reactive Lymphs % (Man) 1.0 % 04/03/19 16:51 Monocytes % (Manual) 2.0 % (0.0-7.3) 04/03/19 16:51 Eosinophils % (Manual) 0 % (0.0-4.3) 04/03/19 16:51 Basophils % (Manual) 1.0 % (0.0-1.8) 04/03/19 16:51 Metamyelocytes % 0 % 04/03/19 16:51 Myelocytes % 0 % 04/03/19 16:51 Promyelocytes % 0 % 04/03/19 16:51 Blast Cells % 0 % 04/03/19 16:51 Nucleated RBC % Not Reportable 04/03/19 16:51 Seg Neutrophils # Man 8.9 K/mm3 (1.8-7.7) H 04/03/19 16:51 Band Neutrophils # 0.5 K/mm3 04/03/19 16:51 Lymphocytes # (Manual) 1.0 K/mm3 (1.2-5.4) L 04/03/19 16:51 Abs React Lymphs (Man) 0.1 K/mm3 04/03/19 16:51 Monocytes # (Manual) 0.2 K/mm3 (0.0-0.8) 04/03/19 16:51 Eosinophils # (Manual) 0.0 K/mm3 (0.0-0.4) 04/03/19 16:51 Basophils # (Manual) 0.1 K/mm3 (0.0-0.1) 04/03/19 16:51 Metamyelocytes # 0.0 K/mm3 04/03/19 16:51 Myelocytes # 0.0 K/mm3 04/03/19 16:51 Promyelocytes # 0.0 K/mm3 04/03/19 16:51 Blast Cells # 0.0 K/mm3 04/03/19 16:51 WBC Morphology Not Reportable 04/03/19 16:51 Hypersegmented Neuts Not Reportable 04/03/19 16:51 Hyposegmented Neuts Not Reportable 04/03/19 16:51 Hypogranular Neuts Not Reportable 04/03/19 16:51 Smudge Cells Not Reportable 04/03/19 16:51 Toxic Granulation Not Reportable 04/03/19 16:51 Toxic Vacuolation Not Reportable 04/03/19 16:51 Dohle Bodies Not Reportable 04/03/19 16:51 Pelger-Huet Anomaly Not Reportable 04/03/19 16:51 Cheikh Rods Not Reportable 04/03/19 16:51 Platelet Estimate Consistent w auto 04/03/19 16:51 Clumped Platelets Not Reportable 04/03/19 16:51 Plt Clumps, EDTA Not Reportable 04/03/19 16:51 Large Platelets Few 04/03/19 16:51 Giant Platelets Not Reportable 04/03/19 16:51 Platelet Satelliting Not Reportable 04/03/19 16:51 Plt Morphology Comment Not Reportable 04/03/19 16:51 RBC Morphology Not Reportable 04/03/19 16:51 Dimorphic RBCs Not Reportable 04/03/19 16:51 Polychromasia Not Reportable 04/03/19 16:51 Hypochromasia Not Reportable 04/03/19 16:51 Poikilocytosis Not Reportable 04/03/19 16:51 Anisocytosis Few 04/03/19 16:51 Microcytosis Not Reportable 04/03/19 16:51 Macrocytosis Not Reportable 04/03/19 16:51 Spherocytes Not Reportable 04/03/19 16:51 Pappenheimer Bodies Not Reportable 04/03/19 16:51 Sickle Cells Not Reportable 04/03/19 16:51 Target Cells Not Reportable 04/03/19 16:51 Tear Drop Cells Not Reportable 04/03/19 16:51 Ovalocytes Not Reportable 04/03/19 16:51 Stomatocytes Rare 04/03/19 16:51 Helmet Cells Not Reportable 04/03/19 16:51 Murillo-Imogene Bodies Not Reportable 04/03/19 16:51 Fulton Rings Not Reportable 04/03/19 16:51 Valier Cells Not Reportable 04/03/19 16:51 Bite Cells Not Reportable 04/03/19 16:51 Crenated Cell Not Reportable 04/03/19 16:51 Elliptocytes Not Reportable 04/03/19 16:51 Acanthocytes (Spur) Not Reportable 04/03/19 16:51 Rouleaux Not Reportable 04/03/19 16:51 Hemoglobin C Crystals Not Reportable 04/03/19 16:51 Schistocytes Not Reportable 04/03/19 16:51 Malaria parasites Not Reportable 04/03/19 16:51 Robert Bodies Not Reportable 04/03/19 16:51 Hem Pathologist Commnt No 04/03/19 16:51 PT 14.7 Sec. (12.2-14.9) 04/03/19 16:51 INR 1.13 (0.87-1.13) 04/03/19 16:51 D-Dimer 1629.49 ng/mlDDU (0-234) H 04/03/19 16:51 VBG pH 7.383 (7.320-7.420) 04/03/19 16:51 Sodium 139 mmol/L (137-145) 04/04/19 05:14 Potassium 4.0 mmol/L (3.6-5.0) 04/04/19 05:14 Chloride 104.3 mmol/L (98-107) 04/04/19 05:14 Carbon Dioxide 17 mmol/L (22-30) L 04/04/19 05:14 Anion Gap 22 mmol/L 04/04/19 05:14 BUN 17 mg/dL (9-20) 04/04/19 05:14 Creatinine 1.1 mg/dL (0.8-1.5) 04/04/19 05:14 Estimated GFR > 60 ml/min 04/04/19 05:14 BUN/Creatinine Ratio 15 % 04/04/19 05:14 Glucose 147 mg/dL (75-100) H 04/04/19 05:14 Hemoglobin A1c 6.0 % (4-6) 04/03/19 16:51 Lactic Acid 4.80 mmol/L (0.7-2.0) H* 04/04/19 05:14 Calcium 8.5 mg/dL (8.4-10.2) 04/04/19 05:14 Total Bilirubin 0.20 mg/dL (0.1-1.2) 04/04/19 05:14 AST 25 units/L (5-40) 04/04/19 05:14 ALT 19 units/L (7-56) 04/04/19 05:14 Alkaline Phosphatase 60 units/L (35-129) 04/04/19 05:14 Troponin T 0.015 ng/mL (0.00-0.029) 04/03/19 16:57 NT-Pro-B Natriuret Pep 269.7 pg/mL (0-900) 04/03/19 16:57 Total Protein 6.9 g/dL (6.3-8.2) 04/04/19 05:14 Albumin 3.0 g/dL (3.9-5) L 04/04/19 05:14 Albumin/Globulin Ratio 0.8 % 04/04/19 05:14 Urine Color Alexus (Yellow) 04/03/19 15:14 Urine Turbidity Cloudy (Clear) 04/03/19 15:14 Urine pH 5.0 (5.0-7.0) 04/03/19 15:14 Ur Specific Kite 1.019 (1.003-1.030) 04/03/19 15:14 Urine Protein 30 mg/dl mg/dL (Negative) 04/03/19 15:14 Urine Glucose (UA) Neg mg/dL (Negative) 04/03/19 15:14 Urine Ketones Tr mg/dL (Negative) 04/03/19 15:14 Urine Blood Sm (Negative) 04/03/19 15:14 Urine Nitrite Neg (Negative) 04/03/19 15:14 Urine Bilirubin Neg (Negative) 04/03/19 15:14 Urine Urobilinogen 4.0 mg/dL (<2.0) 04/03/19 15:14 Ur Leukocyte Esterase Neg (Negative) 04/03/19 15:14 Urine WBC (Auto) 14.0 /HPF (0.0-6.0) H 04/03/19 15:14 Urine RBC (Auto) 8.0 /HPF (0.0-6.0) 04/03/19 15:14 Urine Bacteria (Auto) 2+ /HPF (Negative) 04/03/19 15:14 Urine Mucus Few /HPF 04/03/19 15:14 Active Medications - Current Medications Current Medications: Generic Name Dose Route Start Last Admin Trade Name Freq PRN Reason Stop Dose Admin Acetaminophen 650 mg 04/03/19 21:42 Tylenol PO Q6H PRN Pain , Severe (7-10) Albuterol 2.5 mg 04/03/19 22:05 04/04/19 01:37 Proventil IH 2.5 mg Q3HRT PRN Administration Wheezing/ SOB Albuterol/Ipratropium 1 ampul 04/04/19 08:00 Duoneb *Not For Prn Use* IH QIDRT ETHAN Aspirin 81 mg 04/03/19 22:00 04/04/19 00:27 Baby Aspirin PO 81 mg DAILY [facility] Administration Benzonatate 100 mg 04/04/19 10:00 Tessalon Perles PO QDAY [facility] Cetirizine HCl 10 mg 04/04/19 10:00 Cetirizine PO DAILY [facility] Diclofenac Sodium 1 applic 04/03/19 22:00 04/04/19 00:28 Diclofenac 1% TP Not Given BID [facility] Docusate Sodium 100 mg 04/03/19 22:00 04/04/19 00:27 Colace PO 100 mg Q12HR ETHAN Administration Ergocalciferol 50,000 unit 04/09/19 10:00 Vitamin D2 PO We [facility] Heparin Sodium (Porcine) 5,000 unit 04/03/19 22:00 04/03/19 22:41 Heparin SUB-Q 5,000 unit Q12HR ETHAN Administration Hydromorphone HCl 0.5 mg 04/03/19 21:44 04/03/19 22:39 Dilaudid IV 0.5 mg Q3H PRN Administration Pain , Severe (7-10) Azithromycin 500 mg/ Sodium 250 mls @ 250 mls/hr 04/03/19 22:00 04/04/19 01:49 Chloride IV 250 mls/hr Q24HR@2200 ETHAN Administration Protocol Sodium Chloride 1,000 mls @ 999 mls/hr 04/04/19 07:32 Nacl 0.9% 1000 Ml IV 04/04/19 08:32 BOLUS ONE Cefepime HCl 2 gm in 100 mls @ 200 mls/hr 04/04/19 10:00 Cefepime/Ns 2 Gm/100 Ml IV Q12HR [facility] Protocol Methylprednisolone Sodium Succinate 40 mg 04/03/19 22:00 04/04/19 05:18 Solu-Medrol IV 40 mg Q8HR [facility] Administration Metoprolol Succinate 25 mg 04/03/19 22:00 04/03/19 22:33 Metoprolol Xl PO Not Given DAILY [facility] Multivitamins/Minerals 1 each 04/04/19 10:00 Theragran-M Tab PO QDAY [facility] Ondansetron HCl 4 mg 04/03/19 21:44 Zofran IV Q8H PRN Nausea And Vomiting Oxycodone/Acetaminophen 1 tab 04/03/19 21:44 Percocet 5/325 PO Q6H PRN Pain, Moderate (4-6) Potassium Chloride 20 meq 04/04/19 10:00 Potassium Chloride PO QDAY [facility] Pravastatin Sodium 40 mg 04/03/19 22:00 04/04/19 00:26 Pravachol PO 40 mg QHS [facility] Administration Sodium Chloride 10 ml 04/03/19 22:00 04/03/19 22:35 Sodium Chloride Flush Syringe 10 Ml IV 10 ml BID ETHAN Administration Sodium Chloride 10 ml 04/03/19 21:44 Sodium Chloride Flush Syringe 10 Ml IV PRN PRN LINE FLUSH
[2019-04-04 08:54] LABS: Band Neutrophils # (Manual) 2.2 K/mm3; Basophils % (Manual) 0 % (0.0-1.8); Eosinophils % (Manual) 0 % (0.0-4.3); Monocytes % (Manual) 0 % (0.0-7.3); Total Cells Counted 100
[2019-04-04 08:55] LABS: Large Platelets Few; Platelet Estimate Consistent w Auto; RBC Morphology Normal
[2019-04-04] MEDS ORDERED: SODIUM CHLORIDE 0.9% 1000 ML 1,000 ML IV ONE (09:00)
[2019-04-04] MEDS ORDERED: SODIUM CHLORIDE 0.9% 1000 ML 1,000 ML IV SCH (09:00)
[2019-04-04] MEDS: CEFEPIME/NS 2 GM/100 ML 2 GM/100 ML BAG IV SCH ×2 (09:35→22:59)
[2019-04-04] MEDS: METOPROLOL SUCCINATE XL 25 MG TAB PO SCH (09:43)
[2019-04-04] MEDS: MULTIVITAMINS,THER W-MINERALS TAB PO SCH (09:44)
[2019-04-04] MEDS: CETIRIZINE 10 MG TAB PO SCH (09:44)
[2019-04-04] MEDS: POTASSIUM CHLORIDE 20 MEQ PACKET PO SCH (09:44)
[2019-04-04] MEDS: HEPARIN 5,000 UNIT/1 ML VIAL SUB-Q SCH ×2 (09:44→23:16)
[2019-04-04] MEDS ORDERED: BENZONATATE 100 MG CAP PO SCH (10:00)
[2019-04-04 11:59] LABS: ABG Methemoglobin 0.5 % (0.0-1.5); ABG Oxygen Saturation 88.3 % (95.0-99.0); ABG PCO2 34.4 mm Hg; ABG PH 7.338 pH Units (7.350-7.450); ABG PO2 55.2 mm Hg (80.0-90.0)
--- NOTE | 2019-04-04 12:29 | Consultation ---
History of Present Illness Consult date: 04/04/19 Requesting physician: LATONIA HIGHTOWER Reason for consult: pneumonia History of present illness: PULMONARY/CCM CONSULT NOTE (Full dictation # [id number]) Please see dictated notes for full details Medications and Allergies Allergies Allergy/AdvReac Type Severity Reaction Status Date / Time No Known Allergies Allergy Unverified 11/12/17 10:51 Home Medications Medication Instructions Recorded Confirmed Last Taken Type Acetaminophen [Non-Aspirin] 650 mg PO Q6H PRN 03/21/18 04/03/19 Unknown History Albuterol Sulfate 2.5 mg IH Q4H PRN 03/21/18 04/03/19 Unknown History Aspirin [Aspirin BABY CHEW TAB] 81 mg PO DAILY 03/21/18 04/03/19 Unknown History Diclofenac Sodium [Voltaren] 100 gm TP BID 03/21/18 04/03/19 Unknown History Loratadine (Nf) [Claritin] 10 mg PO DAILY 03/21/18 04/03/19 Unknown History Metoprolol Xl [Metoprolol 25 mg PO DAILY 03/21/18 04/03/19 Unknown History SUCCINATE ER TAB] Multivit-Min/Iron/Folic Acid/K 1 each PO DAILY 03/21/18 04/03/19 Unknown History [Adults Multivitamin Tablet] Pravastatin Sodium [Pravachol] 40 mg PO QHS 03/21/18 04/03/19 Unknown History Benzonatate [Tessalon Perles] 1 cap PO QDAY 04/03/19 04/03/19 Unknown History Docusate Sodium [Colace CAP] 1 cap PO Q12HR 04/03/19 04/03/19 Unknown History Polyethylene Glycol 3350 [Miralax] 119 gm PO QDAY 04/03/19 04/03/19 Unknown History Potassium Chloride 15 ml PO QDAY 04/03/19 04/03/19 Unknown History Vitamin D3 50,000UNIT CAP 1 tab PO QWEEK 04/03/19 04/03/19 Unknown History Active Meds: Active Medications Acetaminophen (Tylenol) 650 mg PO Q6H PRN PRN Reason: Pain, Mild (1-3) Albuterol (Proventil) 2.5 mg IH Q3HRT PRN PRN Reason: Wheezing/ SOB Last Admin: 04/04/19 01:37 Dose: 2.5 mg Documented by: Albuterol/Ipratropium (Duoneb *Not For Prn Use*) 1 ampul IH QIDRT [facility] Last Admin: 04/04/19 07:40 Dose: 1 ampul Documented by: Aspirin (Baby Aspirin) 81 mg PO DAILY [facility] Last Admin: 04/04/19 09:44 Dose: 81 mg Documented by: Benzonatate (Tessalon Perles) 100 mg PO QDAY [facility] Last Admin: 04/04/19 09:43 Dose: 100 mg Documented by: Cetirizine HCl (Cetirizine) 10 mg PO DAILY [facility] Last Admin: 04/04/19 09:44 Dose: 10 mg Documented by: Diclofenac Sodium (Diclofenac 1%) 1 applic TP BID [facility] Last Admin: 04/04/19 09:45 Dose: 1 applic Documented by: Docusate Sodium (Colace) 100 mg PO Q12HR [facility] Last Admin: 04/04/19 09:44 Dose: 100 mg Documented by: Ergocalciferol (Vitamin D2) 50,000 unit PO We [facility] Heparin Sodium (Porcine) (Heparin) 5,000 unit SUB-Q Q12HR [facility] Last Admin: 04/04/19 09:44 Dose: 5,000 unit Documented by: Hydromorphone HCl (Dilaudid) 0.5 mg IV Q3H PRN PRN Reason: Pain , Severe (7-10) Last Admin: 04/03/19 22:39 Dose: 0.5 mg Documented by: Azithromycin 500 mg/ Sodium (Chloride) 250 mls @ 250 mls/hr IV Q24HR@2200 [facility]; Protocol Stop: 04/07/19 22:59 Last Admin: 04/04/19 01:49 Dose: 250 mls/hr Documented by: Cefepime HCl (Cefepime/Ns 2 Gm/100 Ml) 2 gm in 100 mls @ 200 mls/hr IV Q12HR [facility]; Protocol Last Admin: 04/04/19 09:35 Dose: 200 mls/hr Documented by: Sodium Chloride (Nacl 0.9% 1000 Ml) 1,000 mls @ 125 mls/hr IV DIRECT [facility] Methylprednisolone Sodium Succinate (Solu-Medrol) 40 mg IV Q8HR [facility] Last Admin: 04/04/19 05:18 Dose: 40 mg Documented by: Metoprolol Succinate (Metoprolol Xl) 25 mg PO DAILY [facility] Last Admin: 04/04/19 09:43 Dose: 25 mg Documented by: Multivitamins/Minerals (Theragran-M Tab) 1 each PO QDAY [facility] Last Admin: 04/04/19 09:44 Dose: 1 each Documented by: Ondansetron HCl (Zofran) 4 mg IV Q8H PRN PRN Reason: Nausea And Vomiting Oxycodone/Acetaminophen (Percocet 5/325) 1 tab PO Q6H PRN PRN Reason: Pain, Moderate (4-6) Potassium Chloride (Potassium Chloride) 20 meq PO QDAY [facility] Last Admin: 04/04/19 09:44 Dose: 20 meq Documented by: Pravastatin Sodium (Pravachol) 40 mg PO QHS [facility] Last Admin: 04/04/19 00:26 Dose: 40 mg Documented by: Sodium Chloride (Sodium Chloride Flush Syringe 10 Ml) 10 ml IV BID [facility] Last Admin: 04/04/19 09:45 Dose: 10 ml Documented by: Sodium Chloride (Sodium Chloride Flush Syringe 10 Ml) 10 ml IV PRN PRN PRN Reason: LINE FLUSH Physical Examination Vital signs: Vital Signs Pulse Resp Pulse Ox 101 H 19 95 04/03/19 16:43 04/03/19 16:43 04/03/19 16:43 Results - Laboratory Findings CBC and BMP: 04/04/19 05:14 04/04/19 05:14 ABG ABG pH 7.338 pH Units (7.350-7.450) L 04/04/19 Unknown ABG pCO2 34.4 mm Hg 04/04/19 Unknown ABG pO2 55.2 mm Hg (80.0-90.0) L 04/04/19 Unknown ABG O2 Saturation 88.3 % (95.0-99.0) L 04/04/19 Unknown PT/INR, D-dimer PT 14.7 Sec. (12.2-14.9) 04/03/19 16:51 INR 1.13 (0.87-1.13) 04/03/19 16:51 D-Dimer 1629.49 ng/mlDDU (0-234) H 04/03/19 16:51 Abnormal lab findings: Abnormal Labs 04/03/19 04/03/19 04/03/19 15:14 16:51 16:51 WBC Hgb Hct Plt Count Seg Neuts % (Manual) 82.0 H Lymphocytes % (Manual) 9.0 L Seg Neutrophils # Man 8.9 H Lymphocytes # (Manual) 1.0 L D-Dimer 1629.49 H ABG pH ABG pO2 ABG HCO3 ABG O2 Saturation ABG Base Excess ABG Hemoglobin Oxyhemoglobin Carbon Dioxide Glucose POC Glucose Lactic Acid Albumin Urine WBC (Auto) 14.0 H 04/03/19 04/03/19 04/03/19 16:51 16:51 18:07 WBC Hgb Hct Plt Count Seg Neuts % (Manual) Lymphocytes % (Manual) Seg Neutrophils # Man Lymphocytes # (Manual) D-Dimer ABG pH ABG pO2 ABG HCO3 ABG O2 Saturation ABG Base Excess ABG Hemoglobin Oxyhemoglobin Carbon Dioxide 20 L Glucose 132 H POC Glucose Lactic Acid 3.20 H* 3.00 H* Albumin 3.6 L Urine WBC (Auto) 04/03/19 04/03/19 04/04/19 19:39 20:35 05:14 WBC Hgb Hct Plt Count Seg Neuts % (Manual) Lymphocytes % (Manual) Seg Neutrophils # Man Lymphocytes # (Manual) D-Dimer ABG pH ABG pO2 ABG HCO3 ABG O2 Saturation ABG Base Excess ABG Hemoglobin Oxyhemoglobin Carbon Dioxide Glucose POC Glucose Lactic Acid 3.30 H* 3.80 H* 4.80 H* Albumin Urine WBC (Auto) 04/04/19 04/04/19 04/04/19 05:14 05:14 07:06 WBC 14.7 H Hgb 11.1 L Hct 33.9 L D Plt Count 131 L Seg Neuts % (Manual) 84.0 H Lymphocytes % (Manual) 0 L Seg Neutrophils # Man 12.3 H Lymphocytes # (Manual) 0.0 L D-Dimer ABG pH ABG pO2 ABG HCO3 ABG O2 Saturation ABG Base Excess ABG Hemoglobin Oxyhemoglobin Carbon Dioxide 17 L Glucose 147 H POC Glucose Lactic Acid 5.10 H* Albumin 3.0 L Urine WBC (Auto) 04/04/19 04/04/19 04/04/19 07:22 08:01 11:24 WBC Hgb Hct Plt Count Seg Neuts % (Manual) Lymphocytes % (Manual) Seg Neutrophils # Man Lymphocytes # (Manual) D-Dimer ABG pH ABG pO2 ABG HCO3 ABG O2 Saturation ABG Base Excess ABG Hemoglobin Oxyhemoglobin Carbon Dioxide Glucose POC Glucose 132 H Lactic Acid 5.00 H* 7.60 H* Albumin Urine WBC (Auto) 04/04/19 04/04/19 11:51 Unknown WBC Hgb Hct Plt Count Seg Neuts % (Manual) Lymphocytes % (Manual) Seg Neutrophils # Man Lymphocytes # (Manual) D-Dimer ABG pH 7.338 L ABG pO2 55.2 L ABG HCO3 18.0 L ABG O2 Saturation 88.3 L ABG Base Excess -7.0 L ABG Hemoglobin 11.1 L Oxyhemoglobin 86.5 L Carbon Dioxide Glucose POC Glucose 168 H Lactic Acid Albumin Urine WBC (Auto)
--- NOTE | 2019-04-04 12:30 | XRay Report ---
CHEST 1 VIEW 04/04/2019 12:17 PM INDICATION / CLINICAL INFORMATION: change in status. COMPARISON: 04/03/2019 FINDINGS: SUPPORT DEVICES: None. HEART / MEDIASTINUM: No significant abnormality. LUNGS / PLEURA: Worsening pattern bilateral pulmonary opacities. No pneumothorax. ADDITIONAL FINDINGS: No significant additional findings. IMPRESSION: 1. Worsening scattered bilateral pulmonary opacities. Signer Name: Pj Torres MD Signed: 04/04/2019 12:26 PM Workstation Name: [id number]
[2019-04-04] MEDS ORDERED: HYDROcodone/HOMATROPINE 5-1.5MG /5 ML ORAL LIQD UNIT DOSE PO PRN (12:49)
--- NOTE | 2019-04-04 13:58 | Vascular Lab Report ---
DUPLEX DOPPLER LOWER EXTREMITY VEINS, BILATERAL INDICATION: dvt. TECHNIQUE: Duplex doppler imaging was performed through the veins of both lower extremities using venous miguelina jayla and other maneuvers. COMPARISON: None available. FINDINGS: Technically difficult exam secondary to patient movement. Right Common femoral vein: Negative. Right Superficial femoral vein: Negative. Right Popliteal vein: Negative. Right Calf veins: Negative. Left Common femoral vein: Negative. Left Superficial femoral vein: Negative. Left Popliteal vein: Negative. Left Calf veins: Negative. Additional findings: None. IMPRESSION: 1. No sonographic evidence for DVT in either lower extremity. Signer Name: Jake Preciado MD Signed: 04/04/2019 1:53 PM Workstation Name: [id number]
[2019-04-04 14:03] LABS: ABG Base Excess -7.1 mmol/L (-2.0-3.0); ABG HCO3 18.2 mmol/L (20.0-26.0); ABG Methemoglobin 0.6 % (0.0-1.5); ABG Oxygen Saturation 92.8 % (95.0-99.0); ABG PCO2 35.5 mm Hg; ABG PH 7.327 pH Units (7.350-7.450); ABG PO2 65.3 mm Hg (80.0-90.0)
[2019-04-04] MEDS: BENZONATATE 100 MG CAP PO SCH ×3 (14:33→23:20)
[2019-04-04] MEDS: BUDESONIDE 0.5 MG/2 ML NEBU IH SCH ×2 (14:36→19:24)
[2019-04-04] MEDS: ARFORMOTEROL 15 MCG/2 ML NEBU IH SCH (19:24)
--- NOTE | 2019-04-04 20:15 | Consultation ---
PULMONARY CRITICAL CARE CONSULT NOTE CONSULTING PHYSICIAN: Thong Rae MD REASON FOR CONSULTATION: Acute hypoxemic respiratory failure, pneumonia. CHIEF COMPLAINT AND HISTORY OF PRESENT ILLNESS: The patient is an 84-year-old -Lithuanian male with past medical history significant amongst other things for a diagnosis of pulmonary fibrosis and chronic possible aspiration pneumonia, known to me from a prior admission, I believe last year, resident of [facility], came in this morning complaining of shortness of breath and hypoxemia. He was reportedly 85% on room air at the time he presented. He had also been complaining of a productive cough greater than baseline, productive of yellowish phlegm. He denied any gross or streaky hemoptysis. He had a low-grade fever at presentation. He was evaluated in the Emergency Room and amongst other things was placed on supplemental oxygen and transferred to the Adult Care Unit. The patient decompensated despite increasing oxygen requirements. His O2 sats were hanging around 85% on 50% FiO2. We are asked to assist with management. When I stopped by to see him, he was lying in bed, coughing continuously, denied chest pain, again denied any hemoptysis. He denies nausea, vomiting, or overt aspiration. At the last visit, he was transferred to a center that had a Cardiothoracic Surgeon, I believe at [facility] for evaluation of a possible empyema. What happened over at [facility] still unclear. I have attempted to reach his daughter, but have not been able to successfully reach. This really is as much of the history of presentation as I have. The patient at this time is not a tobacco user or abuser. Remote history is unknown. PAST MEDICAL HISTORY: Again, significant for hypertension, cerebrovascular accident, diabetes type 2, dementia of the Alzheimer's type and pneumonia that was present at the last admission. PAST SURGICAL HISTORY: Unknown. MEDICATIONS: He was on at the time I stopped by to see him were reviewed, pertinent medications include the following: Tylenol 650 mg p.o. q.6 hours p.r.n. mild pain or fevers, albuterol 2.5 mg nebulized q.3 hours p.r.n. wheezing and shortness of breath, DuoNeb nebulizer treatments scheduled q.i.d., aspirin 81 mg p.o. daily, Zithromax 500 mg IV daily, Tessalon Perles 100 mg p.o. daily, cefepime 2 g IV q.12 hours, cetirizine 10 mg p.o. daily, diclofenac 1 application topical b.i.d. to affected area, this was 1% strength; docusate sodium 100 mg p.o. q.12 hours, vitamin D2 at 50,000 units p.o. every Sunday, heparin 5000 units subcutaneous q.12 hours, Dilaudid 0.5 mg IV q.3 hours p.r.n. pain, Solu-Medrol 40 mg IV q.8 hours, metoprolol 25 mg p.o. daily, Zofran 4 mg IV q.8 hours p.r.n. nausea and vomiting, daily multivitamin, Theragran-M, and Percocet one tablet p.o. q.6 hours p.r.n. moderate pain, Pravachol 40 mg p.o. at bedtime, potassium chloride 20 mEq p.o. daily. ALLERGIES: No known drug allergies. DIET: Thin gentleman, acute weight loss or gain history is unknown. FAMILY AND SOCIAL HISTORY: [facility] resident. No current alcohol, tobacco, or illicit drug use or abuse. Remote history is unknown. FAMILY HISTORY: Otherwise, unknown. REVIEW OF SYSTEMS: Difficult to obtain secondary to the dementia history as well as a constant cough since he has been here, no gross hematochezia or melena. No gross hematuria or dysuria. No hematemesis. No hemoptysis. He denies any new onset seizures. Review of systems otherwise unobtainable or as in the body of history above. PHYSICAL EXAMINATION: VITAL SIGNS: On examination at presentation over here, he had a fever of 101.3 degrees Fahrenheit with a pulse of 101, respiratory rate of 19, blood pressure 125/72, O2 sats were 95% at that time, inspired oxygen concentration was not recorded. At the time I stopped by to see him, O2 sats were about 85% on I believe 50% FiO2. GENERAL: Elderly looking -Lithuanian male. Normocephalic, atraumatic. Coughing continuously with moderately increased respiratory effort at rest and intermittent use of accessory muscles. HEAD, EYES, EARS, NOSE AND THROAT: He was anicteric. No conjunctival erythema. Oropharynx was moist. Mallampati #2 oropharynx. No gross jugular venous distention. No thyromegaly. NECK: Grossly, there were no palpable lymph nodes in the supraclavicular or submandibular lymph node chains. LUNGS: Auscultation of both lung chavez are significant for bilateral rales with faint expiratory wheezing. HEART: Heart sounds 1 and 2 are heard. They were regular in rate and rhythm at time of my evaluation without overt rubs or murmurs. ABDOMEN: Soft, full, bowel sounds are positive, nontender, no palpable hepatosplenomegaly. EXTREMITIES: Without overt digital clubbing or cyanosis. No pedal edema. Pedal pulses are 2+ bilaterally. NEUROLOGIC: Pupils are equal, round, about 4 mm, reactive to light. Extraocular muscle movements are intact. He moves all 4 extremities spontaneously, but has a left hemiparesis. SKIN: Poor turgor; however, without overt cellulitis or rash in the areas of the skin, I examined. Please see the wound care nurses' notes and nursing notes for full description of the skin. PSYCHIATRIC: Mood and affect were anxious. LABORATORY DATA: From my review are as follows: Admission white cell count 10,800, hemoglobin 13.6, hematocrit 41.1, platelet count 154, 5% band neutrophils, he has a left shift, 82% neutrophils. D-dimer was elevated at 1629. Venous blood gas showed a pH of 7.38. Serum sodium was 138, potassium 4.1, chloride 100, bicarbonate 20, BUN 20, creatinine 1.3, glucose 132. Lactic acid level was 3.0. Liver function test was within normal limits. Urinalysis negative for nitrites and leukocyte esterase. He did have 14 white cells per high power field. The lactic acid level is up to 7.6 at this point. White cell count is up to 14.7. Two sets of blood cultures, no growth to date. Urine cultures, no growth to date. Chest x-ray was done. A CT angio of the chest was also done. I have reviewed the CT angio as well as the radiologist's interpretation and the pulmonary arteries are well opacified. There is some motion artifact, makes interpretation a little difficult; however, no gross central filling deficits consistent with central pulmonary emboli. I am unable to compare it with the prior CT scan, I cannot pull it off, but the radiologist's impression is worsening lung consolidation with chronic interstitial lung disease. No definite PTE. I should mention there appears to be a significant AP window mediastinal adenopathy. There seems to also be some food in the distal esophagus or mid esophagus actually and the lung windows show significant increase in interstitial markings, chronic interstitial lung disease with worsening lung consolidation in particularly involving the right upper lobe. He has also a left lower lobe lateral area of consolidation and that was present at the prior admission. ASSESSMENT: 1. Acute hypoxemic respiratory failure. 2. Severe sepsis. 3. Likely progressive aspiration pneumonia. 4. Adult failure to thrive. 5. History of diabetes. 6. History of cerebrovascular accident. 7. Alzheimer dementia. 8. Hypertension. 9. Leukocytosis. 10. Anemia that is normocytic. 11. Lactic acidosis. 12. Metabolic acidosis that is worsening. 13. Adult failure to thrive. PLAN: He will be transferred right away to the Intermediate Care Unit and if he destabilizes further, he will be transferred to the Intensive Care Unit. I am unable to reach his daughter at this time, but he is a full code. If he decompensates, he will be intubated. At this point, I will put him on Vapotherm high flow nasal cannula system for comfort. Get an arterial blood gas. I will deploy bilevel positive air pressure ventilation therapy scheduled at bedtime with p.r.n. daytime use. I do want to avoid using the BiPAP at this point until we get his coughing under better control. I will order antitussive right now. We will go with the Hydromet and I will schedule the Tessalon Perles in the short time, just for about 24 hours to try and get a good handle on his cough and hopefully provide him some comfort. He is on broad-spectrum antibiotic therapy appropriately. Infectious Disease consultation has been placed. I will also go ahead and order a procalcitonin level and trend along with lactic to make up operator helper clinical decision making. Gentle volume hydration will be instituted. I do feel that a significant amount of the acidosis is secondary to the hypoxemia and anaerobic metabolism. Blood pressure is pretty stable at this time. I will also schedule long-acting bronchodilators with Brovana as well as inhaled corticosteroids while continue the systemic steroids. Glycemic control will be via sliding scale insulin while critically ill. I will target the blood glucose of 140-180 mg/dL. Swallow evaluation will be done before any food is given. I will order that now. If he fails the swallow evaluation enteral nutrition will be the feeding modality of choice. We will continue attempts to contact his daughter as well as request records from [facility] to see what the final outcome and evaluation was over there. He will be placed on GI prophylaxis. He is appropriately on DVT prophylaxis. Flu and pneumonia vaccination will be addressed per protocol. Thank you very much for the consult, Dr. Rae. I should also mention aspiration precautions will be maintained. He is critically ill on life-sustaining interventions including the high flow nasal cannula and soon to be on noninvasive ventilation at very high risk of from cardiopulmonary system decompensation. At this time, I spent about 35 minutes of critical care time without overlap and excluding any procedural time that may be necessary. JOB# [id number] JIMENEZ/ELO
--- NOTE | 2019-04-04 21:05 | Consultation ---
History of Present Illness - Reason for Consult Consult date: 04/04/19 r/o empyema Requesting physician: LATONIA HIGHTOWER - History of Present Illness 84 years old male with history of hypertension, dementia, CVA, well-known to our ID service seen back in March 2018 due to necrotizing pneumonia/possible empyema in Mar 2018, who was transferred to [facility] for VATS for empyema not amenable to CT-guided drainage, admitted on 04/03/2019 due to 2-day history of worsening shortness of breath, fever and AMS. It is unclear details of the medical history as patient is intubated unable to provide history. Patient lives in a skilled nursing. Of note, during admission in Mar 2018 BAL and lung biopsy confirmed aspiration, acute inflammation and negative for malignancy, culture no growth. On arrival, temperature one 1.3, heart rate 101, R 19, O2 sat 95, BP 125/72. Initial WBC 10.8. Creatinine 1.3. Lactate 3.2. Urine analysis 14 white blood cells with no leukocyte esterase. Chest x-ray showed bilateral interstitial changes with bibasilar consolidation. CTA showed no PE but demonstrated patchy infiltrates at the RUL, STEVE and dense LLL.. Blood cu lture 04/03/2019 no growth. Urine culture 04/03/2019 grew 10-100K mixed jeff. ID consulted for presumed empyema. Review of Systems: unable to obtain Medications and Allergies Allergies Allergy/AdvReac Type Severity Reaction Status Date / Time No Known Allergies Allergy Unverified 11/12/17 10:51 Home Medications Medication Instructions Recorded Confirmed Last Taken Type Acetaminophen [Non-Aspirin] 650 mg PO Q6H PRN 03/21/18 04/03/19 Unknown History Albuterol Sulfate 2.5 mg IH Q4H PRN 03/21/18 04/03/19 Unknown History Aspirin [Aspirin BABY CHEW TAB] 81 mg PO DAILY 03/21/18 04/03/19 Unknown History Diclofenac Sodium [Voltaren] 100 gm TP BID 03/21/18 04/03/19 Unknown History Loratadine (Nf) [Claritin] 10 mg PO DAILY 03/21/18 04/03/19 Unknown History Metoprolol Xl [Metoprolol 25 mg PO DAILY 03/21/18 04/03/19 Unknown History SUCCINATE ER TAB] Multivit-Min/Iron/Folic Acid/K 1 each PO DAILY 03/21/18 04/03/19 Unknown History [Adults Multivitamin Tablet] Pravastatin Sodium [Pravachol] 40 mg PO QHS 03/21/18 04/03/19 Unknown History Benzonatate [Tessalon Perles] 1 cap PO QDAY 04/03/19 04/03/19 Unknown History Docusate Sodium [Colace CAP] 1 cap PO Q12HR 04/03/19 04/03/19 Unknown History Polyethylene Glycol 3350 [Miralax] 119 gm PO QDAY 04/03/19 04/03/19 Unknown History Potassium Chloride 15 ml PO QDAY 04/03/19 04/03/19 Unknown History Vitamin D3 50,000UNIT CAP 1 tab PO QWEEK 04/03/19 04/03/19 Unknown History Active Meds: Active Medications Acetaminophen (Tylenol) 650 mg PO Q6H PRN PRN Reason: Pain, Mild (1-3) Albuterol (Proventil) 2.5 mg IH Q3HRT PRN PRN Reason: Wheezing/ SOB Last Admin: 04/04/19 01:37 Dose: 2.5 mg Documented by: Albuterol/Ipratropium (Duoneb *Not For Prn Use*) 1 ampul IH QIDRT [facility] Last Admin: 04/04/19 19:25 Dose: 1 ampul Documented by: Arformoterol Tartrate (Brovana Nebu) 15 mcg IH Q12HRT [facility] Last Admin: 04/04/19 19:24 Dose: 15 mcg Documented by: Aspirin (Baby Aspirin) 81 mg PO DAILY [facility] Last Admin: 04/04/19 09:44 Dose: 81 mg Documented by: Benzonatate (Tessalon Perles) 100 mg PO QID [facility] Stop: 04/06/19 13:59 Last Admin: 04/04/19 19:01 Dose: 100 mg Documented by: Budesonide (Pulmicort) 0.5 mg IH Q12HRT [facility] Last Admin: 04/04/19 19:24 Dose: 0.5 mg Documented by: Cetirizine HCl (Cetirizine) 10 mg PO DAILY [facility] Last Admin: 04/04/19 09:44 Dose: 10 mg Documented by: Diclofenac Sodium (Diclofenac 1%) 1 applic TP BID [facility] Last Admin: 04/04/19 09:45 Dose: 1 applic Documented by: Docusate Sodium (Colace) 100 mg PO Q12HR [facility] Last Admin: 04/04/19 09:44 Dose: 100 mg Documented by: Ergocalciferol (Vitamin D2) 50,000 unit PO We [facility] Heparin Sodium (Porcine) (Heparin) 5,000 unit SUB-Q Q12HR [facility] Last Admin: 04/04/19 09:44 Dose: 5,000 unit Documented by: Hydrocodone Bit/Homatropine Methylb (Hydromet) 10 ml PO Q6H PRN PRN Reason: Cough Last Admin: 04/04/19 13:01 Dose: 10 ml Documented by: Hydromorphone HCl (Dilaudid) 0.5 mg IV Q3H PRN PRN Reason: Pain , Severe (7-10) Last Admin: 04/03/19 22:39 Dose: 0.5 mg Documented by: Azithromycin 500 mg/ Sodium (Chloride) 250 mls @ 250 mls/hr IV Q24HR@2200 [facility]; Protocol Stop: 04/07/19 22:59 Last Admin: 04/04/19 01:49 Dose: 250 mls/hr Documented by: Cefepime HCl (Cefepime/Ns 2 Gm/100 Ml) 2 gm in 100 mls @ 200 mls/hr IV Q12HR [facility]; Protocol Last Admin: 04/04/19 09:35 Dose: 200 mls/hr Documented by: Sodium Chloride (Nacl 0.9% 1000 Ml) 1,000 mls @ 100 mls/hr IV DIRECT ETHAN Stop: 04/05/19 18:59 Linezolid (Zyvox 600mg/300ml) 600 mg in 300 mls @ 300 mls/hr IV Q12HR [facility]; Protocol Methylprednisolone Sodium Succinate (Solu-Medrol) 40 mg IV Q8HR [facility] Last Admin: 04/04/19 14:33 Dose: 40 mg Documented by: Metoprolol Succinate (Metoprolol Xl) 25 mg PO DAILY [facility] Last Admin: 04/04/19 09:43 Dose: 25 mg Documented by: Multivitamins/Minerals (Theragran-M Tab) 1 each PO QDAY [facility] Last Admin: 04/04/19 09:44 Dose: 1 each Documented by: Ondansetron HCl (Zofran) 4 mg IV Q8H PRN PRN Reason: Nausea And Vomiting Oseltamivir Phosphate (Tamiflu) 75 mg PO BID [facility] Stop: 04/09/19 10:01 Oxycodone/Acetaminophen (Percocet 5/325) 1 tab PO Q6H PRN PRN Reason: Pain, Moderate (4-6) Potassium Chloride (Potassium Chloride) 20 meq PO QDAY [facility] Last Admin: 04/04/19 09:44 Dose: 20 meq Documented by: Pravastatin Sodium (Pravachol) 40 mg PO QHS [facility] Last Admin: 04/04/19 00:26 Dose: 40 mg Documented by: Sodium Chloride (Sodium Chloride Flush Syringe 10 Ml) 10 ml IV BID [facility] Last Admin: 04/04/19 09:45 Dose: 10 ml Documented by: Sodium Chloride (Sodium Chloride Flush Syringe 10 Ml) 10 ml IV PRN PRN PRN Reason: LINE FLUSH Physical Examination - Physical Exam Narrative exam: General appearance: Alert in moderate resp distress with mask O2 debilitated Eyes: anicteric sclerae, moist conjunctivae; no lid-lag; PERRLA HENT: Atraumatic; oropharynx limited Lungs: luda crackles CV: RRR no murmur Abdomen: Soft, non-tender; no masses or hepatosplenomegaly Extremities: no edema, no cyanosis Skin: No rash. Psych: somnolent. Neuro: somnolent - Constitutional Vitals: Vital Signs Temp Pulse Resp BP Pulse Ox 99.6 F 108 H 32 H 112/55 96 04/04/19 16:44 04/04/19 19:32 04/04/19 19:32 04/04/19 19:27 04/04/19 19:27 Temperature -Last 24 Hours Temperature 99.6 F Temperature 97.7 F Temperature 98.6 F Temperature 98.3 F Temperature 98.6 F Results - Labs CBC & Chem 7: 04/04/19 05:14 04/04/19 05:14 Labs: Abnormal lab results 04/03/19 04/04/19 04/04/19 Range/Units 20:35 05:14 05:14 WBC 14.7 H (4.5-11.0) K/mm3 Hgb 11.1 L (11.8-15.2) gm/dl Hct 33.9 L D (35.5-45.6) % Plt Count 131 L (140-440) K/mm3 Seg Neuts % (Manual) 84.0 H (40.0-70.0) % Lymphocytes % (Manual) 0 L (13.4-35.0) % Seg Neutrophils # Man 12.3 H (1.8-7.7) K/mm3 Lymphocytes # (Manual) 0.0 L (1.2-5.4) K/mm3 ABG pH (7.350-7.450) pH Units ABG pO2 (80.0-90.0) mm Hg ABG HCO3 (20.0-26.0) mmol/L ABG O2 Saturation (95.0-99.0) % ABG Base Excess (-2.0-3.0) mmol/L ABG Hemoglobin (14.0-18.0) gm/dl Oxyhemoglobin (95.0-99.0) % Carbon Dioxide (22-30) mmol/L Glucose (75-100) mg/dL POC Glucose (70-105) Lactic Acid 3.80 H* 4.80 H* (0.7-2.0) mmol/L Albumin (3.9-5) g/dL 04/04/19 04/04/19 04/04/19 Range/Units 05:14 07:06 07:22 WBC (4.5-11.0) K/mm3 Hgb (11.8-15.2) gm/dl Hct (35.5-45.6) % Plt Count (140-440) K/mm3 Seg Neuts % (Manual) (40.0-70.0) % Lymphocytes % (Manual) (13.4-35.0) % Seg Neutrophils # Man (1.8-7.7) K/mm3 Lymphocytes # (Manual) (1.2-5.4) K/mm3 ABG pH (7.350-7.450) pH Units ABG pO2 (80.0-90.0) mm Hg ABG HCO3 (20.0-26.0) mmol/L ABG O2 Saturation (95.0-99.0) % ABG Base Excess (-2.0-3.0) mmol/L ABG Hemoglobin (14.0-18.0) gm/dl Oxyhemoglobin (95.0-99.0) % Carbon Dioxide 17 L (22-30) mmol/L Glucose 147 H (75-100) mg/dL POC Glucose 132 H (70-105) Lactic Acid 5.10 H* (0.7-2.0) mmol/L Albumin 3.0 L (3.9-5) g/dL 04/04/19 04/04/19 04/04/19 Range/Units 08:01 11:24 11:51 WBC (4.5-11.0) K/mm3 Hgb (11.8-15.2) gm/dl Hct (35.5-45.6) % Plt Count (140-440) K/mm3 Seg Neuts % (Manual) (40.0-70.0) % Lymphocytes % (Manual) (13.4-35.0) % Seg Neutrophils # Man (1.8-7.7) K/mm3 Lymphocytes # (Manual) (1.2-5.4) K/mm3 ABG pH (7.350-7.450) pH Units ABG pO2 (80.0-90.0) mm Hg ABG HCO3 (20.0-26.0) mmol/L ABG O2 Saturation (95.0-99.0) % ABG Base Excess (-2.0-3.0) mmol/L ABG Hemoglobin (14.0-18.0) gm/dl Oxyhemoglobin (95.0-99.0) % Carbon Dioxide (22-30) mmol/L Glucose (75-100) mg/dL POC Glucose 168 H (70-105) Lactic Acid 5.00 H* 7.60 H* (0.7-2.0) mmol/L Albumin (3.9-5) g/dL 04/04/19 04/04/19 04/04/19 Range/Units 13:40 13:44 14:49 WBC (4.5-11.0) K/mm3 Hgb (11.8-15.2) gm/dl Hct (35.5-45.6) % Plt Count (140-440) K/mm3 Seg Neuts % (Manual) (40.0-70.0) % Lymphocytes % (Manual) (13.4-35.0) % Seg Neutrophils # Man (1.8-7.7) K/mm3 Lymphocytes # (Manual) (1.2-5.4) K/mm3 ABG pH 7.327 L (7.350-7.450) pH Units ABG pO2 65.3 L (80.0-90.0) mm Hg ABG HCO3 18.2 L (20.0-26.0) mmol/L ABG O2 Saturation 92.8 L (95.0-99.0) % ABG Base Excess -7.1 L (-2.0-3.0) mmol/L ABG Hemoglobin 11.6 L (14.0-18.0) gm/dl Oxyhemoglobin 91.0 L (95.0-99.0) % Carbon Dioxide (22-30) mmol/L Glucose (75-100) mg/dL POC Glucose (70-105) Lactic Acid 6.20 H* 4.70 H* (0.7-2.0) mmol/L Albumin (3.9-5) g/dL 04/04/19 04/04/19 04/04/19 Range/Units 15:54 19:50 Unknown WBC (4.5-11.0) K/mm3 Hgb (11.8-15.2) gm/dl Hct (35.5-45.6) % Plt Count (140-440) K/mm3 Seg Neuts % (Manual) (40.0-70.0) % Lymphocytes % (Manual) (13.4-35.0) % Seg Neutrophils # Man (1.8-7.7) K/mm3 Lymphocytes # (Manual) (1.2-5.4) K/mm3 ABG pH 7.338 L (7.350-7.450) pH Units ABG pO2 55.2 L (80.0-90.0) mm Hg ABG HCO3 18.0 L (20.0-26.0) mmol/L ABG O2 Saturation 88.3 L (95.0-99.0) % ABG Base Excess -7.0 L (-2.0-3.0) mmol/L ABG Hemoglobin 11.1 L (14.0-18.0) gm/dl Oxyhemoglobin 86.5 L (95.0-99.0) % Carbon Dioxide (22-30) mmol/L Glucose (75-100) mg/dL POC Glucose (70-105) Lactic Acid 3.70 H* 3.50 H* (0.7-2.0) mmol/L Albumin (3.9-5) g/dL Assessment and Plan Cultures: Blood cultures 04/02/2019 no growth so far. Assessment: 84 years old male with history of hypertension, dementia, CVA, well-known to our ID service seen back in March 2018 due to necrotizing pneumonia/possible empyema from aspiration in Mar 2018, who was transferred to [facility] for VATS for empyema not amenable to CT-guided drainage, admitted on 04/03/2019 due to 2-day history of worsening shortness of breath, fever and AMS: #Severe sepsis: present on admission with fever, tachycardia, severe lactic acidosis, hypoxia and RADHA; source bilateral pneumonia. #Bilateral multifocal pneumonia: Likely hospital-acquired pneumonia versus influenza coinfection with bacterial pneumonia versus recurrent aspiration #Acute encephalopathy #RADHA: likely due to sepsis #Acute respiratory failure: Currently on mask O2 to start BIPAP Recommendations: Obtain sputum cultures Obtain influenza PCR and antigen Continue cefepime 2 gm IV q 12 hour Stop azithromycin Start linezolid 600 mg IV q 12 hours Start Tamiflu 75 mg p.o. twice daily until infectious rule out Droplet precautions until influenza is ruled out No clear evidence of pleural effusion on CT, consider chest US to eval Will follow. I will be covering the weekend, Dr. Blanco will be back on Sunday Donna Sullivan MD [facility]ious [facility] M [phone] O [phone]
[2019-04-04] MEDS: LINEZOLID 600 MG/300 ML BAG IV SCH (23:05)
[2019-04-04] MEDS: OSELTAMIVIR 75 MG CAP PO SCH (23:20)
[2019-04-05] MEDS: AZITHROMYCIN 500 MG in SODIUM CHLORIDE 0.9% 250ML 250 ML IV SCH (00:38)
[2019-04-05 04:47] LABS: Hematocrit 35.3 % (35.5-45.6); Hemoglobin 11.6 gm/dl (11.8-15.2); Mean Corpuscular HGB Conc 33 % (32-34); Mean Corpuscular Volume 91 fl (84-94); Red Blood Count 3.87 M/mm3 (3.65-5.03); Red Cell Distribution Width 14.6 % (13.2-15.2)
[2019-04-05 04:54] LABS: Platelet Count 133 K/mm3 (140-440)
[2019-04-05 05:11] LABS: BUN/Creatinine Ratio 17; Blood Urea Nitrogen 17 mg/dL (9-20); Calcium 8.9 mg/dL (8.4-10.2); Hemolysis Index 5
[2019-04-05] MEDS: methylPREDNISolone Sod Succinate 40 MG/1 ML INJ IV SCH ×3 (06:18→22:15)
[2019-04-05] MEDS: BUDESONIDE 0.5 MG/2 ML NEBU IH SCH ×2 (07:39→19:56)
[2019-04-05] MEDS: IPRATROPIUM/ALBUTEROL SULFATE 3 ML AMPUL.NEB IH SCH ×4 (07:39→19:56)
[2019-04-05] MEDS: ARFORMOTEROL 15 MCG/2 ML NEBU IH SCH ×2 (07:39→19:56)
[2019-04-05] MEDS ORDERED: DEXTROSE 50% IN WATER (25GM) 50 ML SYRINGE IV PRN (09:50)
[2019-04-05] MEDS ORDERED: D5W/0.9% NACL 1,000 ML IV SCH (10:00)
[2019-04-05] MEDS: LINEZOLID 600 MG/300 ML BAG IV SCH ×2 (10:24→22:15)
[2019-04-05] MEDS: CEFEPIME/NS 2 GM/100 ML 2 GM/100 ML BAG IV SCH ×2 (10:25→22:15)
[2019-04-05] MEDS: HEPARIN 5,000 UNIT/1 ML VIAL SUB-Q SCH ×2 (10:26→22:15)
--- NOTE | 2019-04-05 10:28 | Progress Note ---
Assessment and Plan Assessment and plan: Patient is an 84-year-old -[place] female correction resident at [facility] admitted following a complaint of shortness of breath with hypoxia oxygen saturation prior to arrival of EMS was 85% on room air briefly and improved. Was noted to have productive cough of yellowish sputum initial imaging study including CT a of the chest was negative for pulmonary embolism but did demonstrate some patchy infiltrates concerning for pneumonia patient was also noted to be tachycardic and with lactic acidosis. Has been admitted for management of healthcare associated pneumonia possible gram-negative. Review of previous admission shows that the patient in March 2001 was transferred to [place] due to empyema not amenable to CT-guided drainage. I will try to call the daughter to get some information as to the outcome of that transfer have not been able to. 04/04: Patient's lactic acidosis continues to increase despite aggressive therapy. Will need to see a downward trend to ensure resolution of systemic inflammatory response syndrome. And ensure patient is not developing full-blown sepsis. Patient has increased respiratory rate and is hypoxic with a saturation in the 80s will transfer to stepdown unit and also obtain pulmonary and infectious disease consultation. We will continue inpatient care at this time : Patient failed swallow evaluation significantly. It appears that he possibly has been aspirating for some time. According to the daughter who I spoke with this morning the patient did not have any surgery while at [place] [employer] was only treated for pneumonia and discharged. I have advised her that he may require mechanical ventilation support if he does not improve in the next 24 hours. She is aware. Although she does not want multiple aggressive measures she is okay with patient being intubated at this time. If the need be. ID evaluated the patient changes and antibiotics were made, patient is on cefepime and Zyvox azithromycin was discontinued also patient is on Tamiflu influenza has been ruled out Tamiflu likely will be discontinued will defer to ID. Will keep n.p.o. and start patient on D5. With Accu-Cheks and before meals and at bedtime Healthcare associated pneumonia possible gram-negative, possible aspiration Acute hypoxic respiratory failure Empyema possible Lactic acidosis improved Leukocytosis likely secondary to the marginalization from steroid Severe sepsis secondary to pneumonia present on admission Acute metabolic encephalopathy Diabetes mellitus with hyperglycemia [id number] Alzheimer disease Elevated d-dimer Severe Protein Calorie malnutrition Hypertension Prior CVA with residual left hemiplegia residential resident Plan Continue supportive care Change antibiotics to cefepime based on ID statistics and Biogram Obtain room air ABG to determine for home oxygen And give a bolus of fluids Change fluids to D5 at 42 cc an hour Follow cultures Continue all appropriate home medication including diabetic medications and manage Continues to require inpatient care patient currently on IMCU DVT and GI prophylaxis The high probability of a clinically significant, sudden or life threatening de terioration of the [pulmonary] system(s) required my full and direct attention, intervention and personal management. The aggregate critical care time was [35] minutes. This time is in addition to time spent performing reported procedures but includes the following: [x] Data Review and interpretation [x] Patient assessment and monitoring of vital signs [x] Documentation [x] Medication orders and management History Interval history: Patient seen and examined this morning, not as lethargic as noted yesterday but still with cough currently on a BiPAP. Hospitalist Physical - Physical exam Narrative exam: VITAL SIGNS: Reviewed. GENERAL: The patient is chronically ill-appearing, with increased shortness of breath and persistent cough on BiPAP vital signs as documented. HEAD: No signs of head trauma. EYES: Pupils are equal. Extraocular motions intact. EARS: Hearing grossly intact. MOUTH: Oropharynx is normal. NECK: No adenopathy, no JVD. CHEST: Chest with rhonchi breath sounds bilaterally. No wheezes, rales, or rhonchi. CARDIAC: Tachycardia, rate and rhythm. S1 and S2, without murmurs, gallops, or rubs. VASCULAR: Trace bilateral pitting edema. Peripheral pulses normal and equal in all extremities. ABDOMEN: Soft, non tender and non distended. No rebound or guarding, and no masses palpated. Bowel Sounds normal. MUSCULOSKELETAL: Gait not assessed good range of motion of all major joints. Extremities without clubbing,. Trace bilateral pitting. NEUROLOGIC EXAM: Alert and oriented x 2 No focal sensory or strength deficits. Speech normal. Follows commands. PSYCHIATRIC: Mood normal. SKIN: detial exam as documented in skin assessment - Constitutional Vitals: Temp Pulse Resp BP Pulse Ox 97.8 F 105 H 34 H 138/69 92 04/05/19 08:00 04/05/19 07:51 04/05/19 07:51 04/05/19 07:51 04/05/19 07:51 General appearance: Present: mild distress, well-nourished Results - Labs CBC & Chem 7: 04/05/19 04:29 04/05/19 04:29 Labs: Laboratory Last Values WBC 12.6 K/mm3 (4.5-11.0) H 04/05/19 04:29 RBC 3.87 M/mm3 (3.65-5.03) 04/05/19 04:29 Hgb 11.6 gm/dl (11.8-15.2) L 04/05/19 04:29 Hct 35.3 % (35.5-45.6) L 04/05/19 04:29 MCV 91 fl (84-94) 04/05/19 04:29 MCH 30 pg (28-32) 04/05/19 04:29 MCHC 33 % (32-34) 04/05/19 04:29 RDW 14.6 % (13.2-15.2) 04/05/19 04:29 Plt Count 133 K/mm3 (140-440) L 04/05/19 04:29 Add Manual Diff Complete 04/04/19 05:14 Total Counted 100 04/04/19 05:14 Seg Neutrophils % Bioassayist 04/04/19 05:14 Seg Neuts % (Manual) 84.0 % (40.0-70.0) H 04/04/19 05:14 Band Neutrophils % 15.0 % 04/04/19 05:14 Lymphocytes % (Manual) 0 % (13.4-35.0) L 04/04/19 05:14 Reactive Lymphs % (Man) 1.0 % 04/04/19 05:14 Monocytes % (Manual) 0 % (0.0-7.3) 04/04/19 05:14 Eosinophils % (Manual) 0 % (0.0-4.3) 04/04/19 05:14 Basophils % (Manual) 0 % (0.0-1.8) 04/04/19 05:14 Metamyelocytes % 0 % 04/04/19 05:14 Myelocytes % 0 % 04/04/19 05:14 Promyelocytes % 0 % 04/04/19 05:14 Blast Cells % 0 % 04/04/19 05:14 Nucleated RBC % Not Reportable 04/04/19 05:14 Seg Neutrophils # Man 12.3 K/mm3 (1.8-7.7) H 04/04/19 05:14 Band Neutrophils # 2.2 K/mm3 04/04/19 05:14 Lymphocytes # (Manual) 0.0 K/mm3 (1.2-5.4) L 04/04/19 05:14 Abs React Lymphs (Man) 0.1 K/mm3 04/04/19 05:14 Monocytes # (Manual) 0.0 K/mm3 (0.0-0.8) 04/04/19 05:14 Eosinophils # (Manual) 0.0 K/mm3 (0.0-0.4) 04/04/19 05:14 Basophils # (Manual) 0.0 K/mm3 (0.0-0.1) 04/04/19 05:14 Metamyelocytes # 0.0 K/mm3 04/04/19 05:14 Myelocytes # 0.0 K/mm3 04/04/19 05:14 Promyelocytes # 0.0 K/mm3 04/04/19 05:14 Blast Cells # 0.0 K/mm3 04/04/19 05:14 WBC Morphology Not Reportable 04/04/19 05:14 Hypersegmented Neuts Not Reportable 04/04/19 05:14 Hyposegmented Neuts Not Reportable 04/04/19 05:14 Hypogranular Neuts Not Reportable 04/04/19 05:14 Smudge Cells Not Reportable 04/04/19 05:14 Toxic Granulation Not Reportable 04/04/19 05:14 Toxic Vacuolation Not Reportable 04/04/19 05:14 Dohle Bodies Not Reportable 04/04/19 05:14 Pelger-Huet Anomaly Not Reportable 04/04/19 05:14 Cheikh Rods Not Reportable 04/04/19 05:14 Platelet Estimate Consistent w auto 04/04/19 05:14 Clumped Platelets Not Reportable 04/04/19 05:14 Plt Clumps, EDTA Not Reportable 04/04/19 05:14 Large Platelets Few 04/04/19 05:14 Giant Platelets Not Reportable 04/04/19 05:14 Platelet Satelliting Not Reportable 04/04/19 05:14 Plt Morphology Comment Not Reportable 04/04/19 05:14 RBC Morphology Normal 04/04/19 05:14 Dimorphic RBCs Not Reportable 04/04/19 05:14 Polychromasia Not Reportable 04/04/19 05:14 Hypochromasia Not Reportable 04/04/19 05:14 Poikilocytosis Not Reportable 04/04/19 05:14 Anisocytosis Not Reportable 04/04/19 05:14 Microcytosis Not Reportable 04/04/19 05:14 Macrocytosis Not Reportable 04/04/19 05:14 Spherocytes Not Reportable 04/04/19 05:14 Pappenheimer Bodies Not Reportable 04/04/19 05:14 Sickle Cells Not Reportable 04/04/19 05:14 Target Cells Not Reportable 04/04/19 05:14 Tear Drop Cells Not Reportable 04/04/19 05:14 Ovalocytes Not Reportable 04/04/19 05:14 Stomatocytes Rare 04/03/19 16:51 Helmet Cells Not Reportable 04/04/19 05:14 [place] Bodies Not Reportable 04/04/19 05:14 [place] Rings Not Reportable 04/04/19 05:14 [place] Cells Not Reportable 04/04/19 05:14 Bite Cells Not Reportable 04/04/19 05:14 Crenated Cell Not Reportable 04/04/19 05:14 Elliptocytes Not Reportable 04/04/19 05:14 Acanthocytes (Spur) Not Reportable 04/04/19 05:14 Rouleaux Not Reportable 04/04/19 05:14 Hemoglobin C Crystals Not Reportable 04/04/19 05:14 Schistocytes Not Reportable 04/04/19 05:14 Malaria parasites Not Reportable 04/04/19 05:14 Robert Bodies Not Reportable 04/04/19 05:14 Hem Pathologist Commnt No 04/04/19 05:14 PT 14.7 Sec. (12.2-14.9) 04/03/19 16:51 INR 1.13 (0.87-1.13) 04/03/19 16:51 D-Dimer 1629.49 ng/mlDDU (0-234) H 04/03/19 16:51 ABG pH 7.338 pH Units (7.350-7.450) L 04/04/19 Unknown ABG pCO2 34.4 mm Hg 04/04/19 Unknown ABG pO2 55.2 mm Hg (80.0-90.0) L 04/04/19 Unknown ABG HCO3 18.0 mmol/L (20.0-26.0) L 04/04/19 Unknown ABG O2 Saturation 88.3 % (95.0-99.0) L 04/04/19 Unknown ABG O2 Content 13.5 (0.0-44) 04/04/19 Unknown ABG Base Excess -7.0 mmol/L (-2.0-3.0) L 04/04/19 Unknown ABG Hemoglobin 11.1 gm/dl (14.0-18.0) L 04/04/19 Unknown ABG Carboxyhemoglobin 1.5 % (0.0-5.0) 04/04/19 Unknown ABG Methemoglobin 0.5 % (0.0-1.5) 04/04/19 Unknown VBG pH 7.383 (7.320-7.420) 04/03/19 16:51 Oxyhemoglobin 86.5 % (95.0-99.0) L 04/04/19 Unknown FiO2 36 % 04/04/19 Unknown Sodium 140 mmol/L (137-145) 04/05/19 04:29 Potassium 4.0 mmol/L (3.6-5.0) 04/05/19 04:29 Chloride 104.7 mmol/L (98-107) 04/05/19 04:29 Carbon Dioxide 21 mmol/L (22-30) L 04/05/19 04:29 Anion Gap 18 mmol/L 04/05/19 04:29 BUN 17 mg/dL (9-20) 04/05/19 04:29 Creatinine 1.0 mg/dL (0.8-1.5) 04/05/19 04:29 Estimated GFR > 60 ml/min 04/05/19 04:29 BUN/Creatinine Ratio 17 % 04/05/19 04:29 Glucose 158 mg/dL (75-100) H 04/05/19 04:29 POC Glucose 160 (70-105) H 04/04/19 22:24 Hemoglobin A1c 6.0 % (4-6) 04/03/19 16:51 Lactic Acid 2.30 mmol/L (0.7-2.0) H* 04/05/19 07:39 Calcium 8.9 mg/dL (8.4-10.2) 04/05/19 04:29 Total Bilirubin 0.20 mg/dL (0.1-1.2) 04/04/19 05:14 AST 25 units/L (5-40) 04/04/19 05:14 ALT 19 units/L (7-56) 04/04/19 05:14 Alkaline Phosphatase 60 units/L (35-129) 04/04/19 05:14 Troponin T 0.015 ng/mL (0.00-0.029) 04/03/19 16:57 NT-Pro-B Natriuret Pep 269.7 pg/mL (0-900) 04/03/19 16:57 Total Protein 6.9 g/dL (6.3-8.2) 04/04/19 05:14 Albumin 3.0 g/dL (3.9-5) L 04/04/19 05:14 Albumin/Globulin Ratio 0.8 % 04/04/19 05:14 Urine Color Alexus (Yellow) 04/03/19 15:14 Urine Turbidity Cloudy (Clear) 04/03/19 15:14 Urine pH 5.0 (5.0-7.0) 04/03/19 15:14 Ur Specific [place] 1.019 (1.003-1.030) 04/03/19 15:14 Urine Protein 30 mg/dl mg/dL (Negative) 04/03/19 15:14 Urine Glucose (UA) Neg mg/dL (Negative) 04/03/19 15:14 Urine Ketones Tr mg/dL (Negative) 04/03/19 15:14 Urine Blood Sm (Negative) 04/03/19 15:14 Urine Nitrite Neg (Negative) 04/03/19 15:14 Urine Bilirubin Neg (Negative) 04/03/19 15:14 Urine Urobilinogen 4.0 mg/dL (<2.0) 04/03/19 15:14 Ur Leukocyte Esterase Neg (Negative) 04/03/19 15:14 Urine WBC (Auto) 14.0 /HPF (0.0-6.0) H 04/03/19 15:14 Urine RBC (Auto) 8.0 /HPF (0.0-6.0) 04/03/19 15:14 Urine Bacteria (Auto) 2+ /HPF (Negative) 04/03/19 15:14 Urine Mucus Few /HPF 04/03/19 15:14 Influenza A (Rapid) Negative (Negative) 04/04/19 Unknown Influenza B (Rapid) Negative (Negative) 04/04/19 Unknown Active Medications - Current Medications Current Medications: Generic Name Dose Route Start Last Admin Trade Name Freq PRN Reason Stop Dose Admin Acetaminophen 650 mg 04/03/19 21:42 Tylenol PO Q6H PRN Pain, Mild (1-3) Albuterol 2.5 mg 04/03/19 22:05 04/04/19 01:37 Proventil IH 2.5 mg Q3HRT PRN Administration Wheezing/ SOB Albuterol/Ipratropium 1 ampul 04/04/19 08:00 04/05/19 07:39 Duoneb *Not For Prn Use* IH 1 ampul QIDRT ETHAN Administration Arformoterol Tartrate 15 mcg 04/04/19 20:00 04/05/19 07:39 Brovana Nebu IH 15 mcg Q12HRT ETHAN Administration Aspirin 81 mg 04/03/19 22:00 04/04/19 09:44 Baby Aspirin PO 81 mg DAILY ETHAN Administration Benzonatate 100 mg 04/04/19 14:00 04/04/19 23:20 Tessalon Perles PO 04/06/19 13:59 Not Given QID ETHAN Budesonide 0.5 mg 04/04/19 13:15 04/05/19 07:39 Pulmicort IH 0.5 mg Q12HRT ETHAN Administration Cetirizine HCl 10 mg 04/04/19 10:00 04/04/19 09:44 Cetirizine PO 10 mg DAILY ETHAN Administration Dextrose 50 ml 04/05/19 09:50 D50w (25gm) Syringe IV Q30MIN PRN Hypoglycemia Protocol Diclofenac Sodium 1 applic 04/03/19 22:00 04/04/19 23:18 Diclofenac 1% TP 1 applic BID ETHAN Administration Docusate Sodium 100 mg 04/03/19 22:00 04/04/19 23:18 Colace PO Not Given Q12HR ETHAN Ergocalciferol 50,000 unit 04/09/19 10:00 Vitamin D2 PO We ETHAN Heparin Sodium (Porcine) 5,000 unit 04/03/19 22:00 04/04/19 23:16 Heparin SUB-Q 5,000 unit Q12HR ETHAN Administration Hydrocodone Bit/Homatropine Methylb 10 ml 04/04/19 12:49 04/04/19 13:01 Hydromet PO 10 ml Q6H PRN Administration Cough Hydromorphone HCl 0.5 mg 04/03/19 21:44 04/03/19 22:39 Dilaudid IV 0.5 mg Q3H PRN Administration Pain , Severe (7-10) Cefepime HCl 2 gm in 100 mls @ 200 mls/hr 04/04/19 10:00 04/04/19 22:59 Cefepime/Ns 2 Gm/100 Ml IV 200 mls/hr Q12HR ETHAN Administration Protocol Linezolid 600 mg in 300 mls @ 300 mls/hr 04/04/19 22:00 04/04/19 23:05 Zyvox 600mg/300ml IV 300 mls/hr Q12HR ETHAN Administration Protocol Dextrose 1,000 mls @ 45 mls/hr 04/05/19 10:00 D5w IV DIRECT ETHAN Dextrose/Sodium Chloride 1,000 mls @ 42 mls/hr 04/05/19 10:00 D5ns IV DIRECT ETHAN Insulin Human Lispro 0 unit 04/05/19 12:00 Humalog SUB-Q Q6HR ETHAN Protocol Methylprednisolone Sodium Succinate 40 mg 04/03/19 22:00 04/05/19 06:18 Solu-Medrol IV 40 mg Q8HR ETHAN Administration Metoprolol Succinate 25 mg 04/03/19 22:00 04/04/19 09:43 Metoprolol Xl PO 25 mg DAILY ETHAN Administration Multivitamins/Minerals 1 each 04/04/19 10:00 04/04/19 09:44 Theragran-M Tab PO 1 each QDAY ETHAN Administration Ondansetron HCl 4 mg 04/03/19 21:44 Zofran IV Q8H PRN Nausea And Vomiting Oseltamivir Phosphate 75 mg 04/04/19 22:00 04/04/19 23:20 Tamiflu PO 04/09/19 10:01 Not Given BID ETHAN Oxycodone/Acetaminophen 1 tab 04/03/19 21:44 Percocet 5/325 PO Q6H PRN Pain, Moderate (4-6) Potassium Chloride 20 meq 04/04/19 10:00 04/04/19 09:44 Potassium Chloride PO 20 meq QDAY ETHAN Administration Pravastatin Sodium 40 mg 04/03/19 22:00 04/04/19 23:18 Pravachol PO Not Given QHS ETHAN Sodium Chloride 10 ml 04/03/19 22:00 04/04/19 23:02 Sodium Chloride Flush Syringe 10 Ml IV 10 ml BID ETHAN Administration Sodium Chloride 10 ml 04/03/19 21:44 Sodium Chloride Flush Syringe 10 Ml IV PRN PRN LINE FLUSH Nutrition/Malnutrition Assess - Dietary Evaluation Nutrition/Malnutrition Findings: Nutrition Notes Start: 04/04/19 09:28 Freq: Status: Active Protocol: Document 04/04/19 09:29 CC (Rec: 04/04/19 09:55 CC [id number]) Co-Sign 04/04/19 09:29 LP Nutrition Notes Need for Assessment 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 Pt reported he did not have much of an appetite this morning. Observerd 25% of breakfast tray consumed. Pt had an Ensure on tray and noted most of this to be consumed with pt still working on drinking it. Pt reported he likes Ensures, A1c at 6 will continue with Ensure unless BG is consistently elevated. Pt reported he ate over 50% of dinner 04/03. Pt reported he has not had any unintentional wt loss and reported his UBW to be 147lbs. Observed pt with mild muscle wasting at clavicle. 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 No Is Patient Ambulatory and/or Out of Bed No REE-([place]-confined to bed) [phone] Calculation Used for Recommendations [place] Additional Notes Protein: 98-122g/day (1.2-1.5g /kg) Fluid: 1ml/kcal Nutrition Intervention Change Diet Order: cardiac/ consistent CHO Add Supplement/Snack (indicate name/kcal Ensure once daily /protein ) Provides kCal: 350 Provides Protein (gm) 20 Goal #1 Meet at least 75% of energy and protein needs via PO and ONS Anticipated Discharge Needs: cardiac/ consistent CHO Follow-Up By: 04/08/19 Additional Comments F/U for PO and ONS intakes
[2019-04-05] MEDS: CETIRIZINE 10 MG TAB PO SCH (10:48)
[2019-04-05] MEDS: DOCUSATE SODIUM 100 MG CAP PO SCH ×2 (10:53→22:43)
[2019-04-05] MEDS: METOPROLOL SUCCINATE XL 25 MG TAB PO SCH (10:54)
[2019-04-05] MEDS: POTASSIUM CHLORIDE 20 MEQ PACKET PO SCH (10:54)
[2019-04-05] MEDS: BENZONATATE 100 MG CAP PO SCH ×3 (10:55→22:43)
[2019-04-05] MEDS: MULTIVITAMINS,THER W-MINERALS TAB PO SCH (10:55)
[2019-04-05] MEDS: OSELTAMIVIR 75 MG CAP PO SCH ×2 (10:55→22:43)
[2019-04-05] MEDS: ASPIRIN 81 MG TAB CHEW PO SCH (11:32)
--- NOTE | 2019-04-05 13:43 | Progress Note ---
Assessment and Plan Patient resting on BIPAP 15/9, rate 30, FIO2 65%. O2 saturation running 97%. Patient still has some increased work of breathing. Patient afebrile. Has mild leukocytosis. Patients chest xray and CT of chest reported diffuse bilateral pulmonary infiltrates. Patient is on cefepime and Zyvox. Patients influenza A & B screen is negative. Patients condition is critical Talk to the patients family and explained patients respiratory status. If patients respiratory status goes down, patient may need intubation. Repeating chest xray and ABGs tomorrow. I spent critical care time 45 minutes on this patient, review the chart and lab results, chest ray and examining the patient, talk to the nursing staff and respiratory therapy and work out plan of treatment. - Patient Problems (1) Acute respiratory failure with hypoxia Current Visit: Yes Status: Acute Plan to address problem: BIPAP 15/9, rate 30, FIO2 65%. Albuterol/atrovent aerosol treatments q 6 hours. Patient is on cepepime and Zyvox. Continue I/V solumedrol. Continue S/C Heparin. Recommend GI prophylaxis. (2) Bilateral pneumonia Current Visit: Yes Status: Acute Qualifiers: Pneumonia type: due to unspecified organism Lung location: unspecified part of lung Qualified Code(s): J18.9 - Pneumonia, unspecified organism Plan to address problem: Patient is on cefepime and Zyvox. (3) COPD with acute exacerbation Current Visit: Yes Status: Acute Plan to address problem: BIPAP 15/9, rate 30, FIO2 65%. Albuterol/atrovent aerosol treatments q 6 hours. Patient is on cepepime and Zyvox. Continue I/V solumedrol. Continue S/C Heparin. Recommend GI prophylaxis. (4) Sepsis Current Visit: Yes Status: Acute Qualifiers: Sepsis type: sepsis due to unspecified organism Sepsis acute organ dysfunction status: unspecified Qualified Code(s): A41.9 - Sepsis, unspecified organism Plan to address problem: Patient is on cefepime and Zyvox. Lactic acid level improving 2.6 to day. 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 Subjective Date of service: 04/05/19 Interval history: Patient resting on BIPAP 15/9, rate 30, FIO2 65%. O2 saturation running 97%. Patient still has some increased work of breathing. Patient afebrile. Has mild leukocytosis. Patients chest xray and CT of chest reported diffuse bilateral pulmonary infiltrates. Patient is on cefepime and Zyvox. Patients influenza A & B screen is negative. Objective Vital Signs - 12hr 04/05/19 04/05/19 04/05/19 01:41 01:51 02:00 Temperature Pulse Rate 103 H 97 H 94 H Pulse Rate [ Bilateral Throughout] Pulse Rate [ From Monitor] Respiratory 25 H 35 H 30 H Rate Respiratory Rate [Bilateral Throughout] Blood Pressure 126/64 126/64 124/66 O2 Sat by Pulse 91 94 94 Oximetry 04/05/19 04/05/19 04/05/19 02:11 02:21 02:31 Temperature Pulse Rate 91 H 89 104 H Pulse Rate [ Bilateral Throughout] Pulse Rate [ From Monitor] Respiratory 33 H 34 H 19 Rate Respiratory Rate [Bilateral Throughout] Blood Pressure 124/66 124/66 126/64 O2 Sat by Pulse 93 94 87 Oximetry 04/05/19 04/05/19 04/05/19 02:41 02:51 03:00 Temperature Pulse Rate 90 101 H 92 H Pulse Rate [ Bilateral Throughout] Pulse Rate [ From Monitor] Respiratory 37 H 31 H 39 H Rate Respiratory Rate [Bilateral Throughout] Blood Pressure 126/64 126/64 132/70 O2 Sat by Pulse 94 92 93 Oximetry 04/05/19 04/05/19 04/05/19 03:11 03:14 03:21 Temperature Pulse Rate 97 H 97 H 93 H Pulse Rate [ Bilateral Throughout] Pulse Rate [ From Monitor] Respiratory 35 H 35 H 37 H Rate Respiratory Rate [Bilateral Throughout] Blood Pressure 132/70 132/70 132/70 O2 Sat by Pulse 97 96 92 Oximetry 04/05/19 04/05/19 04/05/19 03:31 03:40 03:51 Temperature Pulse Rate 109 H 93 H 93 H Pulse Rate [ Bilateral Throughout] Pulse Rate [ From Monitor] Respiratory 35 H 34 H 32 H Rate Respiratory Rate [Bilateral Throughout] Blood Pressure 132/70 132/70 132/70 O2 Sat by Pulse 82 L 96 94 Oximetry 04/05/19 04/05/19 04/05/19 04:00 04:11 04:21 Temperature 97.9 F Pulse Rate 91 H 93 H 93 H Pulse Rate [ Bilateral Throughout] Pulse Rate [ 91 H From Monitor] Respiratory 29 H 23 35 H Rate Respiratory Rate [Bilateral Throughout] Blood Pressure 132/69 132/69 132/69 O2 Sat by Pulse 91 93 95 Oximetry 04/05/19 04/05/19 04/05/19 04:31 04:41 04:50 Temperature Pulse Rate 100 H 103 H 95 H Pulse Rate [ Bilateral Throughout] Pulse Rate [ From Monitor] Respiratory 19 26 H 36 H Rate Respiratory Rate [Bilateral Throughout] Blood Pressure 132/69 132/69 132/69 O2 Sat by Pulse 91 81 L 93 Oximetry 04/05/19 04/05/19 04/05/19 05:00 05:11 05:21 Temperature Pulse Rate 91 H 98 H 90 Pulse Rate [ Bilateral Throughout] Pulse Rate [ From Monitor] Respiratory 31 H 30 H 35 H Rate Respiratory Rate [Bilateral Throughout] Blood Pressure 136/73 136/73 136/73 O2 Sat by Pulse 90 98 100 Oximetry 04/05/19 04/05/19 04/05/19 05:31 05:41 05:51 Temperature Pulse Rate 92 H 92 H 89 Pulse Rate [ Bilateral Throughout] Pulse Rate [ From Monitor] Respiratory 34 H 30 H 32 H Rate Respiratory Rate [Bilateral Throughout] Blood Pressure 132/69 132/69 132/69 O2 Sat by Pulse 100 100 100 Oximetry 04/05/19 04/05/19 04/05/19 06:00 06:11 06:21 Temperature Pulse Rate 89 103 H 92 H Pulse Rate [ Bilateral Throughout] Pulse Rate [ From Monitor] Respiratory 31 H 25 H 31 H Rate Respiratory Rate [Bilateral Throughout] Blood Pressure 135/72 135/72 135/72 O2 Sat by Pulse 98 75 L 97 Oximetry 04/05/19 04/05/19 04/05/19 06:31 06:41 06:51 Temperature Pulse Rate 94 H 91 H 106 H Pulse Rate [ Bilateral Throughout] Pulse Rate [ From Monitor] Respiratory 33 H 31 H 26 H Rate Respiratory Rate [Bilateral Throughout] Blood Pressure 135/72 135/72 135/72 O2 Sat by Pulse 94 89 81 L Oximetry 04/05/19 04/05/19 04/05/19 07:00 07:11 07:21 Temperature Pulse Rate 93 H 93 H 92 H Pulse Rate [ Bilateral Throughout] Pulse Rate [ From Monitor] Respiratory 21 26 H 30 H Rate Respiratory Rate [Bilateral Throughout] Blood Pressure 138/69 138/69 138/69 O2 Sat by Pulse 93 92 90 Oximetry 04/05/19 04/05/19 04/05/19 07:31 07:39 07:41 Temperature Pulse Rate 111 H 104 H 112 H Pulse Rate [ 102 H Bilateral Throughout] Pulse Rate [ From Monitor] Respiratory 26 H 35 H 26 H Rate Respiratory 35 H Rate [Bilateral Throughout] Blood Pressure 138/69 138/69 138/69 O2 Sat by Pulse 81 L 94 75 L Oximetry 04/05/19 04/05/19 04/05/19 07:51 08:00 12:17 Temperature 97.8 F Pulse Rate 105 H 118 H Pulse Rate [ 115 H Bilateral Throughout] Pulse Rate [ From Monitor] Respiratory 34 H 38 H Rate Respiratory 29 H Rate [Bilateral Throughout] Blood Pressure 138/69 O2 Sat by Pulse 92 96 Oximetry Constitutional: lethargic, appears uncomfortable Eyes: non-icteric ENT: oropharynx moist Neck: supple Ascultation: Bilateral: rhonchi Cardiovascular: other (Tachycardia.) Gastrointestinal: normoactive bowel sounds, soft, non-tender Integumentary: normal Extremities: no cyanosis, no edema Neurologic: unable to assess Psychiatric: other (Unable to assess due to mental status.) CBC and BMP: 04/05/19 04:29 04/05/19 04:29 ABG, PT/INR, D-dimer: ABG ABG pH 7.338 pH Units (7.350-7.450) L 04/04/19 Unknown ABG pCO2 34.4 mm Hg 04/04/19 Unknown ABG pO2 55.2 mm Hg (80.0-90.0) L 04/04/19 Unknown ABG O2 Saturation 88.3 % (95.0-99.0) L 04/04/19 Unknown PT/INR, D-dimer PT 14.7 Sec. (12.2-14.9) 04/03/19 16:51 INR 1.13 (0.87-1.13) 04/03/19 16:51 D-Dimer 1629.49 ng/mlDDU (0-234) H 04/03/19 16:51 Abnormal lab findings: Abnormal Labs 04/03/19 04/03/19 04/03/19 15:14 16:51 16:51 WBC Hgb Hct Plt Count Seg Neuts % (Manual) 82.0 H Lymphocytes % (Manual) 9.0 L Seg Neutrophils # Man 8.9 H Lymphocytes # (Manual) 1.0 L D-Dimer 1629.49 H ABG pH ABG pO2 ABG HCO3 ABG O2 Saturation ABG Base Excess ABG Hemoglobin Oxyhemoglobin Carbon Dioxide Glucose POC Glucose Lactic Acid Albumin Urine WBC (Auto) 14.0 H 04/03/19 04/03/19 04/03/19 16:51 16:51 18:07 WBC Hgb Hct Plt Count Seg Neuts % (Manual) Lymphocytes % (Manual) Seg Neutrophils # Man Lymphocytes # (Manual) D-Dimer ABG pH ABG pO2 ABG HCO3 ABG O2 Saturation ABG Base Excess ABG Hemoglobin Oxyhemoglobin Carbon Dioxide 20 L Glucose 132 H POC Glucose Lactic Acid 3.20 H* 3.00 H* Albumin 3.6 L Urine WBC (Auto) 04/03/19 04/03/19 04/04/19 19:39 20:35 05:14 WBC Hgb Hct Plt Count Seg Neuts % (Manual) Lymphocytes % (Manual) Seg Neutrophils # Man Lymphocytes # (Manual) D-Dimer ABG pH ABG pO2 ABG HCO3 ABG O2 Saturation ABG Base Excess ABG Hemoglobin Oxyhemoglobin Carbon Dioxide Glucose POC Glucose Lactic Acid 3.30 H* 3.80 H* 4.80 H* Albumin Urine WBC (Auto) 04/04/19 04/04/19 04/04/19 05:14 05:14 07:06 WBC 14.7 H Hgb 11.1 L Hct 33.9 L D Plt Count 131 L Seg Neuts % (Manual) 84.0 H Lymphocytes % (Manual) 0 L Seg Neutrophils # Man 12.3 H Lymphocytes # (Manual) 0.0 L D-Dimer ABG pH ABG pO2 ABG HCO3 ABG O2 Saturation ABG Base Excess ABG Hemoglobin Oxyhemoglobin Carbon Dioxide 17 L Glucose 147 H POC Glucose Lactic Acid 5.10 H* Albumin 3.0 L Urine WBC (Auto) 04/04/19 04/04/19 04/04/19 07:22 08:01 11:24 WBC Hgb Hct Plt Count Seg Neuts % (Manual) Lymphocytes % (Manual) Seg Neutrophils # Man Lymphocytes # (Manual) D-Dimer ABG pH ABG pO2 ABG HCO3 ABG O2 Saturation ABG Base Excess ABG Hemoglobin Oxyhemoglobin Carbon Dioxide Glucose POC Glucose 132 H Lactic Acid 5.00 H* 7.60 H* Albumin Urine WBC (Auto) 04/04/19 04/04/19 04/04/19 11:51 13:40 13:44 WBC Hgb Hct Plt Count Seg Neuts % (Manual) Lymphocytes % (Manual) Seg Neutrophils # Man Lymphocytes # (Manual) D-Dimer ABG pH 7.327 L ABG pO2 65.3 L ABG HCO3 18.2 L ABG O2 Saturation 92.8 L ABG Base Excess -7.1 L ABG Hemoglobin 11.6 L Oxyhemoglobin 91.0 L Carbon Dioxide Glucose POC Glucose 168 H Lactic Acid 6.20 H* Albumin Urine WBC (Auto) 04/04/19 04/04/19 04/04/19 14:49 15:54 19:50 WBC Hgb Hct Plt Count Seg Neuts % (Manual) Lymphocytes % (Manual) Seg Neutrophils # Man Lymphocytes # (Manual) D-Dimer ABG pH ABG pO2 ABG HCO3 ABG O2 Saturation ABG Base Excess ABG Hemoglobin Oxyhemoglobin Carbon Dioxide Glucose POC Glucose Lactic Acid 4.70 H* 3.70 H* 3.50 H* Albumin Urine WBC (Auto) 04/04/19 04/04/19 04/04/19 21:53 22:24 Unknown WBC Hgb Hct Plt Count Seg Neuts % (Manual) Lymphocytes % (Manual) Seg Neutrophils # Man Lymphocytes # (Manual) D-Dimer ABG pH 7.338 L ABG pO2 55.2 L ABG HCO3 18.0 L ABG O2 Saturation 88.3 L ABG Base Excess -7.0 L ABG Hemoglobin 11.1 L Oxyhemoglobin 86.5 L Carbon Dioxide Glucose POC Glucose 160 H Lactic Acid 3.70 H* Albumin Urine WBC (Auto) 04/05/19 04/05/19 04/05/19 04:29 04:29 07:39 WBC 12.6 H Hgb 11.6 L Hct 35.3 L Plt Count 133 L Seg Neuts % (Manual) Lymphocytes % (Manual) Seg Neutrophils # Man Lymphocytes # (Manual) D-Dimer ABG pH ABG pO2 ABG HCO3 ABG O2 Saturation ABG Base Excess ABG Hemoglobin Oxyhemoglobin Carbon Dioxide 21 L Glucose 158 H POC Glucose Lactic Acid 2.30 H* Albumin Urine WBC (Auto) 04/05/19 04/05/19 09:59 10:15 WBC Hgb Hct Plt Count Seg Neuts % (Manual) Lymphocytes % (Manual) Seg Neutrophils # Man Lymphocytes # (Manual) D-Dimer ABG pH ABG pO2 ABG HCO3 ABG O2 Saturation ABG Base Excess ABG Hemoglobin Oxyhemoglobin Carbon Dioxide Glucose POC Glucose 152 H Lactic Acid 2.60 H* Albumin Urine WBC (Auto) Chest x-ray: report reviewed, image reviewed CT scan - chest: report reviewed, image reviewed Additional Studies: Chest xray 04/04/19 CHEST 1 VIEW 04/04/2019 12:17 PM INDICATION / CLINICAL INFORMATION: change in status. COMPARISON: 04/03/2019 FINDINGS: SUPPORT DEVICES: None. HEART / MEDIASTINUM: No significant abnormality. LUNGS / PLEURA: Worsening pattern bilateral pulmonary opacities. No pneumothorax. ADDITIONAL FINDINGS: No significant additional findings. IMPRESSION: 1. Worsening scattered bilateral pulmonary opacities. CTA of chest 04/03/19 CT angiography of the chest with 2-D reconstructions INDICATION: Shortness of breath and elevated d-dimer Thin section axial images were obtained as well as 2-D reformatted MIP images in all 3 planes COMPARISON: Chest CT 01/17/2018 FINDINGS: There is no hilar or mediastinal adenopathy. No pleural or pericardial effusion. Lung windows show chronic interstitial lung disease but there is worsening density and lung consolidation and several areas especially involving the right upper lobe. Worsening density is seen in the left upper lobe as well. Dense left lower lobe consolidation may be chronic. There is no thoracic aortic aneurysm or dissection present. Routine axial images as well as 2-D reconstr uctions through the pulmonary arteries show no evidence of emboli. Images are degraded by motion. Bilateral renal calculi are incidentally noted. IMPRESSION: Worsening lung consolidation with chronic interstitial lung disease but no definite PTE.
[2019-04-05] MEDS: INSULIN LISPRO 100 UNIT/ML SUB-Q SCH (14:14)
[2019-04-05] MEDS: DEXTROSE 5% IN WATER 1,000 ML IV SCH (16:35)
[2019-04-05] MEDS: HYDROmorphone 1 MG/1 ML INJ IV PRN (22:16)
[2019-04-05] MEDS: DICLOFENAC SODIUM 1% TOPICAL GEL 100 GM TP SCH (22:32)
[2019-04-05] MEDS: PRAVASTATIN 40 MG TAB PO SCH (22:43)
[2019-04-06] MEDS: INSULIN LISPRO 100 UNIT/ML SUB-Q SCH ×5 (01:30→18:55)
[2019-04-06 06:00] LABS: Hemoglobin 11.6 gm/dl (11.8-15.2); Mean Corpuscular HGB Conc 33 % (32-34); Mean Corpuscular Volume 91 fl (84-94); Platelet Count 135 K/mm3 (140-440); Red Blood Count 3.85 M/mm3 (3.65-5.03); Red Cell Distribution Width 14.9 % (13.2-15.2)
[2019-04-06 06:11] LABS: BUN/Creatinine Ratio 20; Blood Urea Nitrogen 18 mg/dL (9-20); Calcium 9.1 mg/dL (8.4-10.2); Hemolysis Index 8
[2019-04-06] MEDS: methylPREDNISolone Sod Succinate 40 MG/1 ML INJ IV SCH ×3 (07:15→22:38)
[2019-04-06] MEDS: IPRATROPIUM/ALBUTEROL SULFATE 3 ML AMPUL.NEB IH SCH ×4 (08:07→19:58)
[2019-04-06] MEDS: BUDESONIDE 0.5 MG/2 ML NEBU IH SCH ×2 (08:07→19:58)
[2019-04-06] MEDS: ARFORMOTEROL 15 MCG/2 ML NEBU IH SCH ×2 (08:07→19:58)
[2019-04-06] MEDS: DICLOFENAC SODIUM 1% TOPICAL GEL 100 GM TP SCH ×3 (08:16→22:40)
[2019-04-06] MEDS: BENZONATATE 100 MG CAP PO SCH ×2 (08:16→10:28)
--- NOTE | 2019-04-06 08:56 | XRay Report ---
CHEST 1 VIEW, 04/06/2019 8:20 AM CLINICAL INFORMATION/INDICATION: Respiratory distress. Bilateral pulmonary opacities. COMPARISON: Chest radiograph, 04/04/2019 at 1217 FINDINGS: SUPPORT DEVICES: None. HEART: The cardiac silhouette remains within normal limits in size. LUNGS/PLEURA: Diffuse bilateral pulmonary opacities are again noted and overall have not significantl y changed compared to the previous study. No pneumothorax is identified. ADDITIONAL FINDINGS: No additional acute findings. IMPRESSION: 1. Stable appearance of diffuse bilateral pulmonary opacities. Signer Name: Joana Larkin MD Signed: 04/06/2019 8:52 AM Workstation Name: [id number]
--- NOTE | 2019-04-06 09:25 | Progress Note ---
Assessment and Plan Cultures: Blood cultures 04/02/2019 no growth so far. Urine culture 10,000-100,000 mixed Assessment: 84 years old male with history of hypertension, dementia, CVA, well-known to our ID service seen back in March 2018 due to necrotizing pneumonia/possible empyema from aspiration in Mar 2018, who was transferred to [facility] for [facility]ATS for empyema not amenable to CT-guided drainage, admitted on 04/03/2019 due to 2-day history of worsening shortness of breath, fever and AMS: #Severe sepsis: Improving, lactate improving, hypoxia and RADHA; source bilateral pneumonia. UA with only 14 white blood cells, negative leukocyte esterase, doubt UTI #Bilateral multifocal pneumonia: Likely hospital-acquired pneumonia versus influenza coinfection with bacterial pneumonia versus recurrent aspiration. Influenza antigen negative #Acute encephalopathy: Some improvement #RADHA: likely due to sepsis, better #Acute respiratory failure: Currently on BIPAP Recommendations: Follow-up sputum cultures-pending Follow-up influenza PCR-pending, do not stop droplet isolation until PCR is back and negative MRSA PCR-pending Continue cefepime 2 gm IV q 12 hour Continue linezolid 600 mg IV q 12 hours Continue Tamiflu 75 mg p.o. twice daily until influenza is rule out Droplet precautions until influenza is ruled out No clear evidence of pleural effusion on CT, consider chest US to eval Will follow. Dr. Blanco will be back on Sunday Donna Sullivan MD Infectious Diseases Mess [facility] M [phone] O [phone] Subjective Date of service: 04/06/19 Principal diagnosis: pneumonia Interval history: Slightly more alert, not following commands , on BiPAP T-max 99.7 Review of systems: Unable to obtain Objective - Exam Narrative Exam: General appearance: Alert in moderate resp distress with BiPAP debilitated Eyes: anicteric sclerae, moist conjunctivae; no lid-lag; PERRLA HENT: Atraumatic; oropharynx limited Lungs: luda crackles CV: RRR no murmur Abdomen: Soft, non-tender; no masses or hepatosplenomegaly Extremities: no edema, no cyanosis Skin: No rash. Psych: No agitation Neuro: Alert does not follow command - Constitutional Vitals: Vital Signs Temp Pulse Resp BP Pulse Ox 99.7 F H 102 H 37 H 139/78 98 03/01/20 08:00 04/06/19 08:07 04/06/19 08:07 04/06/19 08:07 04/06/19 08:07 Temperature -Last 24 Hours Temperature 99.7 F Temperature 98.6 F Temperature 98.1 F Temperature 98.6 F Temperature 98.0 F Temperature 97.6 F - Labs CBC & Chem 7: 04/06/19 04:06 04/06/19 04:06 Labs: Abnormal lab results 04/05/19 04/05/19 04/05/19 Range/Units 09:59 10:15 12:43 WBC (4.5-11.0) K/mm3 Hgb (11.8-15.2) gm/dl Hct (35.5-45.6) % Plt Count (140-440) K/mm3 Potassium (3.6-5.0) mmol/L Carbon Dioxide (22-30) mmol/L Glucose (75-100) mg/dL POC Glucose 152 H 218 H (70-105) Lactic Acid 2.60 H* (0.7-2.0) mmol/L 04/05/19 04/05/19 04/05/19 Range/Units 15:13 16:33 17:26 WBC (4.5-11.0) K/mm3 Hgb (11.8-15.2) gm/dl Hct (35.5-45.6) % Plt Count (140-440) K/mm3 Potassium (3.6-5.0) mmol/L Carbon Dioxide (22-30) mmol/L Glucose (75-100) mg/dL POC Glucose 128 H (70-105) Lactic Acid 3.40 H* 3.70 H* (0.7-2.0) mmol/L 04/05/19 04/06/19 04/06/19 Range/Units 19:06 00:13 04:06 WBC 11.5 H (4.5-11.0) K/mm3 Hgb 11.6 L (11.8-15.2) gm/dl Hct 35.0 L (35.5-45.6) % Plt Count 135 L (140-440) K/mm3 Potassium (3.6-5.0) mmol/L Carbon Dioxide (22-30) mmol/L Glucose (75-100) mg/dL POC Glucose 173 H (70-105) Lactic Acid 2.90 H* (0.7-2.0) mmol/L 04/06/19 04/06/19 Range/Units 04:06 05:52 WBC (4.5-11.0) K/mm3 Hgb (11.8-15.2) gm/dl Hct (35.5-45.6) % Plt Count (140-440) K/mm3 Potassium 3.4 L (3.6-5.0) mmol/L Carbon Dioxide 21 L (22-30) mmol/L Glucose 134 H (75-100) mg/dL POC Glucose 119 H (70-105) Lactic Acid (0.7-2.0) mmol/L
[2019-04-06 10:03] LABS: ABG Base Excess -1.2 mmol/L (-2.0-3.0); ABG HCO3 22.8 mmol/L (20.0-26.0); ABG Methemoglobin 0.6 % (0.0-1.5); ABG Oxygen Saturation 97.1 % (95.0-99.0); ABG PCO2 35.9 mm Hg; ABG PH 7.422 pH Units (7.350-7.450); ABG PO2 88.3 mm Hg (80.0-90.0)
[2019-04-06] MEDS: HEPARIN 5,000 UNIT/1 ML VIAL SUB-Q SCH ×2 (10:25→22:38)
[2019-04-06] MEDS: ASPIRIN 81 MG TAB CHEW PO SCH (10:26)
[2019-04-06] MEDS: METOPROLOL SUCCINATE XL 25 MG TAB PO SCH (10:27)
[2019-04-06] MEDS: LINEZOLID 600 MG/300 ML BAG IV SCH ×2 (10:27→22:38)
[2019-04-06] MEDS: CEFEPIME/NS 2 GM/100 ML 2 GM/100 ML BAG IV SCH ×2 (10:27→22:38)
[2019-04-06] MEDS: CETIRIZINE 10 MG TAB PO SCH (10:27)
[2019-04-06] MEDS: DOCUSATE SODIUM 100 MG CAP PO SCH ×2 (10:27→22:38)
[2019-04-06] MEDS: POTASSIUM CHLORIDE 20 MEQ PACKET PO SCH (10:28)
[2019-04-06] MEDS: OSELTAMIVIR 75 MG CAP PO SCH ×2 (10:28→22:38)
[2019-04-06] MEDS: MULTIVITAMINS,THER W-MINERALS TAB PO SCH (10:29)
--- NOTE | 2019-04-06 12:35 | Progress Note ---
Assessment and Plan Patient resting better. Sleeping on BIPAP at this time. Respiratory rate still on high side. Patient resting on BIPAP 15/10, rate 30, FIO2 65%. O2 saturation running 100%. Patient afebrile. Has mild leukocytosis. Patients chest xray and CT of chest reported diffuse bilateral pulmonary infiltrates. Patient is on cefepime and Zyvox. Patients influenza A & B screen is negative. Chest xray from to day reported again diffuse bilateral pulmonary infiltrates. ABG on BIPAP with above settings. ABG pH 7.422 pH Units (7.350-7.450) 04/06/19 09:45 ABG pCO2 35.9 mm Hg 04/06/19 09:45 ABG pO2 88.3 mm Hg (80.0-90.0) 04/06/19 09:45 ABG O2 Saturation 97.1 % (95.0-99.0) 04/06/19 09:45 Decreased FIO2 to 50%. O2 satuaration running 99%. I spent critical care time 45 minutes on this patient, review the chart and lab results, chest ray and examining the patient, talk to the nursing staff and respiratory therapy and work out plan of treatment. - Patient Problems (1) Acute respiratory failure with hypoxia Current Visit: Yes Status: Acute Plan to address problem: BIPAP 15/9, rate 30, FIO2 50%. Albuterol/atrovent aerosol treatments q 6 hours. Patient is on cepepime and Zyvox. Continue I/V solumedrol. Continue S/C Heparin. Recommend GI prophylaxis. (2) Bilateral pneumonia Current Visit: Yes Status: Acute Qualifiers: Pneumonia type: due to unspecified organism Lung location: unspecified part of lung Qualified Code(s): J18.9 - Pneumonia, unspecified organism Plan to address problem: Patient is on cefepime and Zyvox. (3) COPD with acute exacerbation Current Visit: Yes Status: Acute Plan to address problem: BIPAP 15/9, rate 30, FIO2 65%. Albuterol/atrovent aerosol treatments q 6 hours. Patient is on cepepime and Zyvox. Continue I/V solumedrol. Continue S/C Heparin. Recommend GI prophylaxis. (4) Sepsis Current Visit: Yes Status: Acute Qualifiers: Sepsis type: sepsis due to unspecified organism Sepsis acute organ dysfunction status: unspecified Qualified Code(s): A41.9 - Sepsis, unspecified organism Plan to address problem: Patient is on cefepime and Zyvox. Lactic acid level improving 2.9. 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 Subjective Date of service: 04/06/19 Principal diagnosis: pneumonia Interval history: Patient resting better. Sleeping on BIPAP at this time. Respiratory rate still on high side. Patient resting on BIPAP 15/10, rate 30, FIO2 65%. O2 saturation running 100%. Patient afebrile. Has mild leukocytosis. Patients chest xray and CT of chest reported diffuse bilateral pulmonary infiltrates. Patient is on cefepime and Zyvox. Patients influenza A & B screen is negative. Chest xray from to day reported again diffuse bilateral pulmonary infiltrates. ABG on BIPAP with above settings. ABG pH 7.422 pH Units (7.350-7.450) 04/06/19 09:45 ABG pCO2 35.9 mm Hg 04/06/19 09:45 ABG pO2 88.3 mm Hg (80.0-90.0) 04/06/19 09:45 ABG O2 Saturation 97.1 % (95.0-99.0) 04/06/19 09:45 Decreased FIO2 to 50%. O2 satuaration running 99%. Objective Vital Signs - 12hr 04/06/19 04/06/19 04/06/19 00:41 00:51 01:00 Temperature Pulse Rate 102 H 99 H 95 H Pulse Rate [ Bilateral Throughout] Pulse Rate [ From Monitor] Respiratory 31 H 49 H 32 H Rate Respiratory Rate [Bilateral Throughout] Blood Pressure 139/72 139/72 125/70 O2 Sat by Pulse 97 98 99 Oximetry 04/06/19 04/06/19 04/06/19 01:11 01:21 01:31 Temperature Pulse Rate 97 H 103 H 105 H Pulse Rate [ Bilateral Throughout] Pulse Rate [ From Monitor] Respiratory 51 H 29 H 25 H Rate Respiratory Rate [Bilateral Throughout] Blood Pressure 125/70 125/70 125/70 O2 Sat by Pulse 99 90 88 Oximetry 04/06/19 04/06/19 04/06/19 01:41 01:51 02:00 Temperature Pulse Rate 99 H 97 H 96 H Pulse Rate [ Bilateral Throughout] Pulse Rate [ From Monitor] Respiratory 32 H 31 H 32 H Rate Respiratory Rate [Bilateral Throughout] Blood Pressure 125/70 125/70 133/70 O2 Sat by Pulse 98 98 97 Oximetry 04/06/19 04/06/19 04/06/19 02:11 02:21 02:31 Temperature Pulse Rate 97 H 98 H 98 H Pulse Rate [ Bilateral Throughout] Pulse Rate [ From Monitor] Respiratory 32 H 31 H 32 H Rate Respiratory Rate [Bilateral Throughout] Blood Pressure 133/70 133/70 133/70 O2 Sat by Pulse 97 97 97 Oximetry 04/06/19 04/06/19 04/06/19 02:41 02:51 03:00 Temperature Pulse Rate 98 H 96 H 103 H Pulse Rate [ Bilateral Throughout] Pulse Rate [ From Monitor] Respiratory 34 H 32 H 20 Rate Respiratory Rate [Bilateral Throughout] Blood Pressure 133/70 133/70 152/77 O2 Sat by Pulse 97 96 84 Oximetry 04/06/19 04/06/19 04/06/19 03:11 03:21 03:31 Temperature Pulse Rate 92 H 93 H 94 H Pulse Rate [ Bilateral Throughout] Pulse Rate [ From Monitor] Respiratory 29 H 29 H 32 H Rate Respiratory Rate [Bilateral Throughout] Blood Pressure 152/77 152/77 152/77 O2 Sat by Pulse 98 97 98 Oximetry 04/06/19 04/06/19 04/06/19 03:41 03:51 04:00 Temperature 98.6 F Pulse Rate 93 H 92 H 104 H Pulse Rate [ Bilateral Throughout] Pulse Rate [ 96 H From Monitor] Respiratory 43 H 31 H 32 H Rate Respiratory Rate [Bilateral Throughout] Blood Pressure 152/77 152/77 140/89 O2 Sat by Pulse 97 97 97 Oximetry 04/06/19 04/06/19 04/06/19 04:11 04:21 04:31 Temperature Pulse Rate 98 H 96 H 108 H Pulse Rate [ Bilateral Throughout] Pulse Rate [ From Monitor] Respiratory 31 H 21 35 H Rate Respiratory Rate [Bilateral Throughout] Blood Pressure 140/89 140/89 140/89 O2 Sat by Pulse 97 97 85 Oximetry 04/06/19 04/06/19 04/06/19 04:41 04:45 04:51 Temperature Pulse Rate 96 H 107 H 98 H Pulse Rate [ Bilateral Throughout] Pulse Rate [ From Monitor] Respiratory 32 H 31 H 33 H Rate Respiratory Rate [Bilateral Throughout] Blood Pressure 140/89 140/89 140/89 O2 Sat by Pulse 96 95 98 Oximetry 04/06/19 04/06/19 04/06/19 05:00 05:11 05:21 Temperature Pulse Rate 96 H 95 H 95 H Pulse Rate [ Bilateral Throughout] Pulse Rate [ From Monitor] Respiratory 30 H 32 H 31 H Rate Respiratory Rate [Bilateral Throughout] Blood Pressure 137/71 137/71 137/71 O2 Sat by Pulse 98 98 98 Oximetry 04/06/19 04/06/19 04/06/19 05:31 05:41 05:51 Temperature Pulse Rate 94 H 94 H 97 H Pulse Rate [ Bilateral Throughout] Pulse Rate [ From Monitor] Respiratory 30 H 26 H 32 H Rate Respiratory Rate [Bilateral Throughout] Blood Pressure 137/71 137/71 137/71 O2 Sat by Pulse 97 97 99 Oximetry 04/06/19 04/06/19 04/06/19 06:00 06:11 06:21 Temperature Pulse Rate 97 H 103 H 98 H Pulse Rate [ Bilateral Throughout] Pulse Rate [ From Monitor] Respiratory 34 H 22 33 H Rate Respiratory Rate [Bilateral Throughout] Blood Pressure 138/77 138/77 138/77 O2 Sat by Pulse 98 91 97 Oximetry 04/06/19 04/06/19 04/06/19 06:31 06:41 06:51 Temperature Pulse Rate 102 H 96 H 108 H Pulse Rate [ Bilateral Throughout] Pulse Rate [ From Monitor] Respiratory 24 33 H 29 H Rate Respiratory Rate [Bilateral Throughout] Blood Pressure 138/77 138/77 138/77 O2 Sat by Pulse 91 98 87 Oximetry 04/06/19 04/06/19 04/06/19 07:00 08:00 08:07 Temperature 99.7 F H Pulse Rate 96 H 95 H Pulse Rate [ 102 H Bilateral Throughout] Pulse Rate [ From Monitor] Respiratory 32 H 33 H Rate Respiratory 37 H Rate [Bilateral Throughout] Blood Pressure 140/75 139/78 O2 Sat by Pulse 96 98 Oximetry 04/06/19 12:24 Temperature Pulse Rate 85 Pulse Rate [ 84 Bilateral Throughout] Pulse Rate [ From Monitor] Respiratory 33 H Rate Respiratory 30 H Rate [Bilateral Throughout] Blood Pressure 147/84 O2 Sat by Pulse 98 Oximetry Constitutional: lethargic, appears uncomfortable, other (ON BIPAP) Eyes: non-icteric ENT: oropharynx moist Neck: supple Ascultation: Bilateral: rhonchi Cardiovascular: other (Tachycardia.) Gastrointestinal: normoactive bowel sounds, soft, non-tender Integumentary: normal Extremities: no cyanosis, no edema Neurologic: unable to assess Psychiatric: other (Unable to assess due to mental status.) CBC and BMP: 04/06/19 04:06 04/06/19 04:06 ABG, PT/INR, D-dimer: ABG ABG pH 7.422 pH Units (7.350-7.450) 04/06/19 09:45 ABG pCO2 35.9 mm Hg 04/06/19 09:45 ABG pO2 88.3 mm Hg (80.0-90.0) 04/06/19 09:45 ABG O2 Saturation 97.1 % (95.0-99.0) 04/06/19 09:45 PT/INR, D-dimer PT 14.7 Sec. (12.2-14.9) 04/03/19 16:51 INR 1.13 (0.87-1.13) 04/03/19 16:51 D-Dimer 1629.49 ng/mlDDU (0-234) H 04/03/19 16:51 Abnormal lab findings: Abnormal Labs 04/03/19 04/03/19 04/03/19 15:14 16:51 16:51 WBC Hgb Hct Plt Count Seg Neuts % (Manual) 82.0 H Lymphocytes % (Manual) 9.0 L Seg Neutrophils # Man 8.9 H Lymphocytes # (Manual) 1.0 L D-Dimer 1629.49 H ABG pH ABG pO2 ABG HCO3 ABG O2 Saturation ABG Base Excess ABG Hemoglobin Oxyhemoglobin Potassium Carbon Dioxide Glucose POC Glucose Lactic Acid Albumin Urine WBC (Auto) 14.0 H 04/03/19 04/03/19 04/03/19 16:51 16:51 18:07 WBC Hgb Hct Plt Count Seg Neuts % (Manual) Lymphocytes % (Manual) Seg Neutrophils # Man Lymphocytes # (Manual) D-Dimer ABG pH ABG pO2 ABG HCO3 ABG O2 Saturation ABG Base Excess ABG Hemoglobin Oxyhemoglobin Potassium Carbon Dioxide 20 L Glucose 132 H POC Glucose Lactic Acid 3.20 H* 3.00 H* Albumin 3.6 L Urine WBC (Auto) 04/03/19 04/03/19 04/04/19 19:39 20:35 05:14 WBC Hgb Hct Plt Count Seg Neuts % (Manual) Lymphocytes % (Manual) Seg Neutrophils # Man Lymphocytes # (Manual) D-Dimer ABG pH ABG pO2 ABG HCO3 ABG O2 Saturation ABG Base Excess ABG Hemoglobin Oxyhemoglobin Potassium Carbon Dioxide Glucose POC Glucose Lactic Acid 3.30 H* 3.80 H* 4.80 H* Albumin Urine WBC (Auto) 04/04/19 04/04/19 04/04/19 05:14 05:14 07:06 WBC 14.7 H Hgb 11.1 L Hct 33.9 L D Plt Count 131 L Seg Neuts % (Manual) 84.0 H Lymphocytes % (Manual) 0 L Seg Neutrophils # Man 12.3 H Lymphocytes # (Manual) 0.0 L D-Dimer ABG pH ABG pO2 ABG HCO3 ABG O2 Saturation ABG Base Excess ABG Hemoglobin Oxyhemoglobin Potassium Carbon Dioxide 17 L Glucose 147 H POC Glucose Lactic Acid 5.10 H* Albumin 3.0 L Urine WBC (Auto) 04/04/19 04/04/19 04/04/19 07:22 08:01 11:24 WBC Hgb Hct Plt Count Seg Neuts % (Manual) Lymphocytes % (Manual) Seg Neutrophils # Man Lymphocytes # (Manual) D-Dimer ABG pH ABG pO2 ABG HCO3 ABG O2 Saturation ABG Base Excess ABG Hemoglobin Oxyhemoglobin Potassium Carbon Dioxide Glucose POC Glucose 132 H Lactic Acid 5.00 H* 7.60 H* Albumin Urine WBC (Auto) 04/04/19 04/04/19 04/04/19 11:51 13:40 13:44 WBC Hgb Hct Plt Count Seg Neuts % (Manual) Lymphocytes % (Manual) Seg Neutrophils # Man Lymphocytes # (Manual) D-Dimer ABG pH 7.327 L ABG pO2 65.3 L ABG HCO3 18.2 L ABG O2 Saturation 92.8 L ABG Base Excess -7.1 L ABG Hemoglobin 11.6 L Oxyhemoglobin 91.0 L Potassium Carbon Dioxide Glucose POC Glucose 168 H Lactic Acid 6.20 H* Albumin Urine WBC (Auto) 04/04/19 04/04/19 04/04/19 14:49 15:54 19:50 WBC Hgb Hct Plt Count Seg Neuts % (Manual) Lymphocytes % (Manual) Seg Neutrophils # Man Lymphocytes # (Manual) D-Dimer ABG pH ABG pO2 ABG HCO3 ABG O2 Saturation ABG Base Excess ABG Hemoglobin Oxyhemoglobin Potassium Carbon Dioxide Glucose POC Glucose Lactic Acid 4.70 H* 3.70 H* 3.50 H* Albumin Urine WBC (Auto) 04/04/19 04/04/19 04/04/19 21:53 22:24 Unknown WBC Hgb Hct Plt Count Seg Neuts % (Manual) Lymphocytes % (Manual) Seg Neutrophils # Man Lymphocytes # (Manual) D-Dimer ABG pH 7.338 L ABG pO2 55.2 L ABG HCO3 18.0 L ABG O2 Saturation 88.3 L ABG Base Excess -7.0 L ABG Hemoglobin 11.1 L Oxyhemoglobin 86.5 L Potassium Carbon Dioxide Glucose POC Glucose 160 H Lactic Acid 3.70 H* Albumin Urine WBC (Auto) 04/05/19 04/05/19 04/05/19 04:29 04:29 07:39 WBC 12.6 H Hgb 11.6 L Hct 35.3 L Plt Count 133 L Seg Neuts % (Manual) Lymphocytes % (Manual) Seg Neutrophils # Man Lymphocytes # (Manual) D-Dimer ABG pH ABG pO2 ABG HCO3 ABG O2 Saturation ABG Base Excess ABG Hemoglobin Oxyhemoglobin Potassium Carbon Dioxide 21 L Glucose 158 H POC Glucose Lactic Acid 2.30 H* Albumin Urine WBC (Auto) 04/05/19 04/05/19 04/05/19 09:59 10:15 12:43 WBC Hgb Hct Plt Count Seg Neuts % (Manual) Lymphocytes % (Manual) Seg Neutrophils # Man Lymphocytes # (Manual) D-Dimer ABG pH ABG pO2 ABG HCO3 ABG O2 Saturation ABG Base Excess ABG Hemoglobin Oxyhemoglobin Potassium Carbon Dioxide Glucose POC Glucose 152 H 218 H Lactic Acid 2.60 H* Albumin Urine WBC (Auto) 04/05/19 04/05/19 04/05/19 15:13 16:33 17:26 WBC Hgb Hct Plt Count Seg Neuts % (Manual) Lymphocytes % (Manual) Seg Neutrophils # Man Lymphocytes # (Manual) D-Dimer ABG pH ABG pO2 ABG HCO3 ABG O2 Saturation ABG Base Excess ABG Hemoglobin Oxyhemoglobin Potassium Carbon Dioxide Glucose POC Glucose 128 H Lactic Acid 3.40 H* 3.70 H* Albumin Urine WBC (Auto) 04/05/19 04/06/19 04/06/19 19:06 00:13 04:06 WBC 11.5 H Hgb 11.6 L Hct 35.0 L Plt Count 135 L Seg Neuts % (Manual) Lymphocytes % (Manual) Seg Neutrophils # Man Lymphocytes # (Manual) D-Dimer ABG pH ABG pO2 ABG HCO3 ABG O2 Saturation ABG Base Excess ABG Hemoglobin Oxyhemoglobin Potassium Carbon Dioxide Glucose POC Glucose 173 H Lactic Acid 2.90 H* Albumin Urine WBC (Auto) 04/06/19 04/06/19 04/06/19 04:06 05:52 09:45 WBC Hgb Hct Plt Count Seg Neuts % (Manual) Lymphocytes % (Manual) Seg Neutrophils # Man Lymphocytes # (Manual) D-Dimer ABG pH ABG pO2 ABG HCO3 ABG O2 Saturation ABG Base Excess ABG Hemoglobin 12.3 L Oxyhemoglobin Potassium 3.4 L Carbon Dioxide 21 L Glucose 134 H POC Glucose 119 H Lactic Acid Albumin Urine WBC (Auto) Chest x-ray: report reviewed, image reviewed Additional Studies: CHEST 1 VIEW, 04/06/2019 8:20 AM Bilateral pulmonary opacities. COMPARISON: Chest radiograph, 04/04/2019 at 1217 FINDINGS: SUPPORT DEVICES: None. HEART: The cardiac silhouette remains within normal limits in size. LUNGS/PLEURA: Diffuse bilateral pulmonary opacities are again noted and overall have not significantly changed compared to the previous study. No pneumothorax is identified. ADDITIONAL FINDINGS: No additional acute findings. IMPRESSION: 1. Stable appearance of diffuse bilateral pulmonary opacities.
--- NOTE | 2019-04-06 17:47 | Progress Note ---
Assessment and Plan Assessment and plan: Patient is an 84-year-old -[place] female halfway resident at [facility] admitted following a complaint of shortness of breath with hypoxia oxygen saturation prior to arrival of EMS was 85% on room air briefly and improved. Was noted to have productive cough of yellowish sputum initial imaging study including CT a of the chest was negative for pulmonary embolism but did demonstrate some patchy infiltrates concerning for pneumonia patient was also noted to be tachycardic and with lactic acidosis. Has been admitted for management of healthcare associated pneumonia possible gram-negative. Review of previous admission shows that the patient in March 2001 was transferred to [facility] due to empyema not amenable to CT-guided drainage. I will try to call the daughter to get some information as to the outcome of that transfer have not been able to. 04/04: Patient's lactic acidosis continues to increase despite aggressive therapy. Will need to see a downward trend to ensure resolution of systemic inflammatory response syndrome. And ensure patient is not developing full-blown sepsis. Patient has increased respiratory rate and is hypoxic with a saturation in the 80s will transfer to stepdown unit and also obtain pulmonary and infectious disease consultation. We will continue inpatient care at this time : Patient failed swallow evaluation significantly. It appears that he possibly has been aspirating for some time. According to the daughter who I spoke with this morning the patient did not have any surgery while at [facility] was only treated for pneumonia and discharged. I have advised her that he may require mechanical ventilation support if he does not improve in the next 24 hours. She is aware. Although she does not want multiple aggressive measures she is okay with patient being intubated at this time. If the need be. ID evaluated the patient changes and antibiotics were made, patient is on cefepime and Zyvox azithromycin was discontinued also patient is on Tamiflu influenza has been ruled out Tamiflu likely will be discontinued will defer to ID. Will keep n.p.o. and start patient on D5. With Accu-Cheks and before meals and at bedtime 04/05. Remains on full mask with BIPAP. if no improvement will consider Intubation and Mechanical ventilation. Healthcare associated pneumonia possible gram-negative, possible aspiration Acute hypoxic respiratory failure Empyema possible Lactic acidosis improved Leukocytosis likely secondary to the marginalization from steroid Severe sepsis secondary to pneumonia present on admission Acute metabolic encephalopathy Diabetes mellitus with hyperglycemia dkm-tmaxevs-jgyjrhkjw Alzheimer disease Elevated d-dimer Severe Protein Calorie malnutrition Hypertension Prior CVA with residual left hemiplegia senior care resident Plan Continue supportive care Change antibiotics to cefepime based on ID statistics and Biogram Obtain room air ABG to determine for home oxygen And give a bolus of fluids Change fluids to D5 at 42 cc an hour Follow cultures Continue all appropriate home medication including diabetic medications and manage Continues to require inpatient care patient currently on IMCU DVT and GI prophylaxis The high probability of a clinically significant, sudden or life threatening deterioration of the [pulmonary] system(s) required my full and direct attention, intervention and personal management. The aggregate critical care time was [35] minutes. This time is in addition to time spent performing reported procedures but includes the following: [x] Data Review and interpretation [x] Patient assessment and monitoring of vital signs [x] Documentation [x] Medication orders and management History Interval history: Patient seen and examined this morning, not as lethargic as noted yesterday but still with cough currently on a BiPAP. Hospitalist Physical - Physical exam Narrative exam: VITAL SIGNS: Reviewed. GENERAL: The patient is chronically ill-appearing, with increased shortness of breath and persistent cough on BiPAP vital signs as documented. HEAD: No signs of head trauma. EYES: Pupils are equal. Extraocular motions intact. EARS: Hearing grossly intact. MOUTH: Oropharynx is normal. NECK: No adenopathy, no JVD. CHEST: Chest with rhonchi breath sounds bilaterally. No wheezes, rales, or rhonchi. CARDIAC: Tachycardia, rate and rhythm. S1 and S2, without murmurs, gallops, or rubs. VASCULAR: Trace bilateral pitting edema. Peripheral pulses normal and equal in all extremities. ABDOMEN: Soft, non tender and non distended. No rebound or guarding, and no masses palpated. Bowel Sounds normal. MUSCULOSKELETAL: Gait not assessed good range of motion of all major joints. Extremities without clubbing,. Trace bilateral pitting. NEUROLOGIC EXAM: Alert and oriented x 2 No focal sensory or strength deficits. Speech normal. Follows commands. PSYCHIATRIC: Mood normal. SKIN: detial exam as documented in skin assessment - Constitutional Vitals: Temp Pulse Resp BP Pulse Ox 99.3 F 89 31 H 140/77 97 04/06/19 12:00 04/06/19 15:28 04/06/19 15:28 04/06/19 15:28 04/06/19 15:28 General appearance: Present: mild distress, well-nourished Results - Labs CBC & Chem 7: 04/07/19 04:30 04/07/19 04:30 Labs: Laboratory Last Values WBC 11.5 K/mm3 (4.5-11.0) H 04/06/19 04:06 RBC 3.85 M/mm3 (3.65-5.03) 04/06/19 04:06 Hgb 11.6 gm/dl (11.8-15.2) L 04/06/19 04:06 Hct 35.0 % (35.5-45.6) L 04/06/19 04:06 MCV 91 fl (84-94) 04/06/19 04:06 MCH 30 pg (28-32) 04/06/19 04:06 MCHC 33 % (32-34) 04/06/19 04:06 RDW 14.9 % (13.2-15.2) 04/06/19 04:06 Plt Count 135 K/mm3 (140-440) L 04/06/19 04:06 Add Manual Diff Complete 04/04/19 05:14 Total Counted 100 04/04/19 05:14 Seg Neutrophils % Kiln Charger 04/04/19 05:14 Seg Neuts % (Manual) 84.0 % (40.0-70.0) H 04/04/19 05:14 Band Neutrophils % 15.0 % 04/04/19 05:14 Lymphocytes % (Manual) 0 % (13.4-35.0) L 04/04/19 05:14 Reactive Lymphs % (Man) 1.0 % 04/04/19 05:14 Monocytes % (Manual) 0 % (0.0-7.3) 04/04/19 05:14 Eosinophils % (Manual) 0 % (0.0-4.3) 04/04/19 05:14 Basophils % (Manual) 0 % (0.0-1.8) 04/04/19 05:14 Metamyelocytes % 0 % 04/04/19 05:14 Myelocytes % 0 % 04/04/19 05:14 Promyelocytes % 0 % 04/04/19 05:14 Blast Cells % 0 % 04/04/19 05:14 Nucleated RBC % Not Reportable 04/04/19 05:14 Seg Neutrophils # Man 12.3 K/mm3 (1.8-7.7) H 04/04/19 05:14 Band Neutrophils # 2.2 K/mm3 04/04/19 05:14 Lymphocytes # (Manual) 0.0 K/mm3 (1.2-5.4) L 04/04/19 05:14 Abs React Lymphs (Man) 0.1 K/mm3 04/04/19 05:14 Monocytes # (Manual) 0.0 K/mm3 (0.0-0.8) 04/04/19 05:14 Eosinophils # (Manual) 0.0 K/mm3 (0.0-0.4) 04/04/19 05:14 Basophils # (Manual) 0.0 K/mm3 (0.0-0.1) 04/04/19 05:14 Metamyelocytes # 0.0 K/mm3 04/04/19 05:14 Myelocytes # 0.0 K/mm3 04/04/19 05:14 Promyelocytes # 0.0 K/mm3 04/04/19 05:14 Blast Cells # 0.0 K/mm3 04/04/19 05:14 WBC Morphology Not Reportable 04/04/19 05:14 Hypersegmented Neuts Not Reportable 04/04/19 05:14 Hyposegmented Neuts Not Reportable 04/04/19 05:14 Hypogranular Neuts Not Reportable 04/04/19 05:14 Smudge Cells Not Reportable 04/04/19 05:14 Toxic Granulation Not Reportable 04/04/19 05:14 Toxic Vacuolation Not Reportable 04/04/19 05:14 Dohle Bodies Not Reportable 04/04/19 05:14 Pelger-Huet Anomaly Not Reportable 04/04/19 05:14 Cheikh Rods Not Reportable 04/04/19 05:14 Platelet Estimate Consistent w auto 04/04/19 05:14 Clumped Platelets Not Reportable 04/04/19 05:14 Plt Clumps, EDTA Not Reportable 04/04/19 05:14 Large Platelets Few 04/04/19 05:14 Giant Platelets Not Reportable 04/04/19 05:14 Platelet Satelliting Not Reportable 04/04/19 05:14 Plt Morphology Comment Not Reportable 04/04/19 05:14 RBC Morphology Normal 04/04/19 05:14 Dimorphic RBCs Not Reportable 04/04/19 05:14 Polychromasia Not Reportable 04/04/19 05:14 Hypochromasia Not Reportable 04/04/19 05:14 Poikilocytosis Not Reportable 04/04/19 05:14 Anisocytosis Not Reportable 04/04/19 05:14 Microcytosis Not Reportable 04/04/19 05:14 Macrocytosis Not Reportable 04/04/19 05:14 Spherocytes Not Reportable 04/04/19 05:14 Pappenheimer Bodies Not Reportable 04/04/19 05:14 Sickle Cells Not Reportable 04/04/19 05:14 Target Cells Not Reportable 04/04/19 05:14 Tear Drop Cells Not Reportable 04/04/19 05:14 Ovalocytes Not Reportable 04/04/19 05:14 Stomatocytes Rare 04/03/19 16:51 Helmet Cells Not Reportable 04/04/19 05:14 Murillo-Curtis Bodies Not Reportable 04/04/19 05:14 [place] Rings Not Reportable 04/04/19 05:14 [place]land Cells Not Reportable 04/04/19 05:14 Bite Cells Not Reportable 04/04/19 05:14 Crenated Cell Not Reportable 04/04/19 05:14 Elliptocytes Not Reportable 04/04/19 05:14 Acanthocytes (Spur) Not Reportable 04/04/19 05:14 Rouleaux Not Reportable 04/04/19 05:14 Hemoglobin C Crystals Not Reportable 04/04/19 05:14 Schistocytes Not Reportable 04/04/19 05:14 Malaria parasites Not Reportable 04/04/19 05:14 Robert Bodies Not Reportable 04/04/19 05:14 Hem Pathologist Commnt No 04/04/19 05:14 PT 14.7 Sec. (12.2-14.9) 04/03/19 16:51 INR 1.13 (0.87-1.13) 04/03/19 16:51 D-Dimer 1629.49 ng/mlDDU (0-234) H 04/03/19 16:51 ABG pH 7.422 pH Units (7.350-7.450) 04/06/19 09:45 ABG pCO2 35.9 mm Hg 04/06/19 09:45 ABG pO2 88.3 mm Hg (80.0-90.0) 04/06/19 09:45 ABG HCO3 22.8 mmol/L (20.0-26.0) 04/06/19 09:45 ABG O2 Saturation 97.1 % (95.0-99.0) 04/06/19 09:45 ABG O2 Content 16.5 (0.0-44) 04/06/19 09:45 ABG Base Excess -1.2 mmol/L (-2.0-3.0) 04/06/19 09:45 ABG Hemoglobin 12.3 gm/dl (14.0-18.0) L 04/06/19 09:45 ABG Carboxyhemoglobin 1.4 % (0.0-5.0) 04/06/19 09:45 ABG Methemoglobin 0.6 % (0.0-1.5) 04/06/19 09:45 VBG pH 7.383 (7.320-7.420) 04/03/19 16:51 Oxyhemoglobin 95.2 % (95.0-99.0) 04/06/19 09:45 FiO2 65 % 04/06/19 09:45 Sodium 137 mmol/L (137-145) 04/06/19 04:06 Potassium 3.4 mmol/L (3.6-5.0) L 04/06/19 04:06 Chloride 102.0 mmol/L (98-107) 04/06/19 04:06 Carbon Dioxide 21 mmol/L (22-30) L 04/06/19 04:06 Anion Gap 17 mmol/L 04/06/19 04:06 BUN 18 mg/dL (9-20) 04/06/19 04:06 Creatinine 0.9 mg/dL (0.8-1.5) 04/06/19 04:06 Estimated GFR > 60 ml/min 04/06/19 04:06 BUN/Creatinine Ratio 20 % 04/06/19 04:06 Glucose 134 mg/dL (75-100) H 04/06/19 04:06 POC Glucose 145 (70-105) H 04/06/19 12:03 Hemoglobin A1c 6.0 % (4-6) 04/03/19 16:51 Lactic Acid 2.90 mmol/L (0.7-2.0) H* 04/05/19 19:06 Calcium 9.1 mg/dL (8.4-10.2) 04/06/19 04:06 Total Bilirubin 0.20 mg/dL (0.1-1.2) 04/04/19 05:14 AST 25 units/L (5-40) 04/04/19 05:14 ALT 19 units/L (7-56) 04/04/19 05:14 Alkaline Phosphatase 60 units/L (35-129) 04/04/19 05:14 Troponin T 0.015 ng/mL (0.00-0.029) 04/03/19 16:57 NT-Pro-B Natriuret Pep 269.7 pg/mL (0-900) 04/03/19 16:57 Total Protein 6.9 g/dL (6.3-8.2) 04/04/19 05:14 Albumin 3.0 g/dL (3.9-5) L 04/04/19 05:14 Albumin/Globulin Ratio 0.8 % 04/04/19 05:14 Procalcitonin 27.99 ng/mL (<0.15) 04/04/19 13:44 Urine Color Alexus (Yellow) 04/03/19 15:14 Urine Turbidity Cloudy (Clear) 04/03/19 15:14 Urine pH 5.0 (5.0-7.0) 04/03/19 15:14 Ur Specific Billingsley 1.019 (1.003-1.030) 04/03/19 15:14 Urine Protein 30 mg/dl mg/dL (Negative) 04/03/19 15:14 Urine Glucose (UA) Neg mg/dL (Negative) 04/03/19 15:14 Urine Ketones Tr mg/dL (Negative) 04/03/19 15:14 Urine Blood Sm (Negative) 04/03/19 15:14 Urine Nitrite Neg (Negative) 04/03/19 15:14 Urine Bilirubin Neg (Negative) 04/03/19 15:14 Urine Urobilinogen 4.0 mg/dL (<2.0) 04/03/19 15:14 Ur Leukocyte Esterase Neg (Negative) 04/03/19 15:14 Urine WBC (Auto) 14.0 /HPF (0.0-6.0) H 04/03/19 15:14 Urine RBC (Auto) 8.0 /HPF (0.0-6.0) 04/03/19 15:14 Urine Bacteria (Auto) 2+ /HPF (Negative) 04/03/19 15:14 Urine Mucus Few /HPF 04/03/19 15:14 Influenza A (Rapid) Negative (Negative) 04/04/19 Unknown Influenza A (RT-PCR) Negative (Negative) 04/04/19 17:26 Influenza B (Rapid) Negative (Negative) 04/04/19 Unknown Influenza B (RT-PCR) Negative (Negative) 04/04/19 17:26 Active Medications - Current Medications Current Medications: Generic Name Dose Route Start Last Admin Trade Name Freq PRN Reason Stop Dose Admin Acetaminophen 650 mg 04/03/19 21:42 Tylenol PO Q6H PRN Pain, Mild (1-3) Albuterol 2.5 mg 04/03/19 22:05 04/04/19 01:37 Proventil IH 2.5 mg Q3HRT PRN Administration Wheezing/ SOB Albuterol/Ipratropium 1 ampul 04/04/19 08:00 04/06/19 15:25 Duoneb *Not For Prn Use* IH 1 ampul QIDRT ETHAN Administration Arformoterol Tartrate 15 mcg 04/04/19 20:00 04/06/19 08:07 Brovana Nebu IH 15 mcg Q12HRT ETHAN Administration Aspirin 81 mg 04/03/19 22:00 04/05/19 11:32 Baby Aspirin PO Not Given DAILY ETHAN Budesonide 0.5 mg 04/04/19 13:15 04/06/19 08:07 Pulmicort IH 0.5 mg Q12HRT ETHAN Administration Cetirizine HCl 10 mg 04/04/19 10:00 04/05/19 10:48 Cetirizine PO Not Given DAILY ETHAN Dextrose 50 ml 04/05/19 09:50 D50w (25gm) Syringe IV Q30MIN PRN Hypoglycemia Protocol Diclofenac Sodium 1 applic 04/03/19 22:00 04/06/19 10:25 Diclofenac 1% TP 1 applic BID ETHAN Administration Docusate Sodium 100 mg 04/03/19 22:00 04/05/19 22:43 Colace PO Not Given Q12HR ETHAN Ergocalciferol 50,000 unit 04/09/19 10:00 Vitamin D2 PO We [facility] Heparin Sodium (Porcine) 5,000 unit 04/03/19 22:00 04/06/19 10:25 Heparin SUB-Q 5,000 unit Q12HR ETHAN Administration Hydrocodone Bit/Homatropine Methylb 10 ml 04/04/19 12:49 04/04/19 13:01 Hydromet PO 10 ml Q6H PRN Administration Cough Hydromorphone HCl 0.5 mg 04/03/19 21:44 04/05/19 22:16 Dilaudid IV 0.5 mg Q3H PRN Administration Pain , Severe (7-10) Cefepime HCl 2 gm in 100 mls @ 200 mls/hr 04/04/19 10:00 04/06/19 10:27 Cefepime/Ns 2 Gm/100 Ml IV 200 mls/hr Q12HR ETHAN Administration Protocol Linezolid 600 mg in 300 mls @ 300 mls/hr 04/04/19 22:00 04/06/19 10:27 Zyvox 600mg/300ml IV 300 mls/hr Q12HR ETHAN Administration Protocol Dextrose 1,000 mls @ 45 mls/hr 04/05/19 10:00 04/05/19 16:35 D5w IV 45 mls/hr DIRECT ETHAN Administration Dextrose/Sodium Chloride 1,000 mls @ 42 mls/hr 04/05/19 10:00 D5ns IV DIRECT [facility] Insulin Human Lispro 0 unit 04/05/19 12:00 04/06/19 08:16 Humalog SUB-Q Not Given Q6HR [facility] Protocol Methylprednisolone Sodium Succinate 40 mg 04/03/19 22:00 04/06/19 16:15 Solu-Medrol IV 40 mg Q8HR ETHAN Administration Metoprolol Succinate 25 mg 04/03/19 22:00 04/05/19 10:54 Metoprolol Xl PO Not Given DAILY [facility] Multivitamins/Minerals 1 each 04/04/19 10:00 04/05/19 10:55 Theragran-M Tab PO Not Given QDAY [facility] Ondansetron HCl 4 mg 04/03/19 21:44 Zofran IV Q8H PRN Nausea And Vomiting Oseltamivir Phosphate 75 mg 04/04/19 22:00 04/05/19 22:43 Tamiflu PO 04/09/19 10:01 Not Given BID ETHAN Oxycodone/Acetaminophen 1 tab 04/03/19 21:44 Percocet 5/325 PO Q6H PRN Pain, Moderate (4-6) Potassium Chloride 20 meq 04/04/19 10:00 04/05/19 10:54 Potassium Chloride PO Not Given QDAY ETHAN Pravastatin Sodium 40 mg 04/03/19 22:00 04/05/19 22:43 Pravachol PO Not Given QHS ETHAN Sodium Chloride 10 ml 04/03/19 22:00 04/05/19 22:17 Sodium Chloride Flush Syringe 10 Ml IV 10 ml BID ETHAN Administration Sodium Chloride 10 ml 04/03/19 21:44 Sodium Chloride Flush Syringe 10 Ml IV PRN PRN LINE FLUSH Nutrition/Malnutrition Assess - Dietary Evaluation Nutrition/Malnutrition Findings: Nutrition Notes Start: 04/04/19 09:28 Freq: Status: Active Protocol: Document 04/04/19 09:29 CC (Rec: 04/04/19 09:55 CC [id number]) Co-Sign 04/04/19 09:29 LP Nutrition Notes Need for Assessment generated from: pst manager,MST Initial or Follow up Assessment Current Diagnosis COPD,Diabetes,Hypertension, Stroke,Hyperlipidemia Other Pertinent Diagnosis pneu, dementia Current Diet Cardiac Labs/Tests A1c 6.0 Pertinent Medications Solu-medrol Height 5 ft 11 in Weight 81.647 kg Usual Body Weight 66.8 kg [place] Body Weight (kg) 78.18 BMI 25.1 Intake Prior to Admission Good Weight Status Appropriate Subjective/Other Information Screen for MST and skin risk assesment. 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 Pt reported he did not have much of an appetite this morning. Observerd 25% of breakfast tray consumed. Pt had an Ensure on tray and noted most of this to be consumed with pt still working on drinking it. Pt reported he likes Ensures, A1c at 6 will continue with Ensure unless BG is consistently elevated. Pt reported he ate over 50% of dinner 04/03. Pt reported he has not had any unintentional wt loss and reported his UBW to be 147lbs. Observed pt with mild muscle wasting at clavicle. Burn Absent Trauma Absent GI Symptoms None Food Allergy No Current % PO Fair (50-74%) Minimum of two criteria Yes Muscle Mass Mild Depletion (non-severe) Reduced Loan Officer Strength Measurably Reduced (severe) #1 Nutrition Diagnosis Malnutrition Etiology advanced age As Evidenced by Signs and Symptoms mild muscle wasting, bilateral weak kettle cook strength Is patient on ventilator? No Is Patient Ambulatory and/or Out of Bed No REE-([facility]-confined to bed) 3551.154 Calculation Used for Recommendations [facility] Additional Notes Protein: 98-122g/day (1.2-1.5g /kg) Fluid: 1ml/kcal Nutrition Intervention Change Diet Order: cardiac/ consistent CHO Add Supplement/Snack (indicate name/kcal Ensure once daily /protein ) Provides kCal: 350 Provides Protein (gm) 20 Goal #1 Meet at least 75% of energy and protein needs via PO and ONS Anticipated Discharge Needs: cardiac/ consistent CHO Follow-Up By: 04/08/19 Additional Comments F/U for PO and ONS intakes
[2019-04-06] MEDS: PRAVASTATIN 40 MG TAB PO SCH (22:38)
[2019-04-06] MEDS: DEXTROSE 5% IN WATER 1,000 ML IV SCH (22:39)
[2019-04-07 06:18] LABS: Hematocrit 33.3 % (35.5-45.6); Hemoglobin 11.1 gm/dl (11.8-15.2); Mean Corpuscular HGB Conc 33 % (32-34); Mean Corpuscular Volume 90 fl (84-94); Platelet Count 116 K/mm3 (140-440); Red Blood Count 3.71 M/mm3 (3.65-5.03); Red Cell Distribution Width 14.7 % (13.2-15.2)
[2019-04-07] MEDS: INSULIN LISPRO 100 UNIT/ML SUB-Q SCH ×4 (06:30→18:00)
[2019-04-07] MEDS: methylPREDNISolone Sod Succinate 40 MG/1 ML INJ IV SCH ×3 (06:30→22:39)
[2019-04-07 06:37] LABS: BUN/Creatinine Ratio 29; Blood Urea Nitrogen 20 mg/dL (9-20); Hemolysis Index 1
[2019-04-07] MEDS: IPRATROPIUM/ALBUTEROL SULFATE 3 ML AMPUL.NEB IH SCH ×4 (07:07→20:28)
[2019-04-07] MEDS: BUDESONIDE 0.5 MG/2 ML NEBU IH SCH ×2 (07:07→20:28)
[2019-04-07] MEDS: ARFORMOTEROL 15 MCG/2 ML NEBU IH SCH ×2 (07:07→20:28)
--- NOTE | 2019-04-07 08:48 | Ultrasound Report ---
ULTRASOUND CHEST HISTORY: Pleural effusion FINDINGS: Targeted grayscale ultrasound was performed on both sides of the chest. No pleural effusion is detected bilaterally. Signer Name: Jh Moe Jr, MD Signed: 04/07/2019 8:44 AM Workstation Name: [id number]
[2019-04-07] MEDS: CEFEPIME/NS 2 GM/100 ML 2 GM/100 ML BAG IV SCH ×2 (10:41→22:27)
[2019-04-07] MEDS: ASPIRIN 81 MG TAB CHEW PO SCH (10:42)
[2019-04-07] MEDS: HEPARIN 5,000 UNIT/1 ML VIAL SUB-Q SCH ×2 (10:42→22:36)
[2019-04-07] MEDS: POTASSIUM CHLORIDE 20 MEQ PACKET PO SCH (10:42)
[2019-04-07] MEDS: CETIRIZINE 10 MG TAB PO SCH (10:42)
[2019-04-07] MEDS: MULTIVITAMINS,THER W-MINERALS TAB PO SCH (10:42)
[2019-04-07] MEDS: DOCUSATE SODIUM 100 MG CAP PO SCH ×2 (10:42→22:54)
[2019-04-07] MEDS: DICLOFENAC SODIUM 1% TOPICAL GEL 100 GM TP SCH ×2 (10:43→22:56)
--- NOTE | 2019-04-07 11:02 | Progress Note ---
Assessment and Plan Cultures: Blood cultures 04/02/2019 no growth so far. Urine culture 10,000-100,000 mixed Influenza PCR: Negative Assessment: 84 years old male with history of hypertension, dementia, CVA, well-known to our ID service seen back in March 2018 due to necrotizing pneumonia/possible empyema from aspiration in Mar 2018, who was transferred to [facility] for VATS for empyema not amenable to CT-guided drainage, admitted on 04/03/2019 due to 2-day history of worsening shortness of breath, fever and AMS: #Severe sepsis: Improving, lactate improving, hypoxia and RADHA; source bilateral pneumonia. UA with only 14 white blood cells, negative leukocyte esterase, doubt UTI. #Bilateral multifocal pneumonia: Likely hospital-acquired pneumonia. Influenza negative. #Acute encephalopathy: Some improvement. #RADHA: likely due to sepsis, better. #Acute respiratory failure: Currently on BIPAP. Recommendations: Influenza PCR negative, Tamiflu discontinued Continue IV cefepime and linezolid given response, tentatively plan for a total of 5-7 days. Today is day 3. Jaymie Blanco MD, FACP [facility] ([facility] C: [phone] O: [phone] F: [phone] Subjective Date of service: 04/07/19 Principal diagnosis: pneumonia Interval history: Patient afebrile. Currently on BiPAP. Objective - Exam Narrative Exam: Physical Exam: Constitutional: awake, alert, on BiPAP Head, Ears, Nose: Normocephalic, atraumatic. External ears, nose normal Eyes: Conjunctivae/corneas clear. No icterus. No ptosis. Neck: Supple, no meningeal signs Oral: BiPAP Cardiovascular: S1, S2 normal. Respiratory: few rhonchi b/l GI: Soft, non-tender; bowel sounds normal. No peritoneal signs Musculoskeletal: No pedal edema, no cyanosis. Skin: No rash or abscess Hem/Lymphatic: No palpable cervical or supraclavicular nodes. No lymphangitis Psych: no agitation Neurological: Awake, alert. - Constitutional Vitals: Vital Signs Temp Pulse Resp BP Pulse Ox 97.9 F 120 H 28 H 141/75 65 L 04/07/19 08:00 04/07/19 07:40 04/07/19 07:40 04/07/19 07:40 04/07/19 07:40 Temperature -Last 24 Hours Temperature 97.9 F Temperature 96.9 F Temperature 97.4 F Temperature 98.8 F Temperature 99.4 F Temperature 99.3 F - Labs CBC & Chem 7: 04/07/19 04:30 04/07/19 04:30 Labs: Abnormal lab results 04/06/19 04/06/19 04/07/19 Range/Units 12:03 18:15 00:24 Hgb (11.8-15.2) gm/dl Hct (35.5-45.6) % Plt Count (140-440) K/mm3 Potassium (3.6-5.0) mmol/L Carbon Dioxide (22-30) mmol/L Creatinine (0.8-1.5) mg/dL Glucose (75-100) mg/dL POC Glucose 145 H 127 H 170 H (70-105) 04/07/19 04/07/19 04/07/19 Range/Units 04:30 04:30 05:38 Hgb 11.1 L (11.8-15.2) gm/dl Hct 33.3 L (35.5-45.6) % Plt Count 116 L (140-440) K/mm3 Potassium 3.0 L (3.6-5.0) mmol/L Carbon Dioxide 20 L (22-30) mmol/L Creatinine 0.7 L (0.8-1.5) mg/dL Glucose 139 H (75-100) mg/dL POC Glucose 124 H (70-105)
[2019-04-07] MEDS: METOPROLOL SUCCINATE XL 25 MG TAB PO SCH (11:18)
[2019-04-07] MEDS: LINEZOLID 600 MG/300 ML BAG IV SCH ×2 (11:19→22:33)
[2019-04-07 11:44] LABS: MRSA PCR Negative (Negative)
--- NOTE | 2019-04-07 12:20 | Progress Note ---
Assessment and Plan Patients O2 requirements went up. Patient presently on Vapotherm, FIO2 100%, O2 saturation running 98%. Respiratory rate still on high side. BIPAP 15/10, rate 30, FIO2 65%. Standby in the room. Patient afebrile. Has no leukocytosis. Patients chest xray and CT of chest reported diffuse bilateral pulmonary infiltrates. Patient is on cefepime and Zyvox. Patients influenza A & B screen is negative. Chest xray 04/06/19 reported again diffuse bilateral pulmonary infiltrates. ABG on BIPAP with above settings. ABG pH 7.422 pH Units (7.350-7.450) 04/06/19 09:45 ABG pCO2 35.9 mm Hg 04/06/19 09:45 ABG pO2 88.3 mm Hg (80.0-90.0) 04/06/19 09:45 ABG O2 Saturation 97.1 % (95.0-99.0) 04/06/19 09:45 Repeating chest xray and ABGs tomorrow. - Patient Problems (1) Acute respiratory failure with hypoxia Current Visit: Yes Status: Acute Plan to address problem: Vapotherm ,FIO2 100%. BIPAP 15/9, rate 30, FIO2 50%. stand by in the room. Albuterol/atrovent aerosol treatments q 6 hours. Patient is on cepepime and Zyvox. Continue I/V solumedrol. Continue S/C Heparin. Recommend GI prophylaxis. Chest xray abgs tomorrow. (2) Bilateral pneumonia Current Visit: Yes Status: Acute Qualifiers: Pneumonia type: due to unspecified organism Lung location: unspecified part of lung Qualified Code(s): J18.9 - Pneumonia, unspecified organism Plan to address problem: Patient is on cefepime and Zyvox. (3) COPD with acute exacerbation Current Visit: Yes Status: Acute Plan to address problem: Vapotherm, FIO2 100%. BIPAP 15/9, rate 30, FIO2 50% stand by in the room. Albuterol/atrovent aerosol treatments q 6 hours. Patient is on cepepime and Zyvox. Continue I/V solumedrol. Continue S/C Heparin. Recommend GI prophylaxis. Chest xray and ABGs tomorrow. (4) Sepsis Current Visit: Yes Status: Acute Qualifiers: Sepsis type: sepsis due to unspecified organism Sepsis acute organ d ysfunction status: unspecified Qualified Code(s): A41.9 - Sepsis, unspecified organism Plan to address problem: Patient is on cefepime and Zyvox. Lactic acid level improving 2.9. 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 Subjective Date of service: 04/07/19 Principal diagnosis: pneumonia Interval history: Patients O2 requirements went up. Patient presently on Vapotherm, FIO2 100%, O2 saturation running 98%. Respiratory rate still on high side. BIPAP 15/10, rate 30, FIO2 65%. Standby in the room. Patient afebrile. Has no leukocytosis. Patients chest xray and CT of chest reported diffuse bilateral pulmonary infiltrates. Patient is on cefepime and Zyvox. Patients influenza A & B screen is negative. Chest xray 04/06/19 reported again diffuse bilateral pulmonary infiltrates. ABG on BIPAP with above settings. ABG pH 7.422 pH Units (7.350-7.450) 04/06/19 09:45 ABG pCO2 35.9 mm Hg 04/06/19 09:45 ABG pO2 88.3 mm Hg (80.0-90.0) 04/06/19 09:45 ABG O2 Saturation 97.1 % (95.0-99.0) 04/06/19 09:45 Repeating chest xray and ABGs tomorrow. Objective Vital Signs - 12hr 04/07/19 04/07/19 04/07/19 00:20 00:30 00:40 Temperature Pulse Rate 82 104 H 82 Pulse Rate [ Bilateral Throughout] Pulse Rate [ From Monitor] Respiratory 27 H 33 H 31 H Rate Respiratory Rate [Bilateral Throughout] Blood Pressure 140/77 140/77 140/77 O2 Sat by Pulse 99 82 L 98 Oximetry 04/07/19 04/07/19 04/07/19 00:50 01:00 01:10 Temperature Pulse Rate 111 H 90 87 Pulse Rate [ Bilateral Throughout] Pulse Rate [ From Monitor] Respiratory 31 H 28 H 28 H Rate Respiratory Rate [Bilateral Throughout] Blood Pressure 140/77 151/80 151/80 O2 Sat by Pulse 83 L 97 98 Oximetry 03/02/20 03/02/20 03/02/20 01:20 01:30 01:40 Temperature Pulse Rate 87 86 84 Pulse Rate [ Bilateral Throughout] Pulse Rate [ From Monitor] Respiratory 22 26 H 27 H Rate Respiratory Rate [Bilateral Throughout] Blood Pressure 151/80 140/77 140/77 O2 Sat by Pulse 98 97 99 Oximetry 04/07/19 04/07/19 04/07/19 01:50 02:00 02:10 Temperature Pulse Rate 77 72 73 Pulse Rate [ Bilateral Throughout] Pulse Rate [ From Monitor] Respiratory 28 H 27 H 25 H Rate Respiratory Rate [Bilateral Throughout] Blood Pressure 140/77 137/75 137/75 O2 Sat by Pulse 99 100 100 Oximetry 04/07/19 04/07/19 04/07/19 02:20 02:30 02:40 Temperature Pulse Rate 80 81 89 Pulse Rate [ Bilateral Throughout] Pulse Rate [ From Monitor] Respiratory 20 24 23 Rate Respiratory Rate [Bilateral Throughout] Blood Pressure 137/75 137/75 137/75 O2 Sat by Pulse 100 100 100 Oximetry 04/07/19 04/07/19 04/07/19 02:50 03:00 03:10 Temperature Pulse Rate 74 91 H 77 Pulse Rate [ Bilateral Throughout] Pulse Rate [ From Monitor] Respiratory 20 24 24 Rate Respiratory Rate [Bilateral Throughout] Blood Pressure 137/75 147/84 147/84 O2 Sat by Pulse 100 98 98 Oximetry 04/07/19 04/07/19 04/07/19 03:20 03:30 03:40 Temperature Pulse Rate 78 75 73 Pulse Rate [ Bilateral Throughout] Pulse Rate [ From Monitor] Respiratory 26 H 21 27 H Rate Respiratory Rate [Bilateral Throughout] Blood Pressure 147/84 147/84 147/84 O2 Sat by Pulse 96 96 96 Oximetry 04/07/19 04/07/19 04/07/19 03:50 04:00 04:10 Temperature 96.9 F L Pulse Rate 77 84 80 Pulse Rate [ Bilateral Throughout] Pulse Rate [ 98 H From Monitor] Respiratory 27 H 24 32 H Rate Respiratory Rate [Bilateral Throughout] Blood Pressure 147/84 139/85 139/85 O2 Sat by Pulse 97 98 98 Oximetry 04/07/19 04/07/19 04/07/19 04:20 04:30 04:40 Temperature Pulse Rate 82 83 84 Pulse Rate [ Bilateral Throughout] Pulse Rate [ From Monitor] Respiratory 26 H 27 H 26 H Rate Respiratory Rate [Bilateral Throughout] Blood Pressure 139/85 147/84 147/84 O2 Sat by Pulse 98 98 96 Oximetry 04/07/19 04/07/19 04/07/19 04:50 05:00 05:10 Temperature Pulse Rate 99 H 91 H 83 Pulse Rate [ Bilateral Throughout] Pulse Rate [ From Monitor] Respiratory 12 27 H 23 Rate Respiratory Rate [Bilateral Throughout] Blood Pressure 147/84 155/87 155/87 O2 Sat by Pulse 88 93 94 Oximetry 04/07/19 04/07/19 04/07/19 05:20 05:30 05:40 Temperature Pulse Rate 101 H 85 81 Pulse Rate [ Bilateral Throughout] Pulse Rate [ From Monitor] Respiratory 28 H 30 H 29 H Rate Respiratory Rate [Bilateral Throughout] Blood Pressure 155/87 155/87 155/87 O2 Sat by Pulse 97 97 99 Oximetry 04/07/19 04/07/19 04/07/19 05:50 06:00 06:10 Temperature Pulse Rate 72 75 81 Pulse Rate [ Bilateral Throughout] Pulse Rate [ From Monitor] Respiratory 28 H 29 H 29 H Rate Respiratory Rate [Bilateral Throughout] Blood Pressure 155/87 149/78 149/78 O2 Sat by Pulse 99 99 95 Oximetry 04/07/19 04/07/19 04/07/19 06:20 06:30 06:40 Temperature Pulse Rate 89 108 H 88 Pulse Rate [ Bilateral Throughout] Pulse Rate [ From Monitor] Respiratory 29 H 30 H 29 H Rate Respiratory Rate [Bilateral Throughout] Blood Pressure 149/78 149/78 149/78 O2 Sat by Pulse 94 75 L 91 Oximetry 04/07/19 04/07/19 04/07/19 06:50 07:00 07:07 Temperature Pulse Rate 115 H 101 H 95 H Pulse Rate [ 38 L Bilateral Throughout] Pulse Rate [ From Monitor] Respiratory 28 H 22 30 H Rate Respiratory 30 H Rate [Bilateral Throughout] Blood Pressure 149/78 141/75 135/75 O2 Sat by Pulse 66 L 94 99 Oximetry 04/07/19 04/07/19 04/07/19 07:10 07:20 07:30 Temperature Pulse Rate 87 87 94 H Pulse Rate [ Bilateral Throughout] Pulse Rate [ From Monitor] Respiratory 30 H 29 H 29 H Rate Respiratory Rate [Bilateral Throughout] Blood Pressure 141/75 141/75 141/75 O2 Sat by Pulse 100 100 97 Oximetry 04/07/19 04/07/19 07:40 08:00 Temperature 97.9 F Pulse Rate 120 H Pulse Rate [ Bilateral Throughout] Pulse Rate [ From Monitor] Respiratory 28 H Rate Respiratory Rate [Bilateral Throughout] Blood Pressure 141/75 O2 Sat by Pulse 65 L Oximetry Constitutional: lethargic, appears uncomfortable, other (ON Vapotherm, FIO2 100%.) Eyes: non-icteric ENT: oropharynx moist Neck: supple Ascultation: Bilateral: rhonchi Cardiovascular: other (Tachycardia.) Gastrointestinal: normoactive bowel sounds, soft, non-tender Integumentary: normal Extremities: no cyanosis, no edema Neurologic: unable to assess Psychiatric: other (Unable to assess due to mental status.) CBC and BMP: 04/07/19 04:30 04/07/19 04:30 ABG, PT/INR, D-dimer: ABG ABG pH 7.422 pH Units (7.350-7.450) 04/06/19 09:45 ABG pCO2 35.9 mm Hg 04/06/19 09:45 ABG pO2 88.3 mm Hg (80.0-90.0) 04/06/19 09:45 ABG O2 Saturation 97.1 % (95.0-99.0) 04/06/19 09:45 PT/INR, D-dimer PT 14.7 Sec. (12.2-14.9) 04/03/19 16:51 INR 1.13 (0.87-1.13) 04/03/19 16:51 D-Dimer 1629.49 ng/mlDDU (0-234) H 04/03/19 16:51 Abnormal lab findings: Abnormal Labs 04/03/19 04/03/19 04/03/19 15:14 16:51 16:51 WBC Hgb Hct Plt Count Seg Neuts % (Manual) 82.0 H Lymphocytes % (Manual) 9.0 L Seg Neutrophils # Man 8.9 H Lymphocytes # (Manual) 1.0 L D-Dimer 1629.49 H ABG pH ABG pO2 ABG HCO3 ABG O2 Saturation ABG Base Excess ABG Hemoglobin Oxyhemoglobin Potassium Carbon Dioxide Creatinine Glucose POC Glucose Lactic Acid Albumin Urine WBC (Auto) 14.0 H 04/03/19 04/03/19 04/03/19 16:51 16:51 18:07 WBC Hgb Hct Plt Count Seg Neuts % (Manual) Lymphocytes % (Manual) Seg Neutrophils # Man Lymphocytes # (Manual) D-Dimer ABG pH ABG pO2 ABG HCO3 ABG O2 Saturation ABG Base Excess ABG Hemoglobin Oxyhemoglobin Potassium Carbon Dioxide 20 L Creatinine Glucose 132 H POC Glucose Lactic Acid 3.20 H* 3.00 H* Albumin 3.6 L Urine WBC (Auto) 04/03/19 04/03/19 04/04/19 19:39 20:35 05:14 WBC Hgb Hct Plt Count Seg Neuts % (Manual) Lymphocytes % (Manual) Seg Neutrophils # Man Lymphocytes # (Manual) D-Dimer ABG pH ABG pO2 ABG HCO3 ABG O2 Saturation ABG Base Excess ABG Hemoglobin Oxyhemoglobin Potassium Carbon Dioxide Creatinine Glucose POC Glucose Lactic Acid 3.30 H* 3.80 H* 4.80 H* Albumin Urine WBC (Auto) 04/04/19 04/04/19 04/04/19 05:14 05:14 07:06 WBC 14.7 H Hgb 11.1 L Hct 33.9 L D Plt Count 131 L Seg Neuts % (Manual) 84.0 H Lymphocytes % (Manual) 0 L Seg Neutrophils # Man 12.3 H Lymphocytes # (Manual) 0.0 L D-Dimer ABG pH ABG pO2 ABG HCO3 ABG O2 Saturation ABG Base Excess ABG Hemoglobin Oxyhemoglobin Potassium Carbon Dioxide 17 L Creatinine Glucose 147 H POC Glucose Lactic Acid 5.10 H* Albumin 3.0 L Urine WBC (Auto) 04/04/19 04/04/19 04/04/19 07:22 08:01 11:24 WBC Hgb Hct Plt Count Seg Neuts % (Manual) Lymphocytes % (Manual) Seg Neutrophils # Man Lymphocytes # (Manual) D-Dimer ABG pH ABG pO2 ABG HCO3 ABG O2 Saturation ABG Base Excess ABG Hemoglobin Oxyhemoglobin Potassium Carbon Dioxide Creatinine Glucose POC Glucose 132 H Lactic Acid 5.00 H* 7.60 H* Albumin Urine WBC (Auto) 04/04/19 04/04/19 04/04/19 11:51 13:40 13:44 WBC Hgb Hct Plt Count Seg Neuts % (Manual) Lymphocytes % (Manual) Seg Neutrophils # Man Lymphocytes # (Manual) D-Dimer ABG pH 7.327 L ABG pO2 65.3 L ABG HCO3 18.2 L ABG O2 Saturation 92.8 L ABG Base Excess -7.1 L ABG Hemoglobin 11.6 L Oxyhemoglobin 91.0 L Potassium Carbon Dioxide Creatinine Glucose POC Glucose 168 H Lactic Acid 6.20 H* Albumin Urine WBC (Auto) 04/04/19 04/04/19 04/04/19 14:49 15:54 19:50 WBC Hgb Hct Plt Count Seg Neuts % (Manual) Lymphocytes % (Manual) Seg Neutrophils # Man Lymphocytes # (Manual) D-Dimer ABG pH ABG pO2 ABG HCO3 ABG O2 Saturation ABG Base Excess ABG Hemoglobin Oxyhemoglobin Potassium Carbon Dioxide Creatinine Glucose POC Glucose Lactic Acid 4.70 H* 3.70 H* 3.50 H* Albumin Urine WBC (Auto) 04/04/19 04/04/19 04/04/19 21:53 22:24 Unknown WBC Hgb Hct Plt Count Seg Neuts % (Manual) Lymphocytes % (Manual) Seg Neutrophils # Man Lymphocytes # (Manual) D-Dimer ABG pH 7.338 L ABG pO2 55.2 L ABG HCO3 18.0 L ABG O2 Saturation 88.3 L ABG Base Excess -7.0 L ABG Hemoglobin 11.1 L Oxyhemoglobin 86.5 L Potassium Carbon Dioxide Creatinine Glucose POC Glucose 160 H Lactic Acid 3.70 H* Albumin Urine WBC (Auto) 04/05/19 04/05/19 04/05/19 04:29 04:29 07:39 WBC 12.6 H Hgb 11.6 L Hct 35.3 L Plt Count 133 L Seg Neuts % (Manual) Lymphocytes % (Manual) Seg Neutrophils # Man Lymphocytes # (Manual) D-Dimer ABG pH ABG pO2 ABG HCO3 ABG O2 Saturation ABG Base Excess ABG Hemoglobin Oxyhemoglobin Potassium Carbon Dioxide 21 L Creatinine Glucose 158 H POC Glucose Lactic Acid 2.30 H* Albumin Urine WBC (Auto) 04/05/19 04/05/19 04/05/19 09:59 10:15 12:43 WBC Hgb Hct Plt Count Seg Neuts % (Manual) Lymphocytes % (Manual) Seg Neutrophils # Man Lymphocytes # (Manual) D-Dimer ABG pH ABG pO2 ABG HCO3 ABG O2 Saturation ABG Base Excess ABG Hemoglobin Oxyhemoglobin Potassium Carbon Dioxide Creatinine Glucose POC Glucose 152 H 218 H Lactic Acid 2.60 H* Albumin Urine WBC (Auto) 0204/05/19 04/05/19 15:13 16:33 17:26 WBC Hgb Hct Plt Count Seg Neuts % (Manual) Lymphocytes % (Manual) Seg Neutrophils # Man Lymphocytes # (Manual) D-Dimer ABG pH ABG pO2 ABG HCO3 ABG O2 Saturation ABG Base Excess ABG Hemoglobin Oxyhemoglobin Potassium Carbon Dioxide Creatinine Glucose POC Glucose 128 H Lactic Acid 3.40 H* 3.70 H* Albumin Urine WBC (Auto) 04/05/19 04/06/19 04/06/19 19:06 00:13 04:06 WBC 11.5 H Hgb 11.6 L Hct 35.0 L Plt Count 135 L Seg Neuts % (Manual) Lymphocytes % (Manual) Seg Neutrophils # Man Lymphocytes # (Manual) D-Dimer ABG pH ABG pO2 ABG HCO3 ABG O2 Saturation ABG Base Excess ABG Hemoglobin Oxyhemoglobin Potassium Carbon Dioxide Creatinine Glucose POC Glucose 173 H Lactic Acid 2.90 H* Albumin Urine WBC (Auto) 04/06/19 04/06/19 04/06/19 04:06 05:52 09:45 WBC Hgb Hct Plt Count Seg Neuts % (Manual) Lymphocytes % (Manual) Seg Neutrophils # Man Lymphocytes # (Manual) D-Dimer ABG pH ABG pO2 ABG HCO3 ABG O2 Saturation ABG Base Excess ABG Hemoglobin 12.3 L Oxyhemoglobin Potassium 3.4 L Carbon Dioxide 21 L Creatinine Glucose 134 H POC Glucose 119 H Lactic Acid Albumin Urine WBC (Auto) 04/06/19 04/06/19 04/07/19 12:03 18:15 00:24 WBC Hgb Hct Plt Count Seg Neuts % (Manual) Lymphocytes % (Manual) Seg Neutrophils # Man Lymphocytes # (Manual) D-Dimer ABG pH ABG pO2 ABG HCO3 ABG O2 Saturation ABG Base Excess ABG Hemoglobin Oxyhemoglobin Potassium Carbon Dioxide Creatinine Glucose POC Glucose 145 H 127 H 170 H Lactic Acid Albumin Urine WBC (Auto) 04/07/19 04/07/19 04/07/19 04:30 04:30 05:38 WBC Hgb 11.1 L Hct 33.3 L Plt Count 116 L Seg Neuts % (Manual) Lymphocytes % (Manual) Seg Neutrophils # Man Lymphocytes # (Manual) D-Dimer ABG pH ABG pO2 ABG HCO3 ABG O2 Saturation ABG Base Excess ABG Hemoglobin Oxyhemoglobin Potassium 3.0 L Carbon Dioxide 20 L Creatinine 0.7 L Glucose 139 H POC Glucose 124 H Lactic Acid Albumin Urine WBC (Auto) Additional Studies: Ultrasound of chest 04/06/19 no pleural effusion reported.
--- NOTE | 2019-04-07 12:43 | Progress Note ---
Assessment and Plan Assessment and plan: Patient is an 84-year-old -Thai female alf resident at [facility] admitted following a complaint of shortness of breath with hypoxia oxygen saturation prior to arrival of EMS was 85% on room air briefly and improved. Was noted to have productive cough of yellowish sputum initial imaging study including CT a of the chest was negative for pulmonary embolism but did demonstrate some patchy infiltrates concerning for pneumonia patient was also noted to be tachycardic and with lactic acidosis. Has been admitted for management of healthcare associated pneumonia possible gram-negative. Review of previous admission shows that the patient in March 2001 was transferred to [place] due to empyema not amenable to CT-guided drainage. I will try to call the daughter to get some information as to the outcome of that transfer have not been able to. 04/04: Patient's lactic acidosis continues to increase despite aggressive therapy. Will need to see a downward trend to ensure resolution of systemic inflammatory response syndrome. And ensure patient is not developing full-blown sepsis. Patient has increased respiratory rate and is hypoxic with a saturation in the 80s will transfer to stepdown unit and also obtain pulmonary and infectious disease consultation. We will continue inpatient care at this time : Patient failed swallow evaluation significantly. It appears that he possibly has been aspirating for some time. According to the daughter who I spoke with this morning the patient did not have any surgery while at [place] [facility] was only treated for pneumonia and discharged. I have advised her that he may require mechanical ventilation support if he does not improve in the next 24 hours. She is aware. Although she does not want multiple aggressive measures she is okay with patient being intubated at this time. If the need be. ID evaluated the patient changes and antibiotics were made, patient is on cefepime and Zyvox azithromycin was discontinued also patient is on Tamiflu influenza has been ruled out Tamiflu likely will be discontinued will defer to ID. Will keep n.p.o. and start patient on D5. With Accu-Cheks and before meals and at bedtime Healthcare associated pneumonia possible gram-negative, possible aspiration Acute hypoxic respiratory failure Empyema possible Lactic acidosis improved Leukocytosis likely secondary to the marginalization from steroid Severe sepsis secondary to pneumonia present on admission Acute metabolic encephalopathy Diabetes mellitus with hyperglycemia [id number] Alzheimer disease Elevated d-dimer Severe Protein Calorie malnutrition Hypertension Prior CVA with residual left hemiplegia skilled nursing resident Plan Continue supportive care Change antibiotics to cefepime based on ID statistics and Biogram Obtain room air ABG to determine for home oxygen And give a bolus of fluids Change fluids to D5 at 42 cc an hour Follow cultures Continue all appropriate home medication including diabetic medications and manage Continues to require inpatient care patient currently on IMCU DVT and GI prophylaxis Disposition; patient is still on BIPAP. History Interval history: Patient was seen and evaluated this morning, patient is on BiPAP Hospitalist Physical - Physical exam Narrative exam: Patient is in distress and on BiPAP The patient appeared well nourished and normally developed. Vital signs as documented. Head exam is unremarkable. No scleral icterus . Neck is without jugular venous distension, thyromegaly, or carotid bruits. Lungs decreased air entry and wheezing Cardiac exam reveals regular rate and Rhythm. Abdominal exam reveals normal bowel sounds, nontender, no organomegaly. Extremities are nonedematous and both femoral and pedal pulses are normal. RELAY ADJUSTER: Alert and oriented 3. No focal weakness. - Constitutional Vitals: Temp Pulse Resp BP Pulse Ox 98.0 F 120 H 28 H 141/75 65 L 04/07/19 12:00 04/07/19 07:40 04/07/19 07:40 04/07/19 07:40 04/07/19 07:40 General appearance: Present: mild distress, well-nourished Results - Labs CBC & Chem 7: 04/07/19 04:30 04/07/19 04:30 Labs: Laboratory Last Values WBC 10.0 K/mm3 (4.5-11.0) 04/07/19 04:30 RBC 3.71 M/mm3 (3.65-5.03) 04/07/19 04:30 Hgb 11.1 gm/dl (11.8-15.2) L 04/07/19 04:30 Hct 33.3 % (35.5-45.6) L 04/07/19 04:30 MCV 90 fl (84-94) 04/07/19 04:30 MCH 30 pg (28-32) 04/07/19 04:30 MCHC 33 % (32-34) 04/07/19 04:30 RDW 14.7 % (13.2-15.2) 04/07/19 04:30 Plt Count 116 K/mm3 (140-440) L 04/07/19 04:30 Add Manual Diff Complete 04/04/19 05:14 Total Counted 100 04/04/19 05:14 Seg Neutrophils % Lopper 04/04/19 05:14 Seg Neuts % (Manual) 84.0 % (40.0-70.0) H 04/04/19 05:14 Band Neutrophils % 15.0 % 04/04/19 05:14 Lymphocytes % (Manual) 0 % (13.4-35.0) L 04/04/19 05:14 Reactive Lymphs % (Man) 1.0 % 04/04/19 05:14 Monocytes % (Manual) 0 % (0.0-7.3) 04/04/19 05:14 Eosinophils % (Manual) 0 % (0.0-4.3) 04/04/19 05:14 Basophils % (Manual) 0 % (0.0-1.8) 04/04/19 05:14 Metamyelocytes % 0 % 04/04/19 05:14 Myelocytes % 0 % 04/04/19 05:14 Promyelocytes % 0 % 04/04/19 05:14 Blast Cells % 0 % 04/04/19 05:14 Nucleated RBC % Not Reportable 04/04/19 05:14 Seg Neutrophils # Man 12.3 K/mm3 (1.8-7.7) H 04/04/19 05:14 Band Neutrophils # 2.2 K/mm3 04/04/19 05:14 Lymphocytes # (Manual) 0.0 K/mm3 (1.2-5.4) L 04/04/19 05:14 Abs React Lymphs (Man) 0.1 K/mm3 04/04/19 05:14 Monocytes # (Manual) 0.0 K/mm3 (0.0-0.8) 04/04/19 05:14 Eosinophils # (Manual) 0.0 K/mm3 (0.0-0.4) 04/04/19 05:14 Basophils # (Manual) 0.0 K/mm3 (0.0-0.1) 04/04/19 05:14 Metamyelocytes # 0.0 K/mm3 04/04/19 05:14 Myelocytes # 0.0 K/mm3 04/04/19 05:14 Promyelocytes # 0.0 K/mm3 04/04/19 05:14 Blast Cells # 0.0 K/mm3 04/04/19 05:14 WBC Morphology Not Reportable 04/04/19 05:14 Hypersegmented Neuts Not Reportable 04/04/19 05:14 Hyposegmented Neuts Not Reportable 04/04/19 05:14 Hypogranular Neuts Not Reportable 04/04/19 05:14 Smudge Cells Not Reportable 04/04/19 05:14 Toxic Granulation Not Reportable 04/04/19 05:14 Toxic Vacuolation Not Reportable 04/04/19 05:14 Dohle Bodies Not Reportable 04/04/19 05:14 Pelger-Huet Anomaly Not Reportable 04/04/19 05:14 Cheikh Rods Not Reportable 04/04/19 05:14 Platelet Estimate Consistent w auto 04/04/19 05:14 Clumped Platelets Not Reportable 04/04/19 05:14 Plt Clumps, EDTA Not Reportable 04/04/19 05:14 Large Platelets Few 04/04/19 05:14 Giant Platelets Not Reportable 04/04/19 05:14 Platelet Satelliting Not Reportable 04/04/19 05:14 Plt Morphology Comment Not Reportable 04/04/19 05:14 RBC Morphology Normal 04/04/19 05:14 Dimorphic RBCs Not Reportable 04/04/19 05:14 Polychromasia Not Reportable 04/04/19 05:14 Hypochromasia Not Reportable 04/04/19 05:14 Poikilocytosis Not Reportable 04/04/19 05:14 Anisocytosis Not Reportable 04/04/19 05:14 Microcytosis Not Reportable 04/04/19 05:14 Macrocytosis Not Reportable 04/04/19 05:14 Spherocytes Not Reportable 04/04/19 05:14 Pappenheimer Bodies Not Reportable 04/04/19 05:14 Sickle Cells Not Reportable 04/04/19 05:14 Target Cells Not Reportable 04/04/19 05:14 Tear Drop Cells Not Reportable 04/04/19 05:14 Ovalocytes Not Reportable 04/04/19 05:14 Stomatocytes Rare 04/03/19 16:51 Helmet Cells Not Reportable 04/04/19 05:14 Murillo-[place] Bodies Not Reportable 04/04/19 05:14 [place] Rings Not Reportable 04/04/19 05:14 Yolette Cells Not Reportable 04/04/19 05:14 Bite Cells Not Reportable 04/04/19 05:14 Crenated Cell Not Reportable 04/04/19 05:14 Elliptocytes Not Reportable 04/04/19 05:14 Acanthocytes (Spur) Not Reportable 04/04/19 05:14 Rouleaux Not Reportable 04/04/19 05:14 Hemoglobin C Crystals Not Reportable 04/04/19 05:14 Schistocytes Not Reportable 04/04/19 05:14 Malaria parasites Not Reportable 04/04/19 05:14 Robert Bodies Not Reportable 04/04/19 05:14 Hem Pathologist Commnt No 04/04/19 05:14 PT 14.7 Sec. (12.2-14.9) 04/03/19 16:51 INR 1.13 (0.87-1.13) 04/03/19 16:51 D-Dimer 1629.49 ng/mlDDU (0-234) H 04/03/19 16:51 ABG pH 7.422 pH Units (7.350-7.450) 04/06/19 09:45 ABG pCO2 35.9 mm Hg 04/06/19 09:45 ABG pO2 88.3 mm Hg (80.0-90.0) 04/06/19 09:45 ABG HCO3 22.8 mmol/L (20.0-26.0) 04/06/19 09:45 ABG O2 Saturation 97.1 % (95.0-99.0) 04/06/19 09:45 ABG O2 Content 16.5 (0.0-44) 04/06/19 09:45 ABG Base Excess -1.2 mmol/L (-2.0-3.0) 04/06/19 09:45 ABG Hemoglobin 12.3 gm/dl (14.0-18.0) L 04/06/19 09:45 ABG Carboxyhemoglobin 1.4 % (0.0-5.0) 04/06/19 09:45 ABG Methemoglobin 0.6 % (0.0-1.5) 04/06/19 09:45 VBG pH 7.383 (7.320-7.420) 04/03/19 16:51 Oxyhemoglobin 95.2 % (95.0-99.0) 04/06/19 09:45 FiO2 65 % 04/06/19 09:45 Sodium 139 mmol/L (137-145) 04/07/19 04:30 Potassium 3.0 mmol/L (3.6-5.0) L 04/07/19 04:30 Chloride 101.9 mmol/L (98-107) 04/07/19 04:30 Carbon Dioxide 20 mmol/L (22-30) L 04/07/19 04:30 Anion Gap 20 mmol/L 04/07/19 04:30 BUN 20 mg/dL (9-20) 04/07/19 04:30 Creatinine 0.7 mg/dL (0.8-1.5) L 04/07/19 04:30 Estimated GFR > 60 ml/min 04/07/19 04:30 BUN/Creatinine Ratio 29 % 04/07/19 04:30 Glucose 139 mg/dL (75-100) H 04/07/19 04:30 POC Glucose 124 (70-105) H 04/07/19 05:38 Hemoglobin A1c 6.0 % (4-6) 04/03/19 16:51 Lactic Acid 2.90 mmol/L (0.7-2.0) H* 04/05/19 19:06 Calcium 9.0 mg/dL (8.4-10.2) 04/07/19 04:30 Total Bilirubin 0.20 mg/dL (0.1-1.2) 04/04/19 05:14 AST 25 units/L (5-40) 04/04/19 05:14 ALT 19 units/L (7-56) 04/04/19 05:14 Alkaline Phosphatase 60 units/L (35-129) 04/04/19 05:14 Troponin T 0.015 ng/mL (0.00-0.029) 04/03/19 16:57 NT-Pro-B Natriuret Pep 269.7 pg/mL (0-900) 04/03/19 16:57 Total Protein 6.9 g/dL (6.3-8.2) 04/04/19 05:14 Albumin 3.0 g/dL (3.9-5) L 04/04/19 05:14 Albumin/Globulin Ratio 0.8 % 04/04/19 05:14 Procalcitonin 27.99 ng/mL (<0.15) 04/04/19 13:44 Urine Color Alexus (Yellow) 04/03/19 15:14 Urine Turbidity Cloudy (Clear) 04/03/19 15:14 Urine pH 5.0 (5.0-7.0) 04/03/19 15:14 Ur Specific [place] 1.019 (1.003-1.030) 04/03/19 15:14 Urine Protein 30 mg/dl mg/dL (Negative) 04/03/19 15:14 Urine Glucose (UA) Neg mg/dL (Negative) 04/03/19 15:14 Urine Ketones Tr mg/dL (Negative) 04/03/19 15:14 Urine Blood Sm (Negative) 04/03/19 15:14 Urine Nitrite Neg (Negative) 04/03/19 15:14 Urine Bilirubin Neg (Negative) 04/03/19 15:14 Urine Urobilinogen 4.0 mg/dL (<2.0) 04/03/19 15:14 Ur Leukocyte Esterase Neg (Negative) 04/03/19 15:14 Urine WBC (Auto) 14.0 /HPF (0.0-6.0) H 04/03/19 15:14 Urine RBC (Auto) 8.0 /HPF (0.0-6.0) 04/03/19 15:14 Urine Bacteria (Auto) 2+ /HPF (Negative) 04/03/19 15:14 Urine Mucus Few /HPF 04/03/19 15:14 Nasal Screen MRSA (PCR) Negative (Negative) 04/04/19 17:26 Influenza A (Rapid) Negative (Negative) 04/04/19 Unknown Influenza A (RT-PCR) Negative (Negative) 04/04/19 17:26 Influenza B (Rapid) Negative (Negative) 04/04/19 Unknown Influenza B (RT-PCR) Negative (Negative) 04/04/19 17:26 Active Medications - Current Medications Current Medications: Generic Name Dose Route Start Last Admin Trade Name Freq PRN Reason Stop Dose Admin Acetaminophen 650 mg 04/03/19 21:42 Tylenol PO Q6H PRN Pain, Mild (1-3) Albuterol 2.5 mg 04/03/19 22:05 04/04/19 01:37 Proventil IH 2.5 mg Q3HRT PRN Administration Wheezing/ SOB Albuterol/Ipratropium 1 ampul 04/04/19 08:00 04/07/19 07:07 Duoneb *Not For Prn Use* IH 1 ampul QIDRT ETHAN Administration Arformoterol Tartrate 15 mcg 04/04/19 20:00 04/07/19 07:07 Brovana Nebu IH 15 mcg Q12HRT ETHAN Administration Aspirin 81 mg 04/03/19 22:00 04/07/19 10:42 Baby Aspirin PO 81 mg DAILY ETHAN Administration Budesonide 0.5 mg 04/04/19 13:15 04/07/19 07:07 Pulmicort IH 0.5 mg Q12HRT ETHAN Administration Cetirizine HCl 10 mg 04/04/19 10:00 04/07/19 10:42 Cetirizine PO 10 mg DAILY ETHAN Administration Dextrose 50 ml 04/05/19 09:50 D50w (25gm) Syringe IV Q30MIN PRN Hypoglycemia Protocol Diclofenac Sodium 1 applic 04/03/19 22:00 04/07/19 10:43 Diclofenac 1% TP 1 applic BID ETHAN Administration Docusate Sodium 100 mg 04/03/19 22:00 04/07/19 10:42 Colace PO 100 mg Q12HR ETHAN Administration Ergocalciferol 50,000 unit 04/09/19 10:00 Vitamin D2 PO We ETHAN Heparin Sodium (Porcine) 5,000 unit 04/03/19 22:00 04/07/19 10:42 Heparin SUB-Q 5,000 unit Q12HR ETHAN Administration Hydrocodone Bit/Homatropine Methylb 10 ml 04/04/19 12:49 04/04/19 13:01 Hydromet PO 10 ml Q6H PRN Administration Cough Hydromorphone HCl 0.5 mg 04/03/19 21:44 04/05/19 22:16 Dilaudid IV 0.5 mg Q3H PRN Administration Pain , Severe (7-10) Cefepime HCl 2 gm in 100 mls @ 200 mls/hr 04/04/19 10:00 04/07/19 10:41 Cefepime/Ns 2 Gm/100 Ml IV 200 mls/hr Q12HR ETHAN Administration Protocol Linezolid 600 mg in 300 mls @ 300 mls/hr 04/04/19 22:00 04/07/19 11:19 Zyvox 600mg/300ml IV 300 mls/hr Q12HR ETHAN Administration Protocol Dextrose 1,000 mls @ 45 mls/hr 04/05/19 10:00 04/06/19 22:39 D5w IV 45 mls/hr DIRECT ETHAN Administration Insulin Human Lispro 0 unit 04/05/19 12:00 04/07/19 06:30 Humalog SUB-Q Not Given Q6HR ETHAN Protocol Methylprednisolone Sodium Succinate 40 mg 04/03/19 22:00 04/07/19 06:30 Solu-Medrol IV 40 mg Q8HR TEHAN Administration Metoprolol Succinate 25 mg 04/03/19 22:00 04/07/19 11:18 Metoprolol Xl PO 25 mg DAILY ETHAN Administration Multivitamins/Minerals 1 each 04/04/19 10:00 04/07/19 10:42 Theragran-M Tab PO 1 each QDAY ETHAN Administration Ondansetron HCl 4 mg 04/03/19 21:44 Zofran IV Q8H PRN Nausea And Vomiting Oxycodone/Acetaminophen 1 tab 04/03/19 21:44 Percocet 5/325 PO Q6H PRN Pain, Moderate (4-6) Potassium Chloride 20 meq 04/04/19 10:00 04/07/19 10:42 Potassium Chloride PO 20 meq QDAY ETHAN Administration Pravastatin Sodium 40 mg 04/03/19 22:00 04/06/19 22:38 Pravachol PO 40 mg QHS ETHAN Administration Sodium Chloride 10 ml 04/03/19 22:00 04/07/19 10:44 Sodium Chloride Flush Syringe 10 Ml IV 10 ml BID ETHAN Administration Sodium Chloride 10 ml 04/03/19 21:44 Sodium Chloride Flush Syringe 10 Ml IV PRN PRN LINE FLUSH Nutrition/Malnutrition Assess - Dietary Evaluation Nutrition/Malnutrition Findings: Nutrition Notes Start: 04/04/19 09:28 Freq: Status: Active Protocol: Document 04/04/19 09:29 CC (Rec: 04/04/19 09:55 CC [id number]) Co-Sign 04/04/19 09:29 LP Nutrition Notes Need for Assessment 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 Pt reported his appetite was good [place] [employer]. Pt reported he did not have much of an appetite this morning. Observerd 25% of breakfast tray consumed. Pt had an Ensure on tray and noted most of this to be consumed with pt still working on drinking it. Pt reported he likes Ensures, A1c at 6 will continue with Ensure unless BG is consistently elevated. Pt reported he ate over 50% of dinner 04/03. Pt reported he has not had any unintentional wt loss and reported his UBW to be 147lbs. Observed pt with mild muscle wasting at clavicle. Burn Absent Trauma Absent GI Symptoms None Food Allergy No Current % PO Fair (50-74%) Minimum of two criteria Yes Muscle Mass Mild Depletion (non-severe) Reduced Criminal Investigative Agent Strength Measurably Reduced (severe) #1 Nutrition Diagnosis Malnutrition Etiology advanced age As Evidenced by Signs and Symptoms mild muscle wasting, bilateral weak flow floor attendant strength Is patient on ventilator? No Is Patient Ambulatory and/or Out of Bed No REE-([facility]-confined to bed) 8317.223 Calculation Used for Recommendations [facility] Additional Notes Protein: 98-122g/day (1.2-1.5g /kg) Fluid: 1ml/kcal Nutrition Intervention Change Diet Order: cardiac/ consistent CHO Add Supplement/Snack (indicate name/kcal Ensure once daily /protein ) Provides kCal: 350 Provides Protein (gm) 20 Goal #1 Meet at least 75% of energy and protein needs via PO and ONS Anticipated Discharge Needs: cardiac/ consistent CHO Follow-Up By: 04/08/19 Additional Comments F/U for PO and ONS intakes
[2019-04-07] MEDS: DEXTROSE 5% IN WATER 1,000 ML IV SCH (22:47)
[2019-04-07] MEDS: PRAVASTATIN 40 MG TAB PO SCH (22:55)
[2019-04-08] MEDS: methylPREDNISolone Sod Succinate 40 MG/1 ML INJ IV SCH ×2 (05:42→13:18)
[2019-04-08] MEDS: INSULIN LISPRO 100 UNIT/ML SUB-Q SCH ×3 (06:00→12:00)
[2019-04-08 06:14] LABS: Basophils % (Auto) 0.1 % (0.0-1.8); Hematocrit 33.8 % (35.5-45.6); Hemoglobin 11.1 gm/dl (11.8-15.2); Lymphocytes # (Auto) 0.6 K/mm3 (1.2-5.4); Lymphocytes % (Auto) 6.1 % (13.4-35.0); Mean Corpuscular HGB Conc 33 % (32-34); Mean Corpuscular Volume 90 fl (84-94); Monocytes # (Auto) 0.4 K/mm3 (0.0-0.8); Monocytes % (Auto) 4.4 % (0.0-7.3); Red Blood Count 3.76 M/mm3 (3.65-5.03); Red Cell Distribution Width 14.8 % (13.2-15.2)
[2019-04-08 06:24] LABS: Platelet Count 90 K/mm3 (140-440)
[2019-04-08 06:31] LABS: BUN/Creatinine Ratio 30; Blood Urea Nitrogen 21 mg/dL (9-20); Calcium 8.6 mg/dL (8.4-10.2); Hemolysis Index 93
[2019-04-08] MEDS: IPRATROPIUM/ALBUTEROL SULFATE 3 ML AMPUL.NEB IH SCH ×3 (09:16→18:24)
[2019-04-08] MEDS: BUDESONIDE 0.5 MG/2 ML NEBU IH SCH (09:16)
[2019-04-08] MEDS: ARFORMOTEROL 15 MCG/2 ML NEBU IH SCH (09:16)
[2019-04-08] MEDS: DICLOFENAC SODIUM 1% TOPICAL GEL 100 GM TP SCH (10:00)
[2019-04-08] MEDS: CEFEPIME/NS 2 GM/100 ML 2 GM/100 ML BAG IV SCH (10:06)
[2019-04-08] MEDS: LINEZOLID 600 MG/300 ML BAG IV SCH (10:12)
[2019-04-08] MEDS: POTASSIUM CHLORIDE 20 MEQ PACKET PO SCH (10:12)
[2019-04-08] MEDS: METOPROLOL SUCCINATE XL 25 MG TAB PO SCH (10:13)
[2019-04-08] MEDS: ASPIRIN 81 MG TAB CHEW PO SCH (10:13)
[2019-04-08] MEDS: DOCUSATE SODIUM 100 MG CAP PO SCH (10:13)
[2019-04-08] MEDS: CETIRIZINE 10 MG TAB PO SCH (10:13)
[2019-04-08] MEDS: MULTIVITAMINS,THER W-MINERALS TAB PO SCH (10:17)
--- NOTE | 2019-04-08 13:00 | Progress Note ---
Assessment and Plan Patient awake, more alert. Presently resting on BIPAP 15/6, FIO2 70%,Back up rate 30 and O2 saturation running 97%. Respiratory rate came down to 20. Recommend to Decrease back up rate to 20. Patient afebrile. Has no leukocytosis. Patients chest xray and CT of chest reported diffuse bilateral pulmonary infiltrates. Patient is on cefepime and Zyvox. Patients influenza A & B screen is negative. Chest xray 04/06/19 reported again diffuse bilateral pulmonary infiltrates. ABG on BIPAP with above settings. ABG pH 7.422 pH Units (7.350-7.450) 04/06/19 09:45 ABG pCO2 35.9 mm Hg 04/06/19 09:45 ABG pO2 88.3 mm Hg (80.0-90.0) 04/06/19 09:45 ABG O2 Saturation 97.1 % (95.0-99.0) 04/06/19 09:45 . - Patient Problems (1) Acute respiratory failure with hypoxia Current Visit: Yes Status: Acute Plan to address problem: BIPAP 15/6, rate 20, FIO2 70%. Albuterol/atrovent aerosol treatments q 6 hours. Patient is on cepepime and Zyvox. Continue I/V solumedrol. Continue S/C Heparin. Recommend GI prophylaxis. (2) Bilateral pneumonia Current Visit: Yes Status: Acute Qualifiers: Pneumonia type: due to unspecified organism Lung location: unspecified part of lung Qualified Code(s): J18.9 - Pneumonia, unspecified organism Plan to address problem: Patient is on cefepime and Zyvox. (3) COPD with acute exacerbation Current Visit: Yes Status: Acute Plan to address problem: Vapotherm, FIO2 100%. BIPAP 15/9, rate 30, FIO2 50% stand by in the room. Albuterol/atrovent aerosol treatments q 6 hours. Patient is on cepepime and Zyvox. Continue I/V solumedrol. Continue S/C Heparin. Recommend GI prophylaxis. Chest xray and ABGs tomorrow. (4) Sepsis Current Visit: Yes Status: Acute Qualifiers: Sepsis type: sepsis due to unspecified organism Sepsis acute organ dysfunction status: unspecified Qualified Code(s): A41.9 - Sepsis, unspecified organism Plan to address problem: Patient is on cefepime and Zyvox. Lactic acid level improving 2.9. 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 Subjective Date of service: 04/08/19 Principal diagnosis: pneumonia Interval history: Patient awake, more alert. Presently resting on BIPAP 15/6, FIO2 70%,Back up rate 30 and O2 saturation running 97%. Respiratory rate came down to 20. Recommend to Decrease back up rate to 20. Patient afebrile. Has no leukocytosis. Patients chest xray and CT of chest reported diffuse bilateral pulmonary infiltrates. Patient is on cefepime and Zyvox. Patients influenza A & B screen is negative. Chest xray 04/06/19 reported again diffuse bilateral pulmonary infiltrates. ABG on BIPAP with above settings. ABG pH 7.422 pH Units (7.350-7.450) 04/06/19 09:45 ABG pCO2 35.9 mm Hg 04/06/19 09:45 ABG pO2 88.3 mm Hg (80.0-90.0) 04/06/19 09:45 ABG O2 Saturation 97.1 % (95.0-99.0) 04/06/19 09:45 Objective Vital Signs - 12hr 04/08/19 04/08/19 04/08/19 01:00 01:10 01:20 Temperature Pulse Rate 58 L 47 L 62 Pulse Rate [ Bilateral Throughout] Pulse Rate [ From Monitor] Respiratory 21 27 H 28 H Rate Respiratory Rate [Bilateral Throughout] Blood Pressure 132/65 132/65 132/65 O2 Sat by Pulse 100 100 100 Oximetry 04/08/19 04/08/19 04/08/19 01:30 01:40 01:50 Temperature Pulse Rate 59 L 58 L 57 L Pulse Rate [ Bilateral Throughout] Pulse Rate [ From Monitor] Respiratory 28 H 28 H 29 H Rate Respiratory Rate [Bilateral Throughout] Blood Pressure 132/65 132/65 132/65 O2 Sat by Pulse 100 100 100 Oximetry 04/08/19 04/08/19 04/08/19 02:00 02:10 02:20 Temperature Pulse Rate 70 58 L 59 L Pulse Rate [ Bilateral Throughout] Pulse Rate [ From Monitor] Respiratory 31 H 30 H 29 H Rate Respiratory Rate [Bilateral Throughout] Blood Pressure 148/72 148/72 148/72 O2 Sat by Pulse 87 100 99 Oximetry 04/08/19 04/08/19 04/08/19 02:30 02:40 02:50 Temperature Pulse Rate 59 L 60 56 L Pulse Rate [ Bilateral Throughout] Pulse Rate [ From Monitor] Respiratory 26 H 11 L 26 H Rate Respiratory Rate [Bilateral Throughout] Blood Pressure 148/72 148/72 148/72 O2 Sat by Pulse 99 99 100 Oximetry 04/08/19 04/08/19 04/08/19 03:00 03:10 03:20 Temperature Pulse Rate 67 57 L 60 Pulse Rate [ Bilateral Throughout] Pulse Rate [ From Monitor] Respiratory 29 H 28 H 25 H Rate Respiratory Rate [Bilateral Throughout] Blood Pressure 129/70 129/70 129/70 O2 Sat by Pulse 89 100 100 Oximetry 04/08/19 04/08/19 04/08/19 03:30 03:40 03:50 Temperature Pulse Rate 113 H 54 L 54 L Pulse Rate [ Bilateral Throughout] Pulse Rate [ From Monitor] Respiratory 29 H 25 H 24 Rate Respiratory Rate [Bilateral Throughout] Blood Pressure 129/70 129/70 129/70 O2 Sat by Pulse 100 100 100 Oximetry 04/08/19 04/08/19 04/08/19 03:55 04:00 04:10 Temperature 97.8 F Pulse Rate 94 H 64 Pulse Rate [ Bilateral Throughout] Pulse Rate [ 77 From Monitor] Respiratory 12 30 H Rate Respiratory Rate [Bilateral Throughout] Blood Pressure 141/76 129/70 O2 Sat by Pulse 85 98 Oximetry 04/08/19 04/08/19 04/08/19 04:20 04:30 04:40 Temperature Pulse Rate 64 73 71 Pulse Rate [ Bilateral Throughout] Pulse Rate [ From Monitor] Respiratory 26 H 14 15 Rate Respiratory Rate [Bilateral Throughout] Blood Pressure 129/70 129/70 129/70 O2 Sat by Pulse 100 96 97 Oximetry 04/08/19 04/08/19 04/08/19 04:50 05:00 05:10 Temperature Pulse Rate 60 56 L 55 L Pulse Rate [ Bilateral Throughout] Pulse Rate [ From Monitor] Respiratory 29 H 17 22 Rate Respiratory Rate [Bilateral Throughout] Blood Pressure 129/70 136/64 141/76 O2 Sat by Pulse 98 98 99 Oximetry 04/08/19 04/08/19 04/08/19 05:20 05:30 05:40 Temperature Pulse Rate 59 L 56 L 57 L Pulse Rate [ Bilateral Throughout] Pulse Rate [ From Monitor] Respiratory 26 H 26 H 26 H Rate Respiratory Rate [Bilateral Throughout] Blood Pressure 141/76 141/76 136/64 O2 Sat by Pulse 99 100 100 Oximetry 04/08/19 04/08/19 04/08/19 05:50 06:00 06:10 Temperature Pulse Rate 55 L 126 H 111 H Pulse Rate [ Bilateral Throughout] Pulse Rate [ From Monitor] Respiratory 27 H 24 32 H Rate Respiratory Rate [Bilateral Throughout] Blood Pressure 136/64 133/70 133/70 O2 Sat by Pulse 99 100 100 Oximetry 04/08/19 04/08/19 04/08/19 06:20 06:30 06:40 Temperature Pulse Rate 58 L 55 L 59 L Pulse Rate [ Bilateral Throughout] Pulse Rate [ From Monitor] Respiratory 24 25 H 27 H Rate Respiratory Rate [Bilateral Throughout] Blood Pressure 133/70 133/70 133/70 O2 Sat by Pulse 99 100 98 Oximetry 04/08/19 04/08/19 04/08/19 06:50 07:00 07:10 Temperature Pulse Rate 54 L 84 85 Pulse Rate [ Bilateral Throughout] Pulse Rate [ From Monitor] Respiratory 27 H 24 22 Rate Respiratory Rate [Bilateral Throughout] Blood Pressure 133/70 143/69 143/69 O2 Sat by Pulse 100 100 91 Oximetry 04/08/19 04/08/19 04/08/19 07:20 07:30 07:40 Temperature Pulse Rate 60 75 56 L Pulse Rate [ Bilateral Throughout] Pulse Rate [ From Monitor] Respiratory 25 H 27 H 28 H Rate Respiratory Rate [Bilateral Throughout] Blood Pressure 143/69 143/69 133/70 O2 Sat by Pulse 100 98 100 Oximetry 04/08/19 04/08/19 04/08/19 07:50 08:00 08:10 Temperature 98.7 F Pulse Rate 57 L 59 L 58 L Pulse Rate [ Bilateral Throughout] Pulse Rate [ From Monitor] Respiratory 28 H 29 H 26 H Rate Respiratory Rate [Bilateral Throughout] Blood Pressure 133/70 146/74 146/74 O2 Sat by Pulse 100 100 100 Oximetry 04/08/19 04/08/19 04/08/19 09:12 09:17 10:13 Temperature Pulse Rate 72 59 L Pulse Rate [ 60 Bilateral Throughout] Pulse Rate [ From Monitor] Respiratory 29 H Rate Respiratory 26 H Rate [Bilateral Throughout] Blood Pressure 144/70 134/66 O2 Sat by Pulse 100 Oximetry Constitutional: no acute distress, alert, lethargic, other (Resting on BIPAP.) Eyes: non-icteric ENT: oropharynx moist Neck: supple Ascultation: Bilateral: rhonchi Cardiovascular: other (Tachycardia.) Gastrointestinal: normoactive bowel sounds, soft, non-tender Integumentary: normal Extremities: no cyanosis, no edema Neurologic: unable to assess Psychiatric: other (Unable to assess due to mental status.) CBC and BMP: 04/08/19 05:12 04/08/19 05:12 ABG, PT/INR, D-dimer: ABG ABG pH 7.422 pH Units (7.350-7.450) 04/06/19 09:45 ABG pCO2 35.9 mm Hg 04/06/19 09:45 ABG pO2 88.3 mm Hg (80.0-90.0) 04/06/19 09:45 ABG O2 Saturation 97.1 % (95.0-99.0) 04/06/19 09:45 PT/INR, D-dimer PT 14.7 Sec. (12.2-14.9) 04/03/19 16:51 INR 1.13 (0.87-1.13) 04/03/19 16:51 D-Dimer 1629.49 ng/mlDDU (0-234) H 04/03/19 16:51 Abnormal lab findings: Abnormal Labs 04/03/19 04/03/19 04/03/19 15:14 16:51 16:51 WBC Hgb Hct Plt Count Lymph % (Auto) Lymph # Seg Neutrophils % Seg Neuts % (Manual) 82.0 H Lymphocytes % (Manual) 9.0 L Seg Neutrophils # Seg Neutrophils # Man 8.9 H Lymphocytes # (Manual) 1.0 L D-Dimer 1629.49 H ABG pH ABG pO2 ABG HCO3 ABG O2 Saturation ABG Base Excess ABG Hemoglobin Oxyhemoglobin Potassium Carbon Dioxide BUN Creatinine Glucose POC Glucose Lactic Acid Albumin Urine WBC (Auto) 14.0 H 04/03/19 04/03/19 04/03/19 16:51 16:51 18:07 WBC Hgb Hct Plt Count Lymph % (Auto) Lymph # Seg Neutrophils % Seg Neuts % (Manual) Lymphocytes % (Manual) Seg Neutrophils # Seg Neutrophils # Man Lymphocytes # (Manual) D-Dimer ABG pH ABG pO2 ABG HCO3 ABG O2 Saturation ABG Base Excess ABG Hemoglobin Oxyhemoglobin Potassium Carbon Dioxide 20 L BUN Creatinine Glucose 132 H POC Glucose Lactic Acid 3.20 H* 3.00 H* Albumin 3.6 L Urine WBC (Auto) 04/03/19 04/03/19 04/04/19 19:39 20:35 05:14 WBC Hgb Hct Plt Count Lymph % (Auto) Lymph # Seg Neutrophils % Seg Neuts % (Manual) Lymphocytes % (Manual) Seg Neutrophils # Seg Neutrophils # Man Lymphocytes # (Manual) D-Dimer ABG pH ABG pO2 ABG HCO3 ABG O2 Saturation ABG Base Excess ABG Hemoglobin Oxyhemoglobin Potassium Carbon Dioxide BUN Creatinine Glucose POC Glucose Lactic Acid 3.30 H* 3.80 H* 4.80 H* Albumin Urine WBC (Auto) 04/04/19 04/04/19 04/04/19 05:14 05:14 07:06 WBC 14.7 H Hgb 11.1 L Hct 33.9 L D Plt Count 131 L Lymph % (Auto) Lymph # Seg Neutrophils % Seg Neuts % (Manual) 84.0 H Lymphocytes % (Manual) 0 L Seg Neutrophils # Seg Neutrophils # Man 12.3 H Lymphocytes # (Manual) 0.0 L D-Dimer ABG pH ABG pO2 ABG HCO3 ABG O2 Saturation ABG Base Excess ABG Hemoglobin Oxyhemoglobin Potassium Carbon Dioxide 17 L BUN Creatinine Glucose 147 H POC Glucose Lactic Acid 5.10 H* Albumin 3.0 L Urine WBC (Auto) 04/04/19 04/04/19 04/04/19 07:22 08:01 11:24 WBC Hgb Hct Plt Count Lymph % (Auto) Lymph # Seg Neutrophils % Seg Neuts % (Manual) Lymphocytes % (Manual) Seg Neutrophils # Seg Neutrophils # Man Lymphocytes # (Manual) D-Dimer ABG pH ABG pO2 ABG HCO3 ABG O2 Saturation ABG Base Excess ABG Hemoglobin Oxyhemoglobin Potassium Carbon Dioxide BUN Creatinine Glucose POC Glucose 132 H Lactic Acid 5.00 H* 7.60 H* Albumin Urine WBC (Auto) 04/04/19 04/04/19 04/04/19 11:51 13:40 13:44 WBC Hgb Hct Plt Count Lymph % (Auto) Lymph # Seg Neutrophils % Seg Neuts % (Manual) Lymphocytes % (Manual) Seg Neutrophils # Seg Neutrophils # Man Lymphocytes # (Manual) D-Dimer ABG pH 7.327 L ABG pO2 65.3 L ABG HCO3 18.2 L ABG O2 Saturation 92.8 L ABG Base Excess -7.1 L ABG Hemoglobin 11.6 L Oxyhemoglobin 91.0 L Potassium Carbon Dioxide BUN Creatinine Glucose POC Glucose 168 H Lactic Acid 6.20 H* Albumin Urine WBC (Auto) 04/04/19 04/04/19 04/04/19 14:49 15:54 19:50 WBC Hgb Hct Plt Count Lymph % (Auto) Lymph # Seg Neutrophils % Seg Neuts % (Manual) Lymphocytes % (Manual) Seg Neutrophils # Seg Neutrophils # Man Lymphocytes # (Manual) D-Dimer ABG pH ABG pO2 ABG HCO3 ABG O2 Saturation ABG Base Excess ABG Hemoglobin Oxyhemoglobin Potassium Carbon Dioxide BUN Creatinine Glucose POC Glucose Lactic Acid 4.70 H* 3.70 H* 3.50 H* Albumin Urine WBC (Auto) 04/04/19 04/04/19 04/04/19 21:53 22:24 Unknown WBC Hgb Hct Plt Count Lymph % (Auto) Lymph # Seg Neutrophils % Seg Neuts % (Manual) Lymphocytes % (Manual) Seg Neutrophils # Seg Neutrophils # Man Lymphocytes # (Manual) D-Dimer ABG pH 7.338 L ABG pO2 55.2 L ABG HCO3 18.0 L ABG O2 Saturation 88.3 L ABG Base Excess -7.0 L ABG Hemoglobin 11.1 L Oxyhemoglobin 86.5 L Potassium Carbon Dioxide BUN Creatinine Glucose POC Glucose 160 H Lactic Acid 3.70 H* Albumin Urine WBC (Auto) 04/05/19 04/05/19 04/05/19 04:29 04:29 07:39 WBC 12.6 H Hgb 11.6 L Hct 35.3 L Plt Count 133 L Lymph % (Auto) Lymph # Seg Neutrophils % Seg Neuts % (Manual) Lymphocytes % (Manual) Seg Neutrophils # Seg Neutrophils # Man Lymphocytes # (Manual) D-Dimer ABG pH ABG pO2 ABG HCO3 ABG O2 Saturation ABG Base Excess ABG Hemoglobin Oxyhemoglobin Potassium Carbon Dioxide 21 L BUN Creatinine Glucose 158 H POC Glucose Lactic Acid 2.30 H* Albumin Urine WBC (Auto) 04/05/19 04/05/19 04/05/19 09:59 10:15 12:43 WBC Hgb Hct Plt Count Lymph % (Auto) Lymph # Seg Neutrophils % Seg Neuts % (Manual) Lymphocytes % (Manual) Seg Neutrophils # Seg Neutrophils # Man Lymphocytes # (Manual) D-Dimer ABG pH ABG pO2 ABG HCO3 ABG O2 Saturation ABG Base Excess ABG Hemoglobin Oxyhemoglobin Potassium Carbon Dioxide BUN Creatinine Glucose POC Glucose 152 H 218 H Lactic Acid 2.60 H* Albumin Urine WBC (Auto) 04/05/19 04/05/19 04/05/19 15:13 16:33 17:26 WBC Hgb Hct Plt Count Lymph % (Auto) Lymph # Seg Neutrophils % Seg Neuts % (Manual) Lymphocytes % (Manual) Seg Neutrophils # Seg Neutrophils # Man Lymphocytes # (Manual) D-Dimer ABG pH ABG pO2 ABG HCO3 ABG O2 Saturation ABG Base Excess ABG Hemoglobin Oxyhemoglobin Potassium Carbon Dioxide BUN Creatinine Glucose POC Glucose 128 H Lactic Acid 3.40 H* 3.70 H* Albumin Urine WBC (Auto) 04/05/19 04/06/19 04/06/19 19:06 00:13 04:06 WBC 11.5 H Hgb 11.6 L Hct 35.0 L Plt Count 135 L Lymph % (Auto) Lymph # Seg Neutrophils % Seg Neuts % (Manual) Lymphocytes % (Manual) Seg Neutrophils # Seg Neutrophils # Man Lymphocytes # (Manual) D-Dimer ABG pH ABG pO2 ABG HCO3 ABG O2 Saturation ABG Base Excess ABG Hemoglobin Oxyhemoglobin Potassium Carbon Dioxide BUN Creatinine Glucose POC Glucose 173 H Lactic Acid 2.90 H* Albumin Urine WBC (Auto) 04/06/19 04/06/19 04/06/19 04:06 05:52 09:45 WBC Hgb Hct Plt Count Lymph % (Auto) Lymph # Seg Neutrophils % Seg Neuts % (Manual) Lymphocytes % (Manual) Seg Neutrophils # Seg Neutrophils # Man Lymphocytes # (Manual) D-Dimer ABG pH ABG pO2 ABG HCO3 ABG O2 Saturation ABG Base Excess ABG Hemoglobin 12.3 L Oxyhemoglobin Potassium 3.4 L Carbon Dioxide 21 L BUN Creatinine Glucose 134 H POC Glucose 119 H Lactic Acid Albumin Urine WBC (Auto) 04/06/19 04/06/19 04/07/19 12:03 18:15 00:24 WBC Hgb Hct Plt Count Lymph % (Auto) Lymph # Seg Neutrophils % Seg Neuts % (Manual) Lymphocytes % (Manual) Seg Neutrophils # Seg Neutrophils # Man Lymphocytes # (Manual) D-Dimer ABG pH ABG pO2 ABG HCO3 ABG O2 Saturation ABG Base Excess ABG Hemoglobin Oxyhemoglobin Potassium Carbon Dioxide BUN Creatinine Glucose POC Glucose 145 H 127 H 170 H Lactic Acid Albumin Urine WBC (Auto) 04/07/19 04/07/19 04/07/19 04:30 04:30 05:38 WBC Hgb 11.1 L Hct 33.3 L Plt Count 116 L Lymph % (Auto) Lymph # Seg Neutrophils % Seg Neuts % (Manual) Lymphocytes % (Manual) Seg Neutrophils # Seg Neutrophils # Man Lymphocytes # (Manual) D-Dimer ABG pH ABG pO2 ABG HCO3 ABG O2 Saturation ABG Base Excess ABG Hemoglobin Oxyhemoglobin Potassium 3.0 L Carbon Dioxide 20 L BUN Creatinine 0.7 L Glucose 139 H POC Glucose 124 H Lactic Acid Albumin Urine WBC (Auto) 04/07/19 04/07/19 04/07/19 12:27 18:25 23:58 WBC Hgb Hct Plt Count Lymph % (Auto) Lymph # Seg Neutrophils % Seg Neuts % (Manual) Lymphocytes % (Manual) Seg Neutrophils # Seg Neutrophils # Man Lymphocytes # (Manual) D-Dimer ABG pH ABG pO2 ABG HCO3 ABG O2 Saturation ABG Base Excess ABG Hemoglobin Oxyhemoglobin Potassium Carbon Dioxide BUN Creatinine Glucose POC Glucose 193 H 127 H 122 H Lactic Acid Albumin Urine WBC (Auto) 04/08/19 04/08/19 04/08/19 05:12 05:12 05:25 WBC Hgb 11.1 L Hct 33.8 L Plt Count 90 L Lymph % (Auto) 6.1 L Lymph # 0.6 L Seg Neutrophils % 89.4 H Seg Neuts % (Manual) Lymphocytes % (Manual) Seg Neutrophils # 8.1 H Seg Neutrophils # Man Lymphocytes # (Manual) D-Dimer ABG pH ABG pO2 ABG HCO3 ABG O2 Saturation ABG Base Excess ABG Hemoglobin Oxyhemoglobin Potassium Carbon Dioxide 21 L BUN 21 H Creatinine 0.7 L Glucose 122 H POC Glucose 129 H Lactic Acid Albumin Urine WBC (Auto) 04/08/19 12:09 WBC Hgb Hct Plt Count Lymph % (Auto) Lymph # Seg Neutrophils % Seg Neuts % (Manual) Lymphocytes % (Manual) Seg Neutrophils # Seg Neutrophils # Man Lymphocytes # (Manual) D-Dimer ABG pH ABG pO2 ABG HCO3 ABG O2 Saturation ABG Base Excess ABG Hemoglobin Oxyhemoglobin Potassium Carbon Dioxide BUN Creatinine Glucose POC Glucose 150 H Lactic Acid Albumin Urine WBC (Auto)
--- NOTE | 2019-04-08 13:12 | Progress Note ---
Assessment and Plan Cultures: Blood cultures 04/02/2019 no growth so far. Urine culture 10,000-100,000 mixed Influenza PCR: Negative Assessment: 84 year old male with history of hypertension, dementia, CVA, well-known to our ID service seen back in March 2018 due to necrotizing pneumonia/possible empyema from aspiration in Mar 2018, who was transferred to [facility] for VATS for empyema not amenable to CT-guided drainage, admitted on 04/03/2019 due to 2-day history of worsening shortness of breath, fever and AMS: #Severe sepsis: Improving, lactate improving, hypoxia and RADHA; source bilateral pneumonia. UA with only 14 white blood cells, negative leukocyte esterase, doubt UTI. #Bilateral multifocal pneumonia: Likely hospital-acquired pneumonia. Influenza negative. #Acute encephalopathy: Some improvement. #RADHA: likely due to sepsis, better. #Acute respiratory failure: Currently on BIPAP. Recommendations: Continue IV cefepime and linezolid given response, tentatively plan for a total of 5-7 days. Today is day 4 Jaymie Blanco MD, FACP [facility], [place], [facility] ([facility] C: [phone] O: [phone] F: [phone] Subjective Date of service: 04/08/19 Principal diagnosis: pneumonia Interval history: Patient afebrile. Currently on BiPAP. Desaturated yesterday per RN. Did not pass swallow eval. Objective - Exam Narrative Exam: Physical Exam: Constitutional: awake, alert, on BiPAP Head, Ears, Nose: Normocephalic, atraumatic. External ears, nose normal Eyes: Conjunctivae/corneas clear. No icterus. No ptosis. Neck: Supple, no meningeal signs Oral: BiPAP, unable to examine Cardiovascular: S1, S2 normal. Respiratory: few rhonchi b/l GI: Soft, non-tender; bowel sounds normal. No peritoneal signs Musculoskeletal: No pedal edema, no cyanosis. Skin: No rash or abscess Hem/Lymphatic: No palpable cervical or supraclavicular nodes. No lymphangitis Psych: no agitation Neurological: Awake, alert. - Constitutional Vitals: Vital Signs Temp Pulse Resp BP Pulse Ox 98.7 F 59 L 26 H 134/66 100 04/08/19 08:00 04/08/19 10:13 04/08/19 09:17 04/08/19 10:13 04/08/19 09:12 Temperature -Last 24 Hours Temperature 98.7 F Temperature 97.8 F Temperature 97.6 F Temperature 98.3 F Temperature 97.7 F - Labs CBC & Chem 7: 04/08/19 05:12 04/08/19 05:12 Labs: Abnormal lab results 04/07/19 04/07/19 04/07/19 Range/Units 12:27 18:25 23:58 Hgb (11.8-15.2) gm/dl Hct (35.5-45.6) % Plt Count (140-440) K/mm3 Lymph % (Auto) (13.4-35.0) % Lymph # (1.2-5.4) K/mm3 Seg Neutrophils % (40.0-70.0) % Seg Neutrophils # (1.8-7.7) K/mm3 Carbon Dioxide (22-30) mmol/L BUN (9-20) mg/dL Creatinine (0.8-1.5) mg/dL Glucose (75-100) mg/dL POC Glucose 193 H 127 H 122 H (70-105) 04/08/19 04/08/19 04/08/19 Range/Units 05:12 05:12 05:25 Hgb 11.1 L (11.8-15.2) gm/dl Hct 33.8 L (35.5-45.6) % Plt Count 90 L (140-440) K/mm3 Lymph % (Auto) 6.1 L (13.4-35.0) % Lymph # 0.6 L (1.2-5.4) K/mm3 Seg Neutrophils % 89.4 H (40.0-70.0) % Seg Neutrophils # 8.1 H (1.8-7.7) K/mm3 Carbon Dioxide 21 L (22-30) mmol/L BUN 21 H (9-20) mg/dL Creatinine 0.7 L (0.8-1.5) mg/dL Glucose 122 H (75-100) mg/dL POC Glucose 129 H (70-105) 04/08/19 Range/Units 12:09 Hgb (11.8-15.2) gm/dl Hct (35.5-45.6) % Plt Count (140-440) K/mm3 Lymph % (Auto) (13.4-35.0) % Lymph # (1.2-5.4) K/mm3 Seg Neutrophils % (40.0-70.0) % Seg Neutrophils # (1.8-7.7) K/mm3 Carbon Dioxide (22-30) mmol/L BUN (9-20) mg/dL Creatinine (0.8-1.5) mg/dL Glucose (75-100) mg/dL POC Glucose 150 H (70-105)
--- NOTE | 2019-04-08 16:14 | Discharge Summary ---
Providers - Providers Date of Admission: 04/03/19 19:32 Attending physician: LATONIA HIGHTOWRE MD 04/04/19 06:54 Physical Therapy Evaluation and Treat [CONS] Routine Comment: Reason For Exam: L hemiplegia 04/04/19 12:05 Consult to Physician [CONS] Routine Comment: spoke to dr. torres/ meredith Consulting Provider: PIERRE RAY Physician Instructions: Reason For Exam: pna 04/04/19 12:26 Consult to Physician [CONS] Routine Comment: called office/meredith Consulting Provider: DAVEY MURILLO Physician Instructions: Reason For Exam: sepsis possible empyema 04/04/19 13:11 Speech Therapy Evaluation and Treat [CONS] Urgent Reason For Exam: failed swallow 04/04/19 13:58 Speech Therapy Evaluation and Treat [CONS] Routine Reason For Exam: suspect aspiration Primary care physician: JESSICA GILLETTE Hospitalization Reason for admission: Pneumonia Condition: Stable Hospital course: Patient is an 84-year-old -[place] female shelter resident at [facility] admitted following a complaint of shortness of breath with hypoxia oxygen saturation prior to arrival of EMS was 85% on room air briefly and improved. Was noted to have productive cough of yellowish sputum initial imaging study including CT a of the chest was negative for pulmonary embolism but did demonstrate some patchy infiltrates concerning for pneumonia patient was also noted to be tachycardic and with lactic acidosis. Has been admitted for management of healthcare associated pneumonia possible gram-negative. Review of previous admission shows that the patient in March 2001 was transferred to [facility] due to empyema not amenable to CT-guided drainage. I will try to call the daughter to get some information as to the outcome of that transfer have not been able to. 04/04: Patient's lactic acidosis continues to increase despite aggressive therapy. Will need to see a downward trend to ensure resolution of systemic inflammatory response syndrome. And ensure patient is not developing full-blown sepsis. Patient has increased respiratory rate and is hypoxic with a saturation in the 80s will transfer to stepdown unit and also obtain pulmonary and infectious disease consultation. We will continue inpatient care at this time : Patient failed swallow evaluation significantly. It appears that he possibly has been aspirating for some time. According to the daughter who I spoke with this morning the patient did not have any surgery while at [facility] was only treated for pneumonia and discharged. I have advised her that he may require mechanical ventilation support if he does not improve in the next 24 hours. She is aware. Although she does not want multiple aggressive measures she is okay with patient being intubated at this time. If the need be. ID evaluated the patient changes and antibiotics were made, patient is on cefepime and Zyvox azithromycin was discontinued also patient is on Tamiflu influenza has been ruled out Tamiflu likely will be discontinued will defer to ID. Will keep n.p.o. and start patient on D5. With Accu-Cheks and before meals and at bedtime During the course of hospitalization patient was seen by ID and started on empiric antibiotic treatment. For bilateral multifocal pneumonia likely hospital-acquired influenza test was negative. Patient was also noted to have severe sepsis which was present on admission this felt that the source is bilateral pneumonia and doubt urinary tract infection as source. He continues on IV cefepime and linezolid with some response noted tentatively to complete 7 days of therapy for which today is day 5. He has been transferred to a long- term acute care facility for completion of antibiotics and further monitoring. Unfortunately he has remained on BiPAP. He also has been unable to tolerate p.o. failed his swallow evaluation. Pulmonary believes that he has significant pulmonary fibrosis again initially planned VATS at [facility] did not happen family reported that the patient was treated for pneumonia and discharged food down and records are not available to me at this time. 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 GENERAL: The patient is chronically ill-appearing, with increased shortness of breath intermittent persistent cough on BiPAP vital signs as documented. HEAD: No signs of head trauma. EYES: Pupils are equal. Extraocular motions intact. EARS: Hearing grossly intact. MOUTH: Oropharynx is normal. NECK: No adenopathy, no JVD. CHEST: Chest with rhonchi breath sounds bilaterally. No wheezes, rales, or rhonchi. CARDIAC: Tachycardia, rate and rhythm. S1 and S2, without murmurs, gallops, or rubs. VASCULAR: Trace bilateral pitting edema. Peripheral pulses normal and equal in all extremities. ABDOMEN: Soft, non tender and non distended. No rebound or guarding, and no masses palpated. Bowel Sounds normal. MUSCULOSKELETAL: Gait not assessed good range of motion of all major joints. Extremities without clubbing,. Trace bilateral pitting. NEUROLOGIC EXAM: Alert and oriented x 2 No focal sensory or strength deficits . Speech normal. Follows commands. PSYCHIATRIC: Mood normal. SKIN: detial exam as documented in skin assessment - Constitutional Vitals: Temp Pulse Resp BP Pulse Ox 97.9 F 63 26 H 133/61 96 04/08/19 12:00 04/08/19 14:26 04/08/19 14:26 04/08/19 14:24 04/08/19 14:24 Plan Activity: advance as tolerated, fall precautions Diet: other (NPO except meds till ervaluated by speech) Special Instructions: record daily BP diary Durable Medical Equipment Needed Upon Discharge: other (BIPAP QHS) Additional Instructions: Continue IV cefepime and linezolid given response, tentatively plan for a total of 5-7 days. Today is day 4 Follow up with: JESSICA GILLETTE MD [Primary Care Provider] - 3-5 Days LINETTE ZAPATA MD [Staff Physician] - 7 Days
[2019-04-08 19:52] VITALS: BP 139/69
[2019-04-09] MEDS ORDERED: ERGOCALCIFEROL (VIT D2) 50,000 UNIT CAP PO SCH (10:00)
[2019-04-10] MEDS ORDERED: VITAMIN D3 50000 UNIT PO SCH (10:00)
== END 2019-04-08 19:55 | DRG 871 ==
LOC: ED 16:03 → 2B-ACE 19:32 → IMCU 04-04 12:50
PROVIDERS: ADMIT Internal Medicine; ATTEND Internal Medicine
PROC: 4A033R1 Measurement of Arterial Saturation, Peripheral, Percutaneous Approach (ICD-10-PCS; principal; 2019-04-04)
PROC: 5A09357 Assistance with Respiratory Ventilation, Less than 24 Consecutive Hours, Continuous Positive Airway Pressure (ICD-10-PCS; 2019-04-04)
PROC: 5A09357 Assistance with Respiratory Ventilation, Less than 24 Consecutive Hours, Continuous Positive Airway Pressure (ICD-10-PCS; 2019-04-05)
PROC: 5A09357 Assistance with Respiratory Ventilation, Less than 24 Consecutive Hours, Continuous Positive Airway Pressure (ICD-10-PCS; 2019-04-06)
PROC: 5A09357 Assistance with Respiratory Ventilation, Less than 24 Consecutive Hours, Continuous Positive Airway Pressure (ICD-10-PCS; 2019-04-07)
PROC: 5A09357 Assistance with Respiratory Ventilation, Less than 24 Consecutive Hours, Continuous Positive Airway Pressure (ICD-10-PCS; 2019-04-08)
DX: A41.9 Sepsis, unspecified organism (principal); J15.6 Pneumonia due to other Gram-negative bacteria; J96.01 Acute respiratory failure with hypoxia; G93.41 Metabolic encephalopathy; E43 Unspecified severe protein-calorie malnutrition; J69.0 Pneumonitis due to inhalation of food and vomit; E87.2 Acidosis; J44.1 Chronic obstructive pulmonary disease with (acute) exacerbation; I69.354 Hemiplegia and hemiparesis following cerebral infarction affecting left non-dominant side; N17.9 Acute kidney failure, unspecified; J44.0 Chronic obstructive pulmonary disease with (acute) lower respiratory infection; G30.9 Alzheimer's disease, unspecified; F02.80 Dementia in other diseases classified elsewhere, unspecified severity, without behavioral disturbance, psychotic disturbance, mood disturbance, and anxiety; R65.20 Severe sepsis without septic shock; I10 Essential (primary) hypertension; D64.9 Anemia, unspecified; J84.10 Pulmonary fibrosis, unspecified; E78.2 Mixed hyperlipidemia; E11.65 Type 2 diabetes mellitus with hyperglycemia; Z68.25 Body mass index [BMI] 25.0-25.9, adult; Z82.49 Family history of ischemic heart disease and other diseases of the circulatory system; Z79.899 Other long term (current) drug therapy
CPT/HCPCS: 36415; 36600; 71045; 71275; 76604; 80048; 80053; 81001; 82140; 82803; 82805; 82962; 83036; 83880; 84145; 84484; 85007; 85025; 85027; 85379; 85610; 87040; 87086; 87400; 87641; 93005; 93010; 93970; 94640; 94660; 94760; G0378; 87502; A9270-GY; J0456; J0692; J0696; J1170; J1644; J1815; J1956; J2020; J2920; J7030; J7040; J7050; J7070; Q9967